=== PATIENT | male | born 1960 | race Caucasian/White ===

== ENCOUNTER 2018-02-07 17:12 | Inpatient (IN) | payer OTHER ==
--- NOTE | 2018-02-07 17:34 | PDOC ---
History of Present Illness - General Chief Complaint: Chest Pain Stated Complaint: RESPIRATORY Time Seen by Provider: 02/07/18 17:23 History Source: Patient - History of Present Illness Initial Comments: 02/07/18 17:34 57 year old male with a PMH of NIDDM presents to our ED c/o worsening 6 week h/ o chest pain. Patient states chest pain is substernal, pressure like, 10/10, worse on exertion, non-radiating and associated with dyspnea and lightheadedness. Denies any previous similar pain or prior cardiac evaluation including stress testing or echocardiogram. Patient states he take Glipizide and Metformin for his DM and he last measured his sugar at home a few weeks previous at which time it was in the 140's. ROS positive for productive cough with yellowish sputum. Patient denies any abdominal pain, nausea/vomiting, diarrhea/constipation, fevers/chills, recent travel and notes sick contact of recently with viral URI. Patient's , Renetta Hamilton ([phone]) NKDA Surgical: B/L Foot surgery Social: lifetime non-smokers, denies alcohol, denies recreational drugs PMD: Dr. Ramon Past History - Past Medical History Allergies/Adverse Reactions: Allergies Allergy/AdvReac Type Severity Reaction Status Date / Time No Known Allergies Allergy Verified 02/07/18 17:35 Home Medications: Ambulatory Orders Diltiazem Cd [Cardizem Cd -] 240 mg PO DAILY 02/07/18 Glipizide 5 mg PO DAILY 02/07/18 metFORMIN HCL [Glucophage -] 500 mg PO BID 02/07/18 Review of Systems - Review of Systems Constitutional: No: Chills, Fever HEENTM: No: Recent change in vision Respiratory: Yes: SOB with Exertion. No: Cough, Orthopnea Cardiac (ROS): Yes: Chest Pain, Lightheadedness, Palpitations. No: Syncope ABD/GI: No: Constipated, Diarrhea, Nausea, Vomiting : No: Burning, Dysuria *Physical Exam - Physical Exam Comments: 02/07/18 18:42 GENERAL: Awake, alert, labored respirations, diaphoretic HEAD: No signs of trauma EYES: PERRLA, EOMI, sclera anicteric, conjunctiva clear ENT: Auricles normal inspection, hearing grossly normal, nares patent, oropharynx clear without exudates. Moist mucosa NECK: Nontender, no stepoffs, Normal ROM, supple, no lymphadenopathy, JVD, or masses LUNGS: Breath sounds equal, clear to auscultation bilaterally. No wheezes, and no crackles HEART: Regular rate and rhythm, normal S1 and S2, no murmurs, rubs or gallops ABDOMEN: Soft, nontender, normoactive bowel sounds. No guarding, no rebound. No masses EXTREMITIES: Normal range of motion, no edema. No clubbing or cyanosis. No cords, erythema, or tenderness ED Treatment Course - LABORATORY CBC & Chemistry Diagram: 02/07/18 17:40 02/07/18 21:45 Medical Decision Making - Medical Decision Making 02/07/18 17:35 57 year old male presents with chest pain -- at presentation tachypneic (RR 30's ) and hypertensive (BP 165/109) --> adult sepsis initiated + BIPPAP. ABG pending. 02/07/18 18:01 Ph 7.1, HCO3 -- SiSx likely 2/2 to DKA. Await CMP (K+) prior to starting insulin 02/07/18 18:03 WBC 35.2 --> will start broad spectrum abx Wet read of CXR shows L sided infiltrate with R sided PVC. 02/07/18 18:17 ABG shows HCO3, pH 7.1 K+ 5.7 Insulin Drip 9 units/hour + 9 unit bolus with repeat K+ in 2 hours, Q1 BS checks , VBG in 2 hours 02/07/18 19:00 Patient continues to breathe on BIPAP . HR 110, RR 28, BP 160/82. Case d /w ICU resident, awaiting call back from Dr. Cabrales (library circulation department chief for Dr. Crisostomo) 02/07/18 19:14 Dr. Cabrales accepts for ICU admission. Hospitalist (covering for patient's PMD, Dr. Ramon) paged for admission. Patient's @ bedside, notes patient recently started on Methylpredisone (4 day course) for unspecified respiratory illness. 02/07/18 19:34 Case d/w LAUREL Manning, agrees with POC, admit under Dr. Herrera. Patient's @ bedside, counseled on POC. 02/07/18 20:03 Patient transferred to ICU. *DC/Admit/Observation/Transfer Diagnosis at time of Disposition: Diabetic ketoacidosis Qualifiers: Diabetes mellitus type: type 2 Diabetes mellitus complication detail: without coma Qualified Code(s): E11.10 - Type 2 diabetes mellitus with ketoacidosis without coma - Discharge Dispostion Condition at time of disposition: Fair Admit: Yes - Referrals - Patient Instructions - Post Discharge Activity
[2018-02-07 17:48] LABS: HEMATOCRIT 46.7 % (35.4-49); HEMOGLOBIN 15.2 GM/dL (11.7-16.9); MCH 31.5 pg (25.7-33.7); MCHC 32.5 g/dl (32.0-35.9); MEAN PLT VOLUME 9.6 fl (7.5-11.1); PLATELET COUNT 507 K/MM3 (134-434); RBC 4.81 M/mm3 (4.00-5.60); RDW 14.6 % (11.9-15.9)
[2018-02-07 17:51] LABS: ADD RBC MORPHOLOGY YES
[2018-02-07 17:57] LABS: VENOUS PO2 35.1 mmHg (28-48)
[2018-02-07 17:58] LABS: VENOUS PH 7.13 (7.32-7.42)
[2018-02-07] MEDS ORDERED: PIPERACILLIN/TAZOB 2.25 GM 2.25 GM/50 ML BAG IVPB ONE (18:02)
[2018-02-07] MEDS ORDERED: VANCOMYCIN 1,000 MG in DEXTROSE 5%-WATER - 250 ML IVPB ONE (18:02)
[2018-02-07 18:11] LABS: ARTERIAL BLD GAS O2 SATURATION 94.8 % (90-98.9); ARTERIAL BLOOD GAS PO2 97.5 mmHg (80-100)
[2018-02-07 18:12] LABS: ALLENS TEST POSITIVE
[2018-02-07 18:14] LABS: ARTERIAL BLOOD GAS PCO2 10.2 mmHg (35-45)
[2018-02-07 18:15] LABS: ARTERIAL BLOOD GAS pH 7.19 (7.35-7.45)
[2018-02-07] MEDS ORDERED: PIPERACILLIN/TAZOBACTAM 2.25 GM VIAL IVPB ONE ×2 (18:26→19:27)
[2018-02-07] MEDS ORDERED: VANCOMYCIN 1 GRAM (PRE-DOCKED) 1,000 MG/250 ML BAG IVPB ONE (18:27)
[2018-02-07 18:28] LABS: ALBUMIN 3.2 g/dl (3.4-5.0); ANION GAP 33 (8-16); BLOOD UREA NITROGEN 36 mg/dL (7-18); CALCIUM 9.5 mg/dL (8.5-10.1); CHLORIDE 90 mmol/L (98-107); CO2 8 mmol/L (21-32); CREATININE 1.8 mg/dL (0.7-1.3); POTASSIUM 5.7 mmol/L (3.5-5.1); SGOT/AST 23 U/L (15-37); SGPT/ALT 35 U/L (12-78); SODIUM 131 mmol/L (136-145)
[2018-02-07 18:29] LABS: ALK PHOS 181 U/L (45-117); BILIRUBIN,TOTAL 1.4 mg/dL (0.2-1.0); TOT PROT 8.7 g/dl (6.4-8.2)
[2018-02-07 18:36] LABS: WHITE BLOOD COUNT 32.5 K/mm3 (4.0-10.0)
[2018-02-07 18:37] LABS: PLATELET ESTIMATE ADEQUATE
[2018-02-07 18:47] LABS: GLUCOSE,RANDOM 696 mg/dL (74-106)
[2018-02-07] MEDS ORDERED: SODIUM CHLORIDE 1,000 ML IV STA ×2 (18:52→18:54)
[2018-02-07] MEDS ORDERED: INSULIN REGULAR HUMAN 100 UNITS/ML *VIAL IVPUSH ONE (18:53)
[2018-02-07 18:55] LABS: MAGNESIUM 2.8 mg/dL (1.8-2.4); PHOSPHOROUS 6.7 mg/dL (2.5-4.9)
[2018-02-07 18:56] LABS: INR 1.32 (0.82-1.09); PROTHROMBIN TIME (PATIENT) 14.9 SEC (9.98-11.88)
[2018-02-07] MEDS ORDERED: PIPERACILLIN/TAZOB 2.25 GM/50 ML PREMIX BAG IVPB ONE (18:56)
[2018-02-07] MEDS ORDERED: PIPERACILLIN/TAZOB 4.5 GM/100 ML PREMIX BAG IVPB ONE (18:56)
[2018-02-07 18:59] LABS: URINE APPEARANCE CLEAR; URINE BILIRUBIN NEGATIVE (<2.0 mg/dL); URINE COLOR LTYELLOW; URINE GLUCOSE (UA) 3+ (NEGATIVE); URINE KETONE 2+ (NEGATIVE); URINE LEUK ESTERASE NEGATIVE (NEGATIVE); URINE NITRITE NEGATIVE (NEGATIVE); URINE UROBILINOGEN NEGATIVE mg/dL (0.2-1.0)
[2018-02-07 18:59] LABS: ACTIVATED PTT 35.5 SECONDS (26.9-34.4)
[2018-02-07] MEDS ORDERED: INSULIN REGULAR 100 UNITS in SODIUM CHLORIDE 99 ML IVPB SCH (19:00)
[2018-02-07 19:09] LABS: URINE PROTEIN 1+ (NEGATIVE)
[2018-02-07] MEDS ORDERED: INSULIN REGULAR HUMAN 100 UNITS/ML *VIAL ONE (19:17)
--- NOTE | 2018-02-07 19:24 | PDOC ---
Attending Attestation - Resident Resident Name: RenettaMavis - ED Attending Attestation I have performed the following: I have examined & evaluated the patient, The case was reviewed & discussed with the resident, I agree w/resident's findings & plan, Exceptions are as noted - HPI HPI: 02/07/18 19:20 57-year-old male with a history of [id number] diabetes on metformin and glipizide presents to the emergency Department with 6 weeks of progressive diffuse chest pain associated with 3 days of shortness of breath. Denies fevers/ chills. Fingerstick on arrival to the emergency department critically high. - Physicial Exam PE: 02/07/18 19:21 GENERAL: Awake, alert, and fully oriented, in moderate resp distress HEAD: No signs of trauma EYES: PERRLA, EOMI, sclera anicteric, conjunctiva clear ENT: Auricles normal inspection, hearing grossly normal, nares patent, oropharynx clear without exudates. Moist mucosa NECK: Normal ROM, supple, no lymphadenopathy, JVD, or masses LUNGS:diminshed BS on the R, tachypneic to 30 HEART: tachy but regular to 110, normal S1 and S2, no murmurs, rubs or gallops ABDOMEN: Soft, nontender, normoactive bowel sounds. No guarding, no rebound. No masses EXTREMITIES: Normal range of motion, no edema. No clubbing or cyanosis. No cords, erythema, or tenderness NEUROLOGICAL: Normal speech, cranial nerves intact, negative pronator drift, 5/ 5 strength in all 4 extremities, normal sensation to light touch in all 4 extremities, normal cerebellar exam, normal gait, normal reflexes and tone SKIN: Warm, Dry, normal turgor, no rashes or lesions noted. - Medical Decision Making 02/07/18 19:22 57-year-old male presents the emergency department in DKA. Given rest for distress, was placed on BiPAP for rest or support. Glucose 696 with a anion gap of 33 and 3+ acetone. PH 7.1 on ABG. Insulin drip started at 9 units per hour within 9 unit bolus. Potassium 5.7, mag and phosphorus also at elevated levels thus no need for repletion at this time. Patient is on second liter of normal saline. Patient has been accepted to ICU, we are calling the hospitalist for admission at this time.
[2018-02-07] MEDS ORDERED: SODIUM CHLORIDE 1,000 ML IV SCH ×4 (19:44→20:49)
--- NOTE | 2018-02-07 19:51 | PN ---
Progress Note (short form) - Note Progress Note: ICU Resident Pt seen and examined in ED. Briefly, 57yo M with history of NIDDM on glipizide and metformin presented to the ED for 6wk history of chest discomfort ( substernal pressure with worsening on exertion) and SOB alongside lightheadedness. Pt's reports having the flu/a viral illness last week and then her started to develop symptoms of a nonproductive cough. Pt reports only hypertension as his cardiac history and has not ever had any stress testing or echocardiogram. During his ED stay pt was found to be kussmaul breathing and was found to have a glucose lvl of 678. ABG revealed 7.12 pH. CMP resulted in 5.7 K, 8 HCO3, and an anion gap of 33. Pt's DKA was confirmed with 2+ ketones in the urine. Pt wsa bolused 9 units of novolog and started on insulin gtt at 0.1U/kg/hr. In addition pt was found to have a WBC of 35 and on CXR a questionable infiltrative process is seen Brief PE: Gen: Mild distress, on bipap, awake, alert and oriented x3, HEENT: EOMI, CRISSY, sclera nonicteric, dry mucosa, no JVD Lungs: Coarse breath sounds anteriorly b/l (possibility of transmitted upper resp sounds), no overt wheezing, no rales Cardiac: Tachycardic regular rhythm no murmurs appreciated Abdominal: Soft, normoactive BS, mild diffuse tenderness, no rebound, no guarding, no ecchymotic areas EXT: No edema noted, DP pulses strong and 2+, warm, cap refill <2 A/P DKA Lactic acidosis r/o CAPna Hx HTN --insulin gtt 0.1U/kg/hr --bolused 9 units in ED --Goal = anion gap closed; if glucose <250 can start D5 with IVF, if glucose 50-70 can possibly use D10 until gap closed --NPO for now --BGM q2h --BMP q4h --NS@150cc/hr --routine labs AM --CXR in AM --Vanc/Zosyn given in ED --Continue Zosyn overnight --BCx and UCx pending --Flu swab pending --Maintain SpO2 >90%; can most likely use NC at this point --Monitor BP Toney Bashir, DO - IM PGY-1
--- NOTE | 2018-02-07 20:19 | HP ---
CHIEF COMPLAINT: Chest pain PCP: Tristen HISTORY OF PRESENT ILLNESS: This is a 57 year old male with a past medical history of NIDDM and HTN who presented to the ED with a 2 week h/o chest pain. He also reports dyspnea and lightheadedness. Pt reports viral like illness approximately 2 weeks ago with subjective fever, chills, cough and has not been feeling well since. Pt with poor po intake over past few days with almost no intake x 2 days. Also reports h /o chronic dry cough, luis at work x 2-3 years. Pt currently on BiPAP ER course was notable for: (1) Gluc 696, 3+ acetone, pH 7.19 (2) WBC 32.5 (3) CXR with haziness right upper/mid Recent Travel: pt denies PAST MEDICAL HISTORY: HTN, NIDDM PAST SURGICAL HISTORY: foot surgery Social History: works in a bakery Smoking: pt denies Alcohol: occasional Drugs: pt denies Allergies No Known Allergies Allergy (Verified 02/07/18 17:35) HOME MEDICATIONS: 3 Medication Instructions Recorded Diltiazem Cd [Cardizem Cd -] 240 mg PO DAILY 02/07/18 Glipizide 5 mg PO DAILY 02/07/18 metFORMIN HCL [Glucophage -] 500 mg PO BID 02/07/18 REVIEW OF SYSTEMS CONSTITUTIONAL: Absent: fever, chills, diaphoresis, generalized weakness, malaise, loss of appetite, weight change HEENT: Absent: rhinorrhea, nasal congestion, throat pain, throat swelling, difficulty swallowing, mouth swelling, ear pain, eye pain, visual changes CARDIOVASCULAR: Present: chest pain, lightheadedness Absent: syncope, palpitations, irregular heart rate, peripheral edema RESPIRATORY: Present: cough, shortness of breath Absent: dyspnea with exertion, orthopnea, wheezing, stridor, hemoptysis GASTROINTESTINAL: Absent: abdominal pain, abdominal distension, nausea, vomiting, diarrhea, constipation, melena, hematochezia GENITOURINARY: Absent: dysuria, frequency, urgency, hesitancy, hematuria, flank pain, genital pain MUSCULOSKELETAL: Absent: myalgia, arthralgia, joint swelling, back pain, neck pain SKIN: Absent: rash, itching, pallor HEMATOLOGIC/IMMUNOLOGIC: Absent: easy bleeding, easy bruising, lymphadenopathy, frequent infections ENDOCRINE: Absent: unexplained weight gain, unexplained weight loss, heat intolerance, cold intolerance NEUROLOGIC: Absent: headache, focal weakness or paresthesias, dizziness, unsteady gait, seizure, mental status changes, bladder or bowel incontinence PSYCHIATRIC: Absent: anxiety, depression, suicidal or homicidal ideation, hallucinations. PHYSICAL EXAMINATION Vital Signs - 24 hr 3 02/07/18 02/07/18 02/07/18 17:15 17:46 17:50 Temperature 97.2 F L 99.4 F Pulse Rate 117 H Pulse Rate [ Apical] Respiratory 34 H Rate Blood Pressure 165/109 Blood Pressure [Left Arm] O2 Sat by Pulse 95 100 Oximetry (%) 3 02/07/18 02/07/18 02/07/18 18:13 18:36 19:02 Temperature Pulse Rate Pulse Rate [ 117 H 110 H Apical] Respiratory 30 H 30 H Rate Blood Pressure Blood Pressure 159/98 160/88 [Left Arm] O2 Sat by Pulse 100 96 96 Oximetry (%) GENERAL: Awake, alert, and fully oriented, in no acute distress. HEAD: Normal with no signs of trauma. EYES: Pupils equal, round and reactive to light, extraocular movements intact, sclera anicteric, conjunctiva clear. No lid lag. EARS, NOSE, THROAT: Ears normal, nares patent, oropharynx clear without exudates. Moist mucous membranes. NECK: Normal range of motion, supple without lymphadenopathy, JVD, or masses. LUNGS: Breath sounds equal, clear to auscultation bilaterally. No wheezes, and no crackles. No accessory muscle use. HEART: Regular rate and rhythm, normal S1 and S2 without murmur, rub or gallop. ABDOMEN: Soft, nontender, not distended, normoactive bowel sounds, no guarding, no rebound, no masses. No hepatomegaly or splenomegaly. MUSCULOSKELETAL: Normal range of motion at all joints. No bony deformities or tenderness. No CVA tenderness. UPPER EXTREMITIES: 2+ pulses, warm, well-perfused. No cyanosis. No clubbing. No peripheral edema. LOWER EXTREMITIES: 2+ pulses, warm, well-perfused. No calf tenderness. No peripheral edema. NEUROLOGICAL: Cranial nerves II-XII intact. Normal speech. Gait not observed PSYCHIATRIC: Cooperative. Good eye contact. Appropriate mood and affect. SKIN: Warm, dry, normal turgor, no rashes or lesions noted, normal capillary refill. Laboratory Results - last 24 hr 3 02/07/18 02/07/18 02/07/18 17:40 17:40 17:40 WBC 32.5 H* RBC 4.81 Hgb 15.2 Hct 46.7 MCV 97.0 H MCH 31.5 MCHC 32.5 RDW 14.6 Plt Count 507 H MPV 9.6 Neutrophils % No Result Required. Neutrophils % (Manual) 77.0 Band Neutrophils % 10.0 Lymphocytes % No Result Required. Lymphocytes % (Manual) 5.0 L Monocytes % (Manual) 7 Metamyelocytes 1 Platelet Estimate Adequate PT with INR 14.90 H INR 1.32 H PTT (Actin FS) 35.5 H Puncture Site ABG pH ABG pCO2 at Pt Temp ABG pO2 at Pt Temp ABG HCO3 ABG O2 Sat (Measured) ABG O2 Content ABG Base Excess Elias Test VBG pH 7.13 L* POC VBG pCO2 22.0 L POC VBG pO2 35.1 Mixed VBG HCO3 7.1 L* Methemoglobin Oxygen Flow Rate Sodium Potassium Chloride Carbon Dioxide Anion Gap BUN Creatinine Creat Clearance w eGFR Random Glucose Lactic Acid Calcium Phosphorus Magnesium Total Bilirubin AST ALT Alkaline Phosphatase Troponin I Total Protein Albumin Urine Color Urine Appearance Urine pH Ur Specific [place] Urine Protein Urine Glucose (UA) Urine Ketones Urine Blood Urine Nitrite Urine Bilirubin Urine Urobilinogen Ur Leukocyte Esterase Acetone, Qual 3 02/07/18 02/07/18 02/07/18 17:40 17:40 17:40 WBC RBC Hgb Hct MCV MCH MCHC RDW Plt Count MPV Neutrophils % Neutrophils % (Manual) Band Neutrophils % Lymphocytes % Lymphocytes % (Manual) Monocytes % (Manual) Metamyelocytes Platelet Estimate PT with INR INR PTT (Actin FS) Puncture Site ABG pH ABG pCO2 at Pt Temp ABG pO2 at Pt Temp ABG HCO3 ABG O2 Sat (Measured) ABG O2 Content ABG Base Excess Elias Test VBG pH POC VBG pCO2 POC VBG pO2 Mixed VBG HCO3 Methemoglobin Oxygen Flow Rate Sodium 131 L Potassium 5.7 H Chloride 90 L Carbon Dioxide 8 L Anion Gap 33 H BUN 36 H Creatinine 1.8 H Creat Clearance w eGFR 39.23 Random Glucose 696 H* Lactic Acid 4.0 H* Calcium 9.5 Phosphorus 6.7 H Magnesium 2.8 H Total Bilirubin 1.4 H AST 23 ALT 35 Alkaline Phosphatase 181 H Troponin I < 0.02 Total Protein 8.7 H Albumin 3.2 L Urine Color Urine Appearance Urine pH Ur Specific [place] Urine Protein Urine Glucose (UA) Urine Ketones Urine Blood Urine Nitrite Urine Bilirubin Urine Urobilinogen Ur Leukocyte Esterase Acetone, Qual 3 02/07/18 02/07/18 02/07/18 18:09 18:17 18:35 WBC RBC Hgb Hct MCV MCH MCHC RDW Plt Count MPV Neutrophils % Neutrophils % (Manual) Band Neutrophils % Lymphocytes % Lymphocytes % (Manual) Monocytes % (Manual) Metamyelocytes Platelet Estimate PT with INR INR PTT (Actin FS) Puncture Site Right radial ABG pH 7.19 L* ABG pCO2 at Pt Temp 10.2 L* ABG pO2 at Pt Temp 97.5 ABG HCO3 3.8 L* ABG O2 Sat (Measured) 94.8 ABG O2 Content No Result Required. ABG Base Excess -24.0 L* Elias Test Positive VBG pH POC VBG pCO2 POC VBG pO2 Mixed VBG HCO3 Methemoglobin 1.6 H Oxygen Flow Rate No Result Required. Sodium Potassium Chloride Carbon Dioxide Anion Gap BUN Creatinine Creat Clearance w eGFR Random Glucose Lactic Acid Calcium Phosphorus Magnesium Total Bilirubin AST ALT Alkaline Phosphatase Troponin I Total Protein Albumin Urine Color Ltyellow Urine Appearance Clear Urine pH 5.0 Ur Specific [place] 1.025 Urine Protein 1+ H Urine Glucose (UA) 3+ H Urine Ketones 2+ H Urine Blood 2+ H Urine Nitrite Negative Urine Bilirubin Negative Urine Urobilinogen Negative Ur Leukocyte Esterase Negative Acetone, Qual Positive large 3+ ECG Sinus tachycardia vent rate 117, QTC 438 Peaked Ts in lead 2, V3, V4, V5, V6 No other acute ST/T wave changes Radiology Reports CXR, port-official read pending. Haziness noted R upper and mid lung foley ASSESSMENT/PLAN: 57yM with PMH DM, HTN presented to the ED with 2 week h/o chest pain. He was found to have hyperglycemia and acidemia. DKA - cont insulin drip at 9u/hr, awaiting repeat BMP - BGM q2h - BMP q4h - NS @ 200cc/hr - NPO except water and ice chips for now - change IVF to D5/NS and reduce rate when glucose 200 sepsis - Likely secondary to CAP - given vanc and zosyn in the ED, consider deescalating to CTX and azithro, will obtain ID consult - cont NS - repeat lactic acid 9PM hyperkalemia - will not correct as pt on insulin drip, monitor K, repeat BMP due 9PM HTN - home meds in AM with hold parameters DVT ppx - heparin SC FEN - NS @ 200cc/hr - BMP 9PM - NPO for now, reassess when glucose lower Dispo: Pt currently requires ICU level care. Visit type - Emergency Visit Emergency Visit: Yes ED Registration Date: 02/07/18 Care time: The patient presented to the Emergency Department on the above date and was hospitalized for further evaluation of their emergent condition. - New Patient This patient is new to me today: Yes Date on this admission: 02/07/18 - Critical Care Critical Care patient: Yes Total Critical Care Time (in minutes): 45 Critical Care Statement: The care of this patient involved high complexity decision making to prevent further life threatening deterioration of the patient 's condition and/or to evaluate & treat vital organ system(s) failure or risk of failure. Hospitalist Screening - Colonoscopy Questionnaire Colonoscopy Questionnaire: Colonoscopy Questionnaire - Patient: 50 - 75 years old and never had a screening colonoscopy: Unknown History of colon or rectal polyps, or CA: Unknown History of IBD, Crohn's disease or UC: Unknown History of abdominal radiation therapy as a child: Unknown - Relative: 1 with colon or rectal CA, or polyps at age 60 or younger: Unknown Colon or rectal CA diagnosed at age 45 or younger: Unknown Multiple relatives with colon or rectal CA: Unknown - Outcome: Screening Result: Negative Screen
[2018-02-07 20:28] LABS: EPI CELLS RARE /HPF (FEW); URINE MUCUS RARE
[2018-02-07 20:57] VITALS: BMI 33.9
--- NOTE | 2018-02-07 20:59 | CONSULT ---
Consult Consult Specialty:: ICU Reason for Consultation:: DKA, PNA - History of Present Illness Chief Complaint: cough, fatigue, SOB History of Present Illness: 57 yo male with pmhx NIDDM, HTN who presented to ED with c/o fatigue/malaise, chills, non-productive wet cough, SOB over the last 3 weeks, found to be in DKA in ED and possible bacterial pna, admitted to ICU for further management. While in ED, labs notable for WBC 32, Glucose 696, pH 7.19, AG 33, K 5.7, and HCO38. +ketones in urine, confirming DKA. Given 2L NS bolus and bolused 6u Novolog and then started on insulin gtt. He was noted to have kussmaul breathing and started on bipap. CXR had questionable right sided infiltrate and with WBC 35, he was started on abx with Vanc/Zosyn for possible bacterial PNA. Flu swab negative. Arrived to ICU AAOx3 on Bipap 12/7, 50%, Rt 28. Able to answer all questions. Initial vitals BP 149/107, HR 103, RR 30, and O2sat 100%. His and himself reports feeling as though they had the flu, starting about 3 weeks ago. Denies sick contacts but both had flu-like symptoms which included fatigue/malaise, chills, cough, and poor appetite. Over the last few days, patient noted more fatigue and reports very poor appetite. He describes his cough as non- productive. He has had worsening SOB with exertion over the last few days. He also describes a chest pressure that he states started at the same time as these symptoms about 3 weeks ago and describes it as right sided pressure with cough. 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 Has 2 cats at home. - History Source History Provided By: Patient, Significant Other () Limitations to Obtaining History: No Limitations - Past Medical History Cardio/Vascular: Yes: HTN Pulmonary: Yes: Other (chronic dry cough ~2-3years) Endocrine: Yes: Diabetes Mellitus - Past Surgical History Additional Surgical History: foot surgery - Alcohol/Substance Use Hx Alcohol Use: Yes (socially) History of Substance Use: reports: None - Smoking History Smoking history: Never smoked Have you smoked in the past 12 months: No - Social History Usual Living Arrangement: With Spouse ADL: Independent Place of : [place] History of Recent Travel: No Home Medications - Allergies Allergies/Adverse Reactions: Allergies Allergy/AdvReac Type Severity Reaction Status Date / Time No Known Allergies Allergy Verified 02/07/18 17:35 - Home Medications Home Medications: Ambulatory Orders Diltiazem Cd [Cardizem Cd -] 240 mg PO DAILY 02/07/18 Glipizide 5 mg PO DAILY 02/07/18 metFORMIN HCL [Glucophage -] 500 mg PO BID 02/07/18 Review of Systems - Review of Systems Constitutional: reports: Chills, Lethargy, Loss of Appetite, Malaise, Weakness Eyes: reports: No Symptoms HENT: reports: Other (headache intermittently) Neck: reports: No Symptoms Cardiovascular: reports: No Symptoms Respiratory: reports: Cough, SOB on Exertion, Other (pleuritic chest pain) Gastrointestinal: reports: No Symptoms Genitourinary: reports: No Symptoms Musculoskeletal: reports: No Symptoms Integumentary: reports: No Symptoms Neurological: reports: Headache Endocrine: reports: No Symptoms (denies) Physical Exam Vital Signs: Vital Signs Temperature 99.4 F 02/07/18 17:46 Pulse Rate 110 H 02/07/18 19:02 Respiratory Rate 30 H 02/07/18 19:02 Blood Pressure 160/88 02/07/18 19:02 O2 Sat by Pulse Oximetry (%) 96 02/07/18 19:02 Constitutional: Yes: Calm Eyes: Yes: EOM Intact, PERRL (~3mm bilaterally) Neck: Yes: WNL Cardiovascular: Yes: Regular Rate and Rhythm Respiratory: Yes: CTA Bilaterally, On BiPap, SOB on Exertion Gastrointestinal: Yes: Normal Bowel Sounds, Soft Edema: No Peripheral Pulses WNL: Yes Integumentary: Yes: WNL Neurological: Yes: Alert, Oriented ...Motor Strength: WNL Psychiatric: Yes: WNL Labs: CBC, BMP 02/07/18 17:40 02/07/18 17:40 ABG Results ABG pH 7.19 (7.35-7.45) L* 02/07/18 18:09 ABG pCO2 at Pt Temp 10.2 mmHg (35-45) L* 02/07/18 18:09 ABG pO2 at Pt Temp 97.5 mmHg (80-100) 02/07/18 18:09 ABG HCO3 3.8 meq/L (22-26) L* 02/07/18 18:09 ABG O2 Sat (Measured) 94.8 % (90-98.9) 02/07/18 18:09 ABG O2 Content No Result Required. 02/07/18 18:09 ABG Base Excess -24.0 meq/l (-2-2) L* 02/07/18 18:09 Hepatic Panel Total Bilirubin 1.4 mg/dL (0.2-1.0) H 02/07/18 17:40 AST 23 U/L (15-37) 02/07/18 17:40 ALT 35 U/L (12-78) 02/07/18 17:40 Alkaline Phosphatase 181 U/L (45-117) H 02/07/18 17:40 Albumin 3.2 g/dl (3.4-5.0) L 02/07/18 17:40 Microbiology 02/07/18 17:40 Influenza Types A,B Antigen (JORGE) - Final Nasopharyngeal Swab - Final Urine Test Results Urine Color Ltyellow 02/07/18 18:35 Urine Appearance Clear 02/07/18 18:35 Urine pH 5.0 (5.0-8.0) 02/07/18 18:35 Ur Specific [place] 1.025 (1.001-1.035) 02/07/18 18:35 Urine Protein 1+ (NEGATIVE) H 02/07/18 18:35 Urine Glucose (UA) 3+ (NEGATIVE) H 02/07/18 18:35 Urine Ketones 2+ (NEGATIVE) H 02/07/18 18:35 Urine Blood 2+ (NEGATIVE) H 02/07/18 18:35 Urine Nitrite Negative (NEGATIVE) 02/07/18 18:35 Urine Bilirubin Negative (<2.0 mg/dL) 02/07/18 18:35 Ur Leukocyte Esterase Negative (NEGATIVE) 02/07/18 18:35 Ur Epithelial Cells Rare /HPF (FEW) 02/07/18 18:35 Urine Mucus Rare 02/07/18 18:35 Imaging - Results Chest X-ray: Image Reviewed (Rt middle lobe haziness, possible infiltrate.) Problem List - Problems (1) Diabetic ketoacidosis Code(s): E13.10 - OTH DIABETES MELLITUS WITH KETOACIDOSIS WITHOUT COMA Qualifiers: Diabetes mellitus type: type 2 Diabetes mellitus complication detail: without coma Qualified Code(s): E11.10 - Type 2 diabetes mellitus with ketoacidosis without coma Assessment/Plan 57 yo male with pmhx NIDDM, HTN who presented to ED with c/o fatigue/malaise, chills, non-productive wet cough, SOB over the last 3 weeks, found to be in DKA in setting of likely recent viral syndrome and now possible bacterial pna, treating for DKA with fluids and insulin gtt, broadly covered with abx, and admitted to ICU for further management. -Cont Insulin gtt at 0.1u/kg/hr with FSs q2 for DKA -Monitor anion gap -Serial BMPs -Corrected Na = 140; running NS @ 200cc/hr for now but low threshold to change to 1/2 NS -When glucose <200, will decrease Insulin gtt to 0.05u/kg/hr and will change fluid to D5 0.45% NS@ 150cc/hr. -Replete K if falls <5.3 while on DKA regimen -NPO while on bipap -Monitor CXR -f/u blood, urine cultures -Check urine antigens -Send sputum cx if patient able to provide -s/p Vanc/Zosyn in ED --> can likely deescalate to cover for CAP with Ceftriaxone and Azithro -Hold diltiazem for now --> can resume if remains hypertensive -DVT ppx -No indication for GI ppx Critical Care Time: 45minutes
[2018-02-07] MEDS ORDERED: PNEUMOC 13-VAL CONJ-DIP CRM/PF 0.5 ML DISP.SYRIN IM ONE (21:02)
[2018-02-07] MEDS: MUPIROCIN 2% TOPICAL OINTMENT FOR DECOLONIZATION NS SCH (22:18)
[2018-02-07] MEDS: CHLORHEXIDINE GLUCONATE 4% CLEANSER FOR DECOLONIZATION TP SCH (22:19)
[2018-02-07 22:31] LABS: ANION GAP 22 (8-16); BLOOD UREA NITROGEN 30 mg/dL (7-18); CALCIUM 8.2 mg/dL (8.5-10.1); CHLORIDE 106 mmol/L (98-107); CO2 10 mmol/L (21-32); CREATININE 1.3 mg/dL (0.7-1.3); POTASSIUM 4.2 mmol/L (3.5-5.1); SODIUM 138 mmol/L (136-145)
[2018-02-07 22:38] LABS: GLUCOSE,RANDOM 397 mg/dL (74-106)
[2018-02-08] MEDS ORDERED: POTASSIUM CHLORIDE ORAL LIQUID 20 MEQ/15 ML PO ONE (02:22)
[2018-02-08] MEDS ORDERED: PT OWN MED DRAWER 7, Y5N ONE ×2 (02:23→19:59)
[2018-02-08] MEDS ORDERED: INSULIN REGULAR 100 UNITS in SODIUM CHLORIDE 99 ML IVPB SCH (02:35)
[2018-02-08] MEDS ORDERED: DEXTROSE 5%-0.45% SALINE 1,000 ML IV SCH (02:45)
[2018-02-08 03:17] LABS: HEMOGLOBIN 12.3 GM/dL (11.7-16.9); MCH 31.6 pg (25.7-33.7); MCHC 34.2 g/dl (32.0-35.9); MEAN CELL VOLUME 92.5 fl (80-96); MEAN PLT VOLUME 8.8 fl (7.5-11.1); PLATELET COUNT 337 K/MM3 (134-434); RBC 3.89 M/mm3 (4.00-5.60); RDW 13.3 % (11.9-15.9); WHITE BLOOD COUNT 24.6 K/mm3 (4.0-10.0)
[2018-02-08 03:39] LABS: ANION GAP 8 (8-16); BLOOD UREA NITROGEN 18 mg/dL (7-18); CHLORIDE 96 mmol/L (98-107); CO2 28 mmol/L (21-32); CREATININE 0.8 mg/dL (0.7-1.3); POTASSIUM 3.1 mmol/L (3.5-5.1); SODIUM 132 mmol/L (136-145)
[2018-02-08 03:44] LABS: GLUCOSE,RANDOM 309 mg/dL (74-106)
[2018-02-08 03:55] LABS: MAGNESIUM 1.7 mg/dL (1.8-2.4); PHOSPHOROUS 1.9 mg/dL (2.5-4.9)
[2018-02-08] MEDS ORDERED: D5-1/2NS+40 MEQ KCL - 40 MEQ/1,000 ML INFUS.BAG IV SCH (04:15)
[2018-02-08] MEDS ORDERED: MAGNESIUM SULF 50% (8.12 MEQ/2 ML-1 GM VIAL) IVPB ONE (04:37)
[2018-02-08] MEDS ORDERED: POTASSIUM CHLORIDE 10 MEQ in SODIUM CHLORIDE 100 ML IVPB SCH (04:45)
[2018-02-08] MEDS ORDERED: POTASSIUM CHLORIDE 20 MEQ in SODIUM CHLORIDE 250 ML IVPB ONE (05:00)
[2018-02-08] MEDS: HEPARIN NA (PORCINE) 5,000 UNITS/ML 1ML VIAL SQ SCH ×3 (06:30→21:14)
[2018-02-08] MEDS: guaiFENesin 200 MG/10 ML 10 ML UNIT-DOSE CUPS PO PRN ×2 (06:32→21:14)
[2018-02-08] MEDS ORDERED: SODIUM CHLORIDE 0.45% 1,000 ML with POTASSIUM CHLORIDE 40 MEQ IVPB SCH ×2 (07:00)
--- NOTE | 2018-02-08 07:15 | PN ---
Progress Note (short form) - Note Progress Note: c/o non productive cough and generalized malaise. states he has never been hospitalized for DKA in the past. was having poor oral intake the past week but was compliant with his medications. checked sugar regularly and typically gets 120-200. denies CP, SOB, fever, chills, N/V/C/D insulin naive Current Medications Generic Name Dose Route Start Last Admin Trade Name Freq PRN Reason Stop Dose Admin Chlorhexidine Gluconate 1 applic 02/07/18 22:00 02/07/18 22:19 Hibiclens For Decolonization - TP 1 applic HS ELVIRA Administration Guaifenesin 10 ml 02/08/18 05:45 02/08/18 06:32 Robitussin - PO 10 ml Q6H PRN Administration COUGH Heparin Sodium (Porcine) 5,000 unit 02/08/18 06:00 02/08/18 06:30 Heparin - SQ 5,000 unit TID ELVIRA Administration Insulin Human Regular 100 100 mls @ 4.64 mls/hr 02/08/18 02:35 02/08/18 06:39 units/ Sodium Chloride IVPB 0.07 units/kg/hr TITR ELVIRA 7 mls/hr Protocol Titration 0.05 UNITS/KG/HR Potassium Chloride 40 meq/ 1,020 mls @ 125 mls/hr 02/08/18 07:00 02/08/18 07: 10 Sodium Chloride IVPB 125 mls/hr Q8H ELVIRA Administration Influenza Virus Vaccine Quadrival 60 mcg 02/07/18 21:00 Flulaval Quad [id number] IM 02/07/18 21:01 .ONCE ONE Mupirocin 1 applic 02/07/18 22:00 02/07/18 22:18 Bactroban Ointment (For Decolonization) - NS 02/12/18 21:59 1 applic BID ELVIRA Administration Pneumococcal 13-Valent Conj Vacc 0.5 ml 02/07/18 21:02 Prevnar 13 Syringe - IM 02/07/18 21:03 .ONCE ONE Last Vital Signs Temp Pulse Resp BP Pulse Ox 98.3 F 108 H 28 H 134/85 95 02/08/18 04:14 02/08/18 06:14 02/08/18 06:14 02/08/18 06:14 02/08/18 07:09 Intake & Output 02/05/18 02/06/18 02/07/18 02/08/18 23:59 23:59 23:59 23:59 Intake Total 627 Output Total 1800 Balance -1173 Weight 216 lb 7 oz 216 lb 7 oz General mild discomfort due to cough CV S1 S2 RRR no murmur/rub/gallop Lungs decreased breath sounds, poor inspiratory effort Abdomen soft NT/ND obese Extremities no pedal edema CBCD WBC 24.6 K/mm3 (4.0-10.0) H 02/08/18 03:00 RBC 3.89 M/mm3 (4.00-5.60) L 02/08/18 03:00 Hgb 12.3 GM/dL (11.7-16.9) D 02/08/18 03:00 Hct 36.0 % (35.4-49) D 02/08/18 03:00 MCV 92.5 fl (80-96) 02/08/18 03:00 MCHC 34.2 g/dl (32.0-35.9) 02/08/18 03:00 RDW 13.3 % (11.9-15.9) 02/08/18 03:00 Plt Count 337 K/MM3 (134-434) D 02/08/18 03:00 MPV 8.8 fl (7.5-11.1) 02/08/18 03:00 CMP Sodium 132 mmol/L (136-145) L 02/08/18 03:00 Potassium 3.1 mmol/L (3.5-5.1) L D 02/08/18 03:00 Chloride 96 mmol/L (98-107) L 02/08/18 03:00 Carbon Dioxide 28 mmol/L (21-32) D 02/08/18 03:00 Anion Gap 8 (8-16) 02/08/18 03:00 BUN 18 mg/dL (7-18) D 02/08/18 03:00 Creatinine 0.8 mg/dL (0.7-1.3) D 02/08/18 03:00 Creat Clearance w eGFR 39.23 (>60) 02/07/18 17:40 Calcium 8.0 mg/dL (8.5-10.1) L 02/08/18 03:00 Total Bilirubin 1.4 mg/dL (0.2-1.0) H 02/07/18 17:40 AST 23 U/L (15-37) 02/07/18 17:40 ALT 35 U/L (12-78) 02/07/18 17:40 Alkaline Phosphatase 181 U/L (45-117) H 02/07/18 17:40 Total Protein 8.7 g/dl (6.4-8.2) H 02/07/18 17:40 Albumin 3.2 g/dl (3.4-5.0) L 02/07/18 17:40 Microbiology 02/07/18 17:40 Nasopharyngeal Swab Influenza Types A,B Antigen (JORGE) - Final 02/07/18 17:40 Nasopharyngeal Swab - Final A/P 57yo M with PMH DM and HTN presented with cough, subjective fevers and generalized malaise and found to be in DKA 1. DKA- AG closed at 3am however pt was sleeping and refused to eat. will feed at this point. GIve levemir 10units now with breakfast. stop insulin ggt in 2H, can d/c IVF once tolerating diet. monitor BMP Q4H. once stable can check sugars ACHS 2. Sepsis due to PNA- afebrile. received vanco/zosyn in the ER. no risk factors. will transition to Ceftriaxone/azithromycin. robitussin PRN, supplemental o2 prn. f/u Cx, Uag 3. AG metabolic acidosis- due to lactic acidosis. pH 7.4. now resolved. 4. ALPESH- due to dehydration. now resolved. can d/c luna once ambulating 5. Hypomagnesemia- replete 6. Hypokalemia- replete 7. Pseudohyponatremia 8. HTN urgency- BP 165/110 on admission. now normotensive with no medications. would monitor now off medications. re-start as needed 9. DVT ppx- hep sq 10. MICU monitoring. once AG and sugars remain stable can transfer to floors Visit type - Emergency Visit Emergency Visit: Yes ED Registration Date: 02/07/18 Care time: The patient presented to the Emergency Department on the above date and was hospitalized for further evaluation of their emergent condition. - New Patient This patient is new to me today: Yes Date on this admission: 02/08/18 - Critical Care Critical Care patient: Yes Total Critical Care Time (in minutes): 40 Critical Care Statement: The care of this patient involved high complexity decision making to prevent further life threatening deterioration of the patient 's condition and/or to evaluate & treat vital organ system(s) failure or risk of failure. - Discharge Referral Referred to [facility] No
[2018-02-08 07:49] LABS: ARTERIAL BLOOD GAS PCO2 28.4 mmHg (35-45)
[2018-02-08 07:50] LABS: ALLENS TEST POSITIVE; ARTERIAL BLD GAS O2 SATURATION 94.5 % (90-98.9); ARTERIAL BLOOD GAS PO2 68.3 mmHg (80-100)
[2018-02-08] MEDS ORDERED: INSULIN (LEVEMIR) 100 UNITS/ML UNITS SQ ONE (07:55)
[2018-02-08] MEDS ORDERED: PNEUMOCOCCAL 23 VACCINE 0.5 ML VIAL IM ONE (09:00)
[2018-02-08] MEDS: MUPIROCIN 2% TOPICAL OINTMENT FOR DECOLONIZATION NS SCH ×2 (10:00→21:14)
[2018-02-08] MEDS ORDERED: FLU VACCINE QUAD 60 MCG/0.5 ML (MDV 17-18) IM ONE (10:00)
[2018-02-08 10:25] LABS: ANION GAP 9 (8-16); BLOOD UREA NITROGEN 17 mg/dL (7-18); CALCIUM 7.8 mg/dL (8.5-10.1); CHLORIDE 109 mmol/L (98-107); CO2 20 mmol/L (21-32); CREATININE 0.9 mg/dL (0.7-1.3); GLUCOSE,RANDOM 260 mg/dL (74-106); POTASSIUM 4.2 mmol/L (3.5-5.1); SODIUM 138 mmol/L (136-145)
[2018-02-08] MEDS: CEFTRIAXONE 2 GM in DEXTROSE 5%-WATER 100 ML IVPB SCH (10:30)
--- NOTE | 2018-02-08 10:48 | PN ---
Progress Note (short form) - Note Progress Note: PULM/CCM Seen and examined in ICU 24HR: -gap closed -eating -getting transitioned to Levamir -PT/V to ceftriaxone and azith for CAP, wbc downtrending CBCD WBC 24.6 K/mm3 (4.0-10.0) H 02/08/18 03:00 RBC 3.89 M/mm3 (4.00-5.60) L 02/08/18 03:00 Hgb 12.3 GM/dL (11.7-16.9) D 02/08/18 03:00 Hct 36.0 % (35.4-49) D 02/08/18 03:00 MCV 92.5 fl (80-96) 02/08/18 03:00 MCHC 34.2 g/dl (32.0-35.9) 02/08/18 03:00 RDW 13.3 % (11.9-15.9) 02/08/18 03:00 Plt Count 337 K/MM3 (134-434) D 02/08/18 03:00 MPV 8.8 fl (7.5-11.1) 02/08/18 03:00 CMP Sodium 138 mmol/L (136-145) 02/08/18 09:32 Potassium 4.2 mmol/L (3.5-5.1) D 02/08/18 09:32 Chloride 109 mmol/L (98-107) H D 02/08/18 09:32 Carbon Dioxide 20 mmol/L (21-32) L D 02/08/18 09:32 Anion Gap 9 (8-16) 02/08/18 09:32 BUN 17 mg/dL (7-18) 02/08/18 09:32 Creatinine 0.9 mg/dL (0.7-1.3) 02/08/18 09:32 Creat Clearance w eGFR 39.23 (>60) 02/07/18 17:40 Random Glucose 260 mg/dL (74-106) H 02/08/18 09:32 Calcium 7.8 mg/dL (8.5-10.1) L 02/08/18 09:32 Total Bilirubin 1.4 mg/dL (0.2-1.0) H 02/07/18 17:40 AST 23 U/L (15-37) 02/07/18 17:40 ALT 35 U/L (12-78) 02/07/18 17:40 Alkaline Phosphatase 181 U/L (45-117) H 02/07/18 17:40 Total Protein 8.7 g/dl (6.4-8.2) H 02/07/18 17:40 Albumin 3.2 g/dl (3.4-5.0) L 02/07/18 17:40 Vital Signs Temp 98.3 F 02/08/18 04:14 Pulse 106 H 02/08/18 07:30 Resp 28 H 02/08/18 06:14 BP 134/85 02/08/18 06:14 Pulse Ox 95 02/08/18 10:21 Intake & Output 02/07/18 02/07/18 02/08/18 11:59 23:59 11:59 Intake Total 627 1875 Output Total 1800 1000 Balance -1173 875 Weight 98.174 kg 98.174 kg Intake: IV 627 1025 1/2 Normal Saline 1,000 125 ml @ 125 mls/hr IVPB Q8H ELVIRA with KCl - 40 Meq Rx# :[id number] D5-1/2Ns - 1,000 ml @ 150 500 mls/hr IV ASDIR ELVIRA Rx#: [id number] NOVOLIN R VIAL *For 27 IVPUSH or IV DRIP Only* 100 UNITS In Normal Saline - 99 ml @ 0.1 UNITS/KG/HR 9.29 mls/hr IVPB TITR ELVIRA Rx#: [id number] Normal Saline - 1,000 ml 600 400 @ 200 mls/hr IV ASDIR ELVIRA Rx#:[id number] IVPB 350 Oral 500 Output: Urine 1800 1000 Luna 1800 1000 Other: Voiding Method Indwelling Catheter Height 5 ft 7 in Body Mass Index (BMI) 33.9 Weight Measurement Method Built in Bedscale Built in Bedscale Weight Measurement Method Est/Stated by Patient Active Medications Chlorhexidine Gluconate (Hibiclens For Decolonization -) 1 applic TP HS ELVIRA Last Admin: 02/07/18 22:19 Dose: 1 applic Guaifenesin (Robitussin -) 10 ml PO Q6H PRN PRN Reason: COUGH Last Admin: 02/08/18 06:32 Dose: 10 ml Heparin Sodium (Porcine) (Heparin -) 5,000 unit SQ TID ELVIRA Last Admin: 02/08/18 06:30 Dose: 5,000 unit Insulin Human Regular 100 (units/ Sodium Chloride) 100 mls @ 4.64 mls/hr IVPB TITR ELVIRA; 0.05 UNITS/KG/HR PRN Reason: Protocol Last Titration: 02/08/18 06:39 Dose: 0.07 units/kg/hr, 7 mls/hr Potassium Chloride 40 meq/ (Sodium Chloride) 1,020 mls @ 125 mls/hr IVPB Q8H ELVIRA Last Admin: 02/08/18 07:10 Dose: 125 mls/hr Ceftriaxone Sodium 2 gm/ (Dextrose) 100 mls @ 200 mls/hr IVPB DAILY [facility] Mupirocin (Bactroban Ointment (For Decolonization) -) 1 applic NS BID [facility] Stop: 02/12/18 21:59 Last Admin: 02/07/18 22:18 Dose: 1 applic CBCD WBC 24.6 K/mm3 (4.0-10.0) H 02/08/18 03:00 RBC 3.89 M/mm3 (4.00-5.60) L 02/08/18 03:00 Hgb 12.3 GM/dL (11.7-16.9) D 02/08/18 03:00 Hct 36.0 % (35.4-49) D 02/08/18 03:00 MCV 92.5 fl (80-96) 02/08/18 03:00 MCHC 34.2 g/dl (32.0-35.9) 02/08/18 03:00 RDW 13.3 % (11.9-15.9) 02/08/18 03:00 Plt Count 337 K/MM3 (134-434) D 02/08/18 03:00 MPV 8.8 fl (7.5-11.1) 02/08/18 03:00 CMP Sodium 138 mmol/L (136-145) 02/08/18 09:32 Potassium 4.2 mmol/L (3.5-5.1) D 02/08/18 09:32 Chloride 109 mmol/L (98-107) H D 02/08/18 09:32 Carbon Dioxide 20 mmol/L (21-32) L D 02/08/18 09:32 Anion Gap 9 (8-16) 02/08/18 09:32 BUN 17 mg/dL (7-18) 02/08/18 09:32 Creatinine 0.9 mg/dL (0.7-1.3) 02/08/18 09:32 Creat Clearance w eGFR 39.23 (>60) 02/07/18 17:40 Random Glucose 260 mg/dL (74-106) H 02/08/18 09:32 Calcium 7.8 mg/dL (8.5-10.1) L 02/08/18 09:32 Total Bilirubin 1.4 mg/dL (0.2-1.0) H 02/07/18 17:40 AST 23 U/L (15-37) 02/07/18 17:40 ALT 35 U/L (12-78) 02/07/18 17:40 Alkaline Phosphatase 181 U/L (45-117) H 02/07/18 17:40 Total Protein 8.7 g/dl (6.4-8.2) H 02/07/18 17:40 Albumin 3.2 g/dl (3.4-5.0) L 02/07/18 17:40 CARDIAC ENZYMES Troponin I < 0.02 ng/ml (0.00-0.05) 02/07/18 17:40 Constitutional: Yes: Calm Eyes: Yes: EOM Intact, PERRL (~3mm bilaterally) Neck: Yes: WNL Cardiovascular: Yes: Regular Rate and Rhythm Respiratory: Yes: CTA Bilaterally, On BiPap, SOB on Exertion Gastrointestinal: Yes: Normal Bowel Sounds, Soft Edema: No Peripheral Pulses WNL: Yes Integumentary: Yes: WNL Neurological: Yes: Alert, Oriented ...Motor Strength: WNL Psychiatric: Yes: WNL A/ 57 yo man p/w DKA in setting of likely pneumonia p/ -transition to SQ insulin -monitor for reopening of AG -replete electrolytes -CAP coverage, f/u cxl and urine AG -d/c luna -ok for floor bed [facility] [id number]
--- NOTE | 2018-02-08 11:36 | EKG ---
Test Reason : Blood Pressure : / mmHG Vent. Rate : 117 BPM Atrial Rate : 117 BPM P-R Int : 148 ms QRS Dur : 080 ms QT Int : 314 ms P-R-T Axes : 050 037 057 degrees QTc Int : 438 ms [address]CARDIA JUNCTIONAL ST DEPRESSION, PROBABLY ABNORMAL ABNORMAL ECG NO PREVIOUS ECGS AVAILABLE Confirmed by MITCHELL CARDOSO, ED ([id number]) on 02/08/2018 11:36:40 AM Referred By: Confirmed By:ED MEDRANO MD
[2018-02-08] MEDS ORDERED: ACETAMINOPHEN 1000 MG/100 ML VIAL (NON FORMULARY) IVPB PRN (12:08)
[2018-02-08 12:26] LABS: ANION GAP 13 (8-16); BLOOD UREA NITROGEN 15 mg/dL (7-18); CALCIUM 7.8 mg/dL (8.5-10.1); CHLORIDE 108 mmol/L (98-107); CO2 16 mmol/L (21-32); CREATININE 0.7 mg/dL (0.7-1.3); POTASSIUM 4.4 mmol/L (3.5-5.1); SODIUM 137 mmol/L (136-145)
[2018-02-08 12:51] LABS: GLUCOSE,RANDOM 315 mg/dL (74-106)
[2018-02-08] MEDS ORDERED: POTASSIUM PHOSPHATE 30 MM in SODIUM CHLORIDE 250 ML IVPB ONE (12:58)
[2018-02-08] MEDS ORDERED: NAPH,MB-DB/K PH,MBDB POWDER PACKET PO ONE ×2 (13:00→18:00)
[2018-02-08] MEDS ORDERED: SODIUM PHOSPHATE - 0 MM in DEXTROSE 5%-WATER - 250 ML IVPB ONE (13:38)
[2018-02-08] MEDS: INSULIN SLIDING SCALE (NOVOLOG) 1 VIAL SQ SCH ×3 (14:47→21:29)
[2018-02-08 17:32] LABS: ANION GAP 10 (8-16); BLOOD UREA NITROGEN 15 mg/dL (7-18); CALCIUM 7.6 mg/dL (8.5-10.1); CHLORIDE 106 mmol/L (98-107); CO2 20 mmol/L (21-32); CREATININE 0.8 mg/dL (0.7-1.3); PHOSPHOROUS 1.9 mg/dL (2.5-4.9); POTASSIUM 4.4 mmol/L (3.5-5.1); SODIUM 136 mmol/L (136-145)
[2018-02-08 17:41] LABS: GLUCOSE,RANDOM 381 mg/dL (74-106)
[2018-02-08] MEDS: POTASSIUM CHLORIDE 40 MEQ in SODIUM CHLORIDE 0.45% 1,000 ML IVPB SCH ×2 (20:20→21:13)
[2018-02-08] MEDS: CHLORHEXIDINE GLUCONATE 4% CLEANSER FOR DECOLONIZATION TP SCH (21:15)
[2018-02-09] MEDS ORDERED: INSULIN (LEVEMIR) 100 UNITS/ML UNITS SQ ONE ×2 (04:26→16:00)
[2018-02-09] MEDS: HEPARIN NA (PORCINE) 5,000 UNITS/ML 1ML VIAL SQ SCH ×3 (05:37→22:16)
[2018-02-09] MEDS: INSULIN SLIDING SCALE (NOVOLOG) 1 VIAL SQ SCH (06:06)
[2018-02-09 06:10] LABS: HEMATOCRIT 36.7 % (35.4-49); HEMOGLOBIN 12.6 GM/dL (11.7-16.9); MCHC 34.5 g/dl (32.0-35.9); MEAN CELL VOLUME 92.8 fl (80-96); MEAN PLT VOLUME 9.2 fl (7.5-11.1); PLATELET COUNT 286 K/MM3 (134-434); RBC 3.95 M/mm3 (4.00-5.60); RDW 13.7 % (11.9-15.9); WHITE BLOOD COUNT 23.2 K/mm3 (4.0-10.0)
[2018-02-09 06:35] LABS: ANION GAP 19 (8-16); BLOOD UREA NITROGEN 12 mg/dL (7-18); CHLORIDE 102 mmol/L (98-107); CO2 17 mmol/L (21-32); POTASSIUM 4.1 mmol/L (3.5-5.1); SODIUM 138 mmol/L (136-145)
[2018-02-09 06:39] LABS: CREATININE 0.6 mg/dL (0.7-1.3); PHOSPHOROUS 2.5 mg/dL (2.5-4.9)
[2018-02-09 06:58] LABS: GLUCOSE,RANDOM 314 mg/dL (74-106)
--- NOTE | 2018-02-09 07:18 | PN ---
Teaching Attending Note Name of Resident: Buddy Carrillo ATTENDING PHYSICIAN STATEMENT I saw and evaluated the patient. I reviewed the resident's note and discussed the case with the resident. I agree with the resident's findings and plan as documented. SUBJECTIVE:continues to have non productive cough but breathing has improved. able to take in larger breaths. denises CP, Fever,chills, N/V/C/D or abdominal pain OBJECTIVE: Last Vital Signs Temp Pulse Resp BP Pulse Ox 99 F 110 H 26 H 156/94 94 L 02/09/18 02:00 02/09/18 06:00 02/09/18 06:00 02/09/18 06:00 02/09/18 02:19 General NAD CV S1 S2 tachy Lungs decreased R base some mild wheezing ASSESSMENT AND PLAN: 57yo M with PMH DM and HTN presented with cough, subjective fevers and generalized malaise and found to be in DKA 1. DKA- AG closed yesterday but re-opened this AM. will re-start insulin ggt, NPO, IVF. received lantus 15 units this AM. trend BMP Q4H and BGM Q2H. A1c ordered. explained to patient there is high concern that his sugars have been more uncontrolled than he realizes. may require insulin on discharge. diabetic teaching. RN teaching how to inject with insulin. 2. Sepsis due to PNA- Tm 102 and tachycardic. on Ceftriaxone/Azithromyhcin day 2. robitussin PRN, supplemental o2 prn. f/u Cx, Uag 3. AG metabolic acidosis- due to lactic acidosis. pH 7.4. now resolved. 4. ALPESH- due to dehydration. now resolved. can d/c luna 5. Hypomagnesemia- resolved 6. Hypokalemia- resolved 7. Pseudohyponatremia 8. HTN urgency- BP 165/110 on admission. now normotensive with no medications. would monitor now off medications. re-start as needed 9. DVT ppx- hep sq 10. MICU monitoring. The care of this patient involved high complexity decision making to prevent further life threatening deterioration of the patient's condition and/or to evaluate & treat vital organ system(s) failure or risk of failure. 38 minutes
--- NOTE | 2018-02-09 07:22 | PN ---
Progress Note (short form) - Note Progress Note: PULM/CCM Seen and examined in ICU 24HR: -gap reopened despite sliding scale -restarted Insulin gtt, pt does not want to eat -wbc still elevated but downtrending, low grade temp Vital Signs Temp 99 F 02/09/18 02:00 Pulse 110 H 02/09/18 06:00 Resp 26 H 02/09/18 06:00 BP 156/94 02/09/18 06:00 Pulse Ox 94 L 02/09/18 02:19 Intake & Output 02/08/18 02/08/18 02/09/18 11:59 23:59 11:59 Intake Total 1875 550 250 Output Total 1000 1250 1050 Balance 875 -700 -800 Weight 98.174 kg 98.174 kg Intake: IV 1025 1/2 Normal Saline 1,000 125 ml @ 125 mls/hr IVPB Q8H ELVIRA with KCl - 40 Meq Rx# :[id number] D5-1/2Ns - 1,000 ml @ 150 500 mls/hr IV ASDIR ELVIRA Rx#: [id number] Normal Saline - 1,000 ml 400 @ 200 mls/hr IV ASDIR ELVIRA Rx#:[id number] IVPB 350 350 Oral 500 200 250 Output: Urine 1000 1250 1050 Luna 1000 1250 1050 Other: Voiding Method Indwelling Catheter Indwelling Catheter Weight Measurement Method Built in [facility] Built in [facility] Current Medications Acetaminophen (Ofirmev Injection -) 1,000 mg IVPB Q6H PRN PRN Reason: FEVER Last Admin: 02/08/18 12:10 Dose: 1,000 mg Chlorhexidine Gluconate (Hibiclens For Decolonization -) 1 applic TP HS ELVIRA Last Admin: 02/08/18 21:15 Dose: Not Given Guaifenesin (Robitussin -) 10 ml PO Q6H PRN PRN Reason: COUGH Last Admin: 02/08/18 21:14 Dose: 10 ml Heparin Sodium (Porcine) (Heparin -) 5,000 unit SQ TID ELVIRA Last Admin: 02/09/18 05:37 Dose: 5,000 unit Ceftriaxone Sodium 2 gm/ (Dextrose) 100 mls @ 200 mls/hr IVPB DAILY ELVIRA Last Admin: 02/08/18 10:30 Dose: 200 mls/hr Insulin Human Regular 100 (units/ Sodium Chloride) 100 mls @ 6 mls/hr IVPB TITR ELVIRA; 6 UNITS/HR PRN Reason: Protocol Mupirocin (Bactroban Ointment (For Decolonization) -) 1 applic NS BID ELVIRA Stop: 02/12/18 21:59 Last Admin: 02/08/18 21:14 Dose: 1 applic CBCD WBC 23.2 K/mm3 (4.0-10.0) H 02/09/18 05:50 RBC 3.95 M/mm3 (4.00-5.60) L 02/09/18 05:50 Hgb 12.6 GM/dL (11.7-16.9) 02/09/18 05:50 Hct 36.7 % (35.4-49) 02/09/18 05:50 MCV 92.8 fl (80-96) 02/09/18 05:50 MCHC 34.5 g/dl (32.0-35.9) 02/09/18 05:50 RDW 13.7 % (11.9-15.9) 02/09/18 05:50 Plt Count 286 K/MM3 (134-434) 02/09/18 05:50 MPV 9.2 fl (7.5-11.1) 02/09/18 05:50 CMP Sodium 138 mmol/L (136-145) 02/09/18 05:50 Potassium 4.1 mmol/L (3.5-5.1) 02/09/18 05:50 Chloride 102 mmol/L (98-107) 02/09/18 05:50 Carbon Dioxide 17 mmol/L (21-32) L 02/09/18 05:50 Anion Gap 19 (8-16) H 02/09/18 05:50 BUN 12 mg/dL (7-18) 02/09/18 05:50 Creatinine 0.6 mg/dL (0.7-1.3) L D 02/09/18 05:50 Creat Clearance w eGFR 39.23 (>60) 02/07/18 17:40 Calcium 8.0 mg/dL (8.5-10.1) L 02/09/18 05:50 Total Bilirubin 1.4 mg/dL (0.2-1.0) H 02/07/18 17:40 AST 23 U/L (15-37) 02/07/18 17:40 ALT 35 U/L (12-78) 02/07/18 17:40 Alkaline Phosphatase 181 U/L (45-117) H 02/07/18 17:40 Total Protein 8.7 g/dl (6.4-8.2) H 02/07/18 17:40 Albumin 3.2 g/dl (3.4-5.0) L 02/07/18 17:40 Microbiology 02/07/18 18:35 Urine - Urine Clean Catch Urine Culture - Final NO GROWTH OBTAINED 02/07/18 17:40 Blood - Peripheral Venous Blood Culture - Preliminary NO GROWTH OBTAINED AFTER 24 HOURS, INCUBATION TO CONTINUE FOR 4 DAYS. 02/07/18 17:40 Blood - Peripheral Venous Blood Culture - Preliminary NO GROWTH OBTAINED AFTER 24 HOURS, INCUBATION TO CONTINUE FOR 4 DAYS. 02/08/18 03:00 Urine - Urine Luna Legionella Antigen - Final 02/08/18 03:00 Urine - Urine Luna Streptococcus pneumoniae Antigen (M - Final 02/08/18 03:00 Urine For Antigen Detection Legionella Antigen - Final 02/08/18 03:00 Urine For Antigen Detection Streptococcus pneumoniae Antigen (M - Final 02/07/18 17:40 Nasopharyngeal Swab Influenza Types A,B Antigen (JORGE) - Final 02/07/18 17:40 Nasopharyngeal Swab - Final Constitutional: Yes: Calm Eyes: Yes: EOM Intact, PERRL (~3mm bilaterally) Neck: Yes: WNL Cardiovascular: Yes: Regular Rate and Rhythm Respiratory: Yes: CTA Bilaterally, mild tachypnea with exertion Gastrointestinal: Yes: Normal Bowel Sounds, Soft, obese Edema: No Peripheral Pulses WNL: Yes Integumentary: Yes: WNL Neurological: Yes: Alert, Oriented ...Motor Strength: WNL Psychiatric: Yes: WNL A/ 57 yo man p/w DKA in setting of likely pneumonia p/ -back on insulin gtt as per protocol -replete electrolytes -transition back to SQ once gap closed, BGL < 250 and eating -CAP coverage, f/u cxl, legionella and step AG neg -d/c luna -ok for floor bed once gap remains closed -OOB -DVT micheal Thapa ACNP [id number]
[2018-02-09] MEDS ORDERED: INSULIN REGULAR 100 UNITS in SODIUM CHLORIDE 99 ML IVPB SCH (07:30)
--- NOTE | 2018-02-09 07:59 | PN ---
Physical Exam: SUBJECTIVE: Patient seen and examined - Still with elevated BG overnight to 300s; fluids d/c'ed per ICU team; Febrile to 102 - Pt endorses productive cough w/ brown sputum, MSK CP and R shoulder pain worsened by cough fits; Denies f/c/n/v/d, RANGEL, dizziness, ab pain, LE edema; Poor PO intake; Still with luna - Pt counseled on DKA and risks associated with infections with regard to BG/ insulin dysregulation OBJECTIVE: Vital Signs Intake & Output 02/06/18 02/07/18 02/08/18 02/09/18 23:59 23:59 23:59 23:59 Intake Total 627 2425 250 Output Total 1800 2250 1050 Balance -1173 175 -800 Weight 98.174 kg 98.174 kg 98.174 kg Period Temp Pulse Resp BP Sys/Buckner Pulse Ox Last 24 Hr 99 F-102 F 97-118 20-26 133-159/56-97 94-98 GENERAL: Middle aged man, lying in bed, diaphoretic HEAD: NCAT, alopecia EYES: PERRL, extraocular movements intact, sclera anicteric, conjunctiva clear. No ptosis. ENT: Ears normal, nares patent, oropharynx clear without exudates, moist mucous membranes. NECK: Trachea midline, full range of motion, supple. LUNGS: R upper and middle lobes dullness/decreased breath sounds noted, trace crackles. No wheezing or accessory muscle use; coughing exacerbated by deep breathing HEART: Regular rate and rhythm, S1, S2 without murmur, rub or gallop. ABDOMEN: Globular, soft, NT/ND, normoactive bowel sounds, no guarding, no rebound; No CVA tenderness EXTREMITIES: 2+ pulses, warm, well-perfused, no edema note. 5/5 strength and preserved sensation throughout NEUROLOGICAL: Cranial nerves II through XII grossly intact. Normal speech, gait not observed. PSYCH: Normal mood, normal affect. Pleasant Laboratory Results - last 24 hr CBC, BMP 02/09/18 05:50 02/09/18 05:50 02/08/18 02/08/18 02/08/18 09:32 09:32 11:50 WBC RBC Hgb Hct MCV MCH MCHC RDW Plt Count MPV Neutrophils % Lymphocytes % Sodium 138 137 Potassium 4.2 D 4.4 Chloride 109 H D 108 H Carbon Dioxide 20 L D 16 L Anion Gap 9 13 BUN 17 15 Creatinine 0.9 0.7 D Random Glucose 260 H 315 H* D Lactic Acid 1.5 Calcium 7.8 L 7.8 L Phosphorus 1.0 L* D Magnesium 2.0 02/08/18 02/08/18 02/09/18 11:50 16:55 05:50 WBC RBC Hgb Hct MCV MCH MCHC RDW Plt Count MPV Neutrophils % Lymphocytes % Sodium 136 Potassium 4.4 Chloride 106 Carbon Dioxide 20 L D Anion Gap 10 BUN 15 Creatinine 0.8 Random Glucose 381 H* D Lactic Acid 1.5 1.3 Calcium 7.6 L Phosphorus 1.9 L D Magnesium 02/09/18 02/09/18 05:50 05:50 WBC 23.2 H RBC 3.95 L Hgb 12.6 Hct 36.7 MCV 92.8 MCH 32.0 MCHC 34.5 RDW 13.7 Plt Count 286 MPV 9.2 Neutrophils % No Result Required. Lymphocytes % No Result Required. Sodium 138 Potassium 4.1 Chloride 102 Carbon Dioxide 17 L Anion Gap 19 H BUN 12 Creatinine 0.6 L D Random Glucose 314 H* Lactic Acid Calcium 8.0 L Phosphorus 2.5 D Magnesium 2.0 Active Medications Generic Name Dose Route Start Last Admin Trade Name Freq PRN Reason Stop Dose Admin Acetaminophen 1,000 mg 02/08/18 12:08 02/08/18 12:10 Ofirmev Injection - IVPB 1,000 mg Q6H PRN Administration FEVER Chlorhexidine Gluconate 1 applic 02/07/18 22:00 02/08/18 21:15 Hibiclens For Decolonization - TP Not Given HS [facility] Guaifenesin 10 ml 02/08/18 05:45 02/08/18 21:14 Robitussin - PO 10 ml Q6H PRN Administration COUGH Heparin Sodium (Porcine) 5,000 unit 02/08/18 06:00 02/09/18 05:37 Heparin - SQ 5,000 unit TID ELVIRA Administration Ceftriaxone Sodium 2 gm/ 100 mls @ 200 mls/hr 02/08/18 10:00 02/08/18 10:30 Dextrose IVPB 200 mls/hr DAILY ELVIRA Administration Insulin Human Regular 100 100 mls @ 6 mls/hr 02/09/18 07:30 units/ Sodium Chloride IVPB TITR [facility] Protocol 6 UNITS/HR Mupirocin 1 applic 02/07/18 22:00 02/08/18 21:14 Bactroban Ointment (For Decolonization) - NS 02/12/18 21:59 1 applic BID [facility] Administration Microbiology 02/07/18 17:40 Blood - Peripheral Venous Blood Culture - Preliminary NO GROWTH OBTAINED AFTER 24 HOURS, INCUBATION TO CONTINUE FOR 4 DAYS. 02/07/18 17:40 Blood - Peripheral Venous Blood Culture - Preliminary NO GROWTH OBTAINED AFTER 24 HOURS, INCUBATION TO CONTINUE FOR 4 DAYS. 02/08/18 03:00 Urine - Urine [place] Legionella Antigen - Final 02/08/18 03:00 Urine - Urine [place] Streptococcus pneumoniae Antigen (M - Final 02/08/18 03:00 Urine For Antigen Detection Legionella Antigen - Final 02/08/18 03:00 Urine For Antigen Detection Streptococcus pneumoniae Antigen (M - Final 02/07/18 17:40 Nasopharyngeal Swab Influenza Types A,B Antigen (JORGE) - Final 02/07/18 17:40 Nasopharyngeal Swab - Final CXR 02/07 - IMPRESSION: Hazy right upper to right midlung opacity could be pleural or chest wall rather than airspace. Clinical correlation and a repeat chest x-ray with PA and lateral views is recommended. CXR 02/08 - Since the prior exam of 02/07/2018, there appears to be a progressive right infiltrate and left mid to lower lung infiltrate. Follow-up recommended. 02/09 CXR - Progressive BL infiltrates; recommend CT chest for further evaluation ASSESSMENT/PLAN: 57 yo M with PMH of HTN, DM2 who presented with two weeks of cough, cp, f/c, now with confirmed PNA and admitted to ICU for DKA. Pt receiving abx coverage for suspected CAP pna. AG 19 in AM, restarted on insulin gtt. #DKA - AG closed overnight, then re-opened to 19 this AM; Insulin gtt restarted , IVFs, NPO; received lantus 15u this AM; A1C 11.6 - Insulin gtt; d/c when gap resolves - transition to ISS - BGMs q4h - nutrition consult - diabetic diet when off gtt - outpt diabetes management #Sepsis secondary to CAP PNA - CXR as noted above, Tmax 102 overnight, tachy, WBC 23 this AM - Trend WBC, fever - robitussin for cough - f/u cultures; negative to date - sputum culture pending - Urine PNA Ag's negative - rapid flu negative - Day 2 Rocephin/AZA for CAP coverage - serial CXRs - O2 support #AG metabolic acidosis - secondary to LA; resolved - Serial BMPs #ALPESH - resolved, Cr 0.6 this AM - d/c luna - encourage PO hydration #Hypokalemia - 3.4 this PM - Repleted 40meg PO - trend #HTN - Holding home cardizem in setting of normotension, sepsis - monitor BP FEN PO hydration Daily lytes, monitor for hypomag, hypoK Diabetic diet PPX HSQ Dispo ICU Plan discussed with attending, Dr. Janeth Carrillo, PGY1 Visit type - Emergency Visit Emergency Visit: Yes ED Registration Date: 02/07/18 Care time: The patient presented to the Emergency Department on the above date and was hospitalized for further evaluation of their emergent condition. - New Patient This patient is new to me today: Yes Date on this admission: 02/07/18 - Critical Care Critical Care patient: Yes Total Critical Care Time (in minutes): 35 Critical Care Statement: The care of this patient involved high complexity decision making to prevent further life threatening deterioration of the patient 's condition and/or to evaluate & treat vital organ system(s) failure or risk of failure.
[2018-02-09] MEDS ORDERED: SODIUM CHLORIDE NASAL SPRAY 44 ML BOTTLE NS PRN (08:37)
[2018-02-09] MEDS ORDERED: PT OWN MED DRAWER 7, Y5N ONE ×2 (09:27→22:15)
[2018-02-09] MEDS: CEFTRIAXONE 2 GM in DEXTROSE 5%-WATER 100 ML IVPB SCH (09:47)
[2018-02-09] MEDS: MUPIROCIN 2% TOPICAL OINTMENT FOR DECOLONIZATION NS SCH ×2 (09:47→22:16)
[2018-02-09] MEDS: guaiFENesin 200 MG/10 ML 10 ML UNIT-DOSE CUPS PO PRN (09:52)
[2018-02-09 11:55] LABS: PLATELET ESTIMATE NORMAL
[2018-02-09 13:40] LABS: ANION GAP 14 (8-16); BLOOD UREA NITROGEN 12 mg/dL (7-18); CHLORIDE 104 mmol/L (98-107); CO2 22 mmol/L (21-32); CREATININE 0.6 mg/dL (0.7-1.3); GLUCOSE,RANDOM 199 mg/dL (74-106); POTASSIUM 3.4 mmol/L (3.5-5.1); SODIUM 140 mmol/L (136-145)
[2018-02-09] MEDS ORDERED: SODIUM CHLORIDE 1,000 ML with POTASSIUM CHLORIDE 10 MEQ IV SCH (16:00)
[2018-02-09] MEDS ORDERED: POTASSIUM CHLORIDE ORAL LIQUID 20 MEQ/15 ML PO ONE (20:10)
[2018-02-09] MEDS: CHLORHEXIDINE GLUCONATE 4% CLEANSER FOR DECOLONIZATION TP SCH (22:16)
[2018-02-09] MEDS ORDERED: INSULIN REGULAR HUMAN 100 UNITS/ML *VIAL IVPUSH ONE (22:25)
[2018-02-09] MEDS ORDERED: INSULIN (NOVOLOG) ASPART 100 UNITS/ML 10ML VIAL SQ ONE (22:30)
[2018-02-10] MEDS: HEPARIN NA (PORCINE) 5,000 UNITS/ML 1ML VIAL SQ SCH ×3 (06:22→21:54)
[2018-02-10 06:23] LABS: HEMATOCRIT 35.2 % (35.4-49); HEMOGLOBIN 12.3 GM/dL (11.7-16.9); MCHC 34.8 g/dl (32.0-35.9); MEAN CELL VOLUME 91.8 fl (80-96); MEAN PLT VOLUME 9.3 fl (7.5-11.1); PLATELET COUNT 248 K/MM3 (134-434); RBC 3.84 M/mm3 (4.00-5.60); RDW 13.3 % (11.9-15.9); WHITE BLOOD COUNT 24.1 K/mm3 (4.0-10.0)
--- NOTE | 2018-02-10 06:28 | PN ---
Physical Exam: SUBJECTIVE: Patient seen and examined by me this AM - No major overnight events; pt endorses improvement in SOB, still with R shoulder, anterior chest wall pain with cough; no productive cough overnight, however pt endorse upper airway congestion; Fatigue improving, tolerating PO feeds gradually; No BM for past few days, only flatus; denies f/c/n/v/d, RANGEL, lightheadness, dysuria, diarrhea, ab pain, back pain, LE edema OBJECTIVE: Vital Signs Intake & Output 02/07/18 02/08/18 02/09/18 02/10/18 23:59 23:59 23:59 23:59 Intake Total 627 2425 298 200 Output Total 1800 2250 2049 Balance -1173 175 -1752 200 Weight 98.174 kg 98.174 kg 98.174 kg Period Temp Pulse Resp BP Sys/Buckner Pulse Ox Last 24 Hr 98.6 F-99.3 F 104-119 21-33 83-150/50-96 95-95 GENERAL: Middle aged man, lying in bed, A&Ox3 HEAD: NCAT, alopecia EYES: PERRL, extraocular movements intact, sclera anicteric, conjunctiva clear. No ptosis. ENT: Ears normal, nares patent, oropharynx clear without exudates, moist mucous membranes. NECK: Trachea midline, full range of motion, supple. LUNGS: Improved air entry. R upper and middle lobe trace crackles. No wheezing or accessory muscle use; still with cough, upper airway congestion HEART: Regular rate and rhythm, S1, S2 without murmur, rub or gallop. ABDOMEN: Globular, soft, NT/ND, normoactive bowel sounds, no guarding, no rebound; No CVA tenderness EXTREMITIES: 2+ pulses, warm, well-perfused, no edema note. 5/5 strength and preserved sensation throughout NEUROLOGICAL: Cranial nerves II through XII grossly intact. Normal speech, gait not observed. PSYCH: Normal mood, normal affect. Pleasant Laboratory Results - last 24 hr CBC, BMP 02/10/18 05:46 02/10/18 05:46 02/07/18 02/07/18 02/08/18 21:35 23:58 01:53 Neutrophils % (Manual) Band Neutrophils % Lymphocytes % (Manual) Monocytes % (Manual) Eosinophils % (Manual) Basophils % (Manual) Myelocytes % (Man) Promyelocytes % (Man) Blast Cells % (Manual) Nucleated RBC % Metamyelocytes Platelet Estimate Sodium Potassium Chloride Carbon Dioxide Anion Gap BUN Creatinine POC Glucometer > 400 301.85808 234.07458 Random Glucose Hemoglobin A1c % Lactic Acid Calcium Phosphorus Magnesium 02/08/18 02/08/18 02/08/18 03:30 05:14 06:13 Neutrophils % (Manual) Band Neutrophils % Lymphocytes % (Manual) Monocytes % (Manual) Eosinophils % (Manual) Basophils % (Manual) Myelocytes % (Man) Promyelocytes % (Man) Blast Cells % (Manual) Nucleated RBC % Metamyelocytes Platelet Estimate Sodium Potassium Chloride Carbon Dioxide Anion Gap BUN Creatinine POC Glucometer 285.73710 321.58401 346.47359 Random Glucose Hemoglobin A1c % Lactic Acid Calcium Phosphorus Magnesium 02/08/18 02/08/18 02/08/18 12:28 17:30 21:22 Neutrophils % (Manual) Band Neutrophils % Lymphocytes % (Manual) Monocytes % (Manual) Eosinophils % (Manual) Basophils % (Manual) Myelocytes % (Man) Promyelocytes % (Man) Blast Cells % (Manual) Nucleated RBC % Metamyelocytes Platelet Estimate Sodium Potassium Chloride Carbon Dioxide Anion Gap BUN Creatinine POC Glucometer 326.63988 > 400 321.18492 Random Glucose Hemoglobin A1c % Lactic Acid Calcium Phosphorus Magnesium 02/09/18 02/09/18 02/09/18 04:14 05:50 05:50 Neutrophils % (Manual) 78.4 Band Neutrophils % 4.1 Lymphocytes % (Manual) 2.1 L D Monocytes % (Manual) 7 Eosinophils % (Manual) 0.0 Basophils % (Manual) 0.0 Myelocytes % (Man) 0 Promyelocytes % (Man) 1 Blast Cells % (Manual) 0 Nucleated RBC % 0 Metamyelocytes 0 D Platelet Estimate Normal Sodium Potassium Chloride Carbon Dioxide Anion Gap BUN Creatinine POC Glucometer 315.74283 Random Glucose Hemoglobin A1c % Lactic Acid 1.3 Calcium Phosphorus Magnesium 02/09/18 02/09/18 02/09/18 05:50 06:06 08:00 Neutrophils % (Manual) Band Neutrophils % Lymphocytes % (Manual) Monocytes % (Manual) Eosinophils % (Manual) Basophils % (Manual) Myelocytes % (Man) Promyelocytes % (Man) Blast Cells % (Manual) Nucleated RBC % Metamyelocytes Platelet Estimate Sodium 138 Potassium 4.1 Chloride 102 Carbon Dioxide 17 L Anion Gap 19 H BUN 12 Creatinine 0.6 L D POC Glucometer 344.39427 336.97677 Random Glucose 314 H* Hemoglobin A1c % Lactic Acid Calcium 8.0 L Phosphorus 2.5 D Magnesium 2.0 02/09/18 02/09/18 02/09/18 09:30 09:38 11:09 Neutrophils % (Manual) Band Neutrophils % Lymphocytes % (Manual) Monocytes % (Manual) Eosinophils % (Manual) Basophils % (Manual) Myelocytes % (Man) Promyelocytes % (Man) Blast Cells % (Manual) Nucleated RBC % Metamyelocytes Platelet Estimate Sodium Potassium Chloride Carbon Dioxide Anion Gap BUN Creatinine POC Glucometer 285.34969 265.64746 Random Glucose Hemoglobin A1c % 11.6 H Lactic Acid Calcium Phosphorus Magnesium 02/09/18 02/09/18 02/09/18 12:00 12:17 13:12 Neutrophils % (Manual) Band Neutrophils % Lymphocytes % (Manual) Monocytes % (Manual) Eosinophils % (Manual) Basophils % (Manual) Myelocytes % (Man) Promyelocytes % (Man) Blast Cells % (Manual) Nucleated RBC % Metamyelocytes Platelet Estimate Sodium 140 Potassium 3.4 L Chloride 104 Carbon Dioxide 22 D Anion Gap 14 BUN 12 Creatinine 0.6 L POC Glucometer 236.35269 215.36181 Random Glucose 199 H D Hemoglobin A1c % Lactic Acid Calcium 8.0 L Phosphorus Magnesium 02/09/18 02/09/18 15:50 17:09 Neutrophils % (Manual) Band Neutrophils % Lymphocytes % (Manual) Monocytes % (Manual) Eosinophils % (Manual) Basophils % (Manual) Myelocytes % (Man) Promyelocytes % (Man) Blast Cells % (Manual) Nucleated RBC % Metamyelocytes Platelet Estimate Sodium Potassium Chloride Carbon Dioxide Anion Gap BUN Creatinine POC Glucometer 220.40024 199.42086 Random Glucose Hemoglobin A1c % Lactic Acid Calcium Phosphorus Magnesium Active Medications Generic Name Dose Route Start Last Admin Trade Name Freq PRN Reason Stop Dose Admin Acetaminophen 1,000 mg 02/08/18 12:08 02/08/18 12:10 Ofirmev Injection - IVPB 1,000 mg Q6H PRN Administration FEVER Azithromycin 500 mg 02/10/18 10:00 Azithromycin PO DAILY ELVIRA Chlorhexidine Gluconate 1 applic 02/07/18 22:00 02/09/18 22:16 Hibiclens For Decolonization - TP 1 applic HS ELVIRA Administration Guaifenesin 10 ml 02/08/18 05:45 02/09/18 09:52 Robitussin - PO 10 ml Q6H PRN Administration COUGH Heparin Sodium (Porcine) 5,000 unit 02/08/18 06:00 02/10/18 06:22 Heparin - SQ 5,000 unit TID ELVIRA Administration Ceftriaxone Sodium 2 gm/ 100 mls @ 200 mls/hr 02/08/18 10:00 02/09/18 09:47 Dextrose IVPB 200 mls/hr DAILY ELVIRA Administration Mupirocin 1 applic 02/07/18 22:00 02/09/18 22:16 Bactroban Ointment (For Decolonization) - NS 02/12/18 21:59 1 applic BID ELVIRA Administration Sodium Chloride 2 spray 02/09/18 08:37 02/09/18 14:08 [place] Nasal [place] - NS 2 sprays TID PRN Administration NASAL CONGESTION Microbiology 02/07/18 17:40 Blood - Peripheral Venous Blood Culture - Preliminary NO GROWTH OBTAINED AFTER 48 HOURS, INCUBATION TO CONTINUE FOR 3 DAYS. 02/07/18 17:40 Blood - Peripheral Venous Blood Culture - Preliminary NO GROWTH OBTAINED AFTER 48 HOURS, INCUBATION TO CONTINUE FOR 3 DAYS. 02/07/18 18:35 Urine - Urine Clean Catch Urine Culture - Final NO GROWTH OBTAINED 02/08/18 03:00 Urine - Urine [place] Legionella Antigen - Final 02/08/18 03:00 Urine - Urine [place] Streptococcus pneumoniae Antigen (M - Final 02/08/18 03:00 Urine For Antigen Detection Legionella Antigen - Final 02/08/18 03:00 Urine For Antigen Detection Streptococcus pneumoniae Antigen (M - Final 02/07/18 17:40 Nasopharyngeal Swab Influenza Types A,B Antigen (JORGE) - Final 02/07/18 17:40 Nasopharyngeal Swab - Final CXR 02/07 - IMPRESSION: Hazy right upper to right midlung opacity could be pleural or chest wall rather than airspace. Clinical correlation and a repeat chest x-ray with PA and lateral views is recommended. CXR 02/08 - Since the prior exam of 02/07/2018, there appears to be a progressive right infiltrate and left mid to lower lung infiltrate. Follow-up recommended. 02/09 CXR - Progressive BL infiltrates; recommend CT chest for further evaluation CXR 02/10 - Imaging again reveals bilateral infiltrates, right greater than left. Follow-up recommended. ASSESSMENT/PLAN: 57 yo M with PMH of HTN, DM2 who presented with two weeks of cough, cp, f/c, now with confirmed PNA and admitted to ICU for DKA. Pt receiving abx coverage for suspected CAP pna. Insulin gtt d/c'ed yesterday evening, bicarb corrected. BGs still elevated to 300s. Pt symptomatically improving, no fevers, still with elevated WBC count. Plan to continue CAP coverage with PO hydration and ISS now. #DKA - AG closed. A1C 11.6. Insulin gtt d/c'ed; now with PO hydration and ISS; still with BGs 300s with diet - ISS - BGMs q4h - nutrition consult - diabetic diet - outpt diabetes management #Sepsis secondary to CAP PNA - WBC unchanged; afebrile - Trend WBC, fever - robitussin for cough - f/u cultures; negative to date - sputum culture pending - Urine PNA Ag's negative - rapid flu negative - Day 3 Rocephin/AZA for CAP coverage - serial CXRs - O2 support #AG metabolic acidosis - secondary to LA; resolved - Serial BMPs #ALPESH - resolved, Cr 0.6 this AM - encourage PO hydration #Constipation - Miralax #Hypokalemia - resolved - trend #HTN - restarted Cardizem q6h - monitor BP FEN PO hydration Daily lytes, monitor for hypomag, hypoK Diabetic diet PPX HSQ Dispo Transfer to floors Plan discussed with attending, Dr. Janeth Carrillo, PGY1 Visit type - Emergency Visit Emergency Visit: Yes ED Registration Date: 02/07/18 Care time: The patient presented to the Emergency Department on the above date and was hospitalized for further evaluation of their emergent condition. - New Patient This patient is new to me today: No - Critical Care Critical Care patient: No
[2018-02-10 06:51] LABS: ALBUMIN 1.9 g/dl (3.4-5.0); ANION GAP 11 (8-16); BLOOD UREA NITROGEN 12 mg/dL (7-18); CALCIUM 7.6 mg/dL (8.5-10.1); CHLORIDE 102 mmol/L (98-107); CO2 25 mmol/L (21-32); CREATININE 0.6 mg/dL (0.7-1.3); GLUCOSE,RANDOM 206 mg/dL (74-106); PHOSPHOROUS 2.8 mg/dL (2.5-4.9); POTASSIUM 3.5 mmol/L (3.5-5.1); SGOT/AST 44 U/L (15-37); SGPT/ALT 35 U/L (12-78); SODIUM 138 mmol/L (136-145)
[2018-02-10 06:53] LABS: ALK PHOS 121 U/L (45-117); BILIRUBIN,TOTAL 1.3 mg/dL (0.2-1.0); TOT PROT 5.8 g/dl (6.4-8.2)
[2018-02-10] MEDS ORDERED: INSULIN SLIDING SCALE (NOVOLOG) 1 VIAL SQ SCH (07:00)
[2018-02-10] MEDS ORDERED: INSULIN (LEVEMIR) 100 UNITS/ML UNITS SQ ONE (07:29)
[2018-02-10] MEDS: INSULIN SLIDING SCALE (NOVOLOG) 1 VIAL SQ SCH ×5 (09:08→21:54)
[2018-02-10] MEDS ORDERED: PNEUMOCOCCAL 23 VACCINE 0.5 ML VIAL IM ONE (09:15)
[2018-02-10] MEDS ORDERED: PT OWN MED DRAWER 7, Y5N ONE (09:54)
[2018-02-10 09:55] LABS: PLATELET ESTIMATE NORMAL; TOXIC GRANULATION 3+
[2018-02-10] MEDS ORDERED: AZITHROMYCIN 250 MG TABLET PO SCH (10:00)
[2018-02-10] MEDS: CEFTRIAXONE 2 GM in DEXTROSE 5%-WATER 100 ML IVPB SCH (10:15)
[2018-02-10] MEDS: MUPIROCIN 2% TOPICAL OINTMENT FOR DECOLONIZATION NS SCH ×2 (10:16→21:46)
[2018-02-10] MEDS: AZITHROMYCIN 500 MG TABLET PO SCH (10:22)
[2018-02-10] MEDS ORDERED: INSULIN (NOVOLOG) ASPART 100 UNITS/ML 10ML VIAL SQ ONE (12:29)
--- NOTE | 2018-02-10 13:37 | PN ---
Physical Exam: SUBJECTIVE: Patient seen and examined in ICU. No acute events overnight. Patient reports that he is feeling better, does complain of a cough. Tolerating PO. OBJECTIVE: Vital Signs Period Temp Pulse Resp BP Sys/Buckner Pulse Ox Last 24 Hr 98.6 F-100.1 F 108-119 21-33 83-145/50-89 91-95 GENERAL: The patient is awake, alert, and fully oriented, in no acute distress. HEAD: Normal with no signs of trauma. EYES: PERRL, extraocular movements intact, sclera anicteric, conjunctiva clear. No ptosis. ENT: Ears normal, nares patent, oropharynx clear without exudates, moist mucous membranes. NECK: Trachea midline, full range of motion, supple. LUNGS: Coarse breath sounds on right, no accessory muscle use. HEART: Regular rate and rhythm, S1, S2 without murmur, rub or gallop. EXTREMITIES: 2+ pulses, warm, well-perfused, no edema. NEUROLOGICAL: Cranial nerves II through XII grossly intact. Normal speech, gait not observed. SKIN: Warm, dry, normal turgor, no rashes or lesions noted Laboratory Results - last 24 hr 02/07/18 02/07/18 02/08/18 17:44 20:14 08:50 WBC RBC Hgb Hct MCV MCH MCHC RDW Plt Count MPV Neutrophils % Neutrophils % (Manual) Band Neutrophils % Lymphocytes % Lymphocytes % (Manual) Monocytes % (Manual) Eosinophils % (Manual) Basophils % (Manual) Myelocytes % (Man) Promyelocytes % (Man) Blast Cells % (Manual) Nucleated RBC % Metamyelocytes Toxic Granulation Platelet Estimate Polychromasia Sodium Potassium Chloride Carbon Dioxide Anion Gap BUN Creatinine Creat Clearance w eGFR POC Glucometer > 400 > [phone] Random Glucose Calcium Phosphorus Magnesium Total Bilirubin AST ALT Alkaline Phosphatase Total Protein Albumin 02/09/18 02/09/18 02/09/18 08:00 09:38 11:09 WBC RBC Hgb Hct MCV MCH MCHC RDW Plt Count MPV Neutrophils % Neutrophils % (Manual) Band Neutrophils % Lymphocytes % Lymphocytes % (Manual) Monocytes % (Manual) Eosinophils % (Manual) Basophils % (Manual) Myelocytes % (Man) Promyelocytes % (Man) Blast Cells % (Manual) Nucleated RBC % Metamyelocytes Toxic Granulation Platelet Estimate Polychromasia Sodium Potassium Chloride Carbon Dioxide Anion Gap BUN Creatinine Creat Clearance w eGFR POC Glucometer 336.85700 285.03760 265.30801 Random Glucose Calcium Phosphorus Magnesium Total Bilirubin AST ALT Alkaline Phosphatase Total Protein Albumin 02/09/18 02/09/18 02/09/18 12:00 12:17 13:12 WBC RBC Hgb Hct MCV MCH MCHC RDW Plt Count MPV Neutrophils % Neutrophils % (Manual) Band Neutrophils % Lymphocytes % Lymphocytes % (Manual) Monocytes % (Manual) Eosinophils % (Manual) Basophils % (Manual) Myelocytes % (Man) Promyelocytes % (Man) Blast Cells % (Manual) Nucleated RBC % Metamyelocytes Toxic Granulation Platelet Estimate Polychromasia Sodium 140 Potassium 3.4 L Chloride 104 Carbon Dioxide 22 D Anion Gap 14 BUN 12 Creatinine 0.6 L Creat Clearance w eGFR POC Glucometer 236.56290 215.54638 Random Glucose 199 H D Calcium 8.0 L Phosphorus Magnesium Total Bilirubin AST ALT Alkaline Phosphatase Total Protein Albumin 02/09/18 02/09/18 02/10/18 15:50 17:09 05:46 WBC 24.1 H RBC 3.84 L Hgb 12.3 Hct 35.2 L MCV 91.8 MCH 32.0 MCHC 34.8 RDW 13.3 Plt Count 248 MPV 9.3 Neutrophils % No Result Required. Neutrophils % (Manual) 80.0 Band Neutrophils % 1.0 Lymphocytes % No Result Required. Lymphocytes % (Manual) 4.0 L D Monocytes % (Manual) 10 Eosinophils % (Manual) 0.0 Basophils % (Manual) 0.0 Myelocytes % (Man) 2 D Promyelocytes % (Man) 0 D Blast Cells % (Manual) 0 Nucleated RBC % 0 Metamyelocytes 3 H D Toxic Granulation 3+ Platelet Estimate Normal Polychromasia 1+ Sodium Potassium Chloride Carbon Dioxide Anion Gap BUN Creatinine Creat Clearance w eGFR POC Glucometer 220.82770 199.14402 Random Glucose Calcium Phosphorus Magnesium Total Bilirubin AST ALT Alkaline Phosphatase Total Protein Albumin 02/10/18 02/10/18 05:46 12:20 WBC RBC Hgb Hct MCV MCH MCHC RDW Plt Count MPV Neutrophils % Neutrophils % (Manual) Band Neutrophils % Lymphocytes % Lymphocytes % (Manual) Monocytes % (Manual) Eosinophils % (Manual) Basophils % (Manual) Myelocytes % (Man) Promyelocytes % (Man) Blast Cells % (Manual) Nucleated RBC % Metamyelocytes Toxic Granulation Platelet Estimate Polychromasia Sodium 138 Potassium 3.5 Chloride 102 Carbon Dioxide 25 Anion Gap 11 BUN 12 Creatinine 0.6 L Creat Clearance w eGFR > 60 POC Glucometer Random Glucose 206 H 378 H* D Calcium 7.6 L Phosphorus 2.8 Magnesium 2.0 Total Bilirubin 1.3 H AST 44 H D ALT 35 Alkaline Phosphatase 121 H D Total Protein 5.8 L D Albumin 1.9 L D Active Medications Generic Name Dose Route Start Last Admin Trade Name Freq PRN Reason Stop Dose Admin Acetaminophen 1,000 mg 02/08/18 12:08 02/08/18 12:10 Ofirmev Injection - IVPB 1,000 mg Q6H PRN Administration FEVER Azithromycin 500 mg 02/10/18 10:00 02/10/18 10:22 Azithromycin PO 500 mg DAILY ELVIRA Administration Chlorhexidine Gluconate 1 applic 02/07/18 22:00 02/09/18 22:16 Hibiclens For Decolonization - TP 1 applic HS ELVIRA Administration Diltiazem HCl 90 mg 02/11/18 10:00 Cardizem - PO DAILY ELVIRA Guaifenesin 10 ml 02/08/18 05:45 02/09/18 09:52 Robitussin - PO 10 ml Q6H PRN Administration COUGH Heparin Sodium (Porcine) 5,000 unit 02/08/18 06:00 02/10/18 06:22 Heparin - SQ 5,000 unit TID ELVIRA Administration Ceftriaxone Sodium 2 gm/ 100 mls @ 200 mls/hr 02/08/18 10:00 02/10/18 10:15 Dextrose IVPB 200 mls/hr DAILY ELVIRA Administration Insulin Aspart 1 vial 02/10/18 07:00 02/10/18 12:59 Novolog Vial Sliding Scale - SQ Not Given ACHS [facility] Protocol Insulin Aspart 12 units 02/10/18 12:29 02/10/18 12:53 Novolog Vial SQ 02/10/18 12:30 12 units ONCE ONE Administration Protocol Mupirocin 1 applic 02/07/18 22:00 02/10/18 10:16 Bactroban Ointment (For Decolonization) - NS 02/12/18 21:59 1 applic BID ELVIRA Administration Sodium Chloride 2 spray 02/09/18 08:37 02/09/18 14:08 [place] Nasal [place] - NS 2 sprays TID PRN Administration NASAL CONGESTION ASSESSMENT/PLAN: 57M with history of DM with pneumonia and DKA. DKA resolved. Vital signs notable for tachycardia to 110s-120s, BP stable, afebrile. ID #Community acquired pneumonia - Continue ceftriaxone and azithromycin - Flu negative - Urine legionella and s pneumo negative - Urine culture negative - Blood cultures negative, continue to follow - Sputum cultures and gram stain pending - Tylenol PRN for fever CV #HTN - Continue home diltiazem ENDO #DKA - Gap closed, tolerating PO #DM - Sliding scale - No home insulin, no retirement acting insulin at this time FEN/GI - Tolerating PO - Diabetic diet - No gap, electrolytes appropriate, replete as necessary PPx: - Heparin DVT prophylaxis Dispo - Full code - Patient stable, ready for transfer from ICU to telemetry. Visit type - Emergency Visit Emergency Visit: Yes ED Registration Date: 02/07/18 Care time: The patient presented to the Emergency Department on the above date and was hospitalized for further evaluation of their emergent condition. - New Patient This patient is new to me today: Yes Date on this admission: 02/10/18 - Critical Care Critical Care patient: Yes Total Critical Care Time (in minutes): 35 Critical Care Statement: The care of this patient involved high complexity decision making to prevent further life threatening deterioration of the patient 's condition and/or to evaluate & treat vital organ system(s) failure or risk of failure.
--- NOTE | 2018-02-10 14:30 | PN ---
Teaching Attending Note Name of Resident: Germán Bee ATTENDING PHYSICIAN STATEMENT I saw and evaluated the patient. I reviewed the resident's note and discussed the case with the resident. I agree with the resident's findings and plan as documented. SUBJECTIVE: Pt seen and examined in the ICU. Remains dyspneic with coughing fits. Still some subjective chills and sweats. Off insulin gtt. OBJECTIVE: Last Vital Signs Temp Pulse Resp BP Pulse Ox 100.1 F H 109 H 24 124/89 91 L 02/10/18 10:00 02/10/18 14:00 02/10/18 14:00 02/10/18 14:00 02/10/18 09:00 Intake & Output 02/07/18 02/08/18 02/09/18 02/10/18 23:59 23:59 23:59 23:59 Intake Total 627 2425 298 500 Output Total 1800 2250 2050 480 Balance -1173 175 -1752 20 Weight 98.174 kg 98.174 kg 98.174 kg Gen: mildly tachypneic at rest Heart: tachycardic, regular Lung: scattered right rales Abd: soft, nontender Ext: no edema CBC, BMP 02/10/18 05:46 02/10/18 12:20 Active Medications Acetaminophen (Ofirmev Injection -) 1,000 mg IVPB Q6H PRN PRN Reason: FEVER Last Admin: 02/08/18 12:10 Dose: 1,000 mg Azithromycin (Azithromycin) 500 mg PO DAILY [facility] Last Admin: 02/10/18 10:22 Dose: 500 mg Chlorhexidine Gluconate (Hibiclens For Decolonization -) 1 applic TP HS [facility] Last Admin: 02/09/18 22:16 Dose: 1 applic Diltiazem HCl (Cardizem -) 90 mg PO DAILY [facility] Guaifenesin (Robitussin -) 10 ml PO Q6H PRN PRN Reason: COUGH Last Admin: 02/09/18 09:52 Dose: 10 ml Heparin Sodium (Porcine) (Heparin -) 5,000 unit SQ TID [facility] Last Admin: 02/10/18 14:10 Dose: 5,000 unit Ceftriaxone Sodium 2 gm/ (Dextrose) 100 mls @ 200 mls/hr IVPB DAILY [facility] Last Admin: 02/10/18 10:15 Dose: 200 mls/hr Insulin Aspart (Novolog Vial Sliding Scale -) 1 vial SQ ACHS [facility]A PRN Reason: Protocol Last Admin: 02/10/18 12:59 Dose: Not Given Insulin Aspart (Novolog Vial) 12 units SQ ONCE ONE PRN Reason: Protocol Stop: 02/10/18 12:30 Last Admin: 02/10/18 12:53 Dose: 12 units Mupirocin (Bactroban Ointment (For Decolonization) -) 1 applic NS BID [facility]VIRA Stop: 02/12/18 21:59 Last Admin: 02/10/18 10:16 Dose: 1 applic Sodium Chloride ([place] Nasal [place] -) 2 spray NS TID PRN PRN Reason: NASAL CONGESTION Last Admin: 02/09/18 14:08 Dose: 2 sprays ASSESSMENT AND PLAN: Pneumonia Severe Sepsis Diabetic Ketoacidosis improving Lactic Acidosis Acute Kidney Injury improving HTN - continue antibiotics - f/u cultures - monitor fever curve, WBC trend - glucose control - O2 to keep SpO2 >90% - PO as tolerated - DVT prophylaxis - can monitor on telemetry
[2018-02-10] MEDS ORDERED: ACETAMINOPHEN 1000 MG/100 ML VIAL (NON FORMULARY) IVPB PRN (15:10)
[2018-02-10] MEDS ORDERED: guaiFENesin 200 MG/10 ML 10 ML UNIT-DOSE CUPS PO PRN (15:10)
[2018-02-10] MEDS: POLYETHYLENE GLYCOL 3350 119 GM BTL PO SCH (15:13)
--- NOTE | 2018-02-10 16:05 | PN ---
Teaching Attending Note Name of Resident: Buddy Carrillo ATTENDING PHYSICIAN STATEMENT I saw and evaluated the patient. I reviewed the resident's note and discussed the case with the resident. I agree with the resident's findings and plan as documented. SUBJECTIVE:coughing episodes persist. overall breating is improved. denies Cp, SOB, fever, chills, N/V/C/D OBJECTIVE: Last Vital Signs Temp Pulse Resp BP Pulse Ox 100.1 F H 109 H 24 124/89 100 02/10/18 10:00 02/10/18 14:00 02/10/18 14:00 02/10/18 14:00 02/10/18 15:41 General NAD CV S1 S2 tachy Lungs decreased R base some no wheezing ASSESSMENT AND PLAN: 57yo M with PMH DM and HTN presented with cough, subjective fevers and generalized malaise and found to be in DKA 1. DKA- A1c 11.6. AG closed yesterday. AG increased however CO2 is normal. levemir 15units this am. cont to titrate as tolerated. repeat BMP this afternoon if remains stable can just check daily. RN teaching how to administer insulin. dietary eval. counselled on importance of medication compliance and follow up 2. Sepsis due to PNA-afebrile. remains slightly tachycardic. on Ceftriaxone/ Azithromyhcin day 3. robitussin PRN, supplemental o2 prn. f/u Cx, Uag 3. AG metabolic acidosis- due to lactic acidosis. pH 7.4. now resolved. 4. ALPESH- due to dehydration. now resolved. 5. Hypomagnesemia- resolved 6. Hypokalemia- resolved 7. Pseudohyponatremia 8. HTN urgency- BP 165/110 on admission. now normotensive but tachycardic. will re-start reduced dose of cardizem 9. DVT ppx- hep sq 10. stable for floors The care of this patient involved high complexity decision making to prevent further life threatening deterioration of the patient's condition and/or to evaluate & treat vital organ system(s) failure or risk of failure. 40 minutes
[2018-02-10 16:06] LABS: ANION GAP 11 (8-16); BLOOD UREA NITROGEN 16 mg/dL (7-18); CALCIUM 8.1 mg/dL (8.5-10.1); CHLORIDE 98 mmol/L (98-107); CO2 27 mmol/L (21-32); CREATININE 0.8 mg/dL (0.7-1.3); POTASSIUM 3.5 mmol/L (3.5-5.1); SODIUM 136 mmol/L (136-145)
[2018-02-10 16:30] LABS: GLUCOSE,RANDOM 332 mg/dL (74-106)
[2018-02-10] MEDS: dilTIAZem HCL 60 MG TABLET (FP) PO SCH (17:29)
[2018-02-10] MEDS ORDERED: dilTIAZem HCL 60 MG TABLET (FP) PO SCH (18:00)
[2018-02-10] MEDS ORDERED: INSULIN (NOVOLOG) ASPART 100 UNITS/ML 10ML VIAL ONE (21:13)
[2018-02-10] MEDS ORDERED: HYDROCORTISONE 0.5% TOPICAL OINTMENT TUBE TP PRN (21:47)
[2018-02-11] MEDS: dilTIAZem HCL 60 MG TABLET (FP) PO SCH ×5 (00:01→23:18)
--- NOTE | 2018-02-11 05:38 | PN ---
Physical Exam: SUBJECTIVE: Patient seen and examined - Tmax to 100.1 overnight, desatting to 91% on 2L NC; ambulating well w/ improving tachycardia - Pt denies f/c/n/v/d, cp, ab pain, back pain, LE edema; Still with productive cough, copious phlegm production overnight; Normal BMs, tolerating feeds with improving appetite; SOB improved; - Pt endorses new onset hynagogic delusions of "aliens running the hospital giving out care packages like in WWII". Pt states these only occur close to sleep, are new for him, denies any prior psych hx, and understands they are not grounded in reality. OBJECTIVE: Vital Signs Intake & Output 02/08/18 02/09/18 02/10/18 02/11/18 23:59 23:59 23:59 23:59 Intake Total 2425 298 1430 Output Total 2250 2050 480 Balance 175 -1752 950 Weight 98.174 kg 98.174 kg Period Temp Pulse Resp BP Sys/Buckner Pulse Ox Last 24 Hr 98.4 F-100.1 F 90-116 20-26 124-145/54-89 91-100 GENERAL: Middle aged man, lying in bed, A&Ox3 HEAD: NCAT, alopecia EYES: PERRL, extraocular movements intact, sclera anicteric, conjunctiva clear. No ptosis. ENT: Ears normal, nares patent, oropharynx clear without exudates, moist mucous membranes. NECK: Trachea midline, full range of motion, supple. LUNGS: Improved air entry. Trace R middle lobe crackles. No wheezing or accessory muscle use; Mild upper airway congestion HEART: Regular rate and rhythm, S1, S2 without murmur, rub or gallop. ABDOMEN: Globular, soft, NT/ND, normoactive bowel sounds, no guarding, no rebound; No CVA tenderness EXTREMITIES: 2+ pulses, warm, well-perfused, no edema note. 5/5 strength and preserved sensation throughout NEUROLOGICAL: Cranial nerves II through XII grossly intact. Normal speech, gait not observed. PSYCH: Normal mood, normal affect. Denies visual/auditory/tactile hallucinations ; endorsing hypnagogic delusions of "aliens running the hospital"; good judgment and insight to this delusion Laboratory Results - last 24 hr CBC, BMP CBC, BMP 02/11/18 06:18 02/11/18 06:18 02/10/18 05:46 02/10/18 15:25 02/07/18 02/07/18 02/08/18 17:44 20:14 08:50 WBC RBC Hgb Hct MCV MCH MCHC RDW Plt Count MPV Neutrophils % Neutrophils % (Manual) Band Neutrophils % Lymphocytes % Lymphocytes % (Manual) Monocytes % (Manual) Eosinophils % (Manual) Basophils % (Manual) Myelocytes % (Man) Promyelocytes % (Man) Blast Cells % (Manual) Nucleated RBC % Metamyelocytes Toxic Granulation Platelet Estimate Polychromasia Sodium Potassium Chloride Carbon Dioxide Anion Gap BUN Creatinine Creat Clearance w eGFR POC Glucometer > 400 > [phone] Random Glucose Calcium Phosphorus Magnesium Total Bilirubin AST ALT Alkaline Phosphatase Total Protein Albumin 02/09/18 02/10/18 02/10/18 22:22 05:46 05:46 WBC 24.1 H RBC 3.84 L Hgb 12.3 Hct 35.2 L MCV 91.8 MCH 32.0 MCHC 34.8 RDW 13.3 Plt Count 248 MPV 9.3 Neutrophils % No Result Required. Neutrophils % (Manual) 80.0 Band Neutrophils % 1.0 Lymphocytes % No Result Required. Lymphocytes % (Manual) 4.0 L D Monocytes % (Manual) 10 Eosinophils % (Manual) 0.0 Basophils % (Manual) 0.0 Myelocytes % (Man) 2 D Promyelocytes % (Man) 0 D Blast Cells % (Manual) 0 Nucleated RBC % 0 Metamyelocytes 3 H D Toxic Granulation 3+ Platelet Estimate Normal Polychromasia 1+ Sodium 138 Potassium 3.5 Chloride 102 Carbon Dioxide 25 Anion Gap 11 BUN 12 Creatinine 0.6 L Creat Clearance w eGFR > 60 POC Glucometer [phone] Random Glucose 206 H Calcium 7.6 L Phosphorus 2.8 Magnesium 2.0 Total Bilirubin 1.3 H AST 44 H D ALT 35 Alkaline Phosphatase 121 H D Total Protein 5.8 L D Albumin 1.9 L D 02/10/18 02/10/18 02/10/18 05:50 12:20 15:25 WBC RBC Hgb Hct MCV MCH MCHC RDW Plt Count MPV Neutrophils % Neutrophils % (Manual) Band Neutrophils % Lymphocytes % Lymphocytes % (Manual) Monocytes % (Manual) Eosinophils % (Manual) Basophils % (Manual) Myelocytes % (Man) Promyelocytes % (Man) Blast Cells % (Manual) Nucleated RBC % Metamyelocytes Toxic Granulation Platelet Estimate Polychromasia Sodium 136 Potassium 3.5 Chloride 98 Carbon Dioxide 27 Anion Gap 11 BUN 16 D Creatinine 0.8 D Creat Clearance w eGFR POC Glucometer [phone] Random Glucose 378 H* D 332 H* Calcium 8.1 L Phosphorus Magnesium Total Bilirubin AST ALT Alkaline Phosphatase Total Protein Albumin 02/10/18 02/10/18 02/10/18 16:29 18:14 21:51 WBC RBC Hgb Hct MCV MCH MCHC RDW Plt Count MPV Neutrophils % Neutrophils % (Manual) Band Neutrophils % Lymphocytes % Lymphocytes % (Manual) Monocytes % (Manual) Eosinophils % (Manual) Basophils % (Manual) Myelocytes % (Man) Promyelocytes % (Man) Blast Cells % (Manual) Nucleated RBC % Metamyelocytes Toxic Granulation Platelet Estimate Polychromasia Sodium Potassium Chloride Carbon Dioxide Anion Gap BUN Creatinine Creat Clearance w eGFR POC Glucometer [phone] 296 Random Glucose Calcium Phosphorus Magnesium Total Bilirubin AST ALT Alkaline Phosphatase Total Protein Albumin Active Medications Generic Name Dose Route Start Last Admin Trade Name Freq PRN Reason Stop Dose Admin Acetaminophen 1,000 mg 02/10/18 15:10 Ofirmev Injection - IVPB Q6H PRN FEVER Azithromycin 500 mg 02/10/18 10:00 02/10/18 10:22 Azithromycin PO 500 mg DAILY [facility]IRA Administration Diltiazem HCl 60 mg 02/10/18 18:00 02/11/18 00:01 Cardizem - PO 60 mg Q6HPO ELVIRA Administration Guaifenesin 10 ml 02/10/18 15:10 02/10/18 17:29 Robitussin - PO 10 ml Q6H PRN Administration COUGH Heparin Sodium (Porcine) 5,000 unit 02/10/18 22:00 02/10/18 21:54 Heparin - SQ 5,000 unit TID ELVIRA Administration Hydrocortisone 1 applic 02/10/18 21:47 02/11/18 00:01 Hytone 0.5% Ointment - TP 1 applic DAILY PRN Administration Rash Ceftriaxone Sodium 2 gm/ 100 mls @ 200 mls/hr 02/11/18 10:00 Dextrose IVPB DAILY [facility]A Insulin Aspart 1 vial 02/10/18 16:37 02/10/18 21:54 Novolog Vial Sliding Scale - SQ 6 units ACHS ELVIRA Administration Protocol Mupirocin 1 applic 02/10/18 22:00 02/10/18 21:46 Bactroban Ointment (For Decolonization) - NS 02/12/18 21:59 Not Given BID [facility]A Polyethylene Glycol 17 gm 02/10/18 14:45 02/10/18 15:13 Miralax (For Daily Use) - PO Not Given DAILY [facility] Sodium Chloride 2 spray 02/09/18 08:37 02/09/18 14:08 [place] Nasal [place] - NS 2 sprays TID PRN Administration NASAL CONGESTION Microbiology 02/07/18 17:40 Blood - Peripheral Venous Blood Culture - Preliminary NO GROWTH OBTAINED AFTER 72 HOURS, INCUBATION TO CONTINUE FOR 2 DAYS. 02/07/18 17:40 Blood - Peripheral Venous Blood Culture - Preliminary NO GROWTH OBTAINED AFTER 72 HOURS, INCUBATION TO CONTINUE FOR 2 DAYS. 02/10/18 06:00 Sputum - Expectorated Gram Stain - Final 02/07/18 18:35 Urine - Urine Clean Catch Urine Culture - Final NO GROWTH OBTAINED 02/08/18 03:00 Urine - Urine [place] Legionella Antigen - Final 02/08/18 03:00 Urine - Urine [place] Streptococcus pneumoniae Antigen (M - Final 02/08/18 03:00 Urine For Antigen Detection Legionella Antigen - Final 02/08/18 03:00 Urine For Antigen Detection Streptococcus pneumoniae Antigen (M - Final 02/07/18 17:40 Nasopharyngeal Swab Influenza Types A,B Antigen (JORGE) - Final 02/07/18 17:40 Nasopharyngeal Swab - Final CXR 02/07 - IMPRESSION: Hazy right upper to right midlung opacity could be pleural or chest wall rather than airspace. Clinical correlation and a repeat chest x-ray with PA and lateral views is recommended. CXR 02/08 - Since the prior exam of 02/07/2018, there appears to be a progressive right infiltrate and left mid to lower lung infiltrate. Follow-up recommended. 02/09 CXR - Progressive BL infiltrates; recommend CT chest for further evaluation CXR 02/10 - Imaging again reveals bilateral infiltrates, right greater than left. Follow-up recommended. ASSESSMENT/PLAN: 57 yo M with PMH of HTN, DM2 who presented with two weeks of cough, cp, f/c, now with confirmed PNA and admitted to ICU for DKA. Pt receiving abx coverage for suspected CAP pna. Insulin gtt d/c'ed yesterday evening, bicarb corrected. Pt continues to improve symptomatically. Abx expanded with vanc given + latex coag staph in sputum culture #DKA - BGMs in 400s today. A1C 11.6. - ISS - BGMs q4h - nutrition consult - diabetic diet - outpt diabetes management - Endo consult #Sepsis secondary to CAP PNA - WBC unchanged; tmax 100.1 overnight - Trend WBC, fever - robitussin for cough - f/u cultures; negative to date - sputum culture + latex coag + GP cocci - Urine PNA Ag's negative - rapid flu negative - Day 4 Rocephin/AZA for CAP coverage; Vanco added per ID recs - O2 support - Xopenex - ABG 7.49//64 today - Repeat CT chest ordered - HIV test negative #AG metabolic acidosis - secondary to LA; resolved - Serial BMPs #Constipation - Miralax #Hypokalemia - 3.3 this AM - trend; repleted 40mg Kcl PO this AM #HTN - restarted Cardizem 60mg q6h - monitor BP #?DOMI - outpt sleep study FEN PO hydration Daily lytes, monitor for hypomag, hypoK Diabetic diet PPX HSQ Dispo M/S Plan discussed with attending, Dr. Zachery Carrillo, PGY1 Visit type - Emergency Visit Emergency Visit: Yes ED Registration Date: 02/07/18 Care time: The patient presented to the Emergency Department on the above date and was hospitalized for further evaluation of their emergent condition. - New Patient This patient is new to me today: No - Critical Care Critical Care patient: No
[2018-02-11] MEDS: HEPARIN NA (PORCINE) 5,000 UNITS/ML 1ML VIAL SQ SCH ×3 (06:24→21:40)
[2018-02-11] MEDS: INSULIN SLIDING SCALE (NOVOLOG) 1 VIAL SQ SCH ×4 (06:25→21:41)
[2018-02-11 07:38] LABS: HEMATOCRIT 36.6 % (35.4-49); HEMOGLOBIN 12.2 GM/dL (11.7-16.9); MCH 31.1 pg (25.7-33.7); MCHC 33.4 g/dl (32.0-35.9); MEAN PLT VOLUME 10.5 fl (7.5-11.1); PLATELET COUNT 169 K/MM3 (134-434); RBC 3.94 M/mm3 (4.00-5.60); RDW 13.4 % (11.9-15.9); WHITE BLOOD COUNT 22.8 K/mm3 (4.0-10.0)
--- NOTE | 2018-02-11 08:08 | PN ---
Teaching Attending Note Name of Resident: Buddy Carrillo ATTENDING PHYSICIAN STATEMENT I saw and evaluated the patient. I reviewed the resident's note and discussed the case with the resident. I agree with the resident's findings and plan as documented with exceptions below. SUBJECTIVE: Patient seen and examined. still with cough and generalized chest pain from the same, no new fevers, or chills, Unable to bring cough up. overall feels better. OBJECTIVE: Vital Signs Period Temp Pulse Resp BP Sys/Buckner Pulse Ox Last 24 Hr 98.2 F-100.1 F 90-112 20-26 124-135/54-89 91-100 Intake & Output 02/08/18 02/09/18 02/10/18 02/11/18 23:59 23:59 23:59 23:59 Intake Total 2425 298 1430 Output Total 2250 2050 480 Balance 175 -1752 950 Weight 216 lb 7 oz 216 lb 7 oz 213 lb 12.8 oz General: sitting in bed in no acute distress Chest; bibasilar rales CVS S1S2 regular, tachycardic Abdomen soft, obese, NT Extremities no edema Home Medication List Medication Instructions Recorded Confirmed Type Diltiazem Cd [Cardizem Cd -] 240 mg PO DAILY 02/07/18 02/07/18 History Glipizide 5 mg PO DAILY 02/07/18 02/07/18 History metFORMIN HCL [Glucophage -] 500 mg PO BID 02/07/18 02/07/18 History Active Medications Generic Name Dose Route Start Last Admin Trade Name Freq PRN Reason Stop Dose Admin Acetaminophen 1,000 mg 02/10/18 15:10 Ofirmev Injection - IVPB Q6H PRN FEVER Azithromycin 500 mg 02/10/18 10:00 02/10/18 10:22 Azithromycin PO 500 mg DAILY [facility]A Administration Diltiazem HCl 60 mg 02/10/18 18:00 02/11/18 06:24 Cardizem - PO 60 mg Q6HPO ELVIRA Administration Guaifenesin 10 ml 02/10/18 15:10 02/10/18 17:29 Robitussin - PO 10 ml Q6H PRN Administration COUGH Heparin Sodium (Porcine) 5,000 unit 02/10/18 22:00 02/11/18 06:24 Heparin - SQ 5,000 unit TID ELVIRA Administration Ceftriaxone Sodium 2 gm/ 100 mls @ 200 mls/hr 02/11/18 10:00 Dextrose IVPB DAILY [facility] Insulin Aspart 1 vial 02/10/18 16:37 02/11/18 06:25 Novolog Vial Sliding Scale - SQ 8 units ACHS ELVIRA Administration Protocol Mupirocin 1 applic 02/10/18 22:00 02/10/18 21:46 Bactroban Ointment (For Decolonization) - NS 02/12/18 21:59 Not Given BID [facility]A Polyethylene Glycol 17 gm 02/10/18 14:45 02/10/18 15:13 Miralax (For Daily Use) - PO Not Given DAILY [facility] Sodium Chloride 2 spray 02/09/18 08:37 02/09/18 14:08 [place] Nasal [place] - NS 2 sprays TID PRN Administration NASAL CONGESTION CXr results reviewed ASSESSMENT AND PLAN: 57 yom with PMHx of NIDDM, HTN admitted with DKA and bilateral PNA with severe sepsis -Bilateral Multifocal PNA with severe sepsis -DKA, resolved -Acute hypoxic respiratory failure, s/p Bipap, improved, from above -poorly controlled DM, A1c 11.2 -Hypertensive urgency -Hypomagnesemia -Hypokalemia -Pseudohyponatremia Plan: Ceftriaxone/Azithromycin day 4, sputum/blood cx. PNA studies. CT chest noted, follow up imaging in 1-2 weeks. O2 suppl prn, anticipate short term home oxygen needs, follow up with pulmonary. Outpatient Sleep study. ID consult, patient consents to HIV testing. SKYE Kelley, endocrine consult with Dr. Hickey. Home insulin teaching. Continue diltiazem. d/c hydrocortisone cream for now. DVTPPx with heparin dispo planning in 48-72 hours, if continues to improve, anticipate on home oxygen/insulin. Plan discussed with patient in detail, all questions answered.
[2018-02-11 08:25] LABS: CHLORIDE 100 mmol/L (98-107); POTASSIUM 3.3 mmol/L (3.5-5.1); SODIUM 138 mmol/L (136-145)
[2018-02-11] MEDS ORDERED: INSULIN (LEVEMIR) 100 UNITS/ML UNITS SQ ONE (08:30)
[2018-02-11 08:33] LABS: ALBUMIN 1.9 g/dl (3.4-5.0); ALK PHOS 130 U/L (45-117); ANION GAP 14 (8-16); BILIRUBIN,TOTAL 0.9 mg/dL (0.2-1.0); BLOOD UREA NITROGEN 13 mg/dL (7-18); CALCIUM 7.7 mg/dL (8.5-10.1); CO2 24 mmol/L (21-32); CREATININE 0.6 mg/dL (0.7-1.3); GLUCOSE,RANDOM 274 mg/dL (74-106); SGOT/AST 42 U/L (15-37); SGPT/ALT 38 U/L (12-78); TOT PROT 5.8 g/dl (6.4-8.2)
[2018-02-11] MEDS ORDERED: PT OWN MED DRAWER 7, Y5N ONE ×2 (08:56→08:57)
[2018-02-11] MEDS ORDERED: POTASSIUM CHLORIDE ORAL LIQUID 20 MEQ/15 ML PO ONE (09:00)
[2018-02-11] MEDS ORDERED: dilTIAZem HCL 60 MG TABLET (FP) PO SCH (10:00)
[2018-02-11] MEDS: CEFTRIAXONE 2 GM in DEXTROSE 5%-WATER 100 ML IVPB SCH (10:32)
[2018-02-11] MEDS: AZITHROMYCIN 500 MG TABLET PO SCH (10:33)
[2018-02-11] MEDS: MUPIROCIN 2% TOPICAL OINTMENT FOR DECOLONIZATION NS SCH ×2 (10:33→21:40)
[2018-02-11 11:10] LABS: ARTERIAL BLD GAS O2 SATURATION 92.7 % (90-98.9); ARTERIAL BLOOD GAS BASE EXCESS 0.2 meq/l (-2-2); ARTERIAL BLOOD GAS PCO2 32.9 mmHg (35-45); ARTERIAL BLOOD GAS PO2 63.9 mmHg (80-100); ARTERIAL BLOOD GAS pH 7.46 (7.35-7.45)
[2018-02-11] MEDS: POLYETHYLENE GLYCOL 3350 119 GM BTL PO SCH (11:10)
[2018-02-11 11:12] LABS: ALLENS TEST POSITIVE
--- NOTE | 2018-02-11 11:52 | CONSULT ---
Consult Consult Specialty:: Endocrinology Referred by:: Thao Abraham Reason for Consultation:: Hyperglycemia - History of Present Illness Chief Complaint: Hyperglycemia History of Present Illness: This is a 57 year old male with history of T2DM for about 10 years, never on Insulin and HTN who presented to the ED with a 2 week h/o chest pain, cough SOB and lightheadedness. Pt reports viral like illness approximately 2 weeks ago with subjective fever, chills, cough and has not been feeling well since. Pt with poor po intake over past few days with almost no intake x 2 days. Also reports h/o chronic dry cough, luis at work x 2-3 years. ER course was notable for Gluc 696, 3+ acetone, pH 7.19 WBC 32.5 and CXR with haziness right upper/ midPt. Pt treated with IV hydration and IV Insulin with resolution of DKA and started on Basal and bolus insulin regimen. FS at home in 300s with polyuria , polydipsia and nocturia. Was taking Metaglip BID with Metformin 500mg TID and Pioglitazone. - History Source History Provided By: Patient, Medical Record - Past Medical History Cardio/Vascular: Yes: HTN Pulmonary: Yes: Other (chronic dry cough ~2-3years) Endocrine: Yes: Diabetes Mellitus - Past Surgical History Additional Surgical History: foot surgery - Alcohol/Substance Use Hx Alcohol Use: Yes (socially) History of Substance Use: reports: None - Smoking History Smoking history: Never smoked Have you smoked in the past 12 months: No - Social History Usual Living Arrangement: With Spouse ADL: Independent History of Recent Travel: No Home Medications - Allergies Allergies/Adverse Reactions: Allergies Allergy/AdvReac Type Severity Reaction Status Date / Time No Known Allergies Allergy Verified 02/07/18 17:35 - Home Medications Home Medications: Ambulatory Orders Diltiazem Cd [Cardizem Cd -] 240 mg PO DAILY 02/07/18 Glipizide 5 mg PO DAILY 02/07/18 metFORMIN HCL [Glucophage -] 500 mg PO BID 02/07/18 Family Disease History - Family Disease History Family Disease History: Diabetes: Mother (GDM), Sister (GDM) Review of Systems - Review of Systems Constitutional: reports: Weakness Eyes: reports: No Symptoms HENT: reports: No Symptoms Neck: reports: No Symptoms Cardiovascular: reports: No Symptoms Respiratory: reports: Cough Gastrointestinal: reports: No Symptoms Genitourinary: reports: No Symptoms Breasts: reports: No Symptoms Reported Musculoskeletal: reports: No Symptoms Integumentary: reports: No Symptoms Neurological: reports: No Symptoms Physical Exam Vital Signs: Vital Signs Temperature 98 F 02/11/18 10:00 Pulse Rate 100 H 02/11/18 10:00 Respiratory Rate 20 02/11/18 10:00 Blood Pressure 130/80 02/11/18 10:00 O2 Sat by Pulse Oximetry (%) 91 L 02/10/18 21:00 Constitutional: Yes: No Distress, Calm Eyes: Yes: Conjunctiva Clear, EOM Intact HENT: Yes: Atraumatic, Normocephalic Neck: Yes: Supple, Trachea Midline Cardiovascular: Yes: Regular Rate and Rhythm Respiratory: Yes: Regular, CTA Bilaterally Gastrointestinal: Yes: Normal Bowel Sounds, Soft Extremities: Yes: WNL Edema: No Neurological: Yes: Alert, Oriented Labs: CBC, BMP 02/11/18 06:18 02/11/18 06:18 Assessment/Plan AP; DM s/P DKA Bilateral Multifocal PNA Acute hypoxic respiratory failure, s/p Bipap, improved, from above Ceftriaxone/Azithromycin O2 suppl as necessary Increase Levemir Increase Novolog Coverage Nutrition consult Teach pt to self inject Insulin Will f/U
[2018-02-11] MEDS ORDERED: LEVALBUTEROL HCL 0.63 MG/3 ML VIAL.NEB. IH SCH (14:00)
--- NOTE | 2018-02-11 14:45 | CONSULT ---
Consultation: REQUESTING PROVIDER: CONSULT REQUEST: We have been asked to medically evaluate this patient for PNA. HISTORY OF PRESENT ILLNESS: Pt is a 57 y/o M with PMH NIDDM, HTN who presented to ED with several weeks of dry hacking cough. Cough had gradually worsened over about a month. Pt also experienced sharp nonradiating substernal chest pain which was exacerbated by movement and deep inspiration. Pt also had several episodes of visual changes ( saw white spots). Pt admits to subjective fevers at home, but he did not have fever when he measured his temp. Currently, pt feels somewhat better than when he first came to the hospital. However, he still has a cough and chest pain. Pt has been afebrile for 3 days, and labs reveal a persistent but improving leukocytosis. Chest CT done today consistent with b/l PNA. 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 Pt states his was ill at the same time as him with similar symptoms, however she also had diarrhea. Her symptoms have since resolved. REVIEW OF SYSTEMS: CONSTITUTIONAL: subjective fever, malaise Absent: , chills, diaphoresis, generalized weakness, loss of appetite, weight change HEENT: Absent: rhinorrhea, nasal congestion, throat pain, throat swelling, difficulty swallowing, mouth swelling, ear pain, eye pain, visual changes CARDIOVASCULAR: chest pain Absent: , syncope, palpitations, irregular heart rate, lightheadedness, peripheral edema RESPIRATORY: cough, shortness of breath Absent: , dyspnea with exertion, orthopnea, wheezing, stridor, hemoptysis GASTROINTESTINAL: Absent: abdominal pain, abdominal distension, nausea, vomiting, diarrhea, constipation, melena, hematochezia GENITOURINARY: Absent: dysuria, frequency, urgency, hesitancy, hematuria, flank pain, genital pain MUSCULOSKELETAL: Absent: myalgia, arthralgia, joint swelling, back pain, neck pain SKIN: Absent: rash, itching, pallor HEMATOLOGIC/IMMUNOLOGIC: Absent: easy bleeding, easy bruising, lymphadenopathy, frequent infections ENDOCRINE: Absent: unexplained weight gain, unexplained weight loss, heat intolerance, cold intolerance NEUROLOGIC: Absent: headache, focal weakness or paresthesias, dizziness, unsteady gait, seizure, mental status changes, bladder or bowel incontinence PSYCHIATRIC: Absent: anxiety, depression, suicidal or homicidal ideation, hallucinations. PHYSICAL EXAMINATION Vital Signs - 24 hr 02/10/18 02/10/18 02/10/18 15:41 16:00 17:54 Temperature 98.8 F 98.4 F Pulse Rate 103 H 107 H Respiratory 26 H 24 Rate Blood Pressure 135/77 124/82 O2 Sat by Pulse 100 Oximetry (%) 02/10/18 02/10/18 02/10/18 17:58 20:00 21:00 Temperature 99.2 F Pulse Rate 90 Respiratory 24 20 20 Rate Blood Pressure 128/72 O2 Sat by Pulse 95 91 L Oximetry (%) 02/11/18 02/11/18 02/11/18 00:00 06:00 09:00 Temperature 98.7 F 98.2 F Pulse Rate 110 H 106 H Respiratory 20 20 Rate Blood Pressure 124/54 132/71 O2 Sat by Pulse 94 L Oximetry (%) 02/11/18 10:00 Temperature 98 F Pulse Rate 100 H Respiratory 20 Rate Blood Pressure 130/80 O2 Sat by Pulse Oximetry (%) GENERAL: Awake, alert, and fully oriented, in no acute distress. HEAD: Normal with no signs of trauma. EYES: Pupils equal, round and reactive to light, extraocular movements intact, sclera anicteric, conjunctiva clear. No lid lag. EARS, NOSE, THROAT: Ears normal, nares patent, oropharynx clear without exudates. Moist mucous membranes. NECK: Normal range of motion, supple without lymphadenopathy, JVD, or masses. LUNGS: mild inspiratory rales R lung base HEART: Regular rate and rhythm, normal S1 and S2 without murmur, rub or gallop. ABDOMEN: Soft, nontender, not distended, normoactive bowel sounds, no guarding, no rebound, no masses. No hepatomegaly or splenomegaly. MUSCULOSKELETAL: Normal range of motion at all joints. No bony deformities or tenderness. No CVA tenderness. UPPER EXTREMITIES: 2+ pulses, warm, well-perfused. No cyanosis. No clubbing. Cap refill <2 seconds. No peripheral edema. LOWER EXTREMITIES: 2+ pulses, warm, well-perfused. No calf tenderness. No peripheral edema. NEUROLOGICAL: Cranial nerves II-XII intact. Normal speech. PSYCHIATRIC: Cooperative. Good eye contact. Appropriate mood and affect. SKIN: Warm, mildly diaphoretic, normal turgor, no rashes or lesions noted. Laboratory Results - last 24 hr 02/07/18 02/09/18 02/10/18 21:45 22:22 05:50 WBC RBC Hgb Hct MCV MCH MCHC RDW Plt Count MPV Puncture Site ABG pH ABG pCO2 at Pt Temp ABG pO2 at Pt Temp ABG HCO3 ABG O2 Sat (Measured) ABG O2 Content ABG Base Excess Elias Test O2 Delivery Device Oxygen Flow Rate Mechanical Rate PEEP Sodium Potassium Chloride Carbon Dioxide Anion Gap BUN Creatinine Creat Clearance w eGFR POC Glucometer [phone] Random Glucose Calcium Total Bilirubin AST ALT Alkaline Phosphatase Total Protein Albumin HCV Quantitation Hcv not detected HCV RNA log copies/mL TNP HIV 1&2 Antibody Screen HIV P24 Antigen 02/10/18 02/10/18 02/10/18 11:48 15:25 16:29 WBC RBC Hgb Hct MCV MCH MCHC RDW Plt Count MPV Puncture Site ABG pH ABG pCO2 at Pt Temp ABG pO2 at Pt Temp ABG HCO3 ABG O2 Sat (Measured) ABG O2 Content ABG Base Excess Elias Test O2 Delivery Device Oxygen Flow Rate Mechanical Rate PEEP Sodium 136 Potassium 3.5 Chloride 98 Carbon Dioxide 27 Anion Gap 11 BUN 16 D Creatinine 0.8 D Creat Clearance w eGFR POC Glucometer > [phone] Random Glucose 332 H* Calcium 8.1 L Total Bilirubin AST ALT Alkaline Phosphatase Total Protein Albumin HCV Quantitation HCV RNA log copies/mL HIV 1&2 Antibody Screen HIV P24 Antigen 02/10/18 02/10/18 02/11/18 18:14 21:51 06:10 WBC RBC Hgb Hct MCV MCH MCHC RDW Plt Count MPV Puncture Site ABG pH ABG pCO2 at Pt Temp ABG pO2 at Pt Temp ABG HCO3 ABG O2 Sat (Measured) ABG O2 Content ABG Base Excess Elias Test O2 Delivery Device Oxygen Flow Rate Mechanical Rate PEEP Sodium Potassium Chloride Carbon Dioxide Anion Gap BUN Creatinine Creat Clearance w eGFR POC Glucometer 209 296 305 Random Glucose Calcium Total Bilirubin AST ALT Alkaline Phosphatase Total Protein Albumin HCV Quantitation HCV RNA log copies/mL HIV 1&2 Antibody Screen HIV P24 Antigen 02/11/18 02/11/18 02/11/18 06:18 06:18 11:00 WBC 22.8 H RBC 3.94 L Hgb 12.2 Hct 36.6 MCV 93.0 MCH 31.1 MCHC 33.4 RDW 13.4 Plt Count 169 D MPV 10.5 D Puncture Site Right radial ABG pH 7.46 H ABG pCO2 at Pt Temp 32.9 L ABG pO2 at Pt Temp 63.9 L ABG HCO3 23.1 ABG O2 Sat (Measured) 92.7 ABG O2 Content 15.1 ABG Base Excess 0.2 Elias Test Positive O2 Delivery Device Nasal cannula Oxygen Flow Rate 2l Mechanical Rate No PEEP 0.0 Sodium 138 Potassium 3.3 L Chloride 100 Carbon Dioxide 24 Anion Gap 14 BUN 13 Creatinine 0.6 L D Creat Clearance w eGFR > 60 POC Glucometer Random Glucose 274 H Calcium 7.7 L Total Bilirubin 0.9 D AST 42 H ALT 38 Alkaline Phosphatase 130 H Total Protein 5.8 L Albumin 1.9 L HCV Quantitation HCV RNA log copies/mL HIV 1&2 Antibody Screen HIV P24 Antigen 02/11/18 02/11/18 12:29 12:50 WBC RBC Hgb Hct MCV MCH MCHC RDW Plt Count MPV Puncture Site ABG pH ABG pCO2 at Pt Temp ABG pO2 at Pt Temp ABG HCO3 ABG O2 Sat (Measured) ABG O2 Content ABG Base Excess Elias Test O2 Delivery Device Oxygen Flow Rate Mechanical Rate PEEP Sodium Potassium Chloride Carbon Dioxide Anion Gap BUN Creatinine Creat Clearance w eGFR POC Glucometer 418 Random Glucose Calcium Total Bilirubin AST ALT Alkaline Phosphatase Total Protein Albumin HCV Quantitation HCV RNA log copies/mL HIV 1&2 Antibody Screen Negative HIV P24 Antigen Negative Active Medications Generic Name Dose Route Start Last Admin Trade Name Freq PRN Reason Stop Dose Admin Acetaminophen 1,000 mg 02/10/18 15:10 Ofirmev Injection - IVPB Q6H PRN FEVER Azithromycin 500 mg 02/10/18 10:00 02/11/18 10:33 Azithromycin PO 500 mg DAILY ELVIRA Administration Diltiazem HCl 60 mg 02/10/18 18:00 02/11/18 12:37 Cardizem - PO 60 mg Q6HPO ELVIRA Administration Guaifenesin 10 ml 02/11/18 12:23 Robitussin Dm - PO Q4H PRN COUGH Heparin Sodium (Porcine) 5,000 unit 02/10/18 22:00 02/11/18 06:24 Heparin - SQ 5,000 unit TID ELVIRA Administration Ceftriaxone Sodium 2 gm/ 100 mls @ 200 mls/hr 02/11/18 10:00 02/11/18 10:32 Dextrose IVPB 200 mls/hr DAILY ELVIRA Administration Insulin Aspart 1 vial 02/10/18 16:37 02/11/18 12:37 Novolog Vial Sliding Scale - SQ 12 units ACHS ELVIRA Administration Protocol Insulin Detemir 15 units 02/12/18 07:00 Levemir Vial SQ AM ELVIRA Levalbuterol HCl 0.63 mg 02/11/18 14:00 Xopenex IH RTID ELVIRA Mupirocin 1 applic 02/10/18 22:00 02/11/18 10:33 Bactroban Ointment (For Decolonization) - NS 02/12/18 21:59 Not Given BID ELVIRA Polyethylene Glycol 17 gm 02/10/18 14:45 02/11/18 11:10 Miralax (For Daily Use) - PO Not Given DAILY ELVIRA Sodium Chloride 2 spray 02/09/18 08:37 02/09/18 14:08 [place] Nasal [place] - NS 2 sprays TID PRN Administration NASAL CONGESTION ASSESSMENT/PLAN: #CAP -b/l multilobar PNA on CT -sputum Cx pos for Coag pos Staph -urine Strep/Legionella Ag neg -f/u BCx -WBC 22. Improving -afebrile -Azithromycin, Rocephin -Add Vanc -f/u CBC tomorrow Dispo: We will continue to follow the patient. Thank you for this consultative opportunity. Karan Sanchez MD PGY-1 ID Visit type - Emergency Visit Emergency Visit: No - New Patient This patient is new to me today: Yes Date on this admission: 02/11/18 - Critical Care Critical Care patient: No
--- NOTE | 2018-02-11 16:04 | PN ---
Teaching Attending Note Name of Resident: Karan Sanchez ATTENDING PHYSICIAN STATEMENT I saw and evaluated the patient. I reviewed the resident's note and discussed the case with the resident. I agree with the resident's findings and plan as documented. SUBJECTIVE: OBJECTIVE: ASSESSMENT AND PLAN: Bilateral Multilobar pneumonia + Sputum c/s S. aureus ? MRSA Marked leukocytosis S/P DKA Await sputum c/s Add vancomycin 1gm IVPB q12h Repeat CBC
--- NOTE | 2018-02-11 16:09 | PN ---
Progress Note (short form) - Note Progress Note: Feels about the same. Mildly tachypneic with cough. CT scan: multilobar PNA. Intake & Output 02/08/18 02/09/18 02/10/18 02/11/18 23:59 23:59 23:59 23:59 Intake Total 2425 298 1430 650 Output Total 2250 2050 480 Balance 175 -1752 950 650 Weight 216 lb 7 oz 216 lb 7 oz 213 lb 12.8 oz Last Vital Signs Temp Pulse Resp BP Pulse Ox 99.0 F 112 H 20 136/77 94 L 02/11/18 14:43 02/11/18 14:43 02/11/18 10:00 02/11/18 14:43 02/11/18 09:00 Active Medications Acetaminophen (Ofirmev Injection -) 1,000 mg IVPB Q6H PRN PRN Reason: FEVER Azithromycin (Azithromycin) 500 mg PO DAILY COUNTS INCLUDE 234 BEDS AT THE [facility] Last Admin: 02/11/18 10:33 Dose: 500 mg Diltiazem HCl (Cardizem -) 60 mg PO Q6HPO COUNTS INCLUDE 234 BEDS AT THE [facility] Last Admin: 02/11/18 12:37 Dose: 60 mg Guaifenesin (Robitussin Dm -) 10 ml PO Q4H PRN PRN Reason: COUGH Heparin Sodium (Porcine) (Heparin -) 5,000 unit SQ TID COUNTS INCLUDE 234 BEDS AT THE [facility] Last Admin: 02/11/18 14:38 Dose: 5,000 unit Ceftriaxone Sodium 2 gm/ (Dextrose) 100 mls @ 200 mls/hr IVPB DAILY COUNTS INCLUDE 234 BEDS AT THE [facility] Last Admin: 02/11/18 10:32 Dose: 200 mls/hr Vancomycin HCl 1,000 mg/ (Dextrose) 250 mls @ 200 mls/hr IVPB Q12H COUNTS INCLUDE 234 BEDS AT THE [facility] Insulin Aspart (Novolog Vial Sliding Scale -) 1 vial SQ HS COUNTS INCLUDE 234 BEDS AT THE [facility] PRN Reason: Protocol Insulin Aspart (Novolog Vial Sliding Scale -) 1 vial SQ TIDAC COUNTS INCLUDE 234 BEDS AT THE [facility] PRN Reason: Protocol Insulin Detemir (Levemir Vial) 15 units SQ AM ELVIRA Levalbuterol HCl (Xopenex) 0.63 mg IH RTID COUNTS INCLUDE 234 BEDS AT THE [facility] Mupirocin (Bactroban Ointment (For Decolonization) -) 1 applic NS BID COUNTS INCLUDE 234 BEDS AT THE [facility] Stop: 02/12/18 21:59 Last Admin: 02/11/18 10:33 Dose: Not Given Polyethylene Glycol (Miralax (For Daily Use) -) 17 gm PO DAILY ELVIRA Last Admin: 02/11/18 11:10 Dose: Not Given Sodium Chloride ([place]al [place] -) 2 spray NS TID PRN PRN Reason: NASAL CONGESTION Last Admin: 02/09/18 14:08 Dose: 2 sprays OBJECTIVE: Gen: mildly tachypneic at rest Heart: tachycardic, regular Lung: scattered bilateral coarse rhonchi Abd: soft, nontender Ext: no edema Laboratory Results - last 24 hr 02/07/18 02/10/18 02/10/18 21:45 11:48 15:25 WBC RBC Hgb Hct MCV MCH MCHC RDW Plt Count MPV Puncture Site ABG pH ABG pCO2 at Pt Temp ABG pO2 at Pt Temp ABG HCO3 ABG O2 Sat (Measured) ABG O2 Content ABG Base Excess Elias Test O2 Delivery Device Oxygen Flow Rate Mechanical Rate PEEP Sodium 136 Potassium 3.5 Chloride 98 Carbon Dioxide 27 Anion Gap 11 BUN 16 D Creatinine 0.8 D Creat Clearance w eGFR POC Glucometer > 400 Random Glucose 332 H* Calcium 8.1 L Total Bilirubin AST ALT Alkaline Phosphatase Total Protein Albumin HCV Quantitation Hcv not detected HCV RNA log copies/mL TNP HIV 1&2 Antibody Screen HIV P24 Antigen 02/10/18 02/10/18 02/10/18 16:29 18:14 21:51 WBC RBC Hgb Hct MCV MCH MCHC RDW Plt Count MPV Puncture Site ABG pH ABG pCO2 at Pt Temp ABG pO2 at Pt Temp ABG HCO3 ABG O2 Sat (Measured) ABG O2 Content ABG Base Excess Elias Test O2 Delivery Device Oxygen Flow Rate Mechanical Rate PEEP Sodium Potassium Chloride Carbon Dioxide Anion Gap BUN Creatinine Creat Clearance w eGFR POC Glucometer [phone] 296 Random Glucose Calcium Total Bilirubin AST ALT Alkaline Phosphatase Total Protein Albumin HCV Quantitation HCV RNA log copies/mL HIV 1&2 Antibody Screen HIV P24 Antigen 02/11/18 02/11/18 02/11/18 06:10 06:18 06:18 WBC 22.8 H RBC 3.94 L Hgb 12.2 Hct 36.6 MCV 93.0 MCH 31.1 MCHC 33.4 RDW 13.4 Plt Count 169 D MPV 10.5 D Puncture Site ABG pH ABG pCO2 at Pt Temp ABG pO2 at Pt Temp ABG HCO3 ABG O2 Sat (Measured) ABG O2 Content ABG Base Excess Elias Test O2 Delivery Device Oxygen Flow Rate Mechanical Rate PEEP Sodium 138 Potassium 3.3 L Chloride 100 Carbon Dioxide 24 Anion Gap 14 BUN 13 Creatinine 0.6 L D Creat Clearance w eGFR > 60 POC Glucometer 305 Random Glucose 274 H Calcium 7.7 L Total Bilirubin 0.9 D AST 42 H ALT 38 Alkaline Phosphatase 130 H Total Protein 5.8 L Albumin 1.9 L HCV Quantitation HCV RNA log copies/mL HIV 1&2 Antibody Screen HIV P24 Antigen 02/11/18 02/11/18 02/11/18 11:00 12:29 12:50 WBC RBC Hgb Hct MCV MCH MCHC RDW Plt Count MPV Puncture Site Right radial ABG pH 7.46 H ABG pCO2 at Pt Temp 32.9 L ABG pO2 at Pt Temp 63.9 L ABG HCO3 23.1 ABG O2 Sat (Measured) 92.7 ABG O2 Content 15.1 ABG Base Excess 0.2 Elias Test Positive O2 Delivery Device Nasal cannula Oxygen Flow Rate 2l Mechanical Rate No PEEP 0.0 Sodium Potassium Chloride Carbon Dioxide Anion Gap BUN Creatinine Creat Clearance w eGFR POC Glucometer 418 Random Glucose Calcium Total Bilirubin AST ALT Alkaline Phosphatase Total Protein Albumin HCV Quantitation HCV RNA log copies/mL HIV 1&2 Antibody Screen Negative HIV P24 Antigen Negative ASSESSMENT AND PLAN: Pneumonia Severe Sepsis Diabetic Ketoacidosis improving Lactic Acidosis Acute Kidney Injury improving HTN - Noted Vanco added to ABX for possible MRSA PNA - f/u final cultures - monitor fever curve, WBC trend - glucose control - O2 to keep SpO2 >90% - PO as tolerated - DVT prophylaxis - Telemetry monitoring Dr Randall
[2018-02-11] MEDS ORDERED: VANCOMYCIN 1,000 MG in DEXTROSE 5%-WATER - 250 ML IVPB SCH (16:15)
[2018-02-11] MEDS ORDERED: VANCOMYCIN 1,000 MG in SODIUM CHLORIDE 250 ML IVPB SCH (16:16)
[2018-02-11] MEDS ORDERED: INSULIN (NOVOLOG) ASPART 100 UNITS/ML 10ML VIAL ONE (16:56)
[2018-02-12] MEDS: guaiFENesin/D-METHORPHAN HB 10 ML UNIT-DOSE CUPS PO PRN ×2 (02:16→21:44)
[2018-02-12] MEDS: HEPARIN NA (PORCINE) 5,000 UNITS/ML 1ML VIAL SQ SCH ×3 (05:22→21:45)
[2018-02-12] MEDS: VANCOMYCIN 1,000 MG in SODIUM CHLORIDE 250 ML IVPB SCH ×2 (05:23→17:04)
[2018-02-12] MEDS: dilTIAZem HCL 60 MG TABLET (FP) PO SCH ×3 (05:23→17:04)
--- NOTE | 2018-02-12 05:48 | PN ---
Physical Exam: SUBJECTIVE: Patient seen and examined by me this AM - cough slightly improved, non-productive overnight; States SOB unchanged; No BM overnight; Denies f/c/n/v/d, cp, ab pain, back pain OBJECTIVE: Vital Signs Intake & Output 02/09/18 02/10/18 02/11/18 02/12/18 23:59 23:59 23:59 23:59 Intake Total 298 1430 1750 Output Total 2050 480 Balance -9031 121 6591 Weight 98.174 kg 96.978 kg Period Temp Pulse Resp BP Sys/Buckner Pulse Ox Last 24 Hr 98 F-99.1 F 95-112 20-20 105-136/55-80 94-96 GENERAL: Middle aged man, lying in bed, A&Ox3 HEAD: NCAT, alopecia EYES: PERRL, extraocular movements intact, sclera anicteric, conjunctiva clear. No ptosis. ENT: Ears normal, nares patent, oropharynx clear without exudates, moist mucous membranes. NECK: Trachea midline, full range of motion, supple. LUNGS: Decreased breath sounds in R middle/upper lobe, trace rhonchi noted on R side. No wheezing or accessory muscle use; Mild upper airway congestion HEART: Regular rate and rhythm, S1, S2 without murmur, rub or gallop. ABDOMEN: Globular, soft, NT/ND, normoactive bowel sounds, no guarding, no rebound; No CVA tenderness EXTREMITIES: 2+ pulses, warm, well-perfused, no edema note. 5/5 strength and preserved sensation throughout NEUROLOGICAL: Cranial nerves II through XII grossly intact. Normal speech, gait not observed. PSYCH: Normal mood, normal affect. Denies visual/auditory/tactile hallucinations Laboratory Results - last 24 hr CBC, BMP 02/12/18 06:00 02/12/18 06:00 02/11/18 06:18 02/11/18 06:18 02/07/18 02/10/18 02/11/18 21:45 11:48 06:10 WBC RBC Hgb Hct MCV MCH MCHC RDW Plt Count MPV Puncture Site ABG pH ABG pCO2 at Pt Temp ABG pO2 at Pt Temp ABG HCO3 ABG O2 Sat (Measured) ABG O2 Content ABG Base Excess Elias Test O2 Delivery Device Oxygen Flow Rate Mechanical Rate PEEP Sodium Potassium Chloride Carbon Dioxide Anion Gap BUN Creatinine Creat Clearance w eGFR POC Glucometer > 400 305 Random Glucose Calcium Total Bilirubin AST ALT Alkaline Phosphatase Total Protein Albumin HCV Quantitation Hcv not detected HCV RNA log copies/mL TNP HIV 1&2 Antibody Screen HIV P24 Antigen 02/11/18 02/11/18 02/11/18 06:18 06:18 11:00 WBC 22.8 H RBC 3.94 L Hgb 12.2 Hct 36.6 MCV 93.0 MCH 31.1 MCHC 33.4 RDW 13.4 Plt Count 169 D MPV 10.5 D Puncture Site Right radial ABG pH 7.46 H ABG pCO2 at Pt Temp 32.9 L ABG pO2 at Pt Temp 63.9 L ABG HCO3 23.1 ABG O2 Sat (Measured) 92.7 ABG O2 Content 15.1 ABG Base Excess 0.2 Elias Test Positive O2 Delivery Device Nasal cannula Oxygen Flow Rate 2l Mechanical Rate No PEEP 0.0 Sodium 138 Potassium 3.3 L Chloride 100 Carbon Dioxide 24 Anion Gap 14 BUN 13 Creatinine 0.6 L D Creat Clearance w eGFR > 60 POC Glucometer Random Glucose 274 H Calcium 7.7 L Total Bilirubin 0.9 D AST 42 H ALT 38 Alkaline Phosphatase 130 H Total Protein 5.8 L Albumin 1.9 L HCV Quantitation HCV RNA log copies/mL HIV 1&2 Antibody Screen HIV P24 Antigen 02/11/18 02/11/18 02/11/18 12:29 12:50 16:55 WBC RBC Hgb Hct MCV MCH MCHC RDW Plt Count MPV Puncture Site ABG pH ABG pCO2 at Pt Temp ABG pO2 at Pt Temp ABG HCO3 ABG O2 Sat (Measured) ABG O2 Content ABG Base Excess Elias Test O2 Delivery Device Oxygen Flow Rate Mechanical Rate PEEP Sodium Potassium Chloride Carbon Dioxide Anion Gap BUN Creatinine Creat Clearance w eGFR POC Glucometer 418 357 Random Glucose Calcium Total Bilirubin AST ALT Alkaline Phosphatase Total Protein Albumin HCV Quantitation HCV RNA log copies/mL HIV 1&2 Antibody Screen Negative HIV P24 Antigen Negative 02/11/18 02/12/18 21:39 05:07 WBC RBC Hgb Hct MCV MCH MCHC RDW Plt Count MPV Puncture Site ABG pH ABG pCO2 at Pt Temp ABG pO2 at Pt Temp ABG HCO3 ABG O2 Sat (Measured) ABG O2 Content ABG Base Excess Elias Test O2 Delivery Device Oxygen Flow Rate Mechanical Rate PEEP Sodium Potassium Chloride Carbon Dioxide Anion Gap BUN Creatinine Creat Clearance w eGFR POC Glucometer 271 265 Random Glucose Calcium Total Bilirubin AST ALT Alkaline Phosphatase Total Protein Albumin HCV Quantitation HCV RNA log copies/mL HIV 1&2 Antibody Screen HIV P24 Antigen Active Medications Generic Name Dose Route Start Last Admin Trade Name Freq PRN Reason Stop Dose Admin Acetaminophen 1,000 mg 02/10/18 15:10 Ofirmev Injection - IVPB Q6H PRN FEVER Azithromycin 500 mg 02/10/18 10:00 02/11/18 10:33 Azithromycin PO 500 mg DAILY ELVIRA Administration Diltiazem HCl 60 mg 02/10/18 18:00 02/12/18 05:23 Cardizem - PO 60 mg Q6HPO ELVIRA Administration Guaifenesin 10 ml 02/11/18 12:23 02/12/18 02:16 Robitussin Dm - PO 10 ml Q4H PRN Administration COUGH Heparin Sodium (Porcine) 5,000 unit 02/10/18 22:00 02/12/18 05:22 Heparin - SQ 5,000 unit TID ELVIRA Administration Ceftriaxone Sodium 2 gm/ 100 mls @ 200 mls/hr 02/11/18 10:00 02/11/18 10:32 Dextrose IVPB 200 mls/hr DAILY ELVIRA Administration Vancomycin HCl 1,000 mg/ 250 mls @ 166.667 mls/hr 02/12/18 06:00 02/12/18 05: 23 Sodium Chloride IVPB 166.667 mls/hr Q12H ELVIRA Administration Insulin Aspart 1 vial 02/11/18 22:00 02/11/18 21:41 Novolog Vial Sliding Scale - SQ 6 units HS [facility] Administration Protocol Insulin Aspart 1 vial 02/11/18 16:30 02/11/18 17:01 Novolog Vial Sliding Scale - SQ 12 units TIDAC [facility] Administration Protocol Insulin Detemir 22 units 02/12/18 07:00 Levemir Vial SQ AM ELV[facility]A Levalbuterol HCl 0.63 mg 02/11/18 14:00 Xopenex IH RTID ELVIRA Mupirocin 1 applic 02/10/18 22:00 02/11/18 21:40 Bactroban Ointment (For Decolonization) - NS 02/12/18 21:59 Not Given BID ELVIRA Polyethylene Glycol 17 gm 02/10/18 14:45 02/11/18 11:10 Miralax (For Daily Use) - PO Not Given DAILY [facility]A Sodium Chloride 2 spray 02/09/18 08:37 02/09/18 14:08 [place] Nasal [place] - NS 2 sprays TID PRN Administration NASAL CONGESTION Microbiology 02/07/18 17:40 Blood - Peripheral Venous Blood Culture - Preliminary NO GROWTH OBTAINED AFTER 96 HOURS, INCUBATION TO CONTINUE FOR 1 DAYS. 02/07/18 17:40 Blood - Peripheral Venous Blood Culture - Preliminary NO GROWTH OBTAINED AFTER 96 HOURS, INCUBATION TO CONTINUE FOR 1 DAYS. 02/10/18 06:00 Sputum - Expectorated Gram Stain - Final 02/10/18 06:00 Sputum - Expectorated Sputum Culture - Preliminary Staphylococcus Latex Coag Pos 02/07/18 18:35 Urine - Urine Clean Catch Urine Culture - Final NO GROWTH OBTAINED 02/08/18 03:00 Urine - Urine [place] Legionella Antigen - Final 02/08/18 03:00 Urine - Urine [place] Streptococcus pneumoniae Antigen (M - Final 02/08/18 03:00 Urine For Antigen Detection Legionella Antigen - Final 02/08/18 03:00 Urine For Antigen Detection Streptococcus pneumoniae Antigen (M - Final 02/07/18 17:40 Nasopharyngeal Swab Influenza Types A,B Antigen (JORGE) - Final 02/07/18 17:40 Nasopharyngeal Swab - Final CXR 02/07 - IMPRESSION: Hazy right upper to right midlung opacity could be pleural or chest wall rather than airspace. Clinical correlation and a repeat chest x-ray with PA and lateral views is recommended. CXR 02/08 - Since the prior exam of 02/07/2018, there appears to be a progressive right infiltrate and left mid to lower lung infiltrate. Follow-up recommended. 02/09 CXR - Progressive BL infiltrates; recommend CT chest for further evaluation CXR 02/10 - Imaging again reveals bilateral infiltrates, right greater than left. Follow-up recommended. CT chest 02/11 - IMPRESSION: Findings consistent with bilateral pneumonia, as described above for which a follow-up CT scan of the chest in one to 2 weeks is strongly recommended to evaluate for/rule out any underlying pathology CXR 02/11 - BL infiltrates ASSESSMENT/PLAN: 57 yo M with PMH of HTN, DM2 who presented with two weeks of cough, cp, f/c, now with confirmed PNA and admitted to ICU for DKA. Pt receiving abx coverage for suspected CAP pna, expanded to vanc given + MRSA cultures. Pt improving symptomatically today. #DKA - BGMs in 200s overnight. A1C 11.6. - ISS - BGMs q4h - nutrition consult - diabetic diet - outpt diabetes management - Endo consult - levemir increased to 22u - Insulin administration teaching per nursing staff #Sepsis secondary to CAP PNA - WBC 20; no fever overnight; improving - Trend WBC, fever - robitussin DM for cough - sputum culture + MRSA - Urine PNA Ag's negative - rapid flu negative - Day 5 Rocephin/AZA for CAP coverage; Vanco day 2 - O2 support - half-strength ventolin neb per pulm rec - CT chest as above - HIV test negative - Add humidified air #Constipation - Miralax #Hypokalemia - 3.3 again this AM - Repleted 40mg PO KCL this AM - Trend #HTN - Cardizem 60mg q6h - monitor BP #?DOMI - outpt sleep study FEN PO hydration Daily lytes, monitor for hypomag, hypoK Diabetic diet PPX HSQ Dispo M/S Plan discussed with attending, Dr. Zachery Carrillo, PGY1 Visit type - Emergency Visit Emergency Visit: Yes ED Registration Date: 02/07/18 Care time: The patient presented to the Emergency Department on the above date and was hospitalized for further evaluation of their emergent condition. - New Patient This patient is new to me today: No - Critical Care Critical Care patient: No
[2018-02-12] MEDS: INSULIN SLIDING SCALE (NOVOLOG) 1 VIAL SQ SCH ×4 (06:18→21:46)
[2018-02-12 06:27] LABS: HEMATOCRIT 33.7 % (35.4-49); HEMOGLOBIN 11.6 GM/dL (11.7-16.9); MCH 31.9 pg (25.7-33.7); MCHC 34.4 g/dl (32.0-35.9); MEAN CELL VOLUME 92.5 fl (80-96); MEAN PLT VOLUME 10.5 fl (7.5-11.1); PLATELET COUNT 225 K/MM3 (134-434); RBC 3.64 M/mm3 (4.00-5.60); RDW 13.6 % (11.9-15.9); WHITE BLOOD COUNT 20.1 K/mm3 (4.0-10.0)
[2018-02-12 06:44] LABS: ALBUMIN 1.8 g/dl (3.4-5.0); ANION GAP 12 (8-16); BILIRUBIN,TOTAL 0.8 mg/dL (0.2-1.0); BLOOD UREA NITROGEN 8 mg/dL (7-18); CALCIUM 7.4 mg/dL (8.5-10.1); CHLORIDE 100 mmol/L (98-107); CO2 25 mmol/L (21-32); CREATININE 0.5 mg/dL (0.7-1.3); GLUCOSE,RANDOM 243 mg/dL (74-106); MAGNESIUM 1.8 mg/dL (1.8-2.4); PHOSPHOROUS 3.3 mg/dL (2.5-4.9); POTASSIUM 3.3 mmol/L (3.5-5.1); SGOT/AST 28 U/L (15-37); SGPT/ALT 38 U/L (12-78); SODIUM 137 mmol/L (136-145); TOT PROT 5.9 g/dl (6.4-8.2)
[2018-02-12 06:45] LABS: ALK PHOS 115 U/L (45-117)
[2018-02-12] MEDS ORDERED: INSULIN (LEVEMIR) 100 UNITS/ML UNITS SQ SCH ×2 (07:00)
[2018-02-12] MEDS ORDERED: POTASSIUM CHLORIDE ORAL LIQUID 20 MEQ/15 ML PO ONE (08:30)
[2018-02-12] MEDS ORDERED: PT OWN MED DRAWER 7, Y5N ONE ×2 (09:20→16:19)
[2018-02-12] MEDS: AZITHROMYCIN 500 MG TABLET PO SCH (09:46)
[2018-02-12] MEDS: CEFTRIAXONE 2 GM in DEXTROSE 5%-WATER 100 ML IVPB SCH (09:46)
[2018-02-12] MEDS: MUPIROCIN 2% TOPICAL OINTMENT FOR DECOLONIZATION NS SCH (09:47)
[2018-02-12] MEDS: POLYETHYLENE GLYCOL 3350 119 GM BTL PO SCH (09:47)
[2018-02-12 11:20] LABS: MACROCYTOSIS 1+
[2018-02-12 11:21] LABS: TOXIC GRANULATION 2+
[2018-02-12] MEDS ORDERED: INSULIN (NOVOLOG) ASPART 100 UNITS/ML 10ML VIAL ONE (11:49)
--- NOTE | 2018-02-12 12:29 | PN ---
Progress Note, Physician History of Present Illness: PULMONARY ALERT,FEELING BETTER,LESS DYSPNEIC,+COUGH - Current Medication List Current Medications: Active Medications Acetaminophen (Ofirmev Injection -) 1,000 mg IVPB Q6H PRN PRN Reason: FEVER Azithromycin (Azithromycin) 500 mg PO DAILY [facility] Last Admin: 02/12/18 09:46 Dose: 500 mg Diltiazem HCl (Cardizem -) 60 mg PO Q6HPO [facility] Last Admin: 02/12/18 05:23 Dose: 60 mg Guaifenesin (Robitussin Dm -) 10 ml PO Q4H PRN PRN Reason: COUGH Last Admin: 02/12/18 02:16 Dose: 10 ml Heparin Sodium (Porcine) (Heparin -) 5,000 unit SQ TID [facility] Last Admin: 02/12/18 05:22 Dose: 5,000 unit Ceftriaxone Sodium 2 gm/ (Dextrose) 100 mls @ 200 mls/hr IVPB DAILY [facility] Last Admin: 02/12/18 09:46 Dose: 200 mls/hr Vancomycin HCl 1,000 mg/ (Sodium Chloride) 250 mls @ 166.667 mls/hr IVPB Q12H [facility] Last Admin: 02/12/18 05:23 Dose: 166.667 mls/hr Insulin Aspart (Novolog Vial Sliding Scale -) 1 vial SQ HS [facility] PRN Reason: Protocol Last Admin: 02/11/18 21:41 Dose: 6 units Insulin Aspart (Novolog Vial Sliding Scale -) 1 vial SQ TIDAC [facility] PRN Reason: Protocol Last Admin: 02/12/18 06:18 Dose: 10 units Insulin Detemir (Levemir Vial) 22 units SQ AM [facility] Last Admin: 02/12/18 06:17 Dose: 22 units Mupirocin (Bactroban Ointment (For Decolonization) -) 1 applic NS BID [facility] Stop: 02/12/18 21:59 Last Admin: 02/12/18 09:47 Dose: Not Given Polyethylene Glycol (Miralax (For Daily Use) -) 17 gm PO DAILY [facility] Last Admin: 02/12/18 09:47 Dose: Not Given Sodium Chloride ([place] Nasal [place] -) 2 spray NS TID PRN PRN Reason: NASAL CONGESTION Last Admin: 02/09/18 14:08 Dose: 2 sprays - Objective Vital Signs: Vital Signs Temperature 98.7 F 04/11/18 09:00 Pulse Rate 98 H 02/12/18 09:00 Respiratory Rate 18 02/12/18 09:00 Blood Pressure 115/66 02/12/18 09:00 O2 Sat by Pulse Oximetry (%) 94 L 02/12/18 09:00 Constitutional: Yes: Well Nourished, Calm Eyes: Yes: WNL HENT: Yes: WNL Neck: Yes: WNL Cardiovascular: Yes: Regular Rate and Rhythm, S1, S2 Respiratory: Yes: Rhonchi (FEW SCATTERED RHONCHI) Gastrointestinal: Yes: Normal Bowel Sounds, Soft Extremities: Yes: WNL Edema: No Labs: CBC, BMP 02/12/18 06:00 02/12/18 06:00 INR, PTT INR 1.32 (0.82-1.09) H 02/07/18 17:40 - ....Imaging Chest X-ray: Report Reviewed, Image Reviewed Cat Scan: Report Reviewed, Image Reviewed Problem List - Problems (1) Bilateral pneumonia Code(s): J18.9 - PNEUMONIA, UNSPECIFIED ORGANISM (2) Diabetic ketoacidosis Code(s): E13.10 - OTH DIABETES MELLITUS WITH KETOACIDOSIS WITHOUT COMA Qualifiers: Diabetes mellitus type: type 2 Diabetes mellitus complication detail: without coma Qualified Code(s): E11.10 - Type 2 diabetes mellitus with ketoacidosis without coma (3) Acute kidney failure Code(s): N17.9 - ACUTE KIDNEY FAILURE, UNSPECIFIED (4) Acute kidney injury Code(s): N17.9 - ACUTE KIDNEY FAILURE, UNSPECIFIED Assessment/Plan ASSESSMENT AND PLAN: Pneumonia s/p Severe Sepsis Diabetic Ketoacidosis improved Lactic Acidosis Acute Kidney Injury improving HTN - ABX as per ID - glucose control - O2 to keep SpO2 >90% - PO as tolerated - DVT prophylaxis - f/u chest x-rays DR MALHOTRA
--- NOTE | 2018-02-12 13:44 | PN ---
Progress Note (short form) - Note Progress Note: C/o Orthopnea and cough Vital Signs Period Temp Pulse Resp BP Sys/Buckner Pulse Ox Last 24 Hr 98.6 F-99.1 F 95-112 18-20 105-136/55-77 94-96 PE: AOx3 Neck: [place], No JVD HEEENT: EOMI Lungs: Decreased BS, No rhonchi CVS: S1S2 Abd: Benign Ext; No edema Neuro: No focal deficit CMP Sodium 137 mmol/L (136-145) 02/12/18 06:00 Potassium 3.3 mmol/L (3.5-5.1) L 02/12/18 06:00 Chloride 100 mmol/L (98-107) 02/12/18 06:00 Carbon Dioxide 25 mmol/L (21-32) 02/12/18 06:00 Anion Gap 12 (8-16) 02/12/18 06:00 BUN 8 mg/dL (7-18) D 02/12/18 06:00 Creatinine 0.5 mg/dL (0.7-1.3) L 02/12/18 06:00 Creat Clearance w eGFR > 60 (>60) 02/12/18 06:00 POC Glucometer 266 UNITS (80-120) 02/12/18 16:36 Random Glucose 243 mg/dL (74-106) H 02/12/18 06:00 Hemoglobin A1c % 11.6 % (4.8-6.0) H 02/09/18 09:30 Lactic Acid 1.3 mmol/L (0.0-2.0) 02/09/18 05:50 Calcium 7.4 mg/dL (8.5-10.1) L 02/12/18 06:00 Phosphorus 3.3 mg/dL (2.5-4.9) 02/12/18 06:00 Magnesium 1.8 mg/dL (1.8-2.4) 02/12/18 06:00 Total Bilirubin 0.8 mg/dL (0.2-1.0) 02/12/18 06:00 AST 28 U/L (15-37) D 02/12/18 06:00 ALT 38 U/L (12-78) 02/12/18 06:00 Alkaline Phosphatase 115 U/L (45-117) 02/12/18 06:00 Troponin I < 0.02 ng/ml (0.00-0.05) 02/07/18 17:40 Total Protein 5.9 g/dl (6.4-8.2) L 02/12/18 06:00 Albumin 1.8 g/dl (3.4-5.0) L 02/12/18 06:00 Current Medications Generic Name Dose Route Start Last Admin Trade Name Freq PRN Reason Stop Dose Admin Acetaminophen 1,000 mg 02/10/18 15:10 Ofirmev Injection - IVPB Q6H PRN FEVER Albuterol Sulfate 1 amp 02/12/18 14:31 Ventolin 0.042trength) - NEB Q6H PRN SHORT OF BREATH/WHEEZING Azithromycin 500 mg 02/10/18 10:00 02/12/18 09:46 Azithromycin PO 500 mg DAILY [facility]IRA Administration Diltiazem HCl 60 mg 02/10/18 18:00 02/12/18 17:04 Cardizem - PO 60 mg Q6HPO ELVIRA Administration Guaifenesin 10 ml 02/11/18 12:23 02/12/18 02:16 Robitussin Dm - PO 10 ml Q4H PRN Administration COUGH Heparin Sodium (Porcine) 5,000 unit 02/10/18 22:00 02/12/18 13:59 Heparin - SQ 5,000 unit TID ELVIRA Administration Ceftriaxone Sodium 2 gm/ 100 mls @ 200 mls/hr 02/11/18 10:00 02/12/18 09:46 Dextrose IVPB 200 mls/hr DAILY [facility]IRA Administration Vancomycin HCl 1,000 mg/ 250 mls @ 166.667 mls/hr 02/12/18 06:00 02/12/18 17: 04 Sodium Chloride IVPB 166.667 mls/hr Q12H ELVIRA Administration Insulin Aspart 1 vial 02/11/18 22:00 02/11/18 21:41 Novolog Vial Sliding Scale - SQ 6 units HS [facility]IRA Administration Protocol Insulin Aspart 1 vial 02/11/18 16:30 02/12/18 17:03 Novolog Vial Sliding Scale - SQ 10 units TIDAC [facility] Administration Protocol Insulin Detemir 22 units 02/12/18 07:00 02/12/18 06:17 Levemir Vial SQ 22 units AM [facility] Administration Mupirocin 1 applic 02/10/18 22:00 02/12/18 09:47 Bactroban Ointment (For Decolonization) - NS 02/12/18 21:59 Not Given BID ELVIRA Polyethylene Glycol 17 gm 02/10/18 14:45 02/12/18 09:47 Miralax (For Daily Use) - PO Not Given DAILY ELVIRA Sodium Chloride 2 spray 02/09/18 08:37 02/09/18 14:08 [place] Nasal [place] - NS 2 sprays TID PRN Administration NASAL CONGESTION AP; DM s/P DKA Bilateral Multifocal PNA Acute hypoxic respiratory failure, s/p Bipap, improved, from above Ceftriaxone/Azithromycin O2 suppl as necessary Increase Levemir to 28 Increase Novolog Coverage Nutrition consult Teach pt to self inject Insulin Will f/U
[2018-02-12] MEDS ORDERED: ALBUTEROL SO4 0.042% IH SOL 1.25 MG/3 ML VIAL.NEB NEB PRN (14:31)
--- NOTE | 2018-02-12 16:50 | PN ---
Teaching Attending Note Name of Resident: Buddy Carrillo ATTENDING PHYSICIAN STATEMENT I saw and evaluated the patient. I reviewed the resident's note and discussed the case with the resident. I agree with the resident's findings and plan as documented with exceptions below. SUBJECTIVE: Patient seen and examined. breathing continues to improve, still with significant cough and unable to bring out sputum, no other concerns. OBJECTIVE: Vital Signs Period Temp Pulse Resp BP Sys/Buckner Pulse Ox Last 24 Hr 98.6 F-99.9 F 95-107 18-20 105-135/55-75 94-96 Intake & Output 02/09/18 02/10/18 02/11/18 02/12/18 23:59 23:59 23:59 23:59 Intake Total 298 1430 1750 1260 Output Total 2050 480 Balance -5315 876 1607 1260 Weight 216 lb 7 oz 213 lb 12.8 oz 216 lb general: sitting in bed in no acute distress chest: Right upper/lower rales, no wheezing, positive air entry extremities: no edema Home Medication List Medication Instructions Recorded Confirmed Type Diltiazem Cd [Cardizem Cd -] 240 mg PO DAILY 02/07/18 02/07/18 History Glipizide 5 mg PO DAILY 02/07/18 02/07/18 History metFORMIN HCL [Glucophage -] 500 mg PO BID 02/07/18 02/07/18 History Active Medications Generic Name Dose Route Start Last Admin Trade Name Freq PRN Reason Stop Dose Admin Acetaminophen 1,000 mg 02/10/18 15:10 Ofirmev Injection - IVPB Q6H PRN FEVER Albuterol Sulfate 1 amp 02/12/18 14:31 Ventolin 0.042trength) - NEB Q6H PRN SHORT OF BREATH/WHEEZING Azithromycin 500 mg 02/10/18 10:00 02/12/18 09:46 Azithromycin PO 500 mg DAILY [facility] Administration Diltiazem HCl 60 mg 02/10/18 18:00 02/12/18 12:37 Cardizem - PO 60 mg Q6HPO [facility] Administration Guaifenesin 10 ml 02/11/18 12:23 02/12/18 02:16 Robitussin Dm - PO 10 ml Q4H PRN Administration COUGH Heparin Sodium (Porcine) 5,000 unit 02/10/18 22:00 02/12/18 13:59 Heparin - SQ 5,000 unit TID [facility] Administration Ceftriaxone Sodium 2 gm/ 100 mls @ 200 mls/hr 02/11/18 10:00 02/12/18 09:46 Dextrose IVPB 200 mls/hr DAILY [facility] Administration Vancomycin HCl 1,000 mg/ 250 mls @ 166.667 mls/hr 02/12/18 06:00 02/12/18 05: 23 Sodium Chloride IVPB 166.667 mls/hr Q12H [facility] Administration Insulin Aspart 1 vial 02/11/18 22:00 02/11/18 21:41 Novolog Vial Sliding Scale - SQ 6 units HS [facility] Administration Protocol Insulin Aspart 1 vial 02/11/18 16:30 02/12/18 12:37 Novolog Vial Sliding Scale - SQ 12 units TIDAC [facility] Administration Protocol Insulin Detemir 22 units 02/12/18 07:00 02/12/18 06:17 Levemir Vial SQ 22 units AM [facility] Administration Mupirocin 1 applic 02/10/18 22:00 02/12/18 09:47 Bactroban Ointment (For Decolonization) - NS 02/12/18 21:59 Not Given BID [facility] Polyethylene Glycol 17 gm 02/10/18 14:45 02/12/18 09:47 Miralax (For Daily Use) - PO Not Given DAILY [facility] Sodium Chloride 2 spray 02/09/18 08:37 02/09/18 14:08 [place] Nasal [place] - NS 2 sprays TID PRN Administration NASAL CONGESTION Laboratory Results - last 24 hr 02/11/18 02/11/18 02/12/18 16:55 21:39 05:07 WBC RBC Hgb Hct MCV MCH MCHC RDW Plt Count MPV Total Counted Neutrophils % Neutrophils % (Manual) Band Neutrophils % Lymphocytes % Lymphocytes % (Manual) Monocytes % (Manual) Metamyelocytes Toxic Granulation Macrocytosis Sodium Potassium Chloride Carbon Dioxide Anion Gap BUN Creatinine Creat Clearance w eGFR POC Glucometer 357 271 265 Random Glucose Calcium Phosphorus Magnesium Total Bilirubin AST ALT Alkaline Phosphatase Total Protein Albumin 02/12/18 02/12/18 02/12/18 06:00 06:00 11:33 WBC 20.1 H RBC 3.64 L Hgb 11.6 L Hct 33.7 L MCV 92.5 MCH 31.9 MCHC 34.4 RDW 13.6 Plt Count 225 D MPV 10.5 Total Counted 100 Neutrophils % No Result Required. Neutrophils % (Manual) 81.0 Band Neutrophils % 2.0 Lymphocytes % No Result Required. Lymphocytes % (Manual) 5.0 L D Monocytes % (Manual) 9 Metamyelocytes 2 D Toxic Granulation 2+ Macrocytosis 1+ Sodium 137 Potassium 3.3 L Chloride 100 Carbon Dioxide 25 Anion Gap 12 BUN 8 D Creatinine 0.5 L Creat Clearance w eGFR > 60 POC Glucometer 373 Random Glucose 243 H Calcium 7.4 L Phosphorus 3.3 Magnesium 1.8 Total Bilirubin 0.8 AST 28 D ALT 38 Alkaline Phosphatase 115 Total Protein 5.9 L Albumin 1.8 L Microbiology 02/10/18 06:00 Sputum - Expectorated Gram Stain - Final 02/10/18 06:00 Sputum - Expectorated Sputum Culture - Final S Aureus 02/07/18 17:40 Blood - Peripheral Venous Blood Culture - Preliminary NO GROWTH OBTAINED AFTER 96 HOURS, INCUBATION TO CONTINUE FOR 1 DAYS. 02/07/18 17:40 Blood - Peripheral Venous Blood Culture - Preliminary NO GROWTH OBTAINED AFTER 96 HOURS, INCUBATION TO CONTINUE FOR 1 DAYS. 02/07/18 18:35 Urine - Urine Clean Catch Urine Culture - Final NO GROWTH OBTAINED 02/08/18 03:00 Urine - Urine [place] Legionella Antigen - Final 02/08/18 03:00 Urine - Urine [place] Streptococcus pneumoniae Antigen (M - Final 02/08/18 03:00 Urine For Antigen Detection Legionella Antigen - Final 02/08/18 03:00 Urine For Antigen Detection Streptococcus pneumoniae Antigen (M - Final 02/07/18 17:40 Nasopharyngeal Swab Influenza Types A,B Antigen (JORGE) - Final 02/07/18 17:40 Nasopharyngeal Swab - Final ASSESSMENT AND PLAN: 57 yom with PMHx of NIDDM, HTN admitted with DKA and bilateral PNA with severe sepsis -Bilateral Multifocal PNA with severe sepsis -DKA, resolved -Acute hypoxic respiratory failure, s/p Bipap, improved, from above -poorly controlled DM, A1c 11.2 -Hypertensive urgency -Hypomagnesemia -Hypokalemia -Pseudohyponatremia Plan: Ceftriaxone/Azithromycin day 5, vanco day 2. Blood culture sneg so far. SPutum cx with MRSA.PNA studies neg. CT chest noted, follow up imaging in 1-2 weeks. O2 suppl prn, anticipate short term home oxygen needs, follow up with pulmonary. Outpatient Sleep study. ID consult appreciated, HIV screen neg. Levemir increased to 22 units, ISS, endocrine consult noted. Home insulin teaching. Continue diltiazem. Add humidified oxygen and low dose nebs DVTPPx with heparin dispo planning in 48-72 hours, if continues to improve, anticipate on home oxygen/insulin. Plan discussed with patient in detail, all questions answered.
[2018-02-13] MEDS: dilTIAZem HCL 60 MG TABLET (FP) PO SCH ×4 (00:27→18:41)
[2018-02-13] MEDS: HEPARIN NA (PORCINE) 5,000 UNITS/ML 1ML VIAL SQ SCH (05:57)
--- NOTE | 2018-02-13 05:59 | PN ---
Physical Exam: SUBJECTIVE: Patient seen and examined -Desat to 88% on 2L NC overnight; Still with SOB on exertion, productive cough; complaining of anterior CP with cough; denies f/c/n/v/d, ab pain , back pain, LE edema neuro symptoms OBJECTIVE: Vital Signs Intake & Output 02/10/18 02/11/18 02/12/18 02/13/18 23:59 23:59 23:59 23:59 Intake Total 1430 1750 1740 Output Total 480 Balance 950 1750 1740 Weight 96.978 kg 97.976 kg Period Temp Pulse Resp BP Sys/Buckner Pulse Ox Last 24 Hr 98.7 F-99.9 F 90-107 18-20 110-134/63-72 93-95 GENERAL: Middle aged man, lying in bed, A&Ox3 HEAD: NCAT, alopecia EYES: PERRL, extraocular movements intact, sclera anicteric, conjunctiva clear. No ptosis. ENT: Ears normal, nares patent, oropharynx clear without exudates, moist mucous membranes. NECK: Trachea midline, full range of motion, supple. LUNGS: Decreased breath sounds across R lung foley, rhonchorous breath sound in upper airways. No wheezing or accessory muscle use; HEART: Regular rate and rhythm, S1, S2 without murmur, rub or gallop. ABDOMEN: Globular, soft, NT/ND, normoactive bowel sounds, no guarding, no rebound; No CVA tenderness EXTREMITIES: 2+ pulses, warm, well-perfused, no edema note. 5/5 strength and preserved sensation throughout NEUROLOGICAL: Cranial nerves II through XII grossly intact. Normal speech, gait not observed. PSYCH: Normal mood, normal affect. Denies visual/auditory/tactile hallucinations Laboratory Results - last 24 hr CBC, BMP 02/13/18 06:50 02/13/18 06:50 02/12/18 06:00 02/12/18 06:00 02/12/18 02/12/18 02/12/18 06:00 06:00 11:33 WBC 20.1 H RBC 3.64 L Hgb 11.6 L Hct 33.7 L MCV 92.5 MCH 31.9 MCHC 34.4 RDW 13.6 Plt Count 225 D MPV 10.5 Total Counted 100 Neutrophils % No Result Required. Neutrophils % (Manual) 81.0 Band Neutrophils % 2.0 Lymphocytes % No Result Required. Lymphocytes % (Manual) 5.0 L D Monocytes % (Manual) 9 Metamyelocytes 2 D Toxic Granulation 2+ Macrocytosis 1+ Sodium 137 Potassium 3.3 L Chloride 100 Carbon Dioxide 25 Anion Gap 12 BUN 8 D Creatinine 0.5 L Creat Clearance w eGFR > 60 POC Glucometer 373 Random Glucose 243 H Calcium 7.4 L Phosphorus 3.3 Magnesium 1.8 Total Bilirubin 0.8 AST 28 D ALT 38 Alkaline Phosphatase 115 Total Protein 5.9 L Albumin 1.8 L 02/12/18 02/12/18 16:36 21:43 WBC RBC Hgb Hct MCV MCH MCHC RDW Plt Count MPV Total Counted Neutrophils % Neutrophils % (Manual) Band Neutrophils % Lymphocytes % Lymphocytes % (Manual) Monocytes % (Manual) Metamyelocytes Toxic Granulation Macrocytosis Sodium Potassium Chloride Carbon Dioxide Anion Gap BUN Creatinine Creat Clearance w eGFR POC Glucometer 266 225 Random Glucose Calcium Phosphorus Magnesium Total Bilirubin AST ALT Alkaline Phosphatase Total Protein Albumin Active Medications Generic Name Dose Route Start Last Admin Trade Name Freq PRN Reason Stop Dose Admin Acetaminophen 1,000 mg 02/10/18 15:10 Ofirmev Injection - IVPB Q6H PRN FEVER Albuterol Sulfate 1 amp 02/12/18 14:31 Ventolin 0.042trength) - NEB Q6H PRN SHORT OF BREATH/WHEEZING Azithromycin 500 mg 02/10/18 10:00 02/12/18 09:46 Azithromycin PO 500 mg DAILY ELVIRA Administration Diltiazem HCl 60 mg 02/10/18 18:00 02/13/18 00:27 Cardizem - PO 60 mg Q6HPO ELVIRA Administration Guaifenesin 10 ml 02/11/18 12:23 02/12/18 21:44 Robitussin Dm - PO 10 ml Q4H PRN Administration COUGH Heparin Sodium (Porcine) 5,000 unit 02/10/18 22:00 02/12/18 21:45 Heparin - SQ 5,000 unit TID ELVIRA Administration Ceftriaxone Sodium 2 gm/ 100 mls @ 200 mls/hr 02/11/18 10:00 02/12/18 09:46 Dextrose IVPB 200 mls/hr DAILY ELVIRA Administration Vancomycin HCl 1,000 mg/ 250 mls @ 166.667 mls/hr 02/12/18 06:00 02/12/18 17: 04 Sodium Chloride IVPB 166.667 mls/hr Q12H ELVIRA Administration Insulin Aspart 1 vial 02/11/18 22:00 02/12/18 21:46 Novolog Vial Sliding Scale - SQ 4 units HS ELVIRA Administration Protocol Insulin Aspart 1 vial 02/13/18 07:00 Novolog Vial Sliding Scale - SQ TIDAC ELVIRA Protocol Insulin Detemir 28 units 02/13/18 07:00 Levemir Vial SQ AM ELVIRA Polyethylene Glycol 17 gm 02/10/18 14:45 02/12/18 09:47 Miralax (For Daily Use) - PO Not Given DAILY ELVIRA Sodium Chloride 2 spray 02/09/18 08:37 02/09/18 14:08 [place] Nasal [place] - NS 2 sprays TID PRN Administration NASAL CONGESTION Microbiology 02/07/18 17:40 Blood - Peripheral Venous Blood Culture - Final NO GROWTH AFTER 5 DAYS INCUBATION 02/07/18 17:40 Blood - Peripheral Venous Blood Culture - Final NO GROWTH AFTER 5 DAYS INCUBATION 02/10/18 06:00 Sputum - Expectorated Gram Stain - Final 02/10/18 06:00 Sputum - Expectorated Sputum Culture - Final S Aureus 02/07/18 18:35 Urine - Urine Clean Catch Urine Culture - Final NO GROWTH OBTAINED 02/08/18 03:00 Urine - Urine [place] Legionella Antigen - Final 02/08/18 03:00 Urine - Urine [place] Streptococcus pneumoniae Antigen (M - Final 02/08/18 03:00 Urine For Antigen Detection Legionella Antigen - Final 02/08/18 03:00 Urine For Antigen Detection Streptococcus pneumoniae Antigen (M - Final 02/07/18 17:40 Nasopharyngeal Swab Influenza Types A,B Antigen (JORGE) - Final 02/07/18 17:40 Nasopharyngeal Swab - Final CXR 02/07 - IMPRESSION: Hazy right upper to right midlung opacity could be pleural or chest wall rather than airspace. Clinical correlation and a repeat chest x-ray with PA and lateral views is recommended. CXR 02/08 - Since the prior exam of 02/07/2018, there appears to be a progressive right infiltrate and left mid to lower lung infiltrate. Follow-up recommended. 02/09 CXR - Progressive BL infiltrates; recommend CT chest for further evaluation CXR 02/10 - Imaging again reveals bilateral infiltrates, right greater than left. Follow-up recommended. CT chest 02/11 - IMPRESSION: Findings consistent with bilateral pneumonia, as described above for which a follow-up CT scan of the chest in one to 2 weeks is strongly recommended to evaluate for/rule out any underlying pathology CXR 02/11 - BL infiltrates ASSESSMENT/PLAN: 57 yo M with PMH of HTN, DM2 who presented with two weeks of cough, cp, f/c, now with confirmed PNA and admitted to ICU for DKA. Pt receiving abx coverage for suspected CAP pna, expanded to vanc given + MRSA cultures. Pt improving symptomatically today. #DKA - A1C 11.6. - ISS - BGMs q4h - nutrition consult - diabetic diet - outpt diabetes management - Endo consult - levemir increased to 28u per endo recs; BGMs better controlled overnight - Insulin administration teaching per nursing staff #Sepsis secondary to CAP PNA - WBC 18; no fever overnight; improving - Trend WBC, fever - robitussin DM for cough - sputum culture + MRSA; repeat sputum cultures for sensitivities - Urine PNA Ag's negative - rapid flu negative - Day 6 Rocephin/AZA for CAP coverage; Vanco day 3; vanc trough ~5, 4th dose given - O2 support - half-strength ventolin neb per pulm rec - HIV test negative - humidified O2 - PO d/c abx regimen per ID recs - RT pre and post - NSAIDS for pain relief #Constipation - Miralax #Hypokalemia - 3.5 today - Trend #HTN - Cardizem 60mg q6h - monitor BP #?DOMI - outpt sleep study FEN PO hydration Daily lytes, monitor for hypomag, hypoK Diabetic diet PPX Lovenox Dispo Dispo in 24-48 hours if continues to improve Plan discussed with attending, Dr. Zachery Carrillo, PGY1 Visit type - Emergency Visit Emergency Visit: Yes ED Registration Date: 02/07/18 Care time: The patient presented to the Emergency Department on the above date and was hospitalized for further evaluation of their emergent condition. - New Patient This patient is new to me today: No - Critical Care Critical Care patient: No
[2018-02-13] MEDS: INSULIN SLIDING SCALE (NOVOLOG) 1 VIAL SQ SCH ×5 (06:03→21:44)
[2018-02-13] MEDS: INSULIN (LEVEMIR) 100 UNITS/ML UNITS SQ SCH (06:04)
[2018-02-13 07:30] LABS: HEMATOCRIT 34.7 % (35.4-49); HEMOGLOBIN 11.4 GM/dL (11.7-16.9); MCHC 32.9 g/dl (32.0-35.9); MEAN CELL VOLUME 94.2 fl (80-96); MEAN PLT VOLUME 10.4 fl (7.5-11.1); RBC 3.68 M/mm3 (4.00-5.60); RDW 13.5 % (11.9-15.9); WHITE BLOOD COUNT 18.2 K/mm3 (4.0-10.0)
[2018-02-13 07:53] LABS: CHLORIDE 98 mmol/L (98-107); POTASSIUM 3.5 mmol/L (3.5-5.1); SODIUM 138 mmol/L (136-145)
[2018-02-13 08:06] LABS: ALBUMIN 1.9 g/dl (3.4-5.0); ALK PHOS 122 U/L (45-117); ANION GAP 14 (8-16); BILIRUBIN,TOTAL 0.8 mg/dL (0.2-1.0); BLOOD UREA NITROGEN 8 mg/dL (7-18); CALCIUM 7.6 mg/dL (8.5-10.1); CO2 26 mmol/L (21-32); CREATININE 0.7 mg/dL (0.7-1.3); GLUCOSE,RANDOM 263 mg/dL (74-106); MAGNESIUM 2.1 mg/dL (1.8-2.4); PHOSPHOROUS 2.9 mg/dL (2.5-4.9); SGOT/AST 25 U/L (15-37); SGPT/ALT 33 U/L (12-78); TOT PROT 6.3 g/dl (6.4-8.2)
--- NOTE | 2018-02-13 08:23 | PN ---
Teaching Attending Note Name of Resident: Buddy Carrillo ATTENDING PHYSICIAN STATEMENT I saw and evaluated the patient. I reviewed the resident's note and discussed the case with the resident. I agree with the resident's findings and plan as documented with exceptions below. SUBJECTIVE: Patient seen and examined. Breatrhing/coughing improved, no new complaints. OBJECTIVE: Vital Signs Period Temp Pulse Resp BP Sys/Buckner Pulse Ox Last 24 Hr 98.7 F-99.9 F 90-107 18-20 110-127/63-71 93-94 Intake & Output 02/10/18 02/11/18 02/12/18 02/13/18 23:59 23:59 23:59 23:59 Intake Total 1430 1750 1740 180 Output Total 480 Balance 950 1750 1740 180 Weight 213 lb 12.8 oz 216 lb 215 lb General: sitting in bed no acute distress Chest: decreased breath sounds with few rales lower right side, limited exam, (? body habitus) extremities: no edema Home Medication List Medication Instructions Recorded Confirmed Type Diltiazem Cd [Cardizem Cd -] 240 mg PO DAILY 02/07/18 02/07/18 History Glipizide 5 mg PO DAILY 02/07/18 02/07/18 History metFORMIN HCL [Glucophage -] 500 mg PO BID 02/07/18 02/07/18 History Active Medications Generic Name Dose Route Start Last Admin Trade Name Freq PRN Reason Stop Dose Admin Acetaminophen 1,000 mg 02/10/18 15:10 Ofirmev Injection - IVPB Q6H PRN FEVER Albuterol Sulfate 1 amp 02/12/18 14:31 Ventolin 0.042trength) - NEB Q6H PRN SHORT OF BREATH/WHEEZING Azithromycin 500 mg 02/10/18 10:00 02/12/18 09:46 Azithromycin PO 500 mg DAILY ELVIRA Administration Diltiazem HCl 60 mg 02/10/18 18:00 02/13/18 05:56 Cardizem - PO 60 mg Q6HPO ELVIRA Administration Guaifenesin 10 ml 02/11/18 12:23 02/12/18 21:44 Robitussin Dm - PO 10 ml Q4H PRN Administration COUGH Heparin Sodium (Porcine) 5,000 unit 02/10/18 22:00 02/13/18 05:57 Heparin - SQ 5,000 unit TID ELVIRA Administration Ceftriaxone Sodium 2 gm/ 100 mls @ 200 mls/hr 02/11/18 10:00 02/12/18 09:46 Dextrose IVPB 200 mls/hr DAILY ELVIRA Administration Vancomycin HCl 1,000 mg/ 250 mls @ 166.667 mls/hr 02/12/18 06:00 02/12/18 17: 04 Sodium Chloride IVPB 166.667 mls/hr Q12H ELVIRA Administration Insulin Aspart 1 vial 02/11/18 22:00 02/12/18 21:46 Novolog Vial Sliding Scale - SQ 4 units HS ELVIRA Administration Protocol Insulin Aspart 1 vial 02/13/18 07:00 02/13/18 06:03 Novolog Vial Sliding Scale - SQ 18 units TIDAC ELVIRA Administration Protocol Insulin Detemir 28 units 02/13/18 07:00 02/13/18 06:04 Levemir Vial SQ 28 units AM ELVIRA Administration Polyethylene Glycol 17 gm 02/10/18 14:45 02/12/18 09:47 Miralax (For Daily Use) - PO Not Given DAILY ELVIRA Sodium Chloride 2 spray 02/09/18 08:37 02/09/18 14:08 [place] Nasal [place] - NS 2 sprays TID PRN Administration NASAL CONGESTION Microbiology 02/07/18 17:40 Blood - Peripheral Venous Blood Culture - Final NO GROWTH AFTER 5 DAYS INCUBATION 02/07/18 17:40 Blood - Peripheral Venous Blood Culture - Final NO GROWTH AFTER 5 DAYS INCUBATION 02/10/18 06:00 Sputum - Expectorated Gram Stain - Final 02/10/18 06:00 Sputum - Expectorated Sputum Culture - Final S Aureus 02/07/18 18:35 Urine - Urine Clean Catch Urine Culture - Final NO GROWTH OBTAINED 02/08/18 03:00 Urine - Urine [place] Legionella Antigen - Final 02/08/18 03:00 Urine - Urine [place] Streptococcus pneumoniae Antigen (M - Final 02/08/18 03:00 Urine For Antigen Detection Legionella Antigen - Final 02/08/18 03:00 Urine For Antigen Detection Streptococcus pneumoniae Antigen (M - Final 02/07/18 17:40 Nasopharyngeal Swab Influenza Types A,B Antigen (JORGE) - Final 02/07/18 17:40 Nasopharyngeal Swab - Final ASSESSMENT AND PLAN: 57 yom with PMHx of NIDDM, HTN admitted with DKA and bilateral PNA with severe sepsis -Bilateral Multifocal PNA with severe sepsis -DKA, resolved -Acute hypoxic respiratory failure, s/p Bipap, improved, from above -poorly controlled DM, A1c 11.2 -Hypertensive urgency -Hypomagnesemia -Hypokalemia -Pseudohyponatremia Plan: Ceftriaxone/Azithromycin day 6, vanco day 3. Blood cultures neg so far. SPutum cx with MRSA.PNA studies neg. CT chest noted, follow up imaging in 1-2 weeks. Needs home oxygen CM aware to arrange for d/c, follow up with pulmonary. Outpatient Sleep study. ID consult appreciated, HIV screen neg. Discuss outpatient taper, ?Levaquin/ bactim in 1-2 days. Levemir increased to 28 units, ISS, endocrine consult noted. Home insulin teaching. Reinforced need for self-administration to patient, agrees to comply. Continue diltiazem. Add humidified oxygen and low dose nebs, chest PT. DVTPPx with heparin dispo planning decliness PT, feels comfortable ambulating and going home. Has glucometer and strips at home. Plan for home d/c with services in 24 hours if continues to improve. Plan discussed with patient in detail, all questions answered.
[2018-02-13] MEDS ORDERED: PT OWN MED DRAWER 7, Y5N ONE ×3 (09:14→18:56)
[2018-02-13] MEDS: POLYETHYLENE GLYCOL 3350 119 GM BTL PO SCH (09:18)
[2018-02-13] MEDS: CEFTRIAXONE 2 GM in DEXTROSE 5%-WATER 100 ML IVPB SCH (09:18)
[2018-02-13] MEDS: VANCOMYCIN 1,000 MG in SODIUM CHLORIDE 250 ML IVPB SCH ×2 (09:18→18:41)
[2018-02-13] MEDS: AZITHROMYCIN 500 MG TABLET PO SCH (09:19)
[2018-02-13 10:21] LABS: TOXIC GRANULATION 2+
[2018-02-13 11:27] LABS: PLATELET ESTIMATE ADEQUATE
--- NOTE | 2018-02-13 11:47 | PN ---
Progress Note (short form) - Note Progress Note: In chair in NAD No new complaints Vital Signs Period Temp Pulse Resp BP Sys/Buckner Pulse Ox Last 24 Hr 97.8 F-99.9 F 90-107 18-22 110-127/63-71 93-94 PE: AOx3 Neck: [place], No JVD HEEENT: EOMI Lungs: Decreased BS, No rhonchi CVS: S1S2 Abd: Benign Ext; No edema Neuro: No focal deficit CMP Sodium 138 mmol/L (136-145) 02/13/18 06:50 Potassium 3.5 mmol/L (3.5-5.1) 02/13/18 06:50 Chloride 98 mmol/L (98-107) 02/13/18 06:50 Carbon Dioxide 26 mmol/L (21-32) 02/13/18 06:50 Anion Gap 14 (8-16) 02/13/18 06:50 BUN 8 mg/dL (7-18) 02/13/18 06:50 Creatinine 0.7 mg/dL (0.7-1.3) D 02/13/18 06:50 Creat Clearance w eGFR > 60 (>60) 02/13/18 06:50 POC Glucometer 353 UNITS (80-120) 02/13/18 05:47 Random Glucose 263 mg/dL (74-106) H 02/13/18 06:50 Hemoglobin A1c % 11.6 % (4.8-6.0) H 02/09/18 09:30 Lactic Acid 1.3 mmol/L (0.0-2.0) 02/09/18 05:50 Calcium 7.6 mg/dL (8.5-10.1) L 02/13/18 06:50 Phosphorus 2.9 mg/dL (2.5-4.9) 02/13/18 06:50 Magnesium 2.1 mg/dL (1.8-2.4) 02/13/18 06:50 Total Bilirubin 0.8 mg/dL (0.2-1.0) 02/13/18 06:50 AST 25 U/L (15-37) 02/13/18 06:50 ALT 33 U/L (12-78) 02/13/18 06:50 Alkaline Phosphatase 122 U/L (45-117) H 02/13/18 06:50 Troponin I < 0.02 ng/ml (0.00-0.05) 02/07/18 17:40 Total Protein 6.3 g/dl (6.4-8.2) L 02/13/18 06:50 Albumin 1.9 g/dl (3.4-5.0) L 02/13/18 06:50 Current Medications Generic Name Dose Route Start Last Admin Trade Name Freq PRN Reason Stop Dose Admin Acetaminophen 1,000 mg 02/10/18 15:10 Ofirmev Injection - IVPB Q6H PRN FEVER Albuterol Sulfate 1 amp 02/12/18 14:31 Ventolin 0.042trength) - NEB Q6H PRN SHORT OF BREATH/WHEEZING Azithromycin 500 mg 02/10/18 10:00 02/13/18 09:19 Azithromycin PO 500 mg DAILY ELVIRA Administration Diltiazem HCl 60 mg 02/10/18 18:00 02/13/18 05:56 Cardizem - PO 60 mg Q6HPO ELVIRA Administration Guaifenesin 10 ml 02/11/18 12:23 02/12/18 21:44 Robitussin Dm - PO 10 ml Q4H PRN Administration COUGH Ceftriaxone Sodium 2 gm/ 100 mls @ 200 mls/hr 02/11/18 10:00 02/13/18 09:18 Dextrose IVPB 200 mls/hr DAILY ELVIRA Administration Vancomycin HCl 1,000 mg/ 250 mls @ 166.667 mls/hr 02/12/18 06:00 02/13/18 09: 18 Sodium Chloride IVPB 166.667 mls/hr Q12H ELVIRA Administration Insulin Aspart 1 vial 02/11/18 22:00 02/12/18 21:46 Novolog Vial Sliding Scale - SQ 4 units HS ELVIRA Administration Protocol Insulin Aspart 1 vial 02/13/18 07:00 02/13/18 06:03 Novolog Vial Sliding Scale - SQ 18 units TIDAC ELVIRA Administration Protocol Insulin Detemir 28 units 02/13/18 07:00 02/13/18 06:04 Levemir Vial SQ 28 units AM ELVIRA Administration Polyethylene Glycol 17 gm 02/10/18 14:45 02/13/18 09:18 Miralax (For Daily Use) - PO 17 gm DAILY ELVIRA Administration Sodium Chloride 2 spray 02/09/18 08:37 02/09/18 14:08 [place] Nasal [place] - NS 2 sprays TID PRN Administration NASAL CONGESTION AP; DM s/P DKA Bilateral Multifocal PNA Acute hypoxic respiratory failure, s/p Bipap, improved, from above Ceftriaxone/Azithromycin O2 suppl as necessary Levemir to 28 in AM, Add Levemir 10 units at HS Increase Novolog Coverage Teach pt to self inject Insulin Will f/U
[2018-02-13] MEDS ORDERED: IBUPROFEN 400 MG TABLET (FP) PO PRN (12:04)
[2018-02-13] MEDS: ENOXAPARIN NA (PORCINE) 40 MG/0.4 ML DISP.SYRIN SQ SCH (15:07)
--- NOTE | 2018-02-13 15:36 | PN ---
Progress Note (short form) - Note Progress Note: Breathing feels a little better. Some residual cough. No CP. Intake & Output 02/10/18 02/11/18 02/12/18 02/13/18 23:59 23:59 23:59 23:59 Intake Total 1430 1750 1740 180 Output Total 480 Balance 950 1750 1740 180 Weight 213 lb 12.8 oz 216 lb 215 lb Last Vital Signs Temp Pulse Resp BP Pulse Ox 98 F 84 19 117/63 92 L 02/13/18 14:37 02/13/18 14:37 02/13/18 14:37 02/13/18 14:37 02/13/18 11:20 Active Medications Acetaminophen (Ofirmev Injection -) 1,000 mg IVPB Q6H PRN PRN Reason: FEVER Albuterol Sulfate (Ventolin 0.042trength) -) 1 amp NEB Q6H PRN PRN Reason: SHORT OF BREATH/WHEEZING Azithromycin (Azithromycin) 500 mg PO DAILY [facility] Last Admin: 02/13/18 09:19 Dose: 500 mg Diltiazem HCl (Cardizem -) 60 mg PO Q6HPO [facility] Last Admin: 02/13/18 15:06 Dose: 60 mg Enoxaparin Sodium (Lovenox -) 40 mg SQ DAILY [facility] Last Admin: 02/13/18 15:07 Dose: 40 mg Guaifenesin (Robitussin Dm -) 10 ml PO Q4H PRN PRN Reason: COUGH Last Admin: 02/12/18 21:44 Dose: 10 ml Ceftriaxone Sodium 2 gm/ (Dextrose) 100 mls @ 200 mls/hr IVPB DAILY [facility] Last Admin: 02/13/18 09:18 Dose: 200 mls/hr Vancomycin HCl 1,000 mg/ (Sodium Chloride) 250 mls @ 166.667 mls/hr IVPB Q12H [facility] Last Admin: 02/13/18 09:18 Dose: 166.667 mls/hr Ibuprofen (Motrin -) 400 mg PO Q6H PRN PRN Reason: FEVER Insulin Aspart (Novolog Vial Sliding Scale -) 1 vial SQ HS ELVIRA PRN Reason: Protocol Last Admin: 02/13/18 11:48 Dose: 8 units Insulin Aspart (Novolog Vial Sliding Scale -) 1 vial SQ TIDAC ELVIRA PRN Reason: Protocol Last Admin: 02/13/18 12:00 Dose: 16 units Insulin Detemir (Levemir Vial) 28 units SQ AM ELVIRA Last Admin: 02/13/18 06:04 Dose: 28 units Polyethylene Glycol (Miralax (For Daily Use) -) 17 gm PO DAILY ELVIRA Last Admin: 02/13/18 09:18 Dose: 17 gm Sodium Chloride ([place] Nasal [place] -) 2 spray NS TID PRN PRN Reason: NASAL CONGESTION Last Admin: 02/09/18 14:08 Dose: 2 sprays Gen: NAD Heart: S1S2 Lung: scattered bilateral coarse rhonchi Abd: soft, nontender Ext: no edema Laboratory Results - last 24 hr 02/12/18 02/12/18 02/13/18 16:36 21:43 05:47 WBC RBC Hgb Hct MCV MCH MCHC RDW Plt Count MPV Neutrophils % Neutrophils % (Manual) Band Neutrophils % Lymphocytes % Lymphocytes % (Manual) Monocytes % (Manual) Eosinophils % (Manual) Basophils % (Manual) Myelocytes % (Man) Promyelocytes % (Man) Blast Cells % (Manual) Nucleated RBC % Metamyelocytes Toxic Granulation Platelet Estimate Platelet Comment Polychromasia Sodium Potassium Chloride Carbon Dioxide Anion Gap BUN Creatinine Creat Clearance w eGFR POC Glucometer 266 225 353 Random Glucose Calcium Phosphorus Magnesium Total Bilirubin AST ALT Alkaline Phosphatase Total Protein Albumin Vancomycin Pre-Dose 02/13/18 02/13/18 02/13/18 06:50 06:50 06:50 WBC 18.2 H RBC 3.68 L Hgb 11.4 L Hct 34.7 L MCV 94.2 MCH 31.0 MCHC 32.9 RDW 13.5 Plt Count [employer] MPV 10.4 Neutrophils % No Result Required. Neutrophils % (Manual) 73.0 Band Neutrophils % 3.0 Lymphocytes % No Result Required. Lymphocytes % (Manual) 12.0 D Monocytes % (Manual) 11 H Eosinophils % (Manual) 0.0 Basophils % (Manual) 0.0 Myelocytes % (Man) 0 D Promyelocytes % (Man) 0 Blast Cells % (Manual) 0 Nucleated RBC % 0 Metamyelocytes 0 D Toxic Granulation 2+ Platelet Estimate Adequate Platelet Comment Mod plt clumping Polychromasia 1+ Sodium 138 Potassium 3.5 Chloride 98 Carbon Dioxide 26 Anion Gap 14 BUN 8 Creatinine 0.7 D Creat Clearance w eGFR > 60 POC Glucometer Random Glucose 263 H Calcium 7.6 L Phosphorus 2.9 Magnesium 2.1 Total Bilirubin 0.8 AST 25 ALT 33 Alkaline Phosphatase 122 H Total Protein 6.3 L Albumin 1.9 L Vancomycin Pre-Dose 5.011 02/13/18 11:36 WBC RBC Hgb Hct MCV MCH MCHC RDW Plt Count MPV Neutrophils % Neutrophils % (Manual) Band Neutrophils % Lymphocytes % Lymphocytes % (Manual) Monocytes % (Manual) Eosinophils % (Manual) Basophils % (Manual) Myelocytes % (Man) Promyelocytes % (Man) Blast Cells % (Manual) Nucleated RBC % Metamyelocytes Toxic Granulation Platelet Estimate Platelet Comment Polychromasia Sodium Potassium Chloride Carbon Dioxide Anion Gap BUN Creatinine Creat Clearance w eGFR POC Glucometer 350 Random Glucose Calcium Phosphorus Magnesium Total Bilirubin AST ALT Alkaline Phosphatase Total Protein Albumin Vancomycin Pre-Dose ASSESSMENT AND PLAN: Pneumonia Severe Sepsis Diabetic Ketoacidosis improving Lactic Acidosis Acute Kidney Injury improving HTN - ABX per ID - glycemic control - O2 to keep SpO2 >90% - PO as tolerated - DVT prophylaxis Dr Randall
[2018-02-13] MEDS ORDERED: INSULIN (LEVEMIR) 100 UNITS/ML UNITS SQ SCH (22:00)
[2018-02-14] MEDS: dilTIAZem HCL 60 MG TABLET (FP) PO SCH ×4 (01:43→18:08)
[2018-02-14] MEDS ORDERED: ACETAMINOPHEN 1000 MG/100 ML VIAL (NON FORMULARY) IVPB PRN (02:47)
[2018-02-14] MEDS ORDERED: SODIUM CHLORIDE NASAL SPRAY 44 ML BOTTLE NS PRN (02:47)
--- NOTE | 2018-02-14 06:15 | PN ---
Physical Exam: SUBJECTIVE: Patient seen and examined - no major overnight events; BGs in 300s in PM yesterday; VSS, afebrile - Still with productive cough, SOB with ambulation however slightly improved. Pt ambulated to solarium yesterday, tolerated well; denies f/c/n/v, RANGEL, ab pain , dizziness, LE edema, focal neuro symptoms; Endorse mild chest wall tenderness with cough spells OBJECTIVE: Vital Signs Intake & Output 02/11/18 02/12/18 02/13/18 02/14/18 23:59 23:59 23:59 23:59 Intake Total 1750 1740 660 Balance 1750 1740 660 Weight 96.978 kg 97.976 kg 97.522 kg Period Temp Pulse Resp BP Sys/Buckner Pulse Ox Last 24 Hr 97.8 F-98.9 F 84-108 18-22 96-123/60-67 92-95 GENERAL: Middle aged man, lying in bed, A&Ox3 HEAD: NCAT, alopecia EYES: PERRL, extraocular movements intact, sclera anicteric, conjunctiva clear. No ptosis. ENT: Ears normal, nares patent, oropharynx clear without exudates, moist mucous membranes. NECK: Trachea midline, full range of motion, supple. LUNGS: Upper airway congestion, rhonchi noted BL. No wheezing, crackles or accessory muscle use appreciated; HEART: Regular rate and rhythm, S1, S2 without murmur, rub or gallop. ABDOMEN: Globular, soft, NT/ND, normoactive bowel sounds, no guarding, no rebound; No CVA tenderness EXTREMITIES: 2+ pulses, warm, well-perfused, no edema note. 5/5 strength and preserved sensation throughout NEUROLOGICAL: Cranial nerves II through XII grossly intact. Normal speech, gait not observed. PSYCH: Normal mood, normal affect. Denies visual/auditory/tactile hallucinations Laboratory Results - last 24 hr CBC, BMP 02/14/18 07:30 02/13/18 06:50 02/13/18 06:50 02/13/18 02/13/18 02/13/18 06:50 06:50 06:50 WBC 18.2 H RBC 3.68 L Hgb 11.4 L Hct 34.7 L MCV 94.2 MCH 31.0 MCHC 32.9 RDW 13.5 Plt Count Bryologist MPV 10.4 Neutrophils % No Result Required. Neutrophils % (Manual) 73.0 Band Neutrophils % 3.0 Lymphocytes % No Result Required. Lymphocytes % (Manual) 12.0 D Monocytes % (Manual) 11 H Eosinophils % (Manual) 0.0 Basophils % (Manual) 0.0 Myelocytes % (Man) 0 D Promyelocytes % (Man) 0 Blast Cells % (Manual) 0 Nucleated RBC % 0 Metamyelocytes 0 D Toxic Granulation 2+ Platelet Estimate Adequate Platelet Comment Mod plt clumping Polychromasia 1+ Sodium 138 Potassium 3.5 Chloride 98 Carbon Dioxide 26 Anion Gap 14 BUN 8 Creatinine 0.7 D Creat Clearance w eGFR > 60 POC Glucometer Random Glucose 263 H Calcium 7.6 L Phosphorus 2.9 Magnesium 2.1 Total Bilirubin 0.8 AST 25 ALT 33 Alkaline Phosphatase 122 H Total Protein 6.3 L Albumin 1.9 L Vancomycin Pre-Dose 5.011 02/13/18 02/13/18 02/13/18 11:36 17:42 21:18 WBC RBC Hgb Hct MCV MCH MCHC RDW Plt Count MPV Neutrophils % Neutrophils % (Manual) Band Neutrophils % Lymphocytes % Lymphocytes % (Manual) Monocytes % (Manual) Eosinophils % (Manual) Basophils % (Manual) Myelocytes % (Man) Promyelocytes % (Man) Blast Cells % (Manual) Nucleated RBC % Metamyelocytes Toxic Granulation Platelet Estimate Platelet Comment Polychromasia Sodium Potassium Chloride Carbon Dioxide Anion Gap BUN Creatinine Creat Clearance w eGFR POC Glucometer 350 355 378 Random Glucose Calcium Phosphorus Magnesium Total Bilirubin AST ALT Alkaline Phosphatase Total Protein Albumin Vancomycin Pre-Dose Active Medications Generic Name Dose Route Start Last Admin Trade Name Freq PRN Reason Stop Dose Admin Acetaminophen 1,000 mg 02/14/18 02:47 Ofirmev Injection - IVPB Q6H PRN FEVER Albuterol Sulfate 1 amp 02/12/18 14:31 Ventolin 0.042trength) - NEB Q6H PRN SHORT OF BREATH/WHEEZING Azithromycin 500 mg 02/14/18 10:00 Zithromax - PO DAILY [facility] Diltiazem HCl 60 mg 02/14/18 06:00 Cardizem - PO Q6HPO [facility] Enoxaparin Sodium 40 mg 02/13/18 13:30 02/13/18 15:07 Lovenox - SQ 40 mg DAILY [facility] Administration Guaifenesin 10 ml 02/14/18 02:47 Robitussin Dm - PO Q4H PRN COUGH Ceftriaxone Sodium 2 gm/ 100 mls @ 200 mls/hr 02/14/18 10:00 Dextrose IVPB DAILY [facility] Vancomycin HCl 1,000 mg/ 250 mls @ 166.667 mls/hr 02/14/18 06:00 Sodium Chloride IVPB Q12H [facility] Ibuprofen 400 mg 02/13/18 12:04 Motrin - PO Q6H PRN FEVER Insulin Aspart 1 vial 02/13/18 15:48 02/13/18 18:41 Novolog Vial Sliding Scale - SQ 22 units TIDAC [facility] Administration Protocol Insulin Aspart 1 vial 02/14/18 22:00 Novolog Vial Sliding Scale - SQ HS [facility] Protocol Insulin Detemir 28 units 02/13/18 07:00 02/13/18 06:04 Levemir Vial SQ 28 units AM [facility] Administration Insulin Detemir 10 units 02/13/18 22:00 02/13/18 21:45 Levemir Vial SQ 10 units HS [facility] Administration Polyethylene Glycol 17 gm 02/14/18 10:00 Miralax (For Daily Use) - PO DAILY [facility] Sodium Chloride 2 spray 02/14/18 02:47 [place] Nasal [place] - NS TID PRN NASAL CONGESTION Microbiology 02/07/18 17:40 Blood - Peripheral Venous Blood Culture - Final NO GROWTH AFTER 5 DAYS INCUBATION 02/07/18 17:40 Blood - Peripheral Venous Blood Culture - Final NO GROWTH AFTER 5 DAYS INCUBATION 02/10/18 06:00 Sputum - Expectorated Gram Stain - Final 02/10/18 06:00 Sputum - Expectorated Sputum Culture - Final S Aureus 02/07/18 18:35 Urine - Urine Clean Catch Urine Culture - Final NO GROWTH OBTAINED 02/08/18 03:00 Urine - Urine [place] Legionella Antigen - Final 02/08/18 03:00 Urine - Urine [place] Streptococcus pneumoniae Antigen (M - Final 02/08/18 03:00 Urine For Antigen Detection Legionella Antigen - Final 02/08/18 03:00 Urine For Antigen Detection Streptococcus pneumoniae Antigen (M - Final 02/07/18 17:40 Nasopharyngeal Swab Influenza Types A,B Antigen (JORGE) - Final 02/07/18 17:40 Nasopharyngeal Swab - Final CXR 02/07 - IMPRESSION: Hazy right upper to right midlung opacity could be pleural or chest wall rather than airspace. Clinical correlation and a repeat chest x-ray with PA and lateral views is recommended. CXR 02/08 - Since the prior exam of 02/07/2018, there appears to be a progressive right infiltrate and left mid to lower lung infiltrate. Follow-up recommended. 02/09 CXR - Progressive BL infiltrates; recommend CT chest for further evaluation CXR 02/10 - Imaging again reveals bilateral infiltrates, right greater than left. Follow-up recommended. CT chest 02/11 - IMPRESSION: Findings consistent with bilateral pneumonia, as described above for which a follow-up CT scan of the chest in one to 2 weeks is strongly recommended to evaluate for/rule out any underlying pathology CXR 02/11 - BL infiltrates ASSESSMENT/PLAN: 57 yo M with PMH of HTN, DM2 who presented with two weeks of cough, cp, f/c, now with confirmed PNA and admitted to ICU for DKA. Pt receiving abx coverage for suspected CAP pna, expanded to vanc given + MRSA cultures. Pt improving symptomatically today. #DKA - A1C 11.6. gap closed; BGs remain in 300s in PM yesterday, levemir 10u add in PM - ISS - BGMs q4h - nutrition consult - diabetic diet - outpt diabetes management - Endo consult - levemir increased to 28u +10u in PM - Insulin administration teaching per nursing staff #Sepsis secondary to CAP PNA - WBC 16; no fever overnight; improving slowly; HIV test negative - Trend WBC, fever - robitussin DM for cough - sputum culture + MRSA; repeat sputum cultures for sensitivities - Urine PNA Ag's negative - rapid flu negative - Day 7 Rocephin/AZA for CAP coverage; Vanco day 4 - O2 support - half-strength ventolin neb per pulm rec - humidified O2 - PO discharge abx regimen according to ID recs - RT pre and post - NSAIDS for pain relief #Constipation - Miralax #Hypokalemia - 3.3 today - ordered for 40 KCL PO today - Trend #HTN - Cardizem 60mg q6h - monitor BP #?DOMI - outpt sleep study FEN PO hydration Daily lytes, monitor for hypomag, hypoK Diabetic diet PPX Lovenox Dispo Dispo in 24-48 hours Plan discussed with attending, Dr. Zachery Carrillo, PGY1 Visit type - Emergency Visit Emergency Visit: Yes ED Registration Date: 02/07/18 Care time: The patient presented to the Emergency Department on the above date and was hospitalized for further evaluation of their emergent condition. - New Patient This patient is new to me today: No - Critical Care Critical Care patient: No
[2018-02-14] MEDS: VANCOMYCIN 1,000 MG in SODIUM CHLORIDE 250 ML IVPB SCH ×2 (07:07→18:46)
[2018-02-14] MEDS: INSULIN (LEVEMIR) 100 UNITS/ML UNITS SQ SCH (07:16)
[2018-02-14] MEDS: INSULIN SLIDING SCALE (NOVOLOG) 1 VIAL SQ SCH ×4 (07:20→21:41)
[2018-02-14 08:33] LABS: HEMATOCRIT 34.3 % (35.4-49); HEMOGLOBIN 11.4 GM/dL (11.7-16.9); MCH 31.2 pg (25.7-33.7); MCHC 33.3 g/dl (32.0-35.9); MEAN CELL VOLUME 93.6 fl (80-96); MEAN PLT VOLUME 9.8 fl (7.5-11.1); PLATELET COUNT 386 K/MM3 (134-434); RBC 3.67 M/mm3 (4.00-5.60); RDW 13.2 % (11.9-15.9)
[2018-02-14] MEDS ORDERED: DEXTROSE 5%-WATER 100 ML IVPB ONE (08:46)
[2018-02-14 08:56] LABS: CHLORIDE 101 mmol/L (98-107); POTASSIUM 3.3 mmol/L (3.5-5.1); SODIUM 138 mmol/L (136-145)
[2018-02-14 09:04] LABS: ALK PHOS 108 U/L (45-117); ANION GAP 8 (8-16); BILIRUBIN,TOTAL 0.5 mg/dL (0.2-1.0); BLOOD UREA NITROGEN 5 mg/dL (7-18); CALCIUM 7.5 mg/dL (8.5-10.1); CO2 29 mmol/L (21-32); CREATININE 0.6 mg/dL (0.7-1.3); GLUCOSE,RANDOM 182 mg/dL (74-106); SGOT/AST 28 U/L (15-37); SGPT/ALT 33 U/L (12-78); TOT PROT 6.2 g/dl (6.4-8.2)
[2018-02-14] MEDS: CEFTRIAXONE 2 GM in DEXTROSE 5%-WATER 100 ML IVPB SCH (09:25)
[2018-02-14] MEDS ORDERED: AZITHROMYCIN 250 MG TABLET PO SCH (10:00)
[2018-02-14] MEDS: POLYETHYLENE GLYCOL 3350 119 GM BTL PO SCH (10:36)
[2018-02-14] MEDS: ENOXAPARIN NA (PORCINE) 40 MG/0.4 ML DISP.SYRIN SQ SCH (10:45)
[2018-02-14 10:54] LABS: ANISOCYTOSIS 1+; MACROCYTOSIS 1+; PLATELET ESTIMATE NORMAL
[2018-02-14 11:13] LABS: TOXIC GRANULATION 1+
[2018-02-14] MEDS: guaiFENesin/D-METHORPHAN HB 10 ML UNIT-DOSE CUPS PO PRN ×2 (12:04→21:42)
--- NOTE | 2018-02-14 13:03 | PN ---
Progress Note (short form) - Note Progress Note: PULMONARY SITTING UP EATING LUNCH LOW GRADE TEMP CONTINUES ANICTERIC DIMINISHED BREATH SOUNDS S1S2 OBESE NO EDEMA LABS/MEDS/NOTES/IMAGES REVIEWED Pneumonia Severe Sepsis Diabetic Ketoacidosis improving Lactic Acidosis Acute Kidney Injury improving HTN - ABX per ID - bronchodilators - glycemic control - O2 to keep SpO2 >90% - PO as tolerated - DVT prophylaxis Gaurav WILLIAM MD
[2018-02-14] MEDS ORDERED: POTASSIUM CHLORIDE ORAL LIQUID 20 MEQ/15 ML PO ONE (14:15)
--- NOTE | 2018-02-14 14:18 | PN ---
Progress Note (short form) - Note Progress Note: No new complaints Vital Signs Period Temp Pulse Resp BP Sys/Buckner Pulse Ox Last 24 Hr 98 F-99.7 F 84-96 18-19 96-127/60-71 95 PE: AOx3 Neck: [place], No JVD HEEENT: EOMI Lungs: Decreased BS, No rhonchi CVS: S1S2 Abd: Benign Ext; No edema Neuro: No focal deficit CMP Sodium 138 mmol/L (136-145) 02/14/18 07:30 Potassium 3.3 mmol/L (3.5-5.1) L 02/14/18 07:30 Chloride 101 mmol/L (98-107) 02/14/18 07:30 Carbon Dioxide 29 mmol/L (21-32) 02/14/18 07:30 Anion Gap 8 (8-16) 02/14/18 07:30 BUN 5 mg/dL (7-18) L D 02/14/18 07:30 Creatinine 0.6 mg/dL (0.7-1.3) L 02/14/18 07:30 Creat Clearance w eGFR > 60 (>60) 02/14/18 07:30 POC Glucometer 382 UNITS (80-120) 02/14/18 12:10 Random Glucose 182 mg/dL (74-106) H D 02/14/18 07:30 Hemoglobin A1c % 11.6 % (4.8-6.0) H 02/09/18 09:30 Lactic Acid 1.3 mmol/L (0.0-2.0) 02/09/18 05:50 Calcium 7.5 mg/dL (8.5-10.1) L 02/14/18 07:30 Phosphorus 2.9 mg/dL (2.5-4.9) 02/13/18 06:50 Magnesium 2.1 mg/dL (1.8-2.4) 02/13/18 06:50 Total Bilirubin 0.5 mg/dL (0.2-1.0) D 02/14/18 07:30 AST 28 U/L (15-37) 02/14/18 07:30 ALT 33 U/L (12-78) 02/14/18 07:30 Alkaline Phosphatase 108 U/L (45-117) 02/14/18 07:30 Troponin I < 0.02 ng/ml (0.00-0.05) 02/07/18 17:40 Total Protein 6.2 g/dl (6.4-8.2) L 02/14/18 07:30 Albumin 2.0 g/dl (3.4-5.0) L 02/14/18 07:30 Current Medications Generic Name Dose Route Start Last Admin Trade Name Freq PRN Reason Stop Dose Admin Acetaminophen 1,000 mg 02/14/18 02:47 Ofirmev Injection - IVPB Q6H PRN FEVER Albuterol Sulfate 1 amp 02/12/18 14:31 Ventolin 0.042trength) - NEB Q6H PRN SHORT OF BREATH/WHEEZING Azithromycin 500 mg 02/14/18 10:00 02/14/18 10:45 Zithromax - PO 500 mg DAILY [facility] Administration Diltiazem HCl 60 mg 02/14/18 06:00 02/14/18 12:08 Cardizem - PO 60 mg Q6HPO [facility] Administration Enoxaparin Sodium 40 mg 02/13/18 13:30 02/14/18 10:45 Lovenox - SQ 40 mg DAILY [facility] Administration Guaifenesin 10 ml 02/14/18 02:47 02/14/18 12:04 Robitussin Dm - PO 10 ml Q4H PRN Administration COUGH Ceftriaxone Sodium 2 gm/ 100 mls @ 200 mls/hr 02/14/18 10:00 02/14/18 09:25 Dextrose IVPB 200 mls/hr DAILY [facility] Administration Vancomycin HCl 1,000 mg/ 250 mls @ 166.667 mls/hr 02/14/18 06:00 02/14/18 07: 07 Sodium Chloride IVPB 166.667 mls/hr Q12H [facility] Administration Ibuprofen 400 mg 02/13/18 12:04 Motrin - PO Q6H PRN FEVER Insulin Aspart 1 vial 02/13/18 15:48 02/14/18 12:18 Novolog Vial Sliding Scale - SQ 22 units TIDAC [facility]VIRA Administration Protocol Insulin Aspart 1 vial 02/14/18 22:00 Novolog Vial Sliding Scale - SQ HS [facility] Protocol Insulin Detemir 28 units 02/13/18 07:00 02/14/18 07:16 Levemir Vial SQ 28 units AM [facility] Administration Insulin Detemir 10 units 02/13/18 22:00 02/13/18 21:45 Levemir Vial SQ 10 units HS [facility] Administration Polyethylene Glycol 17 gm 02/14/18 10:00 02/14/18 10:36 Miralax (For Daily Use) - PO Not Given DAILY [facility] Potassium Chloride 40 meq 02/14/18 14:15 Potassium Chloride Oral Liquid PO 02/14/18 14:16 ONCE ONE Sodium Chloride 2 spray 02/14/18 02:47 [place] Nasal [place] - NS TID PRN NASAL CONGESTION AP; DM s/P DKA Bilateral Multifocal PNA Acute hypoxic respiratory failure, s/p Bipap, improved, from above Ceftriaxone/Azithromycin O2 suppl as necessary Levemir to 28 in AM, Levemir 15 units at HS Increase Novolog Coverage Teach pt to self inject Insulin Will f/U
--- NOTE | 2018-02-14 15:18 | PN ---
Physical Exam: SUBJECTIVE: Patient seen and examined at bedside. No new complaints. Pt still has cough, though he feels he is improving. Afebrile. Stable. Denies fever, chills, nausea, vomiting, diarrhea. OBJECTIVE: Vital Signs Period Temp Pulse Resp BP Sys/Buckner Pulse Ox Last 24 Hr 98.0 F-99.7 F 87-96 18-18 96-127/60-71 95 GENERAL: The patient is awake, alert, and fully oriented, in no acute distress. HEAD: Normal with no signs of trauma. EYES: extraocular movements intact, sclera anicteric, conjunctiva clear. No ptosis. ENT: oropharynx clear without exudates, moist mucous membranes. NECK: Trachea midline, full range of motion, supple. LUNGS: Breath sounds equal, clear to auscultation bilaterally, no wheezes, no crackles, no accessory muscle use. HEART: Regular rate and rhythm, S1, S2 without murmur, rub or gallop. ABDOMEN: Soft, nontender, nondistended, normoactive bowel sounds, no guarding, no rebound, no hepatosplenomegaly, no masses. EXTREMITIES: 2+ pulses, warm, well-perfused, no edema. NEUROLOGICAL: Cranial nerves II through XII grossly intact. Normal speech, gait not observed. PSYCH: Normal mood, normal affect. SKIN: Warm, dry, normal turgor, no rashes or lesions noted Laboratory Results - last 24 hr 02/13/18 02/13/18 02/14/18 17:42 21:18 07:15 WBC RBC Hgb Hct MCV MCH MCHC RDW Plt Count MPV Neutrophils % Neutrophils % (Manual) Band Neutrophils % Lymphocytes % Lymphocytes % (Manual) Monocytes % (Manual) Eosinophils % (Manual) Basophils % (Manual) Myelocytes % (Man) Promyelocytes % (Man) Blast Cells % (Manual) Nucleated RBC % Metamyelocytes Toxic Granulation Platelet Estimate Platelet Comment Polychromasia Anisocytosis Macrocytosis Sodium Potassium Chloride Carbon Dioxide Anion Gap BUN Creatinine Creat Clearance w eGFR POC Glucometer 355 378 199 Random Glucose Calcium Total Bilirubin AST ALT Alkaline Phosphatase Total Protein Albumin 02/14/18 02/14/18 02/14/18 07:30 07:30 12:10 WBC 16.0 H RBC 3.67 L Hgb 11.4 L Hct 34.3 L MCV 93.6 MCH 31.2 MCHC 33.3 RDW 13.2 Plt Count 386 D MPV 9.8 Neutrophils % No Result Required. Neutrophils % (Manual) 77.8 Band Neutrophils % 0.0 Lymphocytes % No Result Required. Lymphocytes % (Manual) 7.1 L D Monocytes % (Manual) 8 Eosinophils % (Manual) 0.0 Basophils % (Manual) 0.0 Myelocytes % (Man) 1 D Promyelocytes % (Man) 0 Blast Cells % (Manual) 0 Nucleated RBC % 0 Metamyelocytes 4 H D Toxic Granulation 1+ Platelet Estimate Normal Platelet Comment Giant platelets Polychromasia 1+ Anisocytosis 1+ Macrocytosis 1+ Sodium 138 Potassium 3.3 L Chloride 101 Carbon Dioxide 29 Anion Gap 8 BUN 5 L D Creatinine 0.6 L Creat Clearance w eGFR > 60 POC Glucometer 382 Random Glucose 182 H D Calcium 7.5 L Total Bilirubin 0.5 D AST 28 ALT 33 Alkaline Phosphatase 108 Total Protein 6.2 L Albumin 2.0 L Active Medications Generic Name Dose Route Start Last Admin Trade Name Freq PRN Reason Stop Dose Admin Acetaminophen 1,000 mg 02/14/18 02:47 Ofirmev Injection - IVPB Q6H PRN FEVER Albuterol Sulfate 1 amp 02/12/18 14:31 Ventolin 0.042trength) - NEB Q6H PRN SHORT OF BREATH/WHEEZING Diltiazem HCl 60 mg 02/14/18 06:00 02/14/18 12:08 Cardizem - PO 60 mg Q6HPO [facility] Administration Enoxaparin Sodium 40 mg 02/13/18 13:30 02/14/18 10:45 Lovenox - SQ 40 mg DAILY [facility] Administration Guaifenesin 10 ml 02/14/18 02:47 02/14/18 12:04 Robitussin Dm - PO 10 ml Q4H PRN Administration COUGH Ceftriaxone Sodium 2 gm/ 100 mls @ 200 mls/hr 02/14/18 10:00 02/14/18 09:25 Dextrose IVPB 200 mls/hr DAILY [facility] Administration Vancomycin HCl 1,000 mg/ 250 mls @ 166.667 mls/hr 02/14/18 06:00 02/14/18 07: 07 Sodium Chloride IVPB 166.667 mls/hr Q12H [facility] Administration Ibuprofen 400 mg 02/13/18 12:04 Motrin - PO Q6H PRN FEVER Insulin Aspart 1 vial 02/14/18 22:00 Novolog Vial Sliding Scale - SQ HS [facility] Protocol Insulin Aspart 1 vial 02/14/18 14:18 Novolog Vial Sliding Scale - SQ TIDAC [facility] Protocol Insulin Detemir 28 units 02/13/18 07:00 02/14/18 07:16 Levemir Vial SQ 28 units AM [facility] Administration Insulin Detemir 15 units 02/14/18 22:00 Levemir Vial SQ HS [facility] Polyethylene Glycol 17 gm 02/14/18 10:00 02/14/18 10:36 Miralax (For Daily Use) - PO Not Given DAILY [facility] Sodium Chloride 2 spray 02/14/18 02:47 [place] Nasal [place] - NS TID PRN NASAL CONGESTION ASSESSMENT/PLAN: #CAP -b/l multilobar PNA on CT -sputum Cx pos for MRSA -urine Strep/Legionella Ag neg -BCx neg -WBC 16. Improving slowly -afebrile -d/c Azithromycin -c/w Rocephin (plan to d/c tomorrow), Vanc -f/u CBC and Vanc trough tomorrow Dispo: We will continue to follow the patient. Thank you for this consultative opportunity. Karan Sanchez MD PGY-1 ID Visit type - Emergency Visit Emergency Visit: No - New Patient This patient is new to me today: No - Critical Care Critical Care patient: No
--- NOTE | 2018-02-14 15:18 | PN ---
Teaching Attending Note Name of Resident: Karan Sanchez ATTENDING PHYSICIAN STATEMENT I saw and evaluated the patient. I reviewed the resident's note and discussed the case with the resident. I agree with the resident's findings and plan as documented. SUBJECTIVE: feeling better, still with cough OBJECTIVE: Vital Signs Period Temp Pulse Resp BP Sys/Buckner Pulse Ox Last 24 Hr 98.0 F-99.7 F 87-96 18-18 96-127/60-71 95 cor-rrr lungs crackles right base abd soft,nt ext no edema CBC, BMP 02/14/18 07:30 02/14/18 07:30 Microbiology 02/07/18 17:40 Blood - Peripheral Venous Blood Culture - Final NO GROWTH AFTER 5 DAYS INCUBATION 02/07/18 17:40 Blood - Peripheral Venous Blood Culture - Final NO GROWTH AFTER 5 DAYS INCUBATION 02/10/18 06:00 Sputum - Expectorated Gram Stain - Final 02/10/18 06:00 Sputum - Expectorated Sputum Culture - Final Mr S Aureus 02/07/18 18:35 Urine - Urine Clean Catch Urine Culture - Final NO GROWTH OBTAINED 02/08/18 03:00 Urine - Urine Russo Legionella Antigen - Final 02/08/18 03:00 Urine - Urine [place] Streptococcus pneumoniae Antigen (M - Final 02/08/18 03:00 Urine For Antigen Detection Legionella Antigen - Final 02/08/18 03:00 Urine For Antigen Detection Streptococcus pneumoniae Antigen (M - Final 02/07/18 17:40 Nasopharyngeal Swab Influenza Types A,B Antigen (JORGE) - Final 02/07/18 17:40 Nasopharyngeal Swab - Final ASSESSMENT AND PLAN: pneumonia- sputum MRSA-day #6 rocephin, day #4 vancomycin, day #5 zithromax s/p dka- uncontrolled DM vanco trough in am d/c zithromax d/c rocephin in am after am dose continue vancomycin
[2018-02-14 16:24] LABS: MCH 32.3 pg (25.7-33.7); MCHC 34.4 g/dl (32.0-35.9); MEAN CELL VOLUME 93.9 fl (80-96); MEAN PLT VOLUME 8.9 fl (7.5-11.1); RBC 3.72 M/mm3 (4.00-5.60); RDW 13.4 % (11.9-15.9); WHITE BLOOD COUNT 15.8 K/mm3 (4.0-10.0)
[2018-02-14 16:49] LABS: ALBUMIN 2.1 g/dl (3.4-5.0); ANION GAP 6 (8-16); BLOOD UREA NITROGEN 8 mg/dL (7-18); CHLORIDE 101 mmol/L (98-107); CO2 29 mmol/L (21-32); GLUCOSE,RANDOM 264 mg/dL (74-106); POTASSIUM 3.9 mmol/L (3.5-5.1); SODIUM 136 mmol/L (136-145)
[2018-02-14 16:54] LABS: ALK PHOS 131 U/L (45-117); BILIRUBIN,TOTAL 0.4 mg/dL (0.2-1.0); CREATININE 0.8 mg/dL (0.7-1.3); SGOT/AST 28 U/L (15-37); SGPT/ALT 38 U/L (12-78); TOT PROT 6.9 g/dl (6.4-8.2)
[2018-02-14] MEDS ORDERED: PT OWN MED DRAWER 7, Y5N ONE (17:52)
[2018-02-14 18:20] LABS: PLATELET COUNT 514 K/MM3 (134-434)
[2018-02-14 18:21] LABS: PLATELET ESTIMATE INCREASED
--- NOTE | 2018-02-14 18:41 | PN ---
Teaching Attending Note Name of Resident: Buddy Carrillo ATTENDING PHYSICIAN STATEMENT I saw and evaluated the patient. I reviewed the resident's note and discussed the case with the resident. I agree with the resident's findings and plan as documented with exceptions below. SUBJECTIVE: Patient seen and examined. breathing and coughing continue to improve, no new concerns. OBJECTIVE: Vital Signs Period Temp Pulse Resp BP Sys/Buckner Pulse Ox Last 24 Hr 97.9 F-99.7 F 81-96 18-18 117-127/63-82 95 Intake & Output 02/11/18 02/12/18 02/13/18 02/14/18 23:59 23:59 23:59 23:59 Intake Total 1750 1740 660 500 Balance 1750 1740 660 500 Weight 213 lb 12.8 oz 216 lb 215 lb General: lying in bed comfortable Chest: unchanged exam, few left sided rales Home Medication List Medication Instructions Recorded Confirmed Type Diltiazem Cd [Cardizem Cd -] 240 mg PO DAILY 02/07/18 02/07/18 History Glipizide 5 mg PO DAILY 02/07/18 02/07/18 History metFORMIN HCL [Glucophage -] 500 mg PO BID 02/07/18 02/07/18 History Active Medications Generic Name Dose Route Start Last Admin Trade Name Freq PRN Reason Stop Dose Admin Acetaminophen 1,000 mg 02/14/18 02:47 Ofirmev Injection - IVPB Q6H PRN FEVER Albuterol Sulfate 1 amp 02/12/18 14:31 Ventolin 0.042trength) - NEB Q6H PRN SHORT OF BREATH/WHEEZING Diltiazem HCl 60 mg 02/14/18 06:00 02/14/18 18:08 Cardizem - PO 60 mg Q6HPO [facility] Administration Enoxaparin Sodium 40 mg 02/13/18 13:30 02/14/18 10:45 Lovenox - SQ 40 mg DAILY [facility] Administration Guaifenesin 10 ml 02/14/18 02:47 02/14/18 12:04 Robitussin Dm - PO 10 ml Q4H PRN Administration COUGH Ceftriaxone Sodium 2 gm/ 100 mls @ 200 mls/hr 02/14/18 10:00 02/14/18 09:25 Dextrose IVPB 200 mls/hr DAILY [facility] Administration Vancomycin HCl 1,000 mg/ 250 mls @ 166.667 mls/hr 02/14/18 06:00 02/14/18 07: 07 Sodium Chloride IVPB 166.667 mls/hr Q12H [facility] Administration Ibuprofen 400 mg 02/13/18 12:04 Motrin - PO Q6H PRN FEVER Insulin Aspart 1 vial 02/14/18 22:00 Novolog Vial Sliding Scale - SQ HS [facility] Protocol Insulin Aspart 1 vial 02/14/18 14:18 02/14/18 18:08 Novolog Vial Sliding Scale - SQ 18 units TIDAC ELVIRA Administration Protocol Insulin Detemir 28 units 02/13/18 07:00 02/14/18 07:16 Levemir Vial SQ 28 units AM [facility] Administration Insulin Detemir 15 units 02/14/18 22:00 Levemir Vial SQ HS [facility] Polyethylene Glycol 17 gm 02/14/18 10:00 02/14/18 10:36 Miralax (For Daily Use) - PO Not Given DAILY [facility] Sodium Chloride 2 spray 02/14/18 02:47 [place] Nasal [place] - NS TID PRN NASAL CONGESTION ASSESSMENT AND PLAN: 57 yom with PMHx of NIDDM, HTN admitted with DKA and bilateral PNA with severe sepsis -Bilateral Multifocal PNA with severe sepsis -DKA, resolved -Acute hypoxic respiratory failure, s/p Bipap, improved, from above -poorly controlled DM, A1c 11.2 -Hypertensive urgency -Hypomagnesemia -Hypokalemia -Pseudohyponatremia Plan: Ceftriaxone/Azithromycin day 7, vanco day 4. Blood cultures neg so far. SPutum cx with MRSA.PNA studies neg. CT chest noted, follow up imaging in 1-2 weeks. Needs home oxygen CM aware to arrange for d/c, follow up with pulmonary. Outpatient Sleep study. ID consult appreciated, HIV screen neg. Follow up with ID for abx taper. Levemir increased per endocrine recs, ISS, endocrine consult noted. Home insulin teaching. Reinforced need for self-administration to patient, agrees to comply. Continue diltiazem. Add humidified oxygen and low dose nebs, chest PT. DVTPPx with heparin dispo planning declines PT, feels comfortable ambulating and going home. Has glucometer and strips at home. Plan for home d/c with services in 24-48 hours if continues to improve. Plan discussed with patient in detail, all questions answered.
[2018-02-14] MEDS ORDERED: INSULIN (NOVOLOG) ASPART 100 UNITS/ML 10ML VIAL ONE (21:28)
[2018-02-14] MEDS ORDERED: INSULIN (LEVEMIR) 100 UNITS/ML UNITS SQ SCH (22:00)
[2018-02-15] MEDS: dilTIAZem HCL 60 MG TABLET (FP) PO SCH ×4 (00:19→17:24)
[2018-02-15] MEDS: INSULIN (LEVEMIR) 100 UNITS/ML UNITS SQ SCH ×2 (06:19→21:22)
[2018-02-15] MEDS: INSULIN SLIDING SCALE (NOVOLOG) 1 VIAL SQ SCH ×4 (06:21→21:21)
[2018-02-15] MEDS ORDERED: INSULIN (NOVOLOG) ASPART 100 UNITS/ML 10ML VIAL ONE (06:40)
[2018-02-15] MEDS: VANCOMYCIN 1,000 MG in SODIUM CHLORIDE 250 ML IVPB SCH ×2 (06:42→17:24)
--- NOTE | 2018-02-15 06:46 | PN ---
Physical Exam: SUBJECTIVE: Patient seen and examined by me this AM - no overnight events; Afebrile, VSS; - Pt states he feels much better today; Still with cough, however no sputum productive; denies f/c/n/v/d, ab pain, back pain, LE edema, peripheral numbness or weakness; still endorsing mild chest wall tenderness secondary to coughing fits; Counseled on current plan, all questions answered OBJECTIVE: Vital Signs Intake & Output 02/12/18 02/13/18 02/14/18 02/15/18 23:59 23:59 23:59 23:59 Intake Total 2193 588 1040 400 Balance 6194 996 6218 400 Weight 97.976 kg 97.522 kg Period Temp Pulse Resp BP Sys/Buckner Pulse Ox Last 24 Hr 97.9 F-99.4 F 81-95 121-131/66-82 98 GENERAL: Middle aged man, A&Ox3, NAD HEAD: NCAT, alopecia EYES: PERRL, extraocular movements intact, sclera anicteric, conjunctiva clear. No ptosis. ENT: Ears normal, nares patent, oropharynx clear without exudates, moist mucous membranes. NECK: Trachea midline, full range of motion, supple. LUNGS: Still with mild upper airway congestion, No wheezing, crackles or accessory muscle use appreciated; HEART: Regular rate and rhythm, S1, S2 without murmur, rub or gallop. ABDOMEN: Globular, soft, NT/ND, normoactive bowel sounds, no guarding, no rebound; No CVA tenderness EXTREMITIES: 2+ pulses, warm, well-perfused, no edema note. 5/5 strength and preserved sensation throughout NEUROLOGICAL: Cranial nerves II through XII grossly intact. Normal speech, gait not observed. PSYCH: Normal mood, normal affect. Laboratory Results - last 24 hr CBC, BMP 02/14/18 16:00 02/14/18 16:00 02/14/18 02/14/18 02/14/18 07:15 07:30 07:30 WBC 16.0 H RBC 3.67 L Hgb 11.4 L Hct 34.3 L MCV 93.6 MCH 31.2 MCHC 33.3 RDW 13.2 Plt Count 386 D MPV 9.8 Neutrophils % No Result Required. Neutrophils % (Manual) 77.8 Band Neutrophils % 0.0 Lymphocytes % No Result Required. Lymphocytes % (Manual) 7.1 L D Monocytes % (Manual) 8 Eosinophils % (Manual) 0.0 Basophils % (Manual) 0.0 Myelocytes % (Man) 1 D Promyelocytes % (Man) 0 Blast Cells % (Manual) 0 Nucleated RBC % 0 Metamyelocytes 4 H D Toxic Granulation 1+ Platelet Estimate Normal Platelet Comment Giant platelets Polychromasia 1+ Anisocytosis 1+ Macrocytosis 1+ Sodium 138 Potassium 3.3 L Chloride 101 Carbon Dioxide 29 Anion Gap 8 BUN 5 L D Creatinine 0.6 L Creat Clearance w eGFR > 60 POC Glucometer 199 Random Glucose 182 H D Calcium 7.5 L Total Bilirubin 0.5 D AST 28 ALT 33 Alkaline Phosphatase 108 Total Protein 6.2 L Albumin 2.0 L 02/14/18 02/14/18 02/14/18 12:10 16:00 16:00 WBC 15.8 H RBC 3.72 L Hgb 12.0 Hct 35.0 L MCV 93.9 MCH 32.3 MCHC 34.4 RDW 13.4 Plt Count 514 H D MPV 8.9 Neutrophils % No Result Required. Neutrophils % (Manual) 76.0 Band Neutrophils % 3.0 Lymphocytes % No Result Required. Lymphocytes % (Manual) 12.0 D Monocytes % (Manual) 6 Eosinophils % (Manual) 1.0 D Basophils % (Manual) 0.0 Myelocytes % (Man) 1 Promyelocytes % (Man) Blast Cells % (Manual) Nucleated RBC % Metamyelocytes 1 D Toxic Granulation Platelet Estimate Increased Platelet Comment No clumping noted Polychromasia Anisocytosis Macrocytosis Sodium 136 Potassium 3.9 Chloride 101 Carbon Dioxide 29 Anion Gap 6 L BUN 8 D Creatinine 0.8 D Creat Clearance w eGFR > 60 POC Glucometer 382 Random Glucose 264 H D Calcium 8.0 L Total Bilirubin 0.4 AST 28 ALT 38 Alkaline Phosphatase 131 H D Total Protein 6.9 Albumin 2.1 L 02/14/18 02/14/18 17:19 21:19 WBC RBC Hgb Hct MCV MCH MCHC RDW Plt Count MPV Neutrophils % Neutrophils % (Manual) Band Neutrophils % Lymphocytes % Lymphocytes % (Manual) Monocytes % (Manual) Eosinophils % (Manual) Basophils % (Manual) Myelocytes % (Man) Promyelocytes % (Man) Blast Cells % (Manual) Nucleated RBC % Metamyelocytes Toxic Granulation Platelet Estimate Platelet Comment Polychromasia Anisocytosis Macrocytosis Sodium Potassium Chloride Carbon Dioxide Anion Gap BUN Creatinine Creat Clearance w eGFR POC Glucometer 237 266 Random Glucose Calcium Total Bilirubin AST ALT Alkaline Phosphatase Total Protein Albumin Active Medications Generic Name Dose Route Start Last Admin Trade Name Freq PRN Reason Stop Dose Admin Acetaminophen 1,000 mg 02/14/18 02:47 Ofirmev Injection - IVPB Q6H PRN FEVER Albuterol Sulfate 1 amp 02/12/18 14:31 Ventolin 0.042trength) - NEB Q6H PRN SHORT OF BREATH/WHEEZING Diltiazem HCl 60 mg 02/14/18 06:00 02/15/18 06:18 Cardizem - PO 60 mg Q6HPO ELVIRA Administration Enoxaparin Sodium 40 mg 02/13/18 13:30 02/14/18 10:45 Lovenox - SQ 40 mg DAILY ELVIRA Administration Guaifenesin 10 ml 02/14/18 02:47 02/14/18 21:42 Robitussin Dm - PO 10 ml Q4H PRN Administration COUGH Ceftriaxone Sodium 2 gm/ 100 mls @ 200 mls/hr 02/14/18 10:00 02/14/18 09:25 Dextrose IVPB 200 mls/hr DAILY ELVIRA Administration Vancomycin HCl 1,000 mg/ 250 mls @ 166.667 mls/hr 02/14/18 06:00 02/14/18 18: 46 Sodium Chloride IVPB 166.667 mls/hr Q12H ELVIRA Administration Ibuprofen 400 mg 02/13/18 12:04 Motrin - PO Q6H PRN FEVER Insulin Aspart 1 vial 02/14/18 22:00 02/14/18 21:41 Novolog Vial Sliding Scale - SQ 6 units HS ELVIRA Administration Protocol Insulin Aspart 1 vial 02/14/18 14:18 02/15/18 06:21 Novolog Vial Sliding Scale - SQ 14 units TIDAC ELVIRA Administration Protocol Insulin Detemir 28 units 02/13/18 07:00 02/15/18 06:19 Levemir Vial SQ 28 units AM ELVIRA Administration Insulin Detemir 15 units 02/14/18 22:00 02/14/18 21:41 Levemir Vial SQ 15 units HS ELVIRA Administration Polyethylene Glycol 17 gm 02/14/18 10:00 02/14/18 10:36 Miralax (For Daily Use) - PO Not Given DAILY ELVIRA Sodium Chloride 2 spray 02/14/18 02:47 [place] Nasal [place] - NS TID PRN NASAL CONGESTION Microbiology 02/07/18 17:40 Blood - Peripheral Venous Blood Culture - Final NO GROWTH AFTER 5 DAYS INCUBATION 02/07/18 17:40 Blood - Peripheral Venous Blood Culture - Final NO GROWTH AFTER 5 DAYS INCUBATION 02/10/18 06:00 Sputum - Expectorated Gram Stain - Final 02/10/18 06:00 Sputum - Expectorated Sputum Culture - Final S Aureus 02/07/18 18:35 Urine - Urine Clean Catch Urine Culture - Final NO GROWTH OBTAINED 02/08/18 03:00 Urine - Urine [place] Legionella Antigen - Final 02/08/18 03:00 Urine - Urine [place] Streptococcus pneumoniae Antigen (M - Final 02/08/18 03:00 Urine For Antigen Detection Legionella Antigen - Final 02/08/18 03:00 Urine For Antigen Detection Streptococcus pneumoniae Antigen (M - Final 02/07/18 17:40 Nasopharyngeal Swab Influenza Types A,B Antigen (JORGE) - Final 02/07/18 17:40 Nasopharyngeal Swab - Final CXR 02/07 - IMPRESSION: Hazy right upper to right midlung opacity could be pleural or chest wall rather than airspace. Clinical correlation and a repeat chest x-ray with PA and lateral views is recommended. CXR 02/08 - Since the prior exam of 02/07/2018, there appears to be a progressive right infiltrate and left mid to lower lung infiltrate. Follow-up recommended. 02/09 CXR - Progressive BL infiltrates; recommend CT chest for further evaluation CXR 02/10 - Imaging again reveals bilateral infiltrates, right greater than left. Follow-up recommended. CT chest 02/11 - IMPRESSION: Findings consistent with bilateral pneumonia, as described above for which a follow-up CT scan of the chest in one to 2 weeks is strongly recommended to evaluate for/rule out any underlying pathology CXR 02/11 - BL infiltrates ASSESSMENT/PLAN: 57 yo M with PMH of HTN, DM2 who presented with two weeks of cough, cp, f/c, now with confirmed PNA and admitted to ICU for DKA. Pt receiving abx coverage for suspected CAP pna, expanded to vanc given + MRSA cultures. Pt continues to improve, will d/c saturday with home services. #DKA - A1C 11.6. gap closed; BGs remain in 300s in PM yesterday, levemir 10u add in PM - ISS - BGMs q4h - nutrition consult - diabetic diet - outpt diabetes management - Endo consult - levemir increased to 28u +15u in PM - Insulin administration teaching per nursing staff #Sepsis secondary to CAP PNA - no fever overnight; cough improved today; HIV test negative - Trend WBC, fever - robitussin DM for cough - sputum culture + MRSA; repeat sputum cultures + MRSA w/ sensitivities noted - Urine PNA Ag's negative - rapid flu negative - Day 8 Rocephin for CAP coverage; Vanco day 5; AZA d/c'ed - O2 support - half-strength ventolin neb per pulm rec - humidified O2 - PO discharge abx regimen according to ID recs - RT pre and post - NSAIDS for pain relief #Constipation - Miralax #Hypokalemia - - ordered for 40 KCL PO today - Trend #HTN - Cardizem 60mg q6h - monitor BP #?DOMI - outpt sleep study FEN PO hydration Daily lytes, monitor for hypomag, hypoK Diabetic diet PPX Lovenox Dispo Dispo for d/c with home services on Saturday Plan discussed with attending, Dr. Zachery Carrillo, PGY1 Visit type - Emergency Visit Emergency Visit: Yes ED Registration Date: 02/07/18 Care time: The patient presented to the Emergency Department on the above date and was hospitalized for further evaluation of their emergent condition. - New Patient This patient is new to me today: No - Critical Care Critical Care patient: No
--- NOTE | 2018-02-15 10:04 | PN ---
Teaching Attending Note Name of Resident: Buddy Carrillo ATTENDING PHYSICIAN STATEMENT I saw and evaluated the patient. I reviewed the resident's note and discussed the case with the resident. I agree with the resident's findings and plan as documented with exceptions below. SUBJECTIVE: Patient seen and examined. breathing and coughing continue to improve, no new concerns. OBJECTIVE: Vital Signs Period Temp Pulse Resp BP Sys/Buckner Pulse Ox Last 24 Hr 97.9 F-99.4 F 81-95 18-20 121-144/66-85 98 Intake & Output 02/12/18 02/13/18 02/14/18 02/15/18 23:59 23:59 23:59 23:59 Intake Total 2584 314 3825 400 Balance 2350 885 8350 400 Weight 216 lb 215 lb General: lying in bed no acute distress Chest: decreased breath sounds with few left sided rales Home Medication List Medication Instructions Recorded Confirmed Type Diltiazem Cd [Cardizem Cd -] 240 mg PO DAILY 02/07/18 02/07/18 History Glipizide 5 mg PO DAILY 02/07/18 02/07/18 History metFORMIN HCL [Glucophage -] 500 mg PO BID 02/07/18 02/07/18 History Active Medications Generic Name Dose Route Start Last Admin Trade Name Freq PRN Reason Stop Dose Admin Acetaminophen 1,000 mg 02/14/18 02:47 Ofirmev Injection - IVPB Q6H PRN FEVER Albuterol Sulfate 1 amp 02/12/18 14:31 02/15/18 08:00 Ventolin 0.042trength) - NEB 1 amp Q6H PRN Administration SHORT OF BREATH/WHEEZING Diltiazem HCl 60 mg 02/14/18 06:00 02/15/18 06:18 Cardizem - PO 60 mg Q6HPO ELVIRA Administration Enoxaparin Sodium 40 mg 02/13/18 13:30 02/14/18 10:45 Lovenox - SQ 40 mg DAILY ELVIRA Administration Guaifenesin 10 ml 02/14/18 02:47 02/14/18 21:42 Robitussin Dm - PO 10 ml Q4H PRN Administration COUGH Ceftriaxone Sodium 2 gm/ 100 mls @ 200 mls/hr 02/14/18 10:00 02/14/18 09:25 Dextrose IVPB 200 mls/hr DAILY ELVIRA Administration Vancomycin HCl 1,000 mg/ 250 mls @ 166.667 mls/hr 02/14/18 06:00 02/15/18 06: 42 Sodium Chloride IVPB 166.667 mls/hr Q12H ELVIRA Administration Ibuprofen 400 mg 02/13/18 12:04 Motrin - PO Q6H PRN FEVER Insulin Aspart 1 vial 02/14/18 22:00 02/14/18 21:41 Novolog Vial Sliding Scale - SQ 6 units HS ELVIRA Administration Protocol Insulin Aspart 1 vial 02/14/18 14:18 02/15/18 06:21 Novolog Vial Sliding Scale - SQ 14 units TIDAC ELVIRA Administration Protocol Insulin Detemir 28 units 02/13/18 07:00 02/15/18 06:19 Levemir Vial SQ 28 units AM ELVIRA Administration Insulin Detemir 15 units 02/14/18 22:00 02/14/18 21:41 Levemir Vial SQ 15 units HS ELVIRA Administration Polyethylene Glycol 17 gm 02/14/18 10:00 02/14/18 10:36 Miralax (For Daily Use) - PO Not Given DAILY ELVIRA Sodium Chloride 2 spray 02/14/18 02:47 [place] Nasal [place] - NS TID PRN NASAL CONGESTION Laboratory Results - last 24 hr 02/14/18 02/14/18 02/14/18 07:30 12:10 16:00 WBC 15.8 H RBC 3.72 L Hgb 12.0 Hct 35.0 L MCV 93.9 MCH 32.3 MCHC 34.4 RDW 13.4 Plt Count 514 H D MPV 8.9 Neutrophils % No Result Required. Neutrophils % (Manual) 77.8 76.0 Band Neutrophils % 0.0 3.0 Lymphocytes % No Result Required. Lymphocytes % (Manual) 7.1 L D 12.0 D Monocytes % (Manual) 8 6 Eosinophils % (Manual) 0.0 1.0 D Basophils % (Manual) 0.0 0.0 Myelocytes % (Man) 1 D 1 Promyelocytes % (Man) 0 Blast Cells % (Manual) 0 Nucleated RBC % 0 Metamyelocytes 4 H D 1 D Toxic Granulation 1+ Platelet Estimate Normal Increased Platelet Comment Giant platelets No clumping noted Polychromasia 1+ Anisocytosis 1+ Macrocytosis 1+ Sodium Potassium Chloride Carbon Dioxide Anion Gap BUN Creatinine Creat Clearance w eGFR POC Glucometer 382 Random Glucose Calcium Total Bilirubin AST ALT Alkaline Phosphatase Total Protein Albumin Vancomycin Pre-Dose 02/14/18 02/14/18 02/14/18 16:00 17:19 21:19 WBC RBC Hgb Hct MCV MCH MCHC RDW Plt Count MPV Neutrophils % Neutrophils % (Manual) Band Neutrophils % Lymphocytes % Lymphocytes % (Manual) Monocytes % (Manual) Eosinophils % (Manual) Basophils % (Manual) Myelocytes % (Man) Promyelocytes % (Man) Blast Cells % (Manual) Nucleated RBC % Metamyelocytes Toxic Granulation Platelet Estimate Platelet Comment Polychromasia Anisocytosis Macrocytosis Sodium 136 Potassium 3.9 Chloride 101 Carbon Dioxide 29 Anion Gap 6 L BUN 8 D Creatinine 0.8 D Creat Clearance w eGFR > 60 POC Glucometer 237 266 Random Glucose 264 H D Calcium 8.0 L Total Bilirubin 0.4 AST 28 ALT 38 Alkaline Phosphatase 131 H D Total Protein 6.9 Albumin 2.1 L Vancomycin Pre-Dose 02/15/18 02/15/18 06:02 06:18 WBC RBC Hgb Hct MCV MCH MCHC RDW Plt Count MPV Neutrophils % Neutrophils % (Manual) Band Neutrophils % Lymphocytes % Lymphocytes % (Manual) Monocytes % (Manual) Eosinophils % (Manual) Basophils % (Manual) Myelocytes % (Man) Promyelocytes % (Man) Blast Cells % (Manual) Nucleated RBC % Metamyelocytes Toxic Granulation Platelet Estimate Platelet Comment Polychromasia Anisocytosis Macrocytosis Sodium Potassium Chloride Carbon Dioxide Anion Gap BUN Creatinine Creat Clearance w eGFR POC Glucometer 160 Random Glucose Calcium Total Bilirubin AST ALT Alkaline Phosphatase Total Protein Albumin Vancomycin Pre-Dose 8.161 D Microbiology 02/10/18 06:00 Sputum - Expectorated Gram Stain - Final 02/10/18 06:00 Sputum - Expectorated Sputum Culture - Final Mr Napoles Aureus ASSESSMENT AND PLAN: 57 yom with PMHx of NIDDM, HTN admitted with DKA and bilateral PNA with severe sepsis -Bilateral Multifocal PNA with severe sepsis, Likely MRSA PNA -DKA, resolved -Acute hypoxic respiratory failure, s/p Bipap, improved, from above -poorly controlled DM, A1c 11.2 -Hypertensive urgency -Hypomagnesemia -Hypokalemia -Pseudohyponatremia Plan: Ceftriaxone day 3, vancomycin day 5, s/p 7 days of azithromycin. Discussed with Dr. Stinson, plan to continue ceftriaxone/vancomycin over next 48 hours and transition to PO on saturday if continues to improve. Blood cultures neg so far. SPutum cx with MRSA.PNA studies neg. CT chest noted, follow up imaging in 1-2 weeks. Needs home oxygen CM aware to arrange for d/c, follow up with pulmonary. Outpatient Sleep study. HIV screen neg. Levemir increased per endocrine recs, ISS, endocrine consult noted. Home insulin teaching. Reinforced need for self-administration to patient, agrees to comply. Continue diltiazem. Humidified oxygen and low dose nebs, chest PT. DVTPPx with heparin dispo planning declines PT, feels comfortable ambulating and going home. Has glucometer and strips at home. Plan for home d/c with services on Saturday on PO antibiotics if continues to improve. Plan discussed with patient in detail, all questions answered.
[2018-02-15] MEDS ORDERED: DEXTROSE 5%-WATER 100 ML IVPB ONE (10:47)
[2018-02-15] MEDS: POLYETHYLENE GLYCOL 3350 119 GM BTL PO SCH (10:49)
[2018-02-15] MEDS: CEFTRIAXONE 2 GM in DEXTROSE 5%-WATER 100 ML IVPB SCH (11:00)
[2018-02-15] MEDS: ENOXAPARIN NA (PORCINE) 40 MG/0.4 ML DISP.SYRIN SQ SCH (11:01)
--- NOTE | 2018-02-15 11:29 | PN ---
Progress Note (short form) - Note Progress Note: Breathing feels a little better. Some residual cough. No CP. Intake & Output 02/12/18 02/13/18 02/14/18 02/15/18 23:59 23:59 23:59 23:59 Intake Total 9744 308 4374 400 Balance 4306 112 9505 400 Weight 216 lb 215 lb Last Vital Signs Temp Pulse Resp BP Pulse Ox 98.3 F 88 20 144/85 98 02/15/18 08:03 02/15/18 08:03 02/15/18 08:03 02/15/18 08:03 02/14/18 21:00 Active Medications Acetaminophen (Ofirmev Injection -) 1,000 mg IVPB Q6H PRN PRN Reason: FEVER Albuterol Sulfate (Ventolin 0.042trength) -) 1 amp NEB Q6H PRN PRN Reason: SHORT OF BREATH/WHEEZING Last Admin: 02/15/18 08:00 Dose: 1 amp Diltiazem HCl (Cardizem -) 60 mg PO Q6HPO [facility] Last Admin: 02/15/18 06:18 Dose: 60 mg Enoxaparin Sodium (Lovenox -) 40 mg SQ DAILY [facility] Last Admin: 02/15/18 11:01 Dose: 40 mg Guaifenesin (Robitussin Dm -) 10 ml PO Q4H PRN PRN Reason: COUGH Last Admin: 02/14/18 21:42 Dose: 10 ml Ceftriaxone Sodium 2 gm/ (Dextrose) 100 mls @ 200 mls/hr IVPB DAILY [facility] Last Admin: 02/15/18 11:00 Dose: 200 mls/hr Vancomycin HCl 1,000 mg/ (Sodium Chloride) 250 mls @ 166.667 mls/hr IVPB Q12H [facility] Last Admin: 02/15/18 06:42 Dose: 166.667 mls/hr Ibuprofen (Motrin -) 400 mg PO Q6H PRN PRN Reason: FEVER Insulin Aspart (Novolog Vial Sliding Scale -) 1 vial SQ HS ELVIRA PRN Reason: Protocol Last Admin: 02/14/18 21:41 Dose: 6 units Insulin Aspart (Novolog Vial Sliding Scale -) 1 vial SQ TIDAC ELVIRA PRN Reason: Protocol Last Admin: 02/15/18 06:21 Dose: 14 units Insulin Detemir (Levemir Vial) 28 units SQ AM [facility] Last Admin: 02/15/18 06:19 Dose: 28 units Insulin Detemir (Levemir Vial) 15 units SQ HS [facility] Last Admin: 02/14/18 21:41 Dose: 15 units Polyethylene Glycol (Miralax (For Daily Use) -) 17 gm PO DAILY [facility] Last Admin: 02/15/18 10:49 Dose: Not Given Sodium Chloride ([place] Nasal [place] -) 2 spray NS TID PRN PRN Reason: NASAL CONGESTION Gen: NAD Heart: S1S2 Lung: scattered bilateral coarse rhonchi Abd: soft, nontender Ext: no edema Laboratory Results - last 24 hr 02/14/18 02/14/18 02/14/18 12:10 16:00 16:00 WBC 15.8 H RBC 3.72 L Hgb 12.0 Hct 35.0 L MCV 93.9 MCH 32.3 MCHC 34.4 RDW 13.4 Plt Count 514 H D MPV 8.9 Neutrophils % No Result Required. Neutrophils % (Manual) 76.0 Band Neutrophils % 3.0 Lymphocytes % No Result Required. Lymphocytes % (Manual) 12.0 D Monocytes % (Manual) 6 Eosinophils % (Manual) 1.0 D Basophils % (Manual) 0.0 Myelocytes % (Man) 1 Metamyelocytes 1 D Platelet Estimate Increased Platelet Comment No clumping noted Sodium 136 Potassium 3.9 Chloride 101 Carbon Dioxide 29 Anion Gap 6 L BUN 8 D Creatinine 0.8 D Creat Clearance w eGFR > 60 POC Glucometer 382 Random Glucose 264 H D Calcium 8.0 L Total Bilirubin 0.4 AST 28 ALT 38 Alkaline Phosphatase 131 H D Total Protein 6.9 Albumin 2.1 L Vancomycin Pre-Dose 02/14/18 02/14/18 02/15/18 17:19 21:19 06:02 WBC RBC Hgb Hct MCV MCH MCHC RDW Plt Count MPV Neutrophils % Neutrophils % (Manual) Band Neutrophils % Lymphocytes % Lymphocytes % (Manual) Monocytes % (Manual) Eosinophils % (Manual) Basophils % (Manual) Myelocytes % (Man) Metamyelocytes Platelet Estimate Platelet Comment Sodium Potassium Chloride Carbon Dioxide Anion Gap BUN Creatinine Creat Clearance w eGFR POC Glucometer 237 266 Random Glucose Calcium Total Bilirubin AST ALT Alkaline Phosphatase Total Protein Albumin Vancomycin Pre-Dose 8.161 D 02/15/18 06:18 WBC RBC Hgb Hct MCV MCH MCHC RDW Plt Count MPV Neutrophils % Neutrophils % (Manual) Band Neutrophils % Lymphocytes % Lymphocytes % (Manual) Monocytes % (Manual) Eosinophils % (Manual) Basophils % (Manual) Myelocytes % (Man) Metamyelocytes Platelet Estimate Platelet Comment Sodium Potassium Chloride Carbon Dioxide Anion Gap BUN Creatinine Creat Clearance w eGFR POC Glucometer 160 Random Glucose Calcium Total Bilirubin AST ALT Alkaline Phosphatase Total Protein Albumin Vancomycin Pre-Dose ASSESSMENT AND PLAN: Pneumonia Severe Sepsis Diabetic Ketoacidosis improving Lactic Acidosis Acute Kidney Injury improving HTN - ABX per ID: plan to transition to PO by Saturday - glycemic control - O2 to keep SpO2 >90% - PO as tolerated - DVT prophylaxis Dr Randall
[2018-02-15 13:28] LABS: EOS % 1.3 % (0-4.5); HEMATOCRIT 34.4 % (35.4-49); HEMOGLOBIN 11.3 GM/dL (11.7-16.9); LYMPH % 11.7 % (8-40); MCH 31.4 pg (25.7-33.7); MCHC 32.7 g/dl (32.0-35.9); MEAN PLT VOLUME 9.3 fl (7.5-11.1); MONO % 11.1 % (3.8-10.2); NEUT % 75.9 % (42.8-82.8); PLATELET COUNT 474 K/MM3 (134-434); RBC 3.58 M/mm3 (4.00-5.60); RDW 13.9 % (11.9-15.9); WHITE BLOOD COUNT 14.1 K/mm3 (4.0-10.0)
[2018-02-15 13:33] LABS: CHLORIDE 105 mmol/L (98-107); POTASSIUM 3.5 mmol/L (3.5-5.1); SODIUM 142 mmol/L (136-145)
[2018-02-15 13:39] LABS: ALK PHOS 105 U/L (45-117); ANION GAP 7 (8-16); BILIRUBIN,TOTAL 0.4 mg/dL (0.2-1.0); BLOOD UREA NITROGEN 5 mg/dL (7-18); CALCIUM 7.1 mg/dL (8.5-10.1); CO2 30 mmol/L (21-32); CREATININE 0.5 mg/dL (0.7-1.3); GLUCOSE,RANDOM 135 mg/dL (74-106); SGOT/AST 29 U/L (15-37); SGPT/ALT 35 U/L (12-78); TOT PROT 6.2 g/dl (6.4-8.2)
--- NOTE | 2018-02-15 14:11 | PN ---
Progress Note (short form) - Note Progress Note: Feels better Denies any complaints Blood sugar improving Vital Signs Period Temp Pulse Resp BP Sys/Buckner Pulse Ox Last 24 Hr 97.9 F-99.4 F 81-95 18-20 121-144/66-85 98 PE: AOx3 Neck: [place], No JVD HEEENT: EOMI Lungs: Decreased BS, No rhonchi, crackles rt upper lung field posteriorly CVS: S1S2 Abd: Benign Ext; No edema Neuro: No focal deficit CMP Sodium 142 mmol/L (136-145) 02/15/18 06:13 Potassium 3.5 mmol/L (3.5-5.1) 02/15/18 06:13 Chloride 105 mmol/L (98-107) 02/15/18 06:13 Carbon Dioxide 30 mmol/L (21-32) 02/15/18 06:13 Anion Gap 7 (8-16) L 02/15/18 06:13 BUN 5 mg/dL (7-18) L D 02/15/18 06:13 Creatinine 0.5 mg/dL (0.7-1.3) L D 02/15/18 06:13 Creat Clearance w eGFR > 60 (>60) 02/15/18 06:13 POC Glucometer 287 UNITS (80-120) 02/15/18 11:13 Random Glucose 135 mg/dL (74-106) H D 02/15/18 06:13 Hemoglobin A1c % 11.6 % (4.8-6.0) H 02/09/18 09:30 Lactic Acid 1.3 mmol/L (0.0-2.0) 02/09/18 05:50 Calcium 7.1 mg/dL (8.5-10.1) L 02/15/18 06:13 Phosphorus 2.9 mg/dL (2.5-4.9) 02/13/18 06:50 Magnesium 2.1 mg/dL (1.8-2.4) 02/13/18 06:50 Total Bilirubin 0.4 mg/dL (0.2-1.0) 02/15/18 06:13 AST 29 U/L (15-37) 02/15/18 06:13 ALT 35 U/L (12-78) 02/15/18 06:13 Alkaline Phosphatase 105 U/L (45-117) 02/15/18 06:13 Troponin I < 0.02 ng/ml (0.00-0.05) 02/07/18 17:40 Total Protein 6.2 g/dl (6.4-8.2) L 02/15/18 06:13 Albumin 2.0 g/dl (3.4-5.0) L 02/15/18 06:13 Current Medications Generic Name Dose Route Start Last Admin Trade Name Freq PRN Reason Stop Dose Admin Acetaminophen 1,000 mg 02/14/18 02:47 Ofirmev Injection - IVPB Q6H PRN FEVER Albuterol Sulfate 1 amp 02/12/18 14:31 02/15/18 08:00 Ventolin 0.042trength) - NEB 1 amp Q6H PRN Administration SHORT OF BREATH/WHEEZING Diltiazem HCl 60 mg 02/14/18 06:00 02/15/18 12:41 Cardizem - PO 60 mg Q6HPO ELVIRA Administration Enoxaparin Sodium 40 mg 02/13/18 13:30 02/15/18 11:01 Lovenox - SQ 40 mg DAILY ELVIRA Administration Guaifenesin 10 ml 02/14/18 02:47 02/14/18 21:42 Robitussin Dm - PO 10 ml Q4H PRN Administration COUGH Ceftriaxone Sodium 2 gm/ 100 mls @ 200 mls/hr 02/14/18 10:00 02/15/18 11:00 Dextrose IVPB 200 mls/hr DAILY ELVIRA Administration Vancomycin HCl 1,000 mg/ 250 mls @ 166.667 mls/hr 02/14/18 06:00 02/15/18 06: 42 Sodium Chloride IVPB 166.667 mls/hr Q12H ELVIRA Administration Ibuprofen 400 mg 02/13/18 12:04 Motrin - PO Q6H PRN FEVER Insulin Aspart 1 vial 02/14/18 22:00 02/14/18 21:41 Novolog Vial Sliding Scale - SQ 6 units HS ELVIRA Administration Protocol Insulin Aspart 1 vial 02/14/18 14:18 02/15/18 12:41 Novolog Vial Sliding Scale - SQ 22 units TIDAC ELVIRA Administration Protocol Insulin Detemir 28 units 02/13/18 07:00 02/15/18 06:19 Levemir Vial SQ 28 units AM ELVIRA Administration Insulin Detemir 15 units 02/14/18 22:00 02/14/18 21:41 Levemir Vial SQ 15 units HS ELVIRA Administration Polyethylene Glycol 17 gm 02/14/18 10:00 02/15/18 10:49 Miralax (For Daily Use) - PO Not Given DAILY ELVIRA Sodium Chloride 2 spray 02/14/18 02:47 [place] Nasal [place] - NS TID PRN NASAL CONGESTION AP; DM s/P DKA Bilateral Multifocal PNA Acute hypoxic respiratory failure, s/p Bipap, improved, from above Ceftriaxone/Azithromycin O2 suppl as necessary Increas eLevemir to 28 in AM, Levemir 18 units at HS Increase Novolog Coverage Teach pt to self inject Insulin, pt to go home in Insulin pens Will f/U
[2018-02-15] MEDS ORDERED: PT OWN MED DRAWER 7, Y5N ONE ×2 (16:30→17:22)
[2018-02-16] MEDS: dilTIAZem HCL 60 MG TABLET (FP) PO SCH ×4 (01:56→17:54)
[2018-02-16] MEDS: VANCOMYCIN 1,000 MG in SODIUM CHLORIDE 250 ML IVPB SCH (05:38)
[2018-02-16] MEDS: INSULIN (LEVEMIR) 100 UNITS/ML UNITS SQ SCH ×2 (06:42→22:20)
[2018-02-16] MEDS: INSULIN SLIDING SCALE (NOVOLOG) 1 VIAL SQ SCH ×4 (06:43→22:17)
[2018-02-16 09:05] LABS: BASO % 0.6 % (0-2.0); EOS % 1.3 % (0-4.5); HEMATOCRIT 34.8 % (35.4-49); MCH 31.9 pg (25.7-33.7); MCHC 34.3 g/dl (32.0-35.9); MEAN CELL VOLUME 92.9 fl (80-96); MEAN PLT VOLUME 8.4 fl (7.5-11.1); MONO % 7.9 % (3.8-10.2); NEUT % 76.2 % (42.8-82.8); RBC 3.75 M/mm3 (4.00-5.60); WHITE BLOOD COUNT 13.2 K/mm3 (4.0-10.0)
[2018-02-16 09:56] LABS: PLATELET COUNT 674 K/MM3 (134-434); PLATELET ESTIMATE INCREASED
[2018-02-16] MEDS ORDERED: DEXTROSE 5%-WATER 100 ML IVPB ONE (10:17)
[2018-02-16] MEDS: ENOXAPARIN NA (PORCINE) 40 MG/0.4 ML DISP.SYRIN SQ SCH (10:50)
[2018-02-16] MEDS: CEFTRIAXONE 2 GM in DEXTROSE 5%-WATER 100 ML IVPB SCH (10:50)
[2018-02-16] MEDS: POLYETHYLENE GLYCOL 3350 119 GM BTL PO SCH (10:51)
--- NOTE | 2018-02-16 11:21 | PN ---
Progress Note (short form) - Note Progress Note: Breathing feels OK. Some residual cough. No CP. Intake & Output 02/13/18 02/14/18 02/15/18 02/16/18 23:59 23:59 23:59 23:59 Intake Total 660 1100 1000 250 Balance 660 1100 1000 250 Weight 215 lb Last Vital Signs Temp Pulse Resp BP Pulse Ox 99.2 F 104 H 20 143/85 95 02/16/18 08:01 02/16/18 08:01 02/16/18 08:01 02/16/18 08:01 02/15/18 21:00 Active Medications Acetaminophen (Ofirmev Injection -) 1,000 mg IVPB Q6H PRN PRN Reason: FEVER Albuterol Sulfate (Ventolin 0.042trength) -) 1 amp NEB Q6H PRN PRN Reason: SHORT OF BREATH/WHEEZING Last Admin: 02/15/18 08:00 Dose: 1 amp Diltiazem HCl (Cardizem -) 60 mg PO Q6HPO [facility] Last Admin: 02/16/18 05:38 Dose: 60 mg Enoxaparin Sodium (Lovenox -) 40 mg SQ DAILY [facility] Last Admin: 02/16/18 10:50 Dose: 40 mg Guaifenesin (Robitussin Dm -) 10 ml PO Q4H PRN PRN Reason: COUGH Last Admin: 02/14/18 21:42 Dose: 10 ml Ceftriaxone Sodium 2 gm/ (Dextrose) 100 mls @ 200 mls/hr IVPB DAILY [facility] Last Admin: 02/16/18 10:50 Dose: 200 mls/hr Vancomycin HCl 1,000 mg/ (Sodium Chloride) 250 mls @ 166.667 mls/hr IVPB Q12H [facility] Last Admin: 02/16/18 05:38 Dose: 166.667 mls/hr Ibuprofen (Motrin -) 400 mg PO Q6H PRN PRN Reason: FEVER Insulin Aspart (Novolog Vial Sliding Scale -) 1 vial SQ HS [facility] PRN Reason: Protocol Last Admin: 02/15/18 21:21 Dose: 6 units Insulin Aspart (Novolog Vial Sliding Scale -) 1 vial SQ TIDAC [facility] PRN Reason: Protocol Last Admin: 02/16/18 06:43 Dose: Not Given Insulin Detemir (Levemir Vial) 28 units SQ AM [facility] Last Admin: 02/16/18 06:42 Dose: 28 units Insulin Detemir (Levemir Vial) 18 units SQ HS [facility] Last Admin: 02/15/18 21:22 Dose: 18 unit Polyethylene Glycol (Miralax (For Daily Use) -) 17 gm PO DAILY [facility] Last Admin: 02/16/18 10:51 Dose: Not Given Sodium Chloride ([place] -) 2 spray NS TID PRN PRN Reason: NASAL CONGESTION Gen: NAD Heart: S1S2 Lung: scattered bilateral coarse rhonchi Abd: soft, nontender Ext: no edema Laboratory Results - last 24 hr 02/15/18 02/15/18 02/15/18 06:13 06:13 11:13 WBC 14.1 H RBC 3.58 L Hgb 11.3 L Hct 34.4 L MCV 96.0 MCH 31.4 MCHC 32.7 RDW 13.9 Plt Count 474 H MPV 9.3 Neutrophils % 75.9 Lymphocytes % 11.7 Monocytes % 11.1 H Eosinophils % 1.3 Basophils % 0.0 Platelet Estimate Platelet Comment Sodium 142 Potassium 3.5 Chloride 105 Carbon Dioxide 30 Anion Gap 7 L BUN 5 L D Creatinine 0.5 L D Creat Clearance w eGFR > 60 POC Glucometer 287 Random Glucose 135 H D Calcium 7.1 L Total Bilirubin 0.4 AST 29 ALT 35 Alkaline Phosphatase 105 Total Protein 6.2 L Albumin 2.0 L 02/15/18 02/15/18 02/16/18 17:37 21:19 05:36 WBC RBC Hgb Hct MCV MCH MCHC RDW Plt Count MPV Neutrophils % Lymphocytes % Monocytes % Eosinophils % Basophils % Platelet Estimate Platelet Comment Sodium Potassium Chloride Carbon Dioxide Anion Gap BUN Creatinine Creat Clearance w eGFR POC Glucometer 132 272 123 Random Glucose Calcium Total Bilirubin AST ALT Alkaline Phosphatase Total Protein Albumin 02/16/18 08:33 WBC 13.2 H RBC 3.75 L Hgb 12.0 Hct 34.8 L MCV 92.9 MCH 31.9 MCHC 34.3 RDW 13.0 Plt Count 674 H D MPV 8.4 Neutrophils % 76.2 Lymphocytes % 14.0 Monocytes % 7.9 Eosinophils % 1.3 Basophils % 0.6 D Platelet Estimate Increased Platelet Comment No clumping noted Sodium Potassium Chloride Carbon Dioxide Anion Gap BUN Creatinine Creat Clearance w eGFR POC Glucometer Random Glucose Calcium Total Bilirubin AST ALT Alkaline Phosphatase Total Protein Albumin ASSESSMENT AND PLAN: Pneumonia Severe Sepsis Diabetic Ketoacidosis improving Lactic Acidosis Acute Kidney Injury improving HTN - ABX per ID: plan to transition to PO by Saturday - glycemic control - O2 to keep SpO2 >90% - PO as tolerated - DVT prophylaxis Dr Randall
--- NOTE | 2018-02-16 12:17 | PN ---
Teaching Attending Note Name of Resident: Thao Bingham SUBJECTIVE: Patient seen and examined. breathing improved, residual coughing. Overall better. OBJECTIVE: Vital Signs Period Temp Pulse Resp BP Sys/Buckner Pulse Ox Last 24 Hr 98.2 F-99.2 F 94-104 18-20 113-143/66-85 95 Intake & Output 02/13/18 02/14/18 02/15/18 02/16/18 23:59 23:59 23:59 23:59 Intake Total 660 1100 1000 250 Balance 660 1100 1000 250 Weight 215 lb General: sitting in bed in no acute distress Chest: improved air entry left side, few rales Abdomen:soft, obese, NT extremities: no edema Home Medication List Medication Instructions Recorded Confirmed Type Diltiazem Cd [Cardizem Cd -] 240 mg PO DAILY 02/07/18 02/07/18 History Glipizide 5 mg PO DAILY 02/07/18 02/07/18 History metFORMIN HCL [Glucophage -] 500 mg PO BID 02/07/18 02/07/18 History Active Medications Generic Name Dose Route Start Last Admin Trade Name Freq PRN Reason Stop Dose Admin Acetaminophen 1,000 mg 02/14/18 02:47 Ofirmev Injection - IVPB Q6H PRN FEVER Albuterol Sulfate 1 amp 02/12/18 14:31 02/15/18 08:00 Ventolin 0.042trength) - NEB 1 amp Q6H PRN Administration SHORT OF BREATH/WHEEZING Diltiazem HCl 60 mg 02/14/18 06:00 02/16/18 05:38 Cardizem - PO 60 mg Q6HPO [facility] Administration Enoxaparin Sodium 40 mg 02/13/18 13:30 02/16/18 10:50 Lovenox - SQ 40 mg DAILY [facility] Administration Guaifenesin 10 ml 02/14/18 02:47 02/14/18 21:42 Robitussin Dm - PO 10 ml Q4H PRN Administration COUGH Ceftriaxone Sodium 2 gm/ 100 mls @ 200 mls/hr 02/14/18 10:00 02/16/18 10:50 Dextrose IVPB 200 mls/hr DAILY [facility] Administration Vancomycin HCl 1,000 mg/ 250 mls @ 166.667 mls/hr 02/14/18 06:00 02/16/18 05: 38 Sodium Chloride IVPB 166.667 mls/hr Q12H [facility] Administration Ibuprofen 400 mg 02/13/18 12:04 Motrin - PO Q6H PRN FEVER Insulin Aspart 1 vial 02/14/18 22:00 02/15/18 21:21 Novolog Vial Sliding Scale - SQ 6 units HS [facility] Administration Protocol Insulin Aspart 1 vial 02/15/18 14:11 02/16/18 06:43 Novolog Vial Sliding Scale - SQ Not Given TIDAC [facility] Protocol Insulin Detemir 28 units 02/13/18 07:00 02/16/18 06:42 Levemir Vial SQ 28 units AM [facility] Administration Insulin Detemir 18 units 02/15/18 22:00 02/15/18 21:22 Levemir Vial SQ 18 unit HS [facility] Administration Polyethylene Glycol 17 gm 02/14/18 10:00 02/16/18 10:51 Miralax (For Daily Use) - PO Not Given DAILY [facility] Sodium Chloride 2 spray 02/14/18 02:47 [place] Nasal [place] - NS TID PRN NASAL CONGESTION Laboratory Results - last 24 hr 02/15/18 02/15/18 02/15/18 06:13 06:13 17:37 WBC 14.1 H RBC 3.58 L Hgb 11.3 L Hct 34.4 L MCV 96.0 MCH 31.4 MCHC 32.7 RDW 13.9 Plt Count 474 H MPV 9.3 Neutrophils % 75.9 Lymphocytes % 11.7 Monocytes % 11.1 H Eosinophils % 1.3 Basophils % 0.0 Platelet Estimate Platelet Comment Sodium 142 Potassium 3.5 Chloride 105 Carbon Dioxide 30 Anion Gap 7 L BUN 5 L D Creatinine 0.5 L D Creat Clearance w eGFR > 60 POC Glucometer 132 Random Glucose 135 H D Calcium 7.1 L Total Bilirubin 0.4 AST 29 ALT 35 Alkaline Phosphatase 105 Total Protein 6.2 L Albumin 2.0 L 02/15/18 02/16/18 02/16/18 21:19 05:36 08:33 WBC 13.2 H RBC 3.75 L Hgb 12.0 Hct 34.8 L MCV 92.9 MCH 31.9 MCHC 34.3 RDW 13.0 Plt Count 674 H D MPV 8.4 Neutrophils % 76.2 Lymphocytes % 14.0 Monocytes % 7.9 Eosinophils % 1.3 Basophils % 0.6 D Platelet Estimate Increased Platelet Comment No clumping noted Sodium Potassium Chloride Carbon Dioxide Anion Gap BUN Creatinine Creat Clearance w eGFR POC Glucometer 272 123 Random Glucose Calcium Total Bilirubin AST ALT Alkaline Phosphatase Total Protein Albumin Microbiology 02/10/18 06:00 Sputum - Expectorated Gram Stain - Final 02/10/18 06:00 Sputum - Expectorated Sputum Culture - Final Mr Napoles Aureus ASSESSMENT AND PLAN: 57 yom with PMHx of NIDDM, HTN admitted with DKA and bilateral PNA with severe sepsis -Bilateral Multifocal PNA with severe sepsis, Likely MRSA PNA -DKA, resolved -Acute hypoxic respiratory failure, s/p Bipap, improved, from above -poorly controlled DM, A1c 11.2 -Hypertensive urgency -Hypomagnesemia -Hypokalemia -Pseudohyponatremia Plan: Ceftriaxone day 9, vancomycin day 6, s/p 7 days of azithromycin.transition to oral antibiotics in 24 hours. Blood cultures neg so far. SPutum cx with MRSA.PNA studies neg. CT chest noted, follow up imaging in 1-2 weeks. Needs home oxygen CM aware to arrange for d/c, follow up with pulmonary. Outpatient Sleep study. HIV screen neg. Levemir increased per endocrine recs,Novolog scliding scale tighter, endocrine consult noted. Home insulin teaching. Reinforced need for self-administration to patient, patient self inject Continue diltiazem. Humidified oxygen and low dose nebs, chest PT. DVTPPx with heparin dispo planning declines PT, feels comfortable ambulating and going home. Has glucometer and strips at home. Plan for home d/c with services on Saturday on PO antibiotics if continues to improve. Plan discussed with patient in detail, all questions answered.
[2018-02-16] MEDS ORDERED: INSULIN (NOVOLOG) ASPART 100 UNITS/ML 10ML VIAL ONE ×2 (12:54→17:45)
--- NOTE | 2018-02-16 13:40 | PN ---
Progress Note (short form) - Note Progress Note: Feels better still with dry cough Blood sugar improving Vital Signs Period Temp Pulse Resp BP Sys/Buckner Pulse Ox Last 24 Hr 98.2 F-99.2 F 94-104 18-20 113-143/66-85 95 PE: AOx3 Neck: [place], No JVD HEEENT: EOMI Lungs: Decreased BS, No rhonchi, crackles rt upper lung field posteriorly CVS: S1S2 Abd: Benign Ext; No edema Neuro: No focal deficit CMP Sodium 142 mmol/L (136-145) 02/15/18 06:13 Potassium 3.5 mmol/L (3.5-5.1) 02/15/18 06:13 Chloride 105 mmol/L (98-107) 02/15/18 06:13 Carbon Dioxide 30 mmol/L (21-32) 02/15/18 06:13 Anion Gap 7 (8-16) L 02/15/18 06:13 BUN 5 mg/dL (7-18) L D 02/15/18 06:13 Creatinine 0.5 mg/dL (0.7-1.3) L D 02/15/18 06:13 Creat Clearance w eGFR > 60 (>60) 02/15/18 06:13 POC Glucometer 254 UNITS (80-120) 02/16/18 12:12 Random Glucose 135 mg/dL (74-106) H D 02/15/18 06:13 Hemoglobin A1c % 11.6 % (4.8-6.0) H 02/09/18 09:30 Lactic Acid 1.3 mmol/L (0.0-2.0) 02/09/18 05:50 Calcium 7.1 mg/dL (8.5-10.1) L 02/15/18 06:13 Phosphorus 2.9 mg/dL (2.5-4.9) 02/13/18 06:50 Magnesium 2.1 mg/dL (1.8-2.4) 02/13/18 06:50 Total Bilirubin 0.4 mg/dL (0.2-1.0) 02/15/18 06:13 AST 29 U/L (15-37) 02/15/18 06:13 ALT 35 U/L (12-78) 02/15/18 06:13 Alkaline Phosphatase 105 U/L (45-117) 02/15/18 06:13 Troponin I < 0.02 ng/ml (0.00-0.05) 02/07/18 17:40 Total Protein 6.2 g/dl (6.4-8.2) L 02/15/18 06:13 Albumin 2.0 g/dl (3.4-5.0) L 02/15/18 06:13 Current Medications Generic Name Dose Route Start Last Admin Trade Name Freq PRN Reason Stop Dose Admin Acetaminophen 1,000 mg 02/14/18 02:47 Ofirmev Injection - IVPB Q6H PRN FEVER Albuterol Sulfate 1 amp 02/12/18 14:31 02/15/18 08:00 Ventolin 0.042trength) - NEB 1 amp Q6H PRN Administration SHORT OF BREATH/WHEEZING Diltiazem HCl 60 mg 02/14/18 06:00 02/16/18 12:58 Cardizem - PO 60 mg Q6HPO [facility] Administration Enoxaparin Sodium 40 mg 02/13/18 13:30 02/16/18 10:50 Lovenox - SQ 40 mg DAILY [facility] Administration Guaifenesin 10 ml 02/14/18 02:47 02/14/18 21:42 Robitussin Dm - PO 10 ml Q4H PRN Administration COUGH Ceftriaxone Sodium 2 gm/ 100 mls @ 200 mls/hr 02/14/18 10:00 02/16/18 10:50 Dextrose IVPB 200 mls/hr DAILY [facility] Administration Vancomycin HCl 1,000 mg/ 250 mls @ 166.667 mls/hr 02/14/18 06:00 02/16/18 05: 38 Sodium Chloride IVPB 166.667 mls/hr Q12H [facility] Administration Ibuprofen 400 mg 02/13/18 12:04 Motrin - PO Q6H PRN FEVER Insulin Aspart 1 vial 02/14/18 22:00 02/15/18 21:21 Novolog Vial Sliding Scale - SQ 6 units HS [facility] Administration Protocol Insulin Aspart 1 vial 02/15/18 14:11 02/16/18 12:57 Novolog Vial Sliding Scale - SQ 26 units TIDAC [facility] Administration Protocol Insulin Detemir 28 units 02/13/18 07:00 02/16/18 06:42 Levemir Vial SQ 28 units AM [facility] Administration Insulin Detemir 18 units 02/15/18 22:00 02/15/18 21:22 Levemir Vial SQ 18 unit HS [facility] Administration Polyethylene Glycol 17 gm 02/14/18 10:00 02/16/18 10:51 Miralax (For Daily Use) - PO Not Given DAILY [facility] Sodium Chloride 2 spray 02/14/18 02:47 [place] Nasal [place] - NS TID PRN NASAL CONGESTION AP; DM s/P DKA Bilateral Multifocal PNA Acute hypoxic respiratory failure, s/p Bipap, improved, from above Ceftriaxone/Azithromycin O2 suppl as necessary Levemir 28 in AM, Levemir 18 units at HS Novolog Coverage, didn't get Novolog in morning. Discussed with RN to give 10 units if FS 100 to 150 premeals. To be given only once food is in the room and pt is ready to eat. All questions regarding DM and its treatment answeree. Teach pt to self inject Insulin, pt to go home in Insulin pens Will f/U
[2018-02-16] MEDS ORDERED: PT OWN MED DRAWER 7, Y5N ONE ×2 (16:37→18:57)
--- NOTE | 2018-02-16 17:03 | PN ---
Progress Note (short form) - Note Progress Note: resting comfortably still intermittent cough reports coughing much worse when he lays down to sleep Vital Signs Period Temp Pulse Resp BP Sys/Buckner Pulse Ox Last 24 Hr 98.3 F-99.2 F 72-104 18-20 129-147/70-85 95 cor-rrr lungs few crackles right base abd soft,nt ext no edema CBC, BMP 02/16/18 08:33 02/15/18 06:13 Microbiology 02/10/18 06:00 Sputum - Expectorated Gram Stain - Final 02/10/18 06:00 Sputum - Expectorated Sputum Culture - Final S Aureus 02/07/18 17:40 Blood - Peripheral Venous Blood Culture - Final NO GROWTH AFTER 5 DAYS INCUBATION 02/07/18 17:40 Blood - Peripheral Venous Blood Culture - Final NO GROWTH AFTER 5 DAYS INCUBATION 02/07/18 18:35 Urine - Urine Clean Catch Urine Culture - Final NO GROWTH OBTAINED 02/08/18 03:00 Urine - Urine [place] Legionella Antigen - Final 02/08/18 03:00 Urine - Urine [place] Streptococcus pneumoniae Antigen (M - Final 02/08/18 03:00 Urine For Antigen Detection Legionella Antigen - Final 02/08/18 03:00 Urine For Antigen Detection Streptococcus pneumoniae Antigen (M - Final 02/07/18 17:40 Nasopharyngeal Swab Influenza Types A,B Antigen (JORGE) - Final 02/07/18 17:40 Nasopharyngeal Swab - Final a/p overall improving increase vancomycin dosing thrombocytosis- new- repeat cbc in am cxray pa and lateral continue rocephin diabetes teaching
[2018-02-16] MEDS: VANCOMYCIN 1,250 MG in DEXTROSE 5%-WATER - 250 ML IVPB SCH (18:48)
[2018-02-17] MEDS: dilTIAZem HCL 60 MG TABLET (FP) PO SCH ×4 (01:13→18:32)
[2018-02-17] MEDS: INSULIN (LEVEMIR) 100 UNITS/ML UNITS SQ SCH (06:08)
[2018-02-17] MEDS: VANCOMYCIN 1,250 MG in DEXTROSE 5%-WATER - 250 ML IVPB SCH (06:08)
[2018-02-17] MEDS: INSULIN SLIDING SCALE (NOVOLOG) 1 VIAL SQ SCH ×3 (06:09→17:40)
--- NOTE | 2018-02-17 06:10 | PN ---
Physical Exam: SUBJECTIVE: Patient seen and examined - No major overnight events; VSS, afebrile; more comfortable, less coughing today; nursing provided insulin dosing instruction yesterday; Vancomycin dose increased by ID - Pt states he feel much better, slept well and cough more controlled; no sputum production; denies f/c/n/v/d, RANGEL, dizziness, cp, sob, ab pain, back pain , LE edema OBJECTIVE: Vital Signs Intake & Output 02/14/18 02/15/18 02/16/18 02/17/18 23:59 23:59 23:59 23:59 Intake Total 1100 1000 900 Balance 1100 1000 900 Period Temp Pulse Resp BP Sys/Buckner Pulse Ox Last 24 Hr 98.3 F-99.2 F 72-104 18-20 137-147/80-85 GENERAL: Middle aged man, A&Ox3, resting comfortably HEAD: NCAT, alopecia EYES: PERRL, extraocular movements intact, sclera anicteric, conjunctiva clear. No ptosis. ENT: Ears normal, nares patent, oropharynx clear without exudates, moist mucous membranes. NECK: Trachea midline, full range of motion, supple. LUNGS: Trace upper airway congestion; otherwise No wheezing, crackles or accessory muscle use appreciated; HEART: Regular rate and rhythm, S1, S2 without murmur, rub or gallop. ABDOMEN: Globular, soft, NT/ND, normoactive bowel sounds, no guarding, no rebound; No CVA tenderness EXTREMITIES: 2+ pulses, warm, well-perfused, no edema note. 5/5 strength and preserved sensation throughout NEUROLOGICAL: Cranial nerves II through XII grossly intact. Normal speech, gait not observed. PSYCH: Normal mood, normal affect. Laboratory Results - last 24 hr CBC, BMP 02/16/18 08:33 02/15/18 06:13 02/16/18 02/16/18 02/16/18 05:36 08:33 12:12 WBC 13.2 H RBC 3.75 L Hgb 12.0 Hct 34.8 L MCV 92.9 MCH 31.9 MCHC 34.3 RDW 13.0 Plt Count 674 H D MPV 8.4 Neutrophils % 76.2 Lymphocytes % 14.0 Monocytes % 7.9 Eosinophils % 1.3 Basophils % 0.6 D Platelet Estimate Increased Platelet Comment No clumping noted POC Glucometer 123 254 02/16/18 02/16/18 17:09 22:16 WBC RBC Hgb Hct MCV MCH MCHC RDW Plt Count MPV Neutrophils % Lymphocytes % Monocytes % Eosinophils % Basophils % Platelet Estimate Platelet Comment POC Glucometer 101 330 Active Medications Generic Name Dose Route Start Last Admin Trade Name Freq PRN Reason Stop Dose Admin Acetaminophen 1,000 mg 02/14/18 02:47 Ofirmev Injection - IVPB Q6H PRN FEVER Albuterol Sulfate 1 amp 02/12/18 14:31 02/15/18 08:00 Ventolin 0.042trength) - NEB 1 amp Q6H PRN Administration SHORT OF BREATH/WHEEZING Diltiazem HCl 60 mg 02/14/18 06:00 02/17/18 01:13 Cardizem - PO 60 mg Q6HPO [facility] Administration Enoxaparin Sodium 40 mg 02/13/18 13:30 02/16/18 10:50 Lovenox - SQ 40 mg DAILY [facility] Administration Guaifenesin 10 ml 02/14/18 02:47 02/14/18 21:42 Robitussin Dm - PO 10 ml Q4H PRN Administration COUGH Ceftriaxone Sodium 2 gm/ 100 mls @ 200 mls/hr 02/14/18 10:00 02/16/18 10:50 Dextrose IVPB 200 mls/hr DAILY [facility] Administration Vancomycin HCl 1,250 mg/ 250 mls @ 166.667 mls/hr 02/16/18 17:00 02/16/18 18: 48 Dextrose IVPB 166.667 mls/hr BID@0500,1700 [facility] Administration Ibuprofen 400 mg 02/13/18 12:04 Motrin - PO Q6H PRN FEVER Insulin Aspart 1 vial 02/14/18 22:00 02/16/18 22:17 Novolog Vial Sliding Scale - SQ 8 units HS [facility] Administration Protocol Insulin Aspart 1 vial 02/15/18 14:11 02/16/18 17:54 Novolog Vial Sliding Scale - SQ 10 units TIDAC [facility] Administration Protocol Insulin Detemir 28 units 02/13/18 07:00 02/16/18 06:42 Levemir Vial SQ 28 units AM [facility] Administration Insulin Detemir 18 units 02/15/18 22:00 02/16/18 22:20 Levemir Vial SQ 18 unit HS [facility] Administration Polyethylene Glycol 17 gm 02/14/18 10:00 02/16/18 10:51 Miralax (For Daily Use) - PO Not Given DAILY [facility] Sodium Chloride 2 spray 02/14/18 02:47 [place] Nasal [place] - NS TID PRN NASAL CONGESTION Microbiology 02/10/18 06:00 Sputum - Expectorated Gram Stain - Final 02/10/18 06:00 Sputum - Expectorated Sputum Culture - Final S Aureus 02/07/18 17:40 Blood - Peripheral Venous Blood Culture - Final NO GROWTH AFTER 5 DAYS INCUBATION 02/07/18 17:40 Blood - Peripheral Venous Blood Culture - Final NO GROWTH AFTER 5 DAYS INCUBATION 02/07/18 18:35 Urine - Urine Clean Catch Urine Culture - Final NO GROWTH OBTAINED 02/08/18 03:00 Urine - Urine [place] Legionella Antigen - Final 02/08/18 03:00 Urine - Urine [place] Streptococcus pneumoniae Antigen (M - Final 02/08/18 03:00 Urine For Antigen Detection Legionella Antigen - Final 02/08/18 03:00 Urine For Antigen Detection Streptococcus pneumoniae Antigen (M - Final 02/07/18 17:40 Nasopharyngeal Swab Influenza Types A,B Antigen ([facility]) - Final 02/07/18 17:40 Nasopharyngeal Swab - Final CXR 02/07 - IMPRESSION: Hazy right upper to right midlung opacity could be pleural or chest wall rather than airspace. Clinical correlation and a repeat chest x-ray with PA and lateral views is recommended. CXR 02/08 - Since the prior exam of 02/07/2018, there appears to be a progressive right infiltrate and left mid to lower lung infiltrate. Follow-up recommended. 02/09 CXR - Progressive BL infiltrates; recommend CT chest for further evaluation CXR 02/10 - Imaging again reveals bilateral infiltrates, right greater than left. Follow-up recommended. CT chest 02/11 - IMPRESSION: Findings consistent with bilateral pneumonia, as described above for which a follow-up CT scan of the chest in one to 2 weeks is strongly recommended to evaluate for/rule out any underlying pathology CXR 02/11 - BL infiltrates ASSESSMENT/PLAN: 57 yo M with PMH of HTN, DM2 who presented with two weeks of cough, cp, f/c, now with confirmed PNA and admitted to ICU for DKA. Pt receiving abx coverage for suspected CAP pna, expanded to vanc given + MRSA cultures. Pt continues to improve, will d/c saturday with home services. #Sepsis secondary to CAP PNA - no fever overnight; cough improved today; HIV test negative - Trend WBC, fever - robitussin DM for cough - sputum culture + MRSA; repeat sputum cultures + MRSA w/ sensitivities noted - Urine PNA Ag's negative - rapid flu negative - Day 10 Rocephin for CAP coverage; Vanco day 6; AZA d/c'ed - O2 support - half-strength ventolin neb per pulm rec - humidified O2 - PO discharge abx regimen according to ID recs - RT pre and post - NSAIDS for pain relief #DKA - A1C 11.6. gap closed; BGs remain in 300s in PM yesterday, levemir 10u add in PM - ISS - BGMs q4h - nutrition consult - diabetic diet - outpt diabetes management - Endo consult - levemir increased to 28u +18u - Insulin administration teaching per nursing staff #Constipation - Miralax #Hypokalemia - - replete as needed - Trend #HTN - Cardizem 60mg q6h - monitor BP #?DOMI - outpt sleep study FEN PO hydration Daily lytes, monitor for hypomag, hypoK Diabetic diet PPX Lovenox Dispo Dispo for d/c with home services on Saturday Plan discussed with attending, Dr. Zachery Carrillo, PGY1 Visit type - Emergency Visit Emergency Visit: Yes ED Registration Date: 02/07/18 Care time: The patient presented to the Emergency Department on the above date and was hospitalized for further evaluation of their emergent condition. - New Patient This patient is new to me today: No - Critical Care Critical Care patient: No
[2018-02-17 08:00] LABS: HEMATOCRIT 33.2 % (35.4-49); HEMOGLOBIN 11.4 GM/dL (11.7-16.9); MCH 31.9 pg (25.7-33.7); MCHC 34.2 g/dl (32.0-35.9); MEAN CELL VOLUME 93.2 fl (80-96); MEAN PLT VOLUME 8.5 fl (7.5-11.1); PLATELET COUNT 661 K/MM3 (134-434); RBC 3.56 M/mm3 (4.00-5.60); RDW 13.4 % (11.9-15.9); WHITE BLOOD COUNT 10.2 K/mm3 (4.0-10.0)
--- NOTE | 2018-02-17 08:52 | PN ---
Teaching Attending Note Name of Resident: Buddy Carrillo ATTENDING PHYSICIAN STATEMENT I saw and evaluated the patient. I reviewed the resident's note and discussed the case with the resident. I agree with the resident's findings and plan as documented with exceptions below. SUBJECTIVE: Patient seen and examined. breathing continues to improve, no new concerns. OBJECTIVE: Vital Signs Period Temp Pulse Resp BP Sys/Buckner Pulse Ox Last 24 Hr 94.5 F-98.8 F 72-100 -18 105-147/64-80 96 Intake & Output 02/14/18 02/15/18 02/16/18 02/17/18 23:59 23:59 23:59 23:59 Intake Total 1100 1000 950 250 Balance 1100 1000 950 250 general: sitting in bed in no acute distress Home Medication List Medication Instructions Recorded Confirmed Type Diltiazem Cd [Cardizem Cd -] 240 mg PO DAILY 02/07/18 02/07/18 History Glipizide 5 mg PO DAILY 02/07/18 02/07/18 History metFORMIN HCL [Glucophage -] 500 mg PO BID 02/07/18 02/07/18 History Active Medications Generic Name Dose Route Start Last Admin Trade Name Freq PRN Reason Stop Dose Admin Acetaminophen 1,000 mg 02/14/18 02:47 Ofirmev Injection - IVPB Q6H PRN FEVER Albuterol Sulfate 1 amp 02/12/18 14:31 02/15/18 08:00 Ventolin 0.042trength) - NEB 1 amp Q6H PRN Administration SHORT OF BREATH/WHEEZING Diltiazem HCl 60 mg 02/14/18 06:00 02/17/18 06:07 Cardizem - PO 60 mg Q6HPO ELVIRA Administration Enoxaparin Sodium 40 mg 02/13/18 13:30 02/16/18 10:50 Lovenox - SQ 40 mg DAILY ELVIRA Administration Guaifenesin 10 ml 02/14/18 02:47 02/14/18 21:42 Robitussin Dm - PO 10 ml Q4H PRN Administration COUGH Ceftriaxone Sodium 2 gm/ 100 mls @ 200 mls/hr 02/14/18 10:00 02/16/18 10:50 Dextrose IVPB 200 mls/hr DAILY ELVIRA Administration Vancomycin HCl 1,250 mg/ 250 mls @ 166.667 mls/hr 02/16/18 17:00 04/16/18 06: 08 Dextrose IVPB 166.667 mls/hr BID@0500,1700 ELVIRA Administration Ibuprofen 400 mg 02/13/18 12:04 Motrin - PO Q6H PRN FEVER Insulin Aspart 1 vial 02/14/18 22:00 02/16/18 22:17 Novolog Vial Sliding Scale - SQ 8 units HS ELVIRA Administration Protocol Insulin Aspart 1 vial 02/15/18 14:11 02/17/18 06:09 Novolog Vial Sliding Scale - SQ Not Given TIDAC [facility] Protocol Insulin Detemir 28 units 02/13/18 07:00 02/17/18 06:08 Levemir Vial SQ 28 units AM ELVIRA Administration Insulin Detemir 18 units 02/15/18 22:00 02/16/18 22:20 Levemir Vial SQ 18 unit HS ELVIRA Administration Polyethylene Glycol 17 gm 02/14/18 10:00 02/16/18 10:51 Miralax (For Daily Use) - PO Not Given DAILY ELVIRA Sodium Chloride 2 spray 02/14/18 02:47 [place] Nasal [place] - NS TID PRN NASAL CONGESTION Laboratory Results - last 24 hr 02/16/18 02/16/18 02/16/18 08:33 12:12 17:09 WBC 13.2 H RBC 3.75 L Hgb 12.0 Hct 34.8 L MCV 92.9 MCH 31.9 MCHC 34.3 RDW 13.0 Plt Count 674 H D MPV 8.4 Neutrophils % 76.2 Lymphocytes % 14.0 Monocytes % 7.9 Eosinophils % 1.3 Basophils % 0.6 D Platelet Estimate Increased Platelet Comment No clumping noted POC Glucometer 254 101 02/16/18 02/17/18 02/17/18 22:16 06:05 06:30 WBC 10.2 H RBC 3.56 L Hgb 11.4 L Hct 33.2 L MCV 93.2 MCH 31.9 MCHC 34.2 RDW 13.4 Plt Count 661 H MPV 8.5 Neutrophils % No Result Required. Lymphocytes % No Result Required. Monocytes % Eosinophils % Basophils % Platelet Estimate Platelet Comment POC Glucometer 330 123 ASSESSMENT AND PLAN: 57 yom with PMHx of NIDDM, HTN admitted with DKA and bilateral PNA with severe sepsis -Bilateral Multifocal PNA with severe sepsis, Likely MRSA PNA -DKA, resolved -Acute hypoxic respiratory failure, s/p Bipap, improved, from above -poorly controlled DM, A1c 11.2 -Hypertensive urgency -Hypomagnesemia -Hypokalemia -Pseudohyponatremia Plan: Ceftriaxone day 10, vancomycin day 7, s/p 7 days of azithromycin.Discussed with Dr. Martinez, bactrim for 1 more week. No home oxygen needs anymore. CXR stable. Outpatient CT chest in 1-2 weeks as recommended earlier. Endocrine input noted, briana Kelley teaching per patient request. Continue diltiazem. DVTPPx with heparin dispo planning declines PT, feels comfortable ambulating and going home. Has glucometer and strips at home. Plan for home d/c with services today on PO pending flexpen teaching. Plan discussed with patient in detail, all questions answered.
[2018-02-17] MEDS ORDERED: DEXTROSE 5%-WATER 100 ML IVPB ONE (10:14)
--- NOTE | 2018-02-17 10:57 | PN ---
Physical Exam: SUBJECTIVE: Patient seen and examined at bedside. He states he feels much better but still has a slight cough. No other complaints. OBJECTIVE: Vital Signs Period Temp Pulse Resp BP Sys/Buckner Pulse Ox Last 24 Hr 94.5 F-98.4 F 72-92 - 105-141/64-80 96 GENERAL: The patient is awake, alert, and fully oriented, in no acute distress. HEAD: Normal with no signs of trauma. EYES: PERRL, extraocular movements intact, sclera anicteric, conjunctiva clear. No ptosis. ENT: Ears normal, nares patent, oropharynx clear without exudates, moist mucous membranes. NECK: Trachea midline, full range of motion, supple. LUNGS: R upper lung field crackles accessory muscle use. HEART: Regular rate and rhythm, S1, S2 without murmur, rub or gallop. ABDOMEN: Soft, nontender, nondistended, normoactive bowel sounds, no guarding, no rebound, no hepatosplenomegaly, no masses. EXTREMITIES: 2+ pulses, warm, well-perfused, no edema. NEUROLOGICAL: Cranial nerves II through XII grossly intact. Normal speech, gait not observed. PSYCH: Normal mood, normal affect. SKIN: Warm, dry, normal turgor, no rashes or lesions noted Laboratory Results - last 24 hr 02/16/18 02/16/18 02/16/18 12:12 17:09 22:16 WBC RBC Hgb Hct MCV MCH MCHC RDW Plt Count MPV Neutrophils % Lymphocytes % POC Glucometer 254 101 330 02/17/18 02/17/18 06:05 06:30 WBC 10.2 H RBC 3.56 L Hgb 11.4 L Hct 33.2 L MCV 93.2 MCH 31.9 MCHC 34.2 RDW 13.4 Plt Count 661 H MPV 8.5 Neutrophils % No Result Required. Lymphocytes % No Result Required. POC Glucometer 123 Active Medications Generic Name Dose Route Start Last Admin Trade Name Freq PRN Reason Stop Dose Admin Acetaminophen 1,000 mg 02/14/18 02:47 Ofirmev Injection - IVPB Q6H PRN FEVER Albuterol Sulfate 1 amp 02/12/18 14:31 02/15/18 08:00 Ventolin 0.042trength) - NEB 1 amp Q6H PRN Administration SHORT OF BREATH/WHEEZING Diltiazem HCl 60 mg 02/14/18 06:00 02/17/18 06:07 Cardizem - PO 60 mg Q6HPO ELVIRA Administration Enoxaparin Sodium 40 mg 02/13/18 13:30 02/16/18 10:50 Lovenox - SQ 40 mg DAILY ELVIRA Administration Guaifenesin 10 ml 02/14/18 02:47 02/14/18 21:42 Robitussin Dm - PO 10 ml Q4H PRN Administration COUGH Ceftriaxone Sodium 2 gm/ 100 mls @ 200 mls/hr 02/14/18 10:00 02/16/18 10:50 Dextrose IVPB 200 mls/hr DAILY ELVIRA Administration Vancomycin HCl 1,250 mg/ 250 mls @ 166.667 mls/hr 02/16/18 17:00 02/17/18 06: 08 Dextrose IVPB 166.667 mls/hr BID@0500,1700 ELVIRA Administration Ibuprofen 400 mg 02/13/18 12:04 Motrin - PO Q6H PRN FEVER Insulin Aspart 1 vial 02/14/18 22:00 02/16/18 22:17 Novolog Vial Sliding Scale - SQ 8 units HS ELVIRA Administration Protocol Insulin Aspart 1 vial 02/15/18 14:11 02/17/18 06:09 Novolog Vial Sliding Scale - SQ Not Given TIDAC [facility] Protocol Insulin Detemir 28 units 02/13/18 07:00 02/17/18 06:08 Levemir Vial SQ 28 units AM ELVIRA Administration Insulin Detemir 18 units 02/15/18 22:00 02/16/18 22:20 Levemir Vial SQ 18 unit HS ELVIRA Administration Polyethylene Glycol 17 gm 02/14/18 10:00 02/16/18 10:51 Miralax (For Daily Use) - PO Not Given DAILY ELVIRA Sodium Chloride 2 spray 02/14/18 02:47 [place] Nasal [place] - NS TID PRN NASAL CONGESTION ASSESSMENT/PLAN: Pt is a 58 y/o M with PMH NIDDM and HTN who presented to the ED with 2 weeks of cp and cough. Pt is being treated for PNA. #PNA -Improving -afebrlie -WBC 10.2 (32 on admission 02/11) -Rocephin day 9 -Vanco day 2 Karan Sanchez MD PGY-1 ID
[2018-02-17] MEDS: CEFTRIAXONE 2 GM in DEXTROSE 5%-WATER 100 ML IVPB SCH (11:13)
[2018-02-17] MEDS: ENOXAPARIN NA (PORCINE) 40 MG/0.4 ML DISP.SYRIN SQ SCH (11:13)
[2018-02-17] MEDS: POLYETHYLENE GLYCOL 3350 119 GM BTL PO SCH (11:14)
--- NOTE | 2018-02-17 11:20 | PN ---
Progress Note (short form) - Note Progress Note: PULMONARY Breathing improving. +nonproductive cough. No fevers. CXR this AM showing improvement in infiltrates. Last Vital Signs Temp Pulse Resp BP Pulse Ox 98.1 F 107 H 18 141/79 92 L 02/17/18 07:00 02/17/18 10:59 02/17/18 07:00 02/17/18 07:00 02/17/18 10:59 Gen: NAD at rest Heart: RRR Lung: decreased breath sounds at the bases Abd: soft, nontender Ext: no edema CBC, BMP 02/17/18 06:30 02/15/18 06:13 Active Medications Acetaminophen (Ofirmev Injection -) 1,000 mg IVPB Q6H PRN PRN Reason: FEVER Albuterol Sulfate (Ventolin 0.042trength) -) 1 amp NEB Q6H PRN PRN Reason: SHORT OF BREATH/WHEEZING Last Admin: 02/15/18 08:00 Dose: 1 amp Diltiazem HCl (Cardizem -) 60 mg PO Q6HPO [facility] Last Admin: 02/17/18 06:07 Dose: 60 mg Enoxaparin Sodium (Lovenox -) 40 mg SQ DAILY [facility] Last Admin: 02/17/18 11:13 Dose: 40 mg Guaifenesin (Robitussin Dm -) 10 ml PO Q4H PRN PRN Reason: COUGH Last Admin: 02/14/18 21:42 Dose: 10 ml Ceftriaxone Sodium 2 gm/ (Dextrose) 100 mls @ 200 mls/hr IVPB DAILY [facility] Last Admin: 02/17/18 11:13 Dose: 200 mls/hr Vancomycin HCl 1,250 mg/ (Dextrose) 250 mls @ 166.667 mls/hr IVPB BID@0500, 1700 [facility] Last Admin: 02/17/18 06:08 Dose: 166.667 mls/hr Ibuprofen (Motrin -) 400 mg PO Q6H PRN PRN Reason: FEVER Insulin Aspart (Novolog Vial Sliding Scale -) 1 vial SQ HS ELVIRA PRN Reason: Protocol Last Admin: 02/16/18 22:17 Dose: 8 units Insulin Aspart (Novolog Vial Sliding Scale -) 1 vial SQ TIDAC [facility] PRN Reason: Protocol Last Admin: 02/17/18 06:09 Dose: Not Given Insulin Detemir (Levemir Vial) 28 units SQ AM [facility] Last Admin: 02/17/18 06:08 Dose: 28 units Insulin Detemir (Levemir Vial) 18 units SQ HS [facility] Last Admin: 02/16/18 22:20 Dose: 18 unit Polyethylene Glycol (Miralax (For Daily Use) -) 17 gm PO DAILY [facility] Last Admin: 02/17/18 11:14 Dose: Not Given Sodium Chloride ([place] Nasal [place] -) 2 spray NS TID PRN PRN Reason: NASAL CONGESTION A/P Pneumonia s/p Severe Sepsis Diabetic Ketoacidosis improved Lactic Acidosis resolved Acute Kidney Injury improving HTN - complete antibiotics - glucose control - O2 to keep SpO2 >90% - PO as tolerated - DVT prophylaxis - will need outpt f/u of chest imaging in 3-4 weeks
[2018-02-17 12:45] LABS: ANISOCYTOSIS 1+; MACROCYTOSIS 1+; PLATELET ESTIMATE INCREASED; TOXIC GRANULATION 1+
[2018-02-17 13:52] VITALS: BP 124/71; PULSE 95; TEMP 98.6
--- NOTE | 2018-02-17 14:47 | PN ---
Progress Note (short form) - Note Progress Note: Feels better still with dry cough Blood sugar fluctuating Vital Signs Period Temp Pulse Resp BP Sys/Buckner Pulse Ox Last 24 Hr 94.5 F-98.8 F 72-107 18- 105-147/64-80 92-96 PE: AOx3 Neck: S[place], No JVD HEEENT: EOMI Lungs: Decreased BS, No rhonchi, crackles rt upper lung field posteriorly CVS: S1S2 Abd: Benign Ext; No edema Neuro: No focal deficit CMP Sodium 142 mmol/L (136-145) 02/15/18 06:13 Potassium 3.5 mmol/L (3.5-5.1) 02/15/18 06:13 Chloride 105 mmol/L (98-107) 02/15/18 06:13 Carbon Dioxide 30 mmol/L (21-32) 02/15/18 06:13 Anion Gap 7 (8-16) L 02/15/18 06:13 BUN 5 mg/dL (7-18) L D 02/15/18 06:13 Creatinine 0.5 mg/dL (0.7-1.3) L D 02/15/18 06:13 Creat Clearance w eGFR > 60 (>60) 02/15/18 06:13 POC Glucometer 378 UNITS (80-120) 02/17/18 11:50 Random Glucose 135 mg/dL (74-106) H D 02/15/18 06:13 Hemoglobin A1c % 11.6 % (4.8-6.0) H 02/09/18 09:30 Lactic Acid 1.3 mmol/L (0.0-2.0) 02/09/18 05:50 Calcium 7.1 mg/dL (8.5-10.1) L 02/15/18 06:13 Phosphorus 2.9 mg/dL (2.5-4.9) 02/13/18 06:50 Magnesium 2.1 mg/dL (1.8-2.4) 02/13/18 06:50 Total Bilirubin 0.4 mg/dL (0.2-1.0) 02/15/18 06:13 AST 29 U/L (15-37) 02/15/18 06:13 ALT 35 U/L (12-78) 02/15/18 06:13 Alkaline Phosphatase 105 U/L (45-117) 02/15/18 06:13 Troponin I < 0.02 ng/ml (0.00-0.05) 02/07/18 17:40 Total Protein 6.2 g/dl (6.4-8.2) L 02/15/18 06:13 Albumin 2.0 g/dl (3.4-5.0) L 02/15/18 06:13 Current Medications Generic Name Dose Route Start Last Admin Trade Name Freq PRN Reason Stop Dose Admin Acetaminophen 1,000 mg 02/14/18 02:47 Ofirmev Injection - IVPB Q6H PRN FEVER Albuterol Sulfate 1 amp 02/12/18 14:31 02/15/18 08:00 Ventolin 0.042trength) - NEB 1 amp Q6H PRN Administration SHORT OF BREATH/WHEEZING Diltiazem HCl 60 mg 02/14/18 06:00 02/17/18 12:23 Cardizem - PO 60 mg Q6HPO ELVIRA Administration Enoxaparin Sodium 40 mg 02/13/18 13:30 02/17/18 11:13 Lovenox - SQ 40 mg DAILY ELVIRA Administration Guaifenesin 10 ml 02/14/18 02:47 02/14/18 21:42 Robitussin Dm - PO 10 ml Q4H PRN Administration COUGH Ibuprofen 400 mg 02/13/18 12:04 Motrin - PO Q6H PRN FEVER Insulin Aspart 1 vial 02/14/18 22:00 02/16/18 22:17 Novolog Vial Sliding Scale - SQ 8 units HS [facility] Administration Protocol Insulin Aspart 1 vial 02/15/18 14:11 02/17/18 12:23 Novolog Vial Sliding Scale - SQ 30 units TIDAC [facility] Administration Protocol Insulin Detemir 28 units 02/13/18 07:00 02/17/18 06:08 Levemir Vial SQ 28 units AM ELVIRA Administration Insulin Detemir 18 units 02/15/18 22:00 02/16/18 22:20 Levemir Vial SQ 18 unit HS [facility] Administration Levofloxacin 500 mg 02/18/18 06:00 Levaquin - PO DAILY@0600 [facility] Polyethylene Glycol 17 gm 02/14/18 10:00 02/17/18 11:14 Miralax (For Daily Use) - PO Not Given DAILY [facility] Sodium Chloride 2 spray 02/14/18 02:47 [place] Nasal [place] - NS TID PRN NASAL CONGESTION Trimethoprim/Sulfamethoxazole 1 each 02/18/18 10:00 Bactrim Single Strength - PO BID ELVIRA AP; DM s/P DKA Bilateral Multifocal PNA Acute hypoxic respiratory failure, s/p Bipap, improved, from above Ceftriaxone/Azithromycin O2 supplement as necessary Levemir 28 in AM, Levemir 18 units at HS Novolog Coverage, didn't get Novolog in morning. Discussed with RN to give 10 units if FS 100 to 150 premeals. To be given only once food is in the room and pt is ready to eat. All questions regarding DM and its treatment answered. Pt had questions about taking oral or other noninsulin medications. Explained that we need to get C peptide level before considering other treatment options beside Insulin. S/S of hypoglycemia discussed. Pt to call me at [phone] with any questions. F/U in one week with FS record. Pt to go home on current Insulin regimen. Pt wants Insulin pens. Will f/U
--- NOTE | 2018-02-17 17:54 | DS ---
Physical Exam: SUBJECTIVE: Patient seen and examined - No major overnight events; VSS, afebrile; more comfortable, less coughing today; nursing provided insulin dosing instruction yesterday; Vancomycin dose increased by ID - Pt states he feel much better, slept well and cough more controlled; no sputum production; denies f/c/n/v/d, RANGEL, dizziness, cp, sob, ab pain, back pain , LE edema OBJECTIVE: Vital Signs Intake & Output 02/14/18 02/15/18 02/16/18 02/17/18 23:59 23:59 23:59 23:59 Intake Total 1100 1000 950 350 Balance 1100 1000 950 350 Period Temp Pulse Resp BP Sys/Buckner Pulse Ox Last 24 Hr 94.5 F-98.8 F 90-107 18-18 105-147/64-80 92-96 PHYSICAL EXAM GENERAL: Middle aged man, A&Ox3, resting comfortably HEAD: NCAT, alopecia EYES: PERRL, extraocular movements intact, sclera anicteric, conjunctiva clear. No ptosis. ENT: Ears normal, nares patent, oropharynx clear without exudates, moist mucous membranes. NECK: Trachea midline, full range of motion, supple. LUNGS: Trace upper airway congestion; otherwise No wheezing, crackles or accessory muscle use appreciated; HEART: Regular rate and rhythm, S1, S2 without murmur, rub or gallop. ABDOMEN: Globular, soft, NT/ND, normoactive bowel sounds, no guarding, no rebound; No CVA tenderness EXTREMITIES: 2+ pulses, warm, well-perfused, no edema note. 5/5 strength and preserved sensation throughout NEUROLOGICAL: Cranial nerves II through XII grossly intact. Normal speech, gait not observed. PSYCH: Normal mood, normal affect. LABS Laboratory Results - last 24 hr CBC, BMP 02/17/18 06:30 02/15/18 06:13 02/16/18 02/16/18 02/17/18 17:09 22:16 06:05 WBC RBC Hgb Hct MCV MCH MCHC RDW Plt Count MPV Neutrophils % Neutrophils % (Manual) Band Neutrophils % Lymphocytes % Lymphocytes % (Manual) Monocytes % (Manual) Eosinophils % (Manual) Basophils % (Manual) Myelocytes % (Man) Promyelocytes % (Man) Blast Cells % (Manual) Nucleated RBC % Metamyelocytes Toxic Granulation Platelet Estimate Polychromasia Poikilocytosis Anisocytosis Macrocytosis Stomatocytes POC Glucometer 101 330 123 02/17/18 02/17/18 06:30 11:50 WBC 10.2 H RBC 3.56 L Hgb 11.4 L Hct 33.2 L MCV 93.2 MCH 31.9 MCHC 34.2 RDW 13.4 Plt Count 661 H MPV 8.5 Neutrophils % No Result Required. Neutrophils % (Manual) 75.5 Band Neutrophils % 0.0 Lymphocytes % No Result Required. Lymphocytes % (Manual) 8.2 D Monocytes % (Manual) 11 H D Eosinophils % (Manual) 0.0 D Basophils % (Manual) 1.0 D Myelocytes % (Man) 3 H D Promyelocytes % (Man) 0 Blast Cells % (Manual) 0 Nucleated RBC % 0 Metamyelocytes 0 D Toxic Granulation 1+ Platelet Estimate Increased Polychromasia 2+ Poikilocytosis 1+ Anisocytosis 1+ Macrocytosis 1+ Stomatocytes 1+ POC Glucometer 378 Microbiology 02/10/18 06:00 Sputum - Expectorated Gram Stain - Final 02/10/18 06:00 Sputum - Expectorated Sputum Culture - Final S Aureus 02/07/18 17:40 Blood - Peripheral Venous Blood Culture - Final NO GROWTH AFTER 5 DAYS INCUBATION 02/07/18 17:40 Blood - Peripheral Venous Blood Culture - Final NO GROWTH AFTER 5 DAYS INCUBATION 02/07/18 18:35 Urine - Urine Clean Catch Urine Culture - Final NO GROWTH OBTAINED 02/08/18 03:00 Urine - Urine Russo Legionella Antigen - Final 02/08/18 03:00 Urine - Urine Russo Streptococcus pneumoniae Antigen (M - Final 02/08/18 03:00 Urine For Antigen Detection Legionella Antigen - Final 02/08/18 03:00 Urine For Antigen Detection Streptococcus pneumoniae Antigen (M - Final 02/07/18 17:40 Nasopharyngeal Swab Influenza Types A,B Antigen (JORGE) - Final 02/07/18 17:40 Nasopharyngeal Swab - Final CXR 02/07 - IMPRESSION: Hazy right upper to right midlung opacity could be pleural or chest wall rather than airspace. Clinical correlation and a repeat chest x-ray with PA and lateral views is recommended. CXR 02/08 - Since the prior exam of 02/07/2018, there appears to be a progressive right infiltrate and left mid to lower lung infiltrate. Follow-up recommended. 02/09 CXR - Progressive BL infiltrates; recommend CT chest for further evaluation CXR 02/10 - Imaging again reveals bilateral infiltrates, right greater than left. Follow-up recommended. CT chest 02/11 - IMPRESSION: Findings consistent with bilateral pneumonia, as described above for which a follow-up CT scan of the chest in one to 2 weeks is strongly recommended to evaluate for/rule out any underlying pathology CXR 02/17 - BL infiltrates Consults: ID - Seen by Dr. Stinson Pulmonology - Seen by Dr. Crisostomo Endocrinology - Seen by Dr. Abdullahi [facility]: Prehospital course: This is a 57 year old male with a past medical history of NIDDM and HTN who presented to the ED with a 2 week h/o chest pain. He also reports dyspnea and lightheadedness. Pt reports viral like illness approximately 2 weeks ago with subjective fever, chills, cough and has not been feeling well since. Pt with poor po intake over past few days with almost no intake x 2 days. Also reports h /o chronic dry cough, luis at work x 2-3 years. Pt currently on BiPAP ER course was notable for: (1) Gluc 696, 3+ acetone, pH 7.19 (2) WBC 32.5 (3) CXR with haziness right upper/mid Hospital course: On admission, pt started on insulin gtt, NS 200cc. Received a dose of vanc/ zosyn in ED. CXR notable for possible R upper/middle consolidation suggestive of multifocal PNA. WBC 32.5, ABG 7.19/10//3.8, K 5.7, lactic acid 4.0, cr 1.8. Initial AG of 33, improved to 8 with hydration and insulin gtt initially. Trops negative. UA 3+ glucose, 2+ ketones, 2+ blood. Acetone 3+. Lactic acid dropped to 2.4 with hydration and glucose corrected to 309 with insulin gtt. On admission to ICU, insulin gtt d/c'ed after AG closed, however in AM AG reopened to 18, restarted on insulin gtt. Urine, blood cx's initially sent, ID consulted. Hyperkalemia resolved with insulin gtt. Pt placed on rocephin/aza for suspected CAP coverage; flu negative. Transitioned successfully to ISS. Pt with persistent productive cough and overnight fevers intermittently requiring robitussin, duonebs, and O2 support. Pulm consulted. Pt started on Vancomycin given + MRSA sputum cultures. Pt with persistently elevated WBC count in 20s, slowly downtrending with eventual progressive resolution of fevers. Poor BG control on admission, require addition of basal levemir and endo consult. Pt with A1C of 11.6 on admission. Pt course complicated by poorly controlled BG controlled. PT with CT on 02/11 with confirmation for BL pneumonia. PT finished 7 day course of AZA, continued on Rocephin/vanc for remainder of admission with eventual correction of WBC count and symptomatic resolution. Pt eventually achieved adequate BG control with LEvemir 28+18 split dosing and pre-prandial augmented sliding scale noted in discharge plan. Pt persistently in 300s overnight prior to this regimen. Pt initial RT pre and post notable for possible O2 requirement at home, however repeat pre/post on 02/17 notable for no O2 requirement. Pt BGs well controlled on 02/17, with normalization of WBC, resolution of fever and significant improvement in symptoms. Pt discharged on 7 day PO course of bactrim, home levemir with the above dosing regimen and pre- prandial SS per Dr. Barnhart's recommendations. Date of Admission:02/07/18 Date of Discharge: 02/17/18 Pt is medically stable and cleared for discharge with outpt f/u with Dr. Barnhart in one week. Minutes to complete discharge: 35 Discharge Summary Reason For Visit: DIABETIC KETOACIDOSIS Current Active Problems Acute kidney failure (Acute) Acute kidney injury (Acute) Bilateral pneumonia (Acute) Diabetic ketoacidosis (Acute) Condition: Fair - Instructions Diet, Activity, Other Instructions: During your stay at [facility], you were treated for a pneumonia. You were seen by our pulmonary and infectious disease teams and treated with antibiotics and medications to support your breathing, with significant improvement in your symptoms. Medications: The following medications were added to your home regimen. Please take them as specified below: Bactrim DS twice daily for 7 days (02/18-02/24) Levemir 28 units, one injection via the flexpen in the morning 18 units, one injection in the evening In addition to your basal insulin dosing with the above levemir doses, you should also administer the following Novolog doses just prior to each meal based on your measured blood sugars. Do not administer the insulin until the food is in front of you! Novolog Sliding scale: Blood Sugar Insulin units 100-150 10 150-200 16 200-250 22 250-300 26 300-350 28 350-400 30 400+ 30 units and call your primary care doctor Please check your blood glucose before and after meals, upon waking and at bedtime. Please keep an ongoing record of your blood glucose levels and bring this record to your next appointment with Dr. Abdullahi. YOU WILL NEED TO KEEP CLOSE EYE ON YOUR BLOOD SUGARS TO ENSURE THEY DO NOT GO BELOW 75 AND YOU SHOULD ALWAYS CARRY SUGAR PILLS WITH YOU. If your blood sugars are < 80 consistently contact your doctor. Also ensure to aways keep sugar pills with you in case any symptoms of low blood sugar (tremors , heart racing, anxiety, sweating, hunger, abnormal sensations) ADVISE TO BE IN CLOSE CONTACT WITH DR. ABDULLAHI'S OFFICE, TO FAX THE RESULTS OF YOUR BLOOD SUGARS IN 2-3 DAYS AND THEN REGULARLY TO AVOID LOW OR VERY HIGH BLOOD SUGARS. Please stop taking the following medications: Metformin Glipizide Please continue to take all other home medications as previously directed. Follow-ups: Please follow-up with your primary care physician, Dr. Ramon, in one week for further management of your medications. Please call their office to schedule an appointment. Please call within one week to schedule an appointment. Please follow-up with our senior lead java developer, Dr. Crisostomo, in one week for further management of your pulmonary medication. His contact number has been provided in this packet. Please call his office to make an appointment. We recommend that you receive an outpt evaluation of obstructive sleep apnea. Please bring this to the attention of your primary care provider or Dr. Crisostomo during your f/u visit YOU WILL NEED CT CHEST IN 1-2 WEEKS. Please bring this to the attention of your primary care provider. Your kidney function will need to be monitored while on antibiotic Bactrim. Notify you doctor if any new rash. Call 911 or come to ED if any new swelling, tongue or lip swelling, trouble breathing, decreased urination or new concerns. PLEASE ENSURE TO DRINK PLENTY OF FLUIDS WHILE ON THIS ANTIBIOTIC. Diet/exercise: Please abide by the diabetic diet outlined in your discharge packet. Please advance your exercise routine as tolerated. Please return to the hospital if you experience any of the following symptoms: - Worsening, productive cough or tracheal secretions - Persistent fevers/chills - Prolonged shortness of breath or trouble breathing for >3 days - Rash, decreased urination, swelling or new concerns - Any new or concerning symptoms Referrals: Germán Ramon MD [Primary Care Provider] - 1 Week Hira Abdullahi MD [Staff Physician] - 1 Week Alfonso Crisostomo MD, MD [Staff Physician] - 1 Week Disposition: HOME - Home Medications Comprehensive Discharge Medication List: Ambulatory Orders Diltiazem Cd [Cardizem Cd -] 240 mg PO DAILY 02/07/18 Insulin Aspart [Novolog Flexpen] 100 unit SQ AM #30 insuln.pen 02/17/18 Insulin Detemir [Levemir Flextouch] 18 unit SQ HS #30 insuln.pen 02/17/18 Insulin Detemir [Levemir Flextouch] 28 unit SQ AM #30 insuln.pen 02/17/18 Miscellaneous Medical Supply [Glucometer Device] 1 each .ROUTE ASDIR #1 kit Miscellaneous Medical Supply [Glucometer Test Strips #100] 1 each .ROUTE ASDIR # 1 box 02/17/18 Sulfamethoxazole/Trimethoprim [Bactrim Ds -] 1 tab PO BID #14 tablet 02/17/18 This patient is new to me today: No Emergency Visit: Yes ED Registration Date: 02/07/18 Care time: The patient presented to the Emergency Department on the above date and was hospitalized for further evaluation of their emergent condition. Critical Care patient: No - Discharge Referral Referred to [facility] Med P.C.: No
[2018-02-18] MEDS ORDERED: SULFAMETHOXAZOLE/TRIMETHOPRIM 400MG/80MG S.S. TABLET PO SCH (10:00)
== END 2018-02-17 18:55 | disposition home or self-care (01) | DRG 720 ==
LOC: JER 17:12 → JERBED 19:09 → JICU 20:11 → J4W 02-10 17:02 → J8W 02-14 01:08
PROVIDERS: ADMIT Internal Medicine; ATTEND Hospitalist
PROC: 5A09457 Assistance with Respiratory Ventilation, 24-96 Consecutive Hours, Continuous Positive Airway Pressure (ICD-10-PCS; principal; 2018-02-07)
DX: A41.9 Sepsis, unspecified organism (principal); E11.10 Type 2 diabetes mellitus with ketoacidosis without coma; E87.5 Hyperkalemia; N17.9 Acute kidney failure, unspecified; E87.2 Acidosis; E87.6 Hypokalemia; E83.42 Hypomagnesemia; E87.1 Hypo-osmolality and hyponatremia; I16.0 Hypertensive urgency; E86.0 Dehydration; J18.9 Pneumonia, unspecified organism; R50.9 Fever, unspecified; R00.0 Tachycardia, unspecified; J96.01 Acute respiratory failure with hypoxia; K59.00 Constipation, unspecified; D47.3 Essential (hemorrhagic) thrombocythemia; R65.20 Severe sepsis without septic shock; Z86.718 Personal history of other venous thrombosis and embolism
CPT/HCPCS: 36415; 36600; 71045-TC-FY; 71046-TC-FY; 71250-TC; 80048; 80053; 81003; 81015; 82009; 82375; 82803; 82947; 82962; 83036; 83050; 83605; 83735; 84100; 84484; 85025; 85027; 85610; 85730; 87040; 87070; 87086; 87186; 87205; 87389; 87522; 87804; 87899; 90688; 90732; 93005; 93010; 94640; 94660; 94761; 99285-25; G0008; G0009; G0480; J0131; J1644; J7030

== ENCOUNTER 2019-07-21 18:28 | Inpatient (IN) | payer OTHER ==
[2019-07-21] MEDS ORDERED: ACETAMINOPHEN 1000 MG/100 ML VIAL (NON FORMULARY) IVPB ONE (18:37)
[2019-07-21] MEDS ORDERED: SODIUM CHLORIDE 1,000 ML IV STA (18:37)
--- NOTE | 2019-07-21 18:37 | PDOC ---
Rapid Medical Evaluation Medical Evaluation: Allergies Allergy/AdvReac Type Severity Reaction Status Date / Time No Known Allergies Allergy Verified 02/07/18 17:35 I have performed a brief in-person evaluation of this patient. The patient presents with a chief complaint of: c/o fever today of 101; also with dry cough for >1 month; +wound to R calf x3 weeks (or longer); took 15 tabs of Motrin today (3000 mg total); hx of HTN, DM Pertinent physical exam findings: In nad, lungs clear, R calf (redness, +slight blood oozing from site, no pustular drainage) I have ordered the following: Labs, CXR, tylenol The patient will proceed to the ED for further evaluation. 07/21/19 18:31 Discharge Disposition - Referrals Referrals: Germán Ramon MD [Primary Care Provider] - - Patient Instructions - Post Discharge Activity
[2019-07-21 19:22] LABS: BASO % 0.8 % (0-2.0); EOS % 0.6 % (0-4.5); HEMATOCRIT 42.1 % (35.4-49); LYMPH % 6.6 % (8-40); MCH 31.3 pg (25.7-33.7); MCHC 33.3 g/dl (32.0-35.9); MEAN CELL VOLUME 94.1 fl (80-96); MEAN PLT VOLUME 8.3 fl (7.5-11.1); MONO % 3.1 % (3.8-10.2); NEUT % 88.9 % (42.8-82.8); PLATELET COUNT 293 K/MM3 (134-434); RBC 4.47 M/mm3 (4.00-5.60); RDW 13.3 % (11.9-15.9)
[2019-07-21] MEDS ORDERED: ACETAMINOPHEN INJECTION 100 ML IVPB ONE (19:50)
[2019-07-21 19:58] LABS: CREATININE 0.9 mg/dL (0.55-1.3); POTASSIUM 4.1 mmol/L (3.5-5.1)
[2019-07-21 19:59] LABS: BILIRUBIN,TOTAL 1.1 mg/dL (0.2-1); CALCIUM 9.1 mg/dL (8.5-10.1); TOT PROT 7.2 g/dl (6.4-8.2)
--- NOTE | 2019-07-21 20:36 | PDOC ---
Attending Attestation - Resident Resident Name: Dana Sanchez - ED Attending Attestation I have performed the following: I have examined & evaluated the patient, The case was reviewed & discussed with the resident, I agree w/resident's findings & plan, Exceptions are as noted - HPI HPI: 07/21/19 20:35 59 yo male p/w fever,chills,L posterior leg abscess he first noticed this as a bump behind his knee and googled his symptoms and thought he had a Melo's cyst. He therefore put on an ice pack for 3 hours, but this left an actual burn. He later developed blisters that he said eventually went away. However, this week he started having significant pain and his noted the actual abscess behind his left leg 07/21/19 21:20 - Physicial Exam PE: 07/21/19 21:30 obese 59 yo male p/w fever.chills and left posterior leg abscess head ncat neck supple lungs cta b/l cvs tachycardia abd protuberant skin warm and dry no flank pain extremities there is an abscess on his posterior left leg in the popliteal fossa that is indurated, about 10 cm with an open crated ulcer and mild erythema on his calf, skin is warm and sensation intact on leg neuro axox3 - Medical Decision Making 07/21/19 21:35 imp diabetes/leg abscess/ plan needs admission for IV antibiotics
--- NOTE | 2019-07-21 20:59 | PDOC ---
History of Present Illness - General Chief Complaint: Wound Stated Complaint: 102 FEVER Time Seen by Provider: 07/21/19 18:31 - History of Present Illness Initial Comments: Henry Hamilton is a 59yo man with a PMH of HTN, NIDDM who presents to the ED with fever, general malaise, and pain and redness to the left popliteal fossa. He reports that he had pain and swelling behind his knee about a month ago, looked it up online, and determined that he had a bakers cyst. He applied ice to the area with relief of pain, but he left ice directly on his skin for about 3 hours. He developed blood-filled blisters in the area that did slowly resolve over time. Up until 2 days ago, the area seemed to be healing well. Yesterday, the skin behind his left knee became very red, warm, and painful to touch. He took 600mg ibuprofen several times with improvement in the pain. Today, the pain was more severe and he developed fever to 101F at home. He tried to use ibuprofen again without relief. He also tried to make an appointment with orthopedics for the knee pain but was unable to be seen until next week. He had worsening generalized malaise throughout the day until he deicded that he needed to be seen. Mr Hamilton also reports a chronic dry cough that worsens with humidity. He is concerned that he has pneumonia as he was admitted with pneumonia last year. He denies recent changes to the cough, sputum production, congestion or other recent symptoms. He denies nausea, vomiting, change in bowel habits, sick contacts, or recent travel. Past History - Past Medical History Allergies/Adverse Reactions: Allergies Allergy/AdvReac Type Severity Reaction Status Date / Time No Known Allergies Allergy Verified 07/21/19 18:37 Home Medications: Ambulatory Orders Diltiazem Cd [Cardizem Cd -] 120 mg PO DAILY 07/21/19 Glipizide [Glucotrol -] 10 mg PO BID 07/21/19 Simvastatin [Zocor] 10 mg PO HS 07/21/19 metFORMIN HCL [Metformin ER Gastric] 1,000 mg PO BID 07/21/19 COPD: No Diabetes: Yes (NIDDM) HTN: Yes - Immunization History Immunization Up to Date: Yes - Suicide/Smoking/Psychosocial Hx Smoking History: Never smoked Have you smoked in the past 12 months: No Information on smoking cessation initiated: No Hx Alcohol Use: No (SOCIAL) Drug/Substance Use Hx: No Substance Use Type: None Review of Systems - Review of Systems Comments:: General: + fevers, no chills, no weight or appetite change, + malaise HEENT: No changes in vision, no changes in hearing, no congestion, no sore throat CV: No chest pain, no palpitations, no LE edema Pulm: No SOB, no cough, no wheezing GI: No nausea or vomiting, no change in bowel habits, no melena : No frequency, no urgency, no dysuria Musc: No back pain, no joint swelling, no recent injury Skin: Endo: No excessive thirst, no heat/cold intolerance Heme: No unusual bruising or bleeding, no swollen glands Neuro: No syncope, no numbness/tingling, no focal weakness Vasc: No claudication Psych: No recent change in mood, no SI or HI *Physical Exam - Vital Signs Last Vital Signs Temp Pulse Resp BP Pulse Ox 101.4 F H 126 H 20 156/79 96 07/21/19 18:31 07/21/19 18:31 07/21/19 18:31 07/21/19 18:31 07/21/19 20:11 - Physical Exam Comments: General: Uncomfortable, mildly diaphoretic, no acute distress HEENT: PERRL, EOMI, MMM, voice normal, normal neck ROM Cards: Tachycardic, regular, no murmur appreciated Pulm: Comfortable on room air, clear to auscultation bilaterally Abd: Soft, nontender, nondistended Ext: Atraumatic. L popliteal fossa with approx 10x8cm area of erythema, warmth, TTP and ulcerated draining wound. No gross purulence. Erythema tracking down posterior leg. L knee ROM limited by pain. Vasc: Ext WWP Skin: Erythema to LLE as above, otherwise no rash or lesions appreciated Neuro: A&Ox3, CN grossly intact, normal speech, motor/sensory grossly intact and symmetric Psych: Mood appropriate to situation ED Treatment Course - LABORATORY CBC & Chemistry Diagram: 07/21/19 18:53 07/21/19 18:53 - ADDITIONAL ORDERS Additional order review: Laboratory Results 07/21/19 07/21/19 18:53 18:53 Sodium 138 Potassium 4.1 Chloride 104 Carbon Dioxide 28 Anion Gap 7 L BUN 13.0 Creatinine 0.9 Est GFR (CKD-EPI)AfAm 108.73 Est GFR (CKD-EPI)NonAf 93.82 Random Glucose 196 H Lactic Acid 2.2 H* Calcium 9.1 Total Bilirubin 1.1 H AST 24 ALT 37 Alkaline Phosphatase 104 Total Protein 7.2 Albumin 4.0 07/21/19 18:53 RBC 4.47 MCV 94.1 MCHC 33.3 RDW 13.3 MPV 8.3 Neutrophils % 88.9 H Lymphocytes % 6.6 L D Monocytes % 3.1 L Eosinophils % 0.6 Basophils % 0.8 - Medications Given in the ED: ED Medications Discontinued Medications Generic Name Dose Route Start Last Admin Trade Name Freq PRN Reason Stop Dose Admin Acetaminophen 1,000 mg 07/21/19 18:37 07/21/19 20:10 Ofirmev Injection - IVPB 07/21/19 18:38 1,000 mg ONCE ONE Administration Sodium Chloride 1,000 mls @ 1,000 mls/hr 07/21/19 18:37 07/21/19 20:10 Normal Saline - IV 07/21/19 19:36 1,000 mls/hr ASDIR STA Administration Medical Decision Making - Medical Decision Making 07/21/19 20:58 Henry Hamilton is a 59yo man with a PMH of HTN, NIDDM who presents to the ED with fever, general malaise, and pain and redness to the left popliteal fossa that has acutely worsened over hte past 2 days. He reports a possible frostbite injury to that location about a month ago due to applying ice for an extended period of time, though the wound was initially healing. The appearance of the left popliteal fossa is concerning for abscess or cellulitis that is now spreading down the left leg. - Febrile and tachycardic on arrival. CBC, CMP, lactate, UA, blood cx, UCx, CXR ordered - Adding 2nd lactate, wound culture, coags, VBG - IVF for sepsis - IV acetaminophen 07/21/19 21:43 - Labs completed. Notable for slight leukocytosis, lactate 2.2 - EKG w/ NSR, HR 95, normal axis, normal intervals. - Pt now reporting a headache - Toradol, reglan, benadryl, additional IVF ordered - Vanc/zosyn for sepsis - Microblog sent for admission 07/21/19 22:50 - Sign out given to Dr Sutton - Will be admitted to Dr Bautista, med/surg 07/22/19 03:03 - Patient became acutely SOB, tachycardic to 150 with violent rigors - Given nebulizer treatment for comfort though sats 100% - Admission team contacted, to bedside for evaluation - ICU team for evaluation given persistent tachcyardia - Found to be febile to 104F - IV acetaminophen ordered. Tachycardia improved to 130 - Will monitor HR prior to transfer up to floor. Seen with Dr Germán Sanchez PGY2 *DC/Admit/Observation/Transfer Diagnosis at time of Disposition: Cellulitis and abscess of left leg Sepsis Qualifiers: Sepsis type: sepsis due to unspecified organism Sepsis acute organ dysfunction status: without acute organ dysfunction Qualified Code(s): A41.9 - Sepsis, unspecified organism - Discharge Dispostion Decision to Admit order: Yes - Referrals - Patient Instructions - Post Discharge Activity
[2019-07-21] MEDS ORDERED: SODIUM CHLORIDE 0.9% 500 ML INFUS.BAG IV ONE (21:31)
[2019-07-21] MEDS ORDERED: KETOROLAC TROMETHAMINE 30 MG/1 ML VIAL IVPUSH ONE (21:31)
[2019-07-21] MEDS ORDERED: METOCLOPRAMIDE HCL INJECTION 10 MG/2 ML VIAL IVPUSH ONE (21:31)
[2019-07-21] MEDS ORDERED: VANCOMYCIN 1 GM in D5W (PRE-DOCKED) 1,000 MG/250 ML IVPB ONE (21:32)
[2019-07-21] MEDS ORDERED: PIPERACILLIN/TAZOB 4.5 GM 4.5 GM in DEXTROSE 5%-WATER 100 ML IVPB ONE (21:32)
[2019-07-21] MEDS ORDERED: METOCLOPRAMIDE HCL INJECTION 10 MG/2 ML VIAL ONE (22:02)
[2019-07-21] MEDS ORDERED: PIPERACILLIN/TAZOB 4.5 GM 4.5 GM/100 ML BAG IVPB ONE (22:03)
[2019-07-21] MEDS ORDERED: KETOROLAC TROMETHAMINE 30 MG/1 ML VIAL ONE (22:03)
[2019-07-21] MEDS ORDERED: VANCOMYCIN 1 GRAM (PRE-DOCKED) 1,000 MG/250 ML BAG IVPB ONE (22:04)
--- NOTE | 2019-07-21 22:28 | PN ---
Teaching Attending Note Name of Resident: Kacy John ATTENDING PHYSICIAN STATEMENT I saw and evaluated the patient. I reviewed the resident's note and discussed the case with the resident. I agree with the resident's findings and plan as documented. SUBJECTIVE: Patient is a 59 year old man with a PMH of HTN and NIDDM who presents to the ER with fever, general malaise, and pain and redness to the left popliteal fossa. He reports that he had pain and swelling behind his knee started about a month ago. He looked it up online, and determined that he had a bakers cyst. He applied ice to the area with relief of pain, but he left ice directly on his skin for about 3 hours. He developed blood-filled blisters in the area that did slowly resolve over time. Up until 2 days ago, the area seemed to be healing well. Yesterday, the skin behind his left knee became very red, warm, and painful to touch. He took 600 mg ibuprofen several times with improvement. Today , the pain was more severe and he developed fever to 101F at home. He uses ibuprofen again without relief. He also had worsening generalized malaise throughout the day a chronic dry cough. He was admitted with pneumonia last year. He denies recent changes to the cough, sputum production, congestion or other recent symptoms. He denies nausea, vomiting, change in bowel habits, sick contacts, or recent travel. OBJECTIVE: Alert Vital Signs Period Temp Pulse Resp BP Sys/Buckner Pulse Ox Last 24 Hr 101.4 F 126 20 156/79 96-97 HEENT: No Jaundice, eye redness or discharge, PERRLA, EOMI. Normocephalic, atraumatic. External ears are normal and hearing is grossly intact. No nasal discharge. Neck: Supple, nontender. No palpable adenopathy or thyromegaly. No JVD Chest: Good effort. Clear to auscultation and percussion. Heart: Regular. No S3, rub or murmur Abdomen: Not distended, soft, nontender and no HSM. No rebound or guarding. Normal bowel sounds. Ext: Peripheral pulses intact. No leg edema. Area of induration in the left popliteal fossa with erythema extending up and down. Skin: Warm and dry. No petechiae, rash or ecchymosis. Neuro: Alert. Oriented x3. CN 2-12 grossly intact. Sensation grossly intact in all four extremities and DTR are symmetric. Psych: Appropriate mood and affect. Good insight. Home Medications Medication Instructions Recorded Diltiazem Cd [Cardizem Cd -] 240 mg PO DAILY 02/07/18 Insulin Aspart [Novolog Flexpen] 100 unit SQ AM #30 insuln.pen 02/17/18 Insulin Detemir [Levemir Flextouch] 18 unit SQ HS #30 insuln.pen 02/17/18 Insulin Detemir [Levemir Flextouch] 28 unit SQ AM #30 insuln.pen 02/17/18 Miscellaneous Medical Supply 1 each .ROUTE ASDIR #1 kit 02/17/18 [Glucometer Device] Miscellaneous Medical Supply 1 each .ROUTE ASDIR #1 box 02/17/18 [Glucometer Test Strips #100] Miscellaneous Medical Supply 1 each .ROUTE ASDIR #1 box 02/17/18 [Lancets] Pen Needle, Diabetic [Bd 1 each MC ASDIR #2 box 02/17/18 Ultra-Fine Pen Needle] Sulfamethoxazole/Trimethoprim 1 tab PO BID #14 tablet 02/17/18 [Bactrim Ds -] Abnormal Lab Results 07/21/19 07/21/19 07/21/19 18:53 18:53 18:53 WBC 11.0 H Absolute Neuts (auto) 9.7 H Neutrophils % 88.9 H Lymphocytes % 6.6 L D Monocytes % 3.1 L Anion Gap 7 L Random Glucose 196 H Lactic Acid 2.2 H* Total Bilirubin 1.1 H ASSESSMENT AND PLAN: 1. Sepsis due to left popliteal fossa wound/cellulitis - Sepsis work up done and being treated with Vancomycin and Zosyn. Will continue IV NS and trend lactic acid. EKG shows NSR with nonspecific T wave changes. No acute abnormality on CXR and urinalysis is pending. Will continue comprehensive care for all of patients comorbid conditions. 2. Uncontrolled DM For now, we will hold the home diabetes drugs and implement sliding scale insulin regimen. Provide comprehensive diabetes care with patient teaching and counseling about the importance of adherence to prescribed diabetes regimen, euglycemia, eye care and foot care. 3. Obesity Counseled on the risks associated with obesity. Will provide patient all the necessary assistance, counseling and positive reinforcement to facilitate weight loss. Consult usability engineer. 4. Hypertension - Restart suitable outpatient antihypertensive drugs when clinically appropriate. Add lisinopril 10 mg po qHS and HCTZ 12.5 mg q am. Revise regimen to ensure [id number] excellent BP control and counselor education professor patient on the injurious effects of uncontrolled hypertension. Nonpharmacologic measures to control hypertension like weight loss, salt restriction and exercise discussed. Importance of adherence to treatment regimen and attainment of normotension emphasized. 5. DVT prophylaxis - Lovenox 40 mg SQ q 24 hours. 6. Advance directives - Full code
[2019-07-21 22:42] LABS: VENOUS PC02 38.5 mmHg (38-52); VENOUS PH 7.42 (7.31-7.41)
[2019-07-21 22:57] LABS: INR 1.17 (0.83-1.09); PROTHROMBIN TIME (PATIENT) 13.8 SEC (9.7-13.0)
[2019-07-21 22:59] LABS: ACTIVATED PTT 36.2 SECONDS (25.2-36.5)
[2019-07-22] MEDS ORDERED: LISINOPRIL 10 MG TABLET (FP) PO ONE (00:06)
--- NOTE | 2019-07-22 00:08 | HP ---
CHIEF COMPLAINT: fever and leg pain PCP: Dr. Germán Ramon HISTORY OF PRESENT ILLNESS: Henry Hamilton is a 59 year old male with a past medical history of hypertension, diabetes, herniated discs who presents with fever and leg pain. 1 month ago the patient noticed a painful bump on his left popliteal fossa that he thought was a Melo cyst, put ice on it for several hours, and afterwards developed a break in his skin that was attributed to ice burn. He applied neosporin to the wound and stated that it was starting to heal. The day before admission he did notice that he had increased amounts of pain at the site and took ibuprofen 600mg with good effect. This morning, the patient stated he felt feverish, had increased pain at the left popliteal fossa, general weakness, malaise. He again took ibuprofen with no effect and measured his temperature at home which he saw was greater than 101. Stated that he could still put weight on his leg, however it was more difficult to walk because he felt pain whenever he bent his leg. Stated that pain was localized to the posterior side of the left knee with extension of approximately 10 cm up and down from the popliteal fossa. He denies headaches, lightheadedness, dizziness, chest pain, shortness of breath, abdominal pain, nausea, vomiting, constipation, diarrhea, urinary symptoms of frequency, urgency. Denies falls, syncope, sick contacts, recent travel. After admission in ED, admitting team notified that patient tachypneic, tachycardic, with increased work of breathing, and rigors. Denied chest pain. Was alert and oriented at time of examination and only complained of shortness of breath. O2 saturations remained in high 90s, blood pressure 145/79. Had recently received lisinopril. Was given Duoneb, repeat EKG showing sinus tachycardia, CXR stable. Rectal temp was taken and showed 104 and patient was given Tylenol. Rigors were resolving and patient stated he felt better. ICU team was called by ED for consultation and further recommendations as per ICU note. Patient to go to Med-surg floor for continued medical treatment. ER course was notable for: (1) Febrile 101.4, tachycardic 126, 156/79 (2) WBC 1.0, neut 88.9, lactic 2.2, glucose 196 (3) CXR with no acute pathology Recent Travel: denies PAST MEDICAL HISTORY: as above PAST SURGICAL HISTORY: [facility] [place] [facility] Social History: Smoking: denies Alcohol: socially Drugs: denies Lives at home with . No ambulatory devices. Family History: Mother and sister--> gestational diabetes Allergies No Known Allergies Allergy (Verified 07/21/19 18:37) HOME MEDICATIONS: Home Medications Medication Instructions Recorded Diltiazem Cd [Cardizem Cd -] 120 mg PO DAILY 07/21/19 Glipizide [Glucotrol -] 10 mg PO BID 07/21/19 Simvastatin [Zocor] 10 mg PO HS 07/21/19 metFORMIN HCL [Metformin ER 1,000 mg PO BID 07/21/19 Gastric] REVIEW OF SYSTEMS CONSTITUTIONAL: fever, chills, generalized weakness, malaise Absent: diaphoresis, loss of appetite, weight change HEENT: Absent: rhinorrhea, nasal congestion, throat pain, throat swelling, difficulty swallowing, visual changes CARDIOVASCULAR: Absent: chest pain, syncope, palpitations, irregular heart rate, lightheadedness , peripheral edema RESPIRATORY: cough Absent: shortness of breath, dyspnea with exertion, orthopnea, wheezing, stridor , hemoptysis GASTROINTESTINAL: Absent: abdominal pain, abdominal distension, nausea, vomiting, diarrhea, constipation, GENITOURINARY: Absent: dysuria, frequency, urgency, hesitancy, hematuria, flank pain, MUSCULOSKELETAL: pain in left politeal fossa Absent: myalgia, arthralgia, back pain, neck pain SKIN: erythema and warmth in the left popliteal fossa with extension up and down Absent: itching, pallor HEMATOLOGIC/IMMUNOLOGIC: Absent: easy bleeding, easy bruising, lymphadenopathy, frequent infections ENDOCRINE: Absent: unexplained weight gain, unexplained weight loss, heat intolerance, cold intolerance NEUROLOGIC: Absent: headache, focal weakness or paresthesias, dizziness, unsteady gait, seizure, mental status changes, PSYCHIATRIC: Absent: anxiety, depression, suicidal or homicidal ideation, hallucinations. PHYSICAL EXAMINATION Vital Signs - 24 hr 07/21/19 07/21/19 18:31 20:11 Temperature 101.4 F H Pulse Rate 126 H Respiratory 20 Rate Blood Pressure 156/79 O2 Sat by Pulse 97 96 Oximetry (%) GENERAL: Awake, alert, and fully oriented, in no acute distress. HEAD: Normal with no signs of trauma. EYES: Pupils equal, round and reactive to light, extraocular movements intact, sclera anicteric, conjunctiva clear. EARS, NOSE, THROAT: Oropharynx clear without exudates. Moist mucous membranes. NECK: Normal range of motion, supple without lymphadenopathy, JVD. LUNGS: Breath sounds equal, clear to auscultation bilaterally. No wheezes, and no crackles. No accessory muscle use. HEART: Regular rate and rhythm, normal S1 and S2 without murmur, rub. ABDOMEN: Soft, nontender, not distended, normoactive bowel sounds, no guarding, no rebound, no masses. No hepatomegaly or splenomegaly. MUSCULOSKELETAL: Decreased range of motion at left knee secondary to pain. UPPER EXTREMITIES: 2+ pulses, warm, well-perfused. No cyanosis. No clubbing. No peripheral edema. LOWER EXTREMITIES: 1+ pulses, warm, well-perfused. No calf tenderness. No peripheral edema. NEUROLOGICAL: Cranial nerves II-XII intact. 5/5 muscle strength bilaterally upper and lower extremities. PSYCHIATRIC: Cooperative. Good eye contact. Appropriate mood and affect. SKIN: Erythema of left popliteal fossa measuring , tender to palpation Laboratory Results - last 24 hr 07/21/19 07/21/19 07/21/19 18:53 18:53 18:53 WBC 11.0 H RBC 4.47 Hgb 14.0 Hct 42.1 D MCV 94.1 MCH 31.3 MCHC 33.3 RDW 13.3 Plt Count 293 D MPV 8.3 Absolute Neuts (auto) 9.7 H Neutrophils % 88.9 H Lymphocytes % 6.6 L D Monocytes % 3.1 L Eosinophils % 0.6 Basophils % 0.8 Nucleated RBC % 0 PT with INR INR PTT (Actin FS) VBG pH POC VBG pCO2 POC VBG pO2 VBG HCO3 VBG O2 Sat (Avelino) VBG Base Excess Sodium 138 Potassium 4.1 Chloride 104 Carbon Dioxide 28 Anion Gap 7 L BUN 13.0 Creatinine 0.9 Est GFR (CKD-EPI)AfAm 108.73 Est GFR (CKD-EPI)NonAf 93.82 Random Glucose 196 H Lactic Acid 2.2 H* Calcium 9.1 Total Bilirubin 1.1 H AST 24 ALT 37 Alkaline Phosphatase 104 Troponin I Total Protein 7.2 Albumin 4.0 07/21/19 07/21/19 07/21/19 22:29 22:29 22:29 WBC RBC Hgb Hct MCV MCH MCHC RDW Plt Count MPV Absolute Neuts (auto) Neutrophils % Lymphocytes % Monocytes % Eosinophils % Basophils % Nucleated RBC % PT with INR 13.80 H Cancelled INR 1.17 H Cancelled PTT (Actin FS) 36.2 VBG pH 7.42 H POC VBG pCO2 38.5 POC VBG pO2 55.0 H VBG HCO3 24.6 VBG O2 Sat (Avelino) 87.6 H VBG Base Excess 0.7 Sodium Potassium Chloride Carbon Dioxide Anion Gap BUN Creatinine Est GFR (CKD-EPI)AfAm Est GFR (CKD-EPI)NonAf Random Glucose Lactic Acid Calcium Total Bilirubin AST ALT Alkaline Phosphatase Troponin I Total Protein Albumin 07/21/19 07/21/19 22:54 22:54 WBC RBC Hgb Hct MCV MCH MCHC RDW Plt Count MPV Absolute Neuts (auto) Neutrophils % Lymphocytes % Monocytes % Eosinophils % Basophils % Nucleated RBC % PT with INR INR PTT (Actin FS) VBG pH POC VBG pCO2 POC VBG pO2 VBG HCO3 VBG O2 Sat (Avelino) VBG Base Excess Sodium Potassium Chloride Carbon Dioxide Anion Gap BUN Creatinine Est GFR (CKD-EPI)AfAm Est GFR (CKD-EPI)NonAf Random Glucose Lactic Acid 1.8 Calcium Total Bilirubin AST ALT Alkaline Phosphatase Troponin I < 0.02 Total Protein Albumin EKG--> NSR, ? septal infarct q waves in V1, V2, no ST segment changes, QTc 434 ASSESSMENT/PLAN: Henry Hamilton is a 59 year old male with a past medical history of hypertension, diabetes, herniated discs admitted for sepsis secondary to cellulitis. Sepsis secondary to cellulitis DM HTN Sepsis secondary to cellulitis - febrile, elevated lactic acid, wound previously open indicating likely source of sepsis to be wound - continue vancomycin - continue zosyn - elevated lactic 2.2-->1.8-->2.8, given 500cc bolus, increased fluids from 100cc-->125cc, continue to trend lactic - ID consulted - wound care consulted - continue to monitor to signs of infection - continue IVF, NS at 125 cc/hr - f/u on blood cultures DM - BGM - ISS - A1c - counseled on proper diabetic control and proper follow up including regular eye care, foot care, and urine studies HTN - needs proper BP control - on home cardizem 120mg - start HCTZ 12.5mg daily - lisinopril 10mg qhs if cleared with day team in setting of acute respiratory distress s/p lisinopril administration. Acute respiratory distress causes include lisinopril reaction vs continued sepsis reaction - proper f/u with primary care physician to optimize blood pressure - BP goals of 125/70 in setting of DM - lipid panel - counseled on proper blood pressure control FEN - NS at 125 cc/hr - continue to monitor electrolytes and replete as necessary - sodium/diabetic diet Prophylaxis - Lovenox 40 units subq daily Code - full code VIRAJ GARCÍA DO - PGY-1 Visit type - Emergency Visit Emergency Visit: Yes ED Registration Date: 07/21/19 Care time: The patient presented to the Emergency Department on the above date and was hospitalized for further evaluation of their emergent condition. - New Patient This patient is new to me today: Yes Date on this admission: 07/22/19 - Critical Care Critical Care patient: No
[2019-07-22] MEDS ORDERED: SODIUM CHLORIDE 1,000 ML IV SCH (00:15)
[2019-07-22] MEDS ORDERED: LISINOPRIL 5 MG TABLET (FP) ONE (01:10)
[2019-07-22] MEDS ORDERED: ALBUTEROL SO4 2.5/IPRATROPIUM 0.5 INH SOL 3 ML VIAL.NEB. NEB ONE (02:34)
[2019-07-22] MEDS ORDERED: ACETAMINOPHEN INJECTION 100 ML IVPB ONE (02:58)
[2019-07-22] MEDS ORDERED: ACETAMINOPHEN 1000 MG/100 ML VIAL (NON FORMULARY) IVPB ONE (02:58)
--- NOTE | 2019-07-22 03:14 | CONSULT ---
Consultation: REQUESTING PROVIDER: CONSULT REQUEST: We have been asked to medically evaluate this patient for ICU level of care HISTORY OF PRESENT ILLNESS: Patient is a 59M with history of HTN and DM who presented to the ED for a cellulitis 2/2 a frostbite caused by using an ice pack for three hours. We were consulted due to the patient's HR suddenly jumping to the 150s with the patient shaking and becoming tachypneic. He was given a duoneb. BPs were stable. Patient was awake and alert, oriented x3. He was found to have a rectal temp of 104. Repeat CXR showed different amount of penetration but was stable. Patient complained of shortness of breath, no chest pain. The shaking had resolved by the time of my evaluation. EKG showed signed tachycardia. REVIEW OF SYSTEMS: CONSTITUTIONAL: +fever, +chills, +diaphoresis HEENT: Absent: rhinorrhea, nasal congestion, throat pain, throat swelling CARDIOVASCULAR: Absent: chest pain, syncope, palpitations, irregular heart rate, lightheadedness , peripheral edema RESPIRATORY: Absent: cough, dyspnea with exertion, orthopnea, wheezing, stridor, hemoptysis +sob GASTROINTESTINAL: Absent: abdominal pain, abdominal distension, nausea, vomiting, diarrhea, constipation, melena, hematochezia GENITOURINARY: Absent: dysuria, frequency, urgency MUSCULOSKELETAL: Absent: myalgia, arthralgia, joint swelling, back pain, neck pain SKIN: +rash, no itching, no pallor HEMATOLOGIC/IMMUNOLOGIC: Absent: easy bleeding, easy bruising, lymphadenopathy, frequent infections ENDOCRINE: Absent: unexplained weight gain, unexplained weight loss, heat intolerance, cold intolerance NEUROLOGIC: Absent: headache, focal weakness or paresthesias, dizziness PSYCHIATRIC: Absent: anxiety, depression, suicidal or homicidal ideation, hallucinations. PHYSICAL EXAMINATION Vital Signs - 24 hr 07/21/19 07/21/19 07/22/19 18:31 20:11 02:16 Temperature 101.4 F H 100.0 F H Pulse Rate 126 H Pulse Rate [ 140 H Left] Respiratory 20 20 Rate Blood Pressure 156/79 Blood Pressure 155/88 [Left Arm] O2 Sat by Pulse 97 96 97 Oximetry (%) 07/22/19 07/22/19 07/22/19 02:50 02:55 03:00 Temperature 104.0 F H Pulse Rate Pulse Rate [ 131 H Left] Respiratory 18 Rate Blood Pressure Blood Pressure 145/79 [Left Arm] O2 Sat by Pulse 100 97 Oximetry (%) GENERAL: Awake, alert, and fully oriented HEAD: Normal with no signs of trauma. EYES: Pupils equal, round and reactive to light, extraocular movements intact, sclera anicteric, conjunctiva clear. No lid lag. EARS, NOSE, THROAT: Ears normal, nares patent, oropharynx clear without exudates. Moist mucous membranes. NECK: Normal range of motion, supple without lymphadenopathy, JVD, or masses. LUNGS: Breath sounds equal, clear to auscultation bilaterally. No wheezes, and no crackles. No accessory muscle use. HEART: Tachycardic, regular, normal S1 and S2 without murmur, rub or gallop. ABDOMEN: Soft, nontender, not distended, normoactive bowel sounds, no guarding, no rebound, no masses. No hepatomegaly or splenomegaly. MUSCULOSKELETAL: Normal range of motion at all joints. No bony deformities or tenderness. No CVA tenderness. UPPER EXTREMITIES: 2+ pulses, warm, well-perfused. Cellulitic changes in popliteal fossa, no pain or crepitus or fluctuance LOWER EXTREMITIES: 2+ pulses, warm, well-perfused. No calf tenderness. No peripheral edema. NEUROLOGICAL: Cranial nerves II-XII intact. Normal speech. PSYCHIATRIC: Cooperative. Good eye contact. Appropriate mood and affect. SKIN: Warm, dry, normal turgor, no rashes or lesions noted. Laboratory Results - last 24 hr 07/21/19 07/21/19 07/21/19 18:53 18:53 18:53 WBC 11.0 H RBC 4.47 Hgb 14.0 Hct 42.1 D MCV 94.1 MCH 31.3 MCHC 33.3 RDW 13.3 Plt Count 293 D MPV 8.3 Absolute Neuts (auto) 9.7 H Neutrophils % 88.9 H Lymphocytes % 6.6 L D Monocytes % 3.1 L Eosinophils % 0.6 Basophils % 0.8 Nucleated RBC % 0 PT with INR INR PTT (Actin FS) VBG pH POC VBG pCO2 POC VBG pO2 VBG HCO3 VBG O2 Sat (Avelino) VBG Base Excess Sodium 138 Potassium 4.1 Chloride 104 Carbon Dioxide 28 Anion Gap 7 L BUN 13.0 Creatinine 0.9 Est GFR (CKD-EPI)AfAm 108.73 Est GFR (CKD-EPI)NonAf 93.82 Random Glucose 196 H Lactic Acid 2.2 H* Calcium 9.1 Total Bilirubin 1.1 H AST 24 ALT 37 Alkaline Phosphatase 104 Troponin I Total Protein 7.2 Albumin 4.0 07/21/19 07/21/19 07/21/19 22:29 22:29 22:29 WBC RBC Hgb Hct MCV MCH MCHC RDW Plt Count MPV Absolute Neuts (auto) Neutrophils % Lymphocytes % Monocytes % Eosinophils % Basophils % Nucleated RBC % PT with INR 13.80 H Cancelled INR 1.17 H Cancelled PTT (Actin FS) 36.2 VBG pH 7.42 H POC VBG pCO2 38.5 POC VBG pO2 55.0 H VBG HCO3 24.6 VBG O2 Sat (Avelino) 87.6 H VBG Base Excess 0.7 Sodium Potassium Chloride Carbon Dioxide Anion Gap BUN Creatinine Est GFR (CKD-EPI)AfAm Est GFR (CKD-EPI)NonAf Random Glucose Lactic Acid Calcium Total Bilirubin AST ALT Alkaline Phosphatase Troponin I Total Protein Albumin 07/21/19 07/21/19 22:54 22:54 WBC RBC Hgb Hct MCV MCH MCHC RDW Plt Count MPV Absolute Neuts (auto) Neutrophils % Lymphocytes % Monocytes % Eosinophils % Basophils % Nucleated RBC % PT with INR INR PTT (Actin FS) VBG pH POC VBG pCO2 POC VBG pO2 VBG HCO3 VBG O2 Sat (Avelino) VBG Base Excess Sodium Potassium Chloride Carbon Dioxide Anion Gap BUN Creatinine Est GFR (CKD-EPI)AfAm Est GFR (CKD-EPI)NonAf Random Glucose Lactic Acid 1.8 Calcium Total Bilirubin AST ALT Alkaline Phosphatase Troponin I < 0.02 Total Protein Albumin Active Medications Generic Name Dose Route Start Last Admin Trade Name Freq PRN Reason Stop Dose Admin Atorvastatin Calcium 10 mg 07/22/19 22:00 Lipitor - PO HS [facility] Diltiazem HCl 120 mg 07/22/19 10:00 Cardizem Cd - PO DAILY [facility] Enoxaparin Sodium 40 mg 07/22/19 10:00 Lovenox - SQ DAILY [facility] Hydrochlorothiazide 12.5 mg 07/22/19 10:00 Hctz - PO DAILY [facility] Piperacillin Sod/Tazobactam 100 mls @ 200 mls/hr 07/22/19 04:30 Sod 4.5 gm/ Dextrose IVPB Q6H-IV [facility] Protocol Sodium Chloride 1,000 mls @ 100 mls/hr 07/22/19 00:15 07/22/19 01:36 Normal Saline - IV 100 mls/hr ASDIR [facility] Administration Piperacillin Sod/Tazobactam 100 mls @ 200 mls/hr 07/22/19 04:00 Sod 4.5 gm/ Dextrose IVPB 07/23/19 03:59 Q6H-IV [facility] Protocol Insulin Aspart 1 vial 07/22/19 07:00 Novolog Vial Sliding Scale - SQ ACHS [facility] Protocol Lisinopril 10 mg 07/22/19 22:00 Prinivil PO HS [facility] ASSESSMENT/PLAN: Patient is a 59M with history of HTN and DM suffering from rigors 2/2 increase in fever 2/2 cellulitis. BP stable, lactates downtrending. Given IV tylenol and fluids, improving. No respiratory compromise. Stable hemodynamically. Patient can go to floors, please re-consult if patient's conditions changes or worsens. Visit type - Emergency Visit Emergency Visit: Yes ED Registration Date: 07/21/19 Care time: The patient presented to the Emergency Department on the above date and was hospitalized for further evaluation of their emergent condition. - New Patient This patient is new to me today: Yes Date on this admission: 07/22/19 - Critical Care Critical Care patient: No ATTENDING PHYSICIAN STATEMENT I saw and evaluated the patient. I reviewed the resident's note and discussed the case with the resident. I agree with the resident's findings and plan as documented. SUBJECTIVE: OBJECTIVE: ASSESSMENT AND PLAN:
[2019-07-22] MEDS ORDERED: PIPERACILLIN/TAZOB 4.5 GM 4.5 GM/100 ML BAG IVPB ONE (04:44)
[2019-07-22] MEDS: PIPERACILLIN/TAZOB 4.5 GM 4.5 GM in DEXTROSE 5%-WATER 100 ML IVPB SCH ×4 (04:51→18:23)
[2019-07-22 06:11] VITALS: BMI 40.1
[2019-07-22] MEDS ORDERED: PNEUMOC 13-VAL CONJ-DIP CRM/PF 0.5 ML DISP.SYRIN IM ONE (06:11)
[2019-07-22] MEDS ORDERED: SODIUM CHLORIDE 500 ML IV STA ×2 (06:15→11:15)
[2019-07-22] MEDS ORDERED: INSULIN (NOVOLOG) ASPART 100 UNITS/ML 10ML VIAL ONE (06:18)
[2019-07-22] MEDS: SODIUM CHLORIDE 1,000 ML IV SCH (06:22)
[2019-07-22] MEDS: INSULIN SLIDING SCALE (NOVOLOG) 1 VIAL SQ SCH ×4 (06:27→21:47)
[2019-07-22 08:19] LABS: BASO % 0.3 % (0-2.0); EOS % 0.1 % (0-4.5); HEMATOCRIT 34.1 % (35.4-49); HEMOGLOBIN 11.6 GM/dL (11.7-16.9); LYMPH % 2.5 % (8-40); MEAN CELL VOLUME 93.9 fl (80-96); MEAN PLT VOLUME 8.2 fl (7.5-11.1); NEUT % 93.1 % (42.8-82.8); PLATELET COUNT 265 K/MM3 (134-434); RBC 3.63 M/mm3 (4.00-5.60); RDW 13.3 % (11.9-15.9); WHITE BLOOD COUNT 11.1 K/mm3 (4.0-10.0)
--- NOTE | 2019-07-22 09:03 | CONSULT ---
- Consultation REQUESTING PROVIDER: CONSULT REQUEST: We have been asked to surgically evaluate this patient for Left popliteal wound/cellulitis PCP: Martell Damian HISTORY OF PRESENT ILLNESS: 59yo M presented to the ED with complaints of fever and LLE pain/redness. Pt states that he developed pain and swelling behind his knee and janis he may have made it worse by putting ice on it for too long. Pt denies previous injuries or wounds there in the past. Pt has history of DM. Denies h/o of vascular disease. PMHx: DM, HLD, HTN Home Medications Medication Instructions Recorded Diltiazem Cd [Cardizem Cd -] 120 mg PO DAILY 07/21/19 Glipizide [Glucotrol -] 10 mg PO BID 07/21/19 Simvastatin [Zocor] 10 mg PO HS 07/21/19 metFORMIN HCL [Metformin ER 1,000 mg PO BID 07/21/19 Gastric] Allergies Allergy/AdvReac Type Severity Reaction Status Date / Time No Known Allergies Allergy Verified 07/21/19 18:37 REVIEW OF SYSTEMS: CONSTITUTIONAL: Absent: fever, chills, diaphoresis, generalized weakness, malaise, loss of appetite, weight change SKIN: Absent: rash, itching, pallor PSYCHIATRIC: Absent: anxiety, depression, suicidal or homicidal ideation, hallucinations. PHYSICAL EXAM: GENERAL: Awake, alert, and fully oriented, in no acute distress. HEAD: Normal with no signs of trauma. EYES: PERRL, sclera anicteric, conjunctiva clear. NECK: Normal ROM, supple without lymphadenopathy, JVD, or masses. LUNGS: breathing comfortably, No accessory muscle use. HEART: Regular rate and rhythm. LOWER EXTREMITIES: 2+ pulses, warm, well-perfused. 2 cm ulceration posterior knee with surrounding erythema, no signs of intraarticular involvement or collection, serous drainage. NEUROLOGICAL: Normal speech, gait not observed. PSYCH: Cooperative. Good eye contact. Appropriate mood and affect. SKIN: Warm, dry, normal turgor, no rashes or lesions noted. Vital Signs Temperature 100.2 F H 07/22/19 06:01 Pulse Rate 106 H 07/22/19 06:01 Respiratory Rate 20 07/22/19 06:01 Blood Pressure 91/55 L 07/22/19 06:01 O2 Sat by Pulse Oximetry (%) 95 07/22/19 06:01 Lab Results WBC 11.1 K/mm3 (4.0-10.0) H 07/22/19 06:38 RBC 3.63 M/mm3 (4.00-5.60) L 07/22/19 06:38 Hgb 11.6 GM/dL (11.7-16.9) L 07/22/19 06:38 Hct 34.1 % (35.4-49) L D 07/22/19 06:38 MCV 93.9 fl (80-96) 07/22/19 06:38 MCHC 34.0 g/dl (32.0-35.9) 07/22/19 06:38 RDW 13.3 % (11.9-15.9) 07/22/19 06:38 Plt Count 265 K/MM3 (134-434) 07/22/19 06:38 Sodium 138 mmol/L (136-145) 07/21/19 18:53 Potassium 4.1 mmol/L (3.5-5.1) 07/21/19 18:53 Chloride 104 mmol/L (98-107) 07/21/19 18:53 Carbon Dioxide 28 mmol/L (21-32) 07/21/19 18:53 Anion Gap 7 MMOL/L (8-16) L 07/21/19 18:53 BUN 13.0 mg/dL (7-18) 07/21/19 18:53 Creatinine 0.9 mg/dL (0.55-1.3) 07/21/19 18:53 Random Glucose 196 mg/dL (74-106) H 07/21/19 18:53 Calcium 9.1 mg/dL (8.5-10.1) 07/21/19 18:53 INR 1.17 (0.83-1.09) H 07/21/19 22:29 Problem List - Problems (1) Cellulitis and abscess of left leg Assessment/Plan: Plan -pt has good pulses no sign of vascular issues, does not appear to have any collection, recommend silver aginate and clean dressing. -abx as per ID/med -follow up with wound care clinic as an outpatient Code(s): L03.116 - CELLULITIS OF LEFT LOWER LIMB; L02.416 - CUTANEOUS ABSCESS OF LEFT LOWER LIMB
[2019-07-22 09:14] LABS: ALBUMIN 3.4 g/dl (3.4-5.0); BILIRUBIN,TOTAL 1.5 mg/dL (0.2-1); BLOOD UREA NITROGEN 11.3 mg/dL (7-18); MAGNESIUM 1.5 mg/dL (1.8-2.4); POTASSIUM 3.5 mmol/L (3.5-5.1); TOT PROT 5.9 g/dl (6.4-8.2)
[2019-07-22] MEDS ORDERED: PIPERACILLIN/TAZOBACTAM 4.5 GM VIAL IVPB ONE ×2 (09:39→17:51)
[2019-07-22] MEDS ORDERED: DEXTROSE 5%-WATER 100 ML IVPB ONE ×2 (09:40→17:51)
[2019-07-22] MEDS: ENOXAPARIN NA (PORCINE) 40 MG/0.4 ML DISP.SYRIN SQ SCH (09:49)
[2019-07-22] MEDS ORDERED: HYDROCHLOROTHIAZIDE 12.5 MG CAPSULE (FP) PO SCH (10:00)
--- NOTE | 2019-07-22 11:13 | PN ---
Progress Note (short form) - Note Progress Note: CELLULITIS/ SOFT TISSUE ABSCESS L LE HIGH GRADE FEVER R/O SEPSIS SECONDARY TO SKIN INFECTION DM HX DKA HX MRSA OBESITY AWAIT C/S EMPIRIC VANCOMYCIN/ ZOSYN
--- NOTE | 2019-07-22 11:29 | EKG ---
Test Reason : Blood Pressure : / mmHG Vent. Rate : 095 BPM Atrial Rate : 095 BPM P-R Int : 158 ms QRS Dur : 084 ms QT Int : 346 ms P-R-T Axes : 036 013 064 degrees QTc Int : 434 ms NORMAL SINUS RHYTHM SEPTAL INFARCT , AGE UNDETERMINED ABNORMAL ECG WHEN COMPARED WITH ECG OF 07-FEB-2018 17:31, NONSPECIFIC T WAVE ABNORMALITY NOW EVIDENT IN ANTEROLATERAL LEADS Confirmed by MITCHELL CARDOSO, ED ([id number]) on 07/22/2019 11:28:38 AM Referred By: Confirmed By:ED MEDRANO MD
[2019-07-22] MEDS ORDERED: MAGNESIUM OXIDE 400 MG TABLET (FP) PO ONE (11:30)
[2019-07-22 12:05] LABS: ANISOCYTOSIS 0; MACROCYTOSIS 1+; OVALOCYTE 1+; PLATELET ESTIMATE NORMAL
[2019-07-22] MEDS ORDERED: PT OWN MED DRAWER 7, Y5N ONE (13:41)
[2019-07-22] MEDS: VANCOMYCIN 1,250 MG in DEXTROSE 5%-WATER - 250 ML IVPB SCH (14:05)
[2019-07-22] MEDS: ACETAMINOPHEN 325 MG TABLET (FP) PO PRN (14:54)
--- NOTE | 2019-07-22 15:09 | EKG ---
Test Reason : Blood Pressure : / mmHG Vent. Rate : 131 BPM Atrial Rate : 131 BPM P-R Int : 144 ms QRS Dur : 078 ms QT Int : 298 ms P-R-T Axes : 029 005 077 degrees QTc Int : 440 ms SINUS TACHYCARDIA POSSIBLE LEFT ATRIAL ENLARGEMENT SEPTAL INFARCT (CITED ON OR BEFORE 21-JUL-2019) ABNORMAL ECG WHEN COMPARED WITH ECG OF 21-JUL-2019 21:07, ST NOW DEPRESSED IN LATERAL LEADS Confirmed by ED MEDRANO MD ([id number]) on 07/22/2019 3:08:56 PM Referred By: Confirmed By:ED MEDRANO MD
--- NOTE | 2019-07-22 15:23 | PN ---
Teaching Attending Note Name of Resident: Renée Youssef ATTENDING PHYSICIAN STATEMENT I saw and evaluated the patient. I reviewed the resident's note and discussed the case with the resident. I agree with the resident's findings and plan as documented. SUBJECTIVE: No fever or chills. has pain in L popliteal area. reports drainage at home. OBJECTIVE: NAD Cv : RRR Lungs: CTAB Abd: sfot, NT, ND , NL BS Ext: no edema or erythema on R LE. L popliteal area with an erythematous area, with a draining wound . thick bloody pus was expressed. DP 2+ b/l. ASSESSMENT AND PLAN: 59 y/o man with h/o HTN and NIDDM who presneted with painand erytehma and draining wound form L ppopliteal area. 1- Sepsis from L popliteal celllulitis with a draining wound. - need to r/o a collection as pus was expressed on exam - will get US of soft tissue - cont avnc and zosyn - follow blood and wound cx. - no signs of compartment sx . - IVF 2- DM : SSI for now 3- HTN: cont home cardizem. avoid diuretics and addition of any other meds as BP is on lower side. - conformed with patient, rigors and SOB in ER, but no allergic reaction to lisinopril 4- DVT PX: lovenox
--- NOTE | 2019-07-22 15:30 | PN ---
Physical Exam: SUBJECTIVE: Patient seen and examined at the bedside, there were no acute events overnight. Patient still reporting pain in LLE. Spoke to patient about symptoms he experienced in the ED. Pt reports that he had rigors and SOB, however symptoms as described do not appear to be an allergic reaction to lisinopril. OBJECTIVE: Vital Signs Period Temp Pulse Resp BP Sys/Buckner Pulse Ox Last 24 Hr 99.1 F-104.0 F 96-140 17-20 91-156/55-88 95-100 GENERAL: The patient is awake, alert, and fully oriented, in no acute distress. HEAD: Normal with no signs of trauma. EYES: PERRL, extraocular movements intact, sclera anicteric, conjunctiva clear. No ptosis. ENT: Ears normal, nares patent, oropharynx clear without exudates, moist mucous membranes. NECK: Trachea midline, full range of motion, supple. LUNGS: Breath sounds equal, clear to auscultation bilaterally, no wheezes, no crackles, no accessory muscle use. HEART: Regular rate and rhythm, S1, S2 without murmur, rub or gallop. ABDOMEN: Soft, obese, nontender, nondistended, normoactive bowel sounds, no guarding. EXTREMITIES: 2+ pulses, warm, well-perfused, no edema, area of erythema in popliteal area of LLE with draining wound present. bloody material present on gauze. NEUROLOGICAL: Cranial nerves II through XII grossly intact. Normal speech, gait not observed. PSYCH: Normal mood, normal affect. SKIN:as noted in extremity exam Laboratory Results - last 24 hr 07/21/19 07/21/19 07/21/19 18:53 18:53 18:53 WBC 11.0 H RBC 4.47 Hgb 14.0 Hct 42.1 D MCV 94.1 MCH 31.3 MCHC 33.3 RDW 13.3 Plt Count 293 D MPV 8.3 Absolute Neuts (auto) 9.7 H Neutrophils % 88.9 H Neutrophils % (Manual) Band Neutrophils % Lymphocytes % 6.6 L D Lymphocytes % (Manual) Monocytes % 3.1 L Monocytes % (Manual) Eosinophils % 0.6 Eosinophils % (Manual) Basophils % 0.8 Basophils % (Manual) Myelocytes % (Man) Promyelocytes % (Man) Blast Cells % (Manual) Nucleated RBC % 0 Metamyelocytes Hypochromia Platelet Estimate Polychromasia Poikilocytosis Anisocytosis Microcytosis Macrocytosis Ovalocytes PT with INR INR PTT (Actin FS) VBG pH POC VBG pCO2 POC VBG pO2 VBG HCO3 VBG O2 Sat (Avelino) VBG Base Excess Sodium 138 Potassium 4.1 Chloride 104 Carbon Dioxide 28 Anion Gap 7 L BUN 13.0 Creatinine 0.9 Est GFR (CKD-EPI)AfAm 108.73 Est GFR (CKD-EPI)NonAf 93.82 POC Glucometer Random Glucose 196 H Hemoglobin A1c % Lactic Acid 2.2 H* Calcium 9.1 Magnesium Total Bilirubin 1.1 H AST 24 ALT 37 Alkaline Phosphatase 104 Troponin I Total Protein 7.2 Albumin 4.0 Triglycerides Cholesterol Total LDL Cholesterol HDL Cholesterol 07/21/19 07/21/19 07/21/19 22:29 22:29 22:29 WBC RBC Hgb Hct MCV MCH MCHC RDW Plt Count MPV Absolute Neuts (auto) Neutrophils % Neutrophils % (Manual) Band Neutrophils % Lymphocytes % Lymphocytes % (Manual) Monocytes % Monocytes % (Manual) Eosinophils % Eosinophils % (Manual) Basophils % Basophils % (Manual) Myelocytes % (Man) Promyelocytes % (Man) Blast Cells % (Manual) Nucleated RBC % Metamyelocytes Hypochromia Platelet Estimate Polychromasia Poikilocytosis Anisocytosis Microcytosis Macrocytosis Ovalocytes PT with INR 13.80 H Cancelled INR 1.17 H Cancelled PTT (Actin FS) 36.2 VBG pH 7.42 H POC VBG pCO2 38.5 POC VBG pO2 55.0 H VBG HCO3 24.6 VBG O2 Sat (Avelino) 87.6 H VBG Base Excess 0.7 Sodium Potassium Chloride Carbon Dioxide Anion Gap BUN Creatinine Est GFR (CKD-EPI)AfAm Est GFR (CKD-EPI)NonAf POC Glucometer Random Glucose Hemoglobin A1c % Lactic Acid Calcium Magnesium Total Bilirubin AST ALT Alkaline Phosphatase Troponin I Total Protein Albumin Triglycerides Cholesterol Total LDL Cholesterol HDL Cholesterol 07/21/19 07/21/19 07/22/19 22:54 22:54 04:59 WBC RBC Hgb Hct MCV MCH MCHC RDW Plt Count MPV Absolute Neuts (auto) Neutrophils % Neutrophils % (Manual) Band Neutrophils % Lymphocytes % Lymphocytes % (Manual) Monocytes % Monocytes % (Manual) Eosinophils % Eosinophils % (Manual) Basophils % Basophils % (Manual) Myelocytes % (Man) Promyelocytes % (Man) Blast Cells % (Manual) Nucleated RBC % Metamyelocytes Hypochromia Platelet Estimate Polychromasia Poikilocytosis Anisocytosis Microcytosis Macrocytosis Ovalocytes PT with INR INR PTT (Actin FS) VBG pH POC VBG pCO2 POC VBG pO2 VBG HCO3 VBG O2 Sat (Avelino) VBG Base Excess Sodium Potassium Chloride Carbon Dioxide Anion Gap BUN Creatinine Est GFR (CKD-EPI)AfAm Est GFR (CKD-EPI)NonAf POC Glucometer Random Glucose Hemoglobin A1c % Lactic Acid 1.8 2.8 H* Calcium Magnesium Total Bilirubin AST ALT Alkaline Phosphatase Troponin I < 0.02 Total Protein Albumin Triglycerides Cholesterol Total LDL Cholesterol HDL Cholesterol 07/22/19 07/22/19 07/22/19 06:26 06:38 06:38 WBC 11.1 H RBC 3.63 L Hgb 11.6 L Hct 34.1 L D MCV 93.9 MCH 32.0 MCHC 34.0 RDW 13.3 Plt Count 265 MPV 8.2 Absolute Neuts (auto) 10.3 H Neutrophils % 93.1 H Neutrophils % (Manual) 81.0 Band Neutrophils % 13.0 Lymphocytes % 2.5 L D Lymphocytes % (Manual) 4.0 L D Monocytes % 4.0 Monocytes % (Manual) 1 L D Eosinophils % 0.1 D Eosinophils % (Manual) 0.0 Basophils % 0.3 Basophils % (Manual) 1.0 Myelocytes % (Man) 0 D Promyelocytes % (Man) 0 Blast Cells % (Manual) 0 Nucleated RBC % 0 Metamyelocytes 0 Hypochromia 0 Platelet Estimate Normal Polychromasia 0 Poikilocytosis 0 Anisocytosis 0 Microcytosis 0 Macrocytosis 1+ Ovalocytes 1+ PT with INR INR PTT (Actin FS) VBG pH POC VBG pCO2 POC VBG pO2 VBG HCO3 VBG O2 Sat (Avelino) VBG Base Excess Sodium 139 Potassium 3.5 Chloride 105 Carbon Dioxide 25 Anion Gap 9 BUN 11.3 Creatinine 1.0 Est GFR (CKD-EPI)AfAm 95.73 Est GFR (CKD-EPI)NonAf 82.60 POC Glucometer 245 Random Glucose 213 H Hemoglobin A1c % Lactic Acid Calcium 8.0 L Magnesium 1.5 L Total Bilirubin 1.5 H AST 22 ALT 32 Alkaline Phosphatase 76 Troponin I Total Protein 5.9 L Albumin 3.4 Triglycerides 94 Cholesterol 87 Total LDL Cholesterol 48 HDL Cholesterol 31 L 07/22/19 07/22/19 07/22/19 06:38 10:15 11:27 WBC RBC Hgb Hct MCV MCH MCHC RDW Plt Count MPV Absolute Neuts (auto) Neutrophils % Neutrophils % (Manual) Band Neutrophils % Lymphocytes % Lymphocytes % (Manual) Monocytes % Monocytes % (Manual) Eosinophils % Eosinophils % (Manual) Basophils % Basophils % (Manual) Myelocytes % (Man) Promyelocytes % (Man) Blast Cells % (Manual) Nucleated RBC % Metamyelocytes Hypochromia Platelet Estimate Polychromasia Poikilocytosis Anisocytosis Microcytosis Macrocytosis Ovalocytes PT with INR INR PTT (Actin FS) VBG pH POC VBG pCO2 POC VBG pO2 VBG HCO3 VBG O2 Sat (Avelino) VBG Base Excess Sodium Potassium Chloride Carbon Dioxide Anion Gap BUN Creatinine Est GFR (CKD-EPI)AfAm Est GFR (CKD-EPI)NonAf POC Glucometer 247 Random Glucose Hemoglobin A1c % 8.7 H Lactic Acid 3.0 H* Calcium Magnesium Total Bilirubin AST ALT Alkaline Phosphatase Troponin I Total Protein Albumin Triglycerides Cholesterol Total LDL Cholesterol HDL Cholesterol Active Medications Generic Name Dose Route Start Last Admin Trade Name Freq PRN Reason Stop Dose Admin Acetaminophen 650 mg 07/22/19 03:35 07/22/19 14:54 Tylenol - PO 650 mg Q6H PRN Administration Fever Atorvastatin Calcium 10 mg 07/22/19 22:00 Lipitor - PO HS ELVIRA Diltiazem HCl 120 mg 07/22/19 10:00 07/22/19 10:36 Cardizem Cd - PO Not Given DAILY ELVIRA Enoxaparin Sodium 40 mg 07/22/19 10:00 07/22/19 09:49 Lovenox - SQ 40 mg DAILY ELVIRA Administration Sodium Chloride 1,000 mls @ 125 mls/hr 07/22/19 06:15 07/22/19 06:22 Normal Saline - IV 125 mls/hr ASDIR ELVIRA Administration Piperacillin Sod/Tazobactam 100 mls @ 200 mls/hr 07/22/19 18:00 Sod 4.5 gm/ Dextrose IVPB Q8H-IV ELVIRA Protocol Vancomycin HCl 1,250 mg/ 250 mls @ 166.667 mls/hr 07/22/19 12:00 07/22/19 14: 05 Dextrose IVPB 166.667 mls/hr Q12H ELVIRA Administration Protocol Insulin Aspart 1 vial 07/22/19 07:00 07/22/19 11:38 Novolog Vial Sliding Scale - SQ 4 units ACHS ELVIRA Administration Protocol EKG--> NSR, ? septal infarct q waves in V1, V2, no ST segment changes, QTc 434 ASSESSMENT/PLAN: Henry Hamilton is a 59 year old male with a past medical history of hypertension, diabetes, herniated discs admitted for sepsis secondary to cellulitis. Sepsis secondary to L popliteal cellulitis - febrile, elevated lactic acid, wound with erythematous area around and draining - F/U LLE u/s to evaluate for possible abcess - continue vancomycin - continue zosyn - f/u blood nd wound cxs - elevated lactic 2.2-->1.8-->2.8 continue to trend lactic - ID consulted, appreciate recommendations - wound care consulted, appreciate recommendations - continue to monitor for signs of compartment syndrome - continue IVF, NS at 125 cc/hr DM - BGM - ISS - A1c HTN- - continue home cardizem 120mg - will hold other BP meds at this time as BP currently low for patient at 91/55 this morning FEN - NS at 125 cc/hr - continue to monitor electrolytes and replete as necessary - sodium/diabetic diet Prophylaxis - Lovenox 40 units subq daily Code - full code Visit type - Emergency Visit Emergency Visit: Yes ED Registration Date: 07/21/19 Care time: The patient presented to the Emergency Department on the above date and was hospitalized for further evaluation of their emergent condition. - New Patient This patient is new to me today: No - Critical Care Critical Care patient: No - Discharge Referral Referred to [facility] Med P.C.: No ATTENDING PHYSICIAN STATEMENT I saw and evaluated the patient. I reviewed the resident's note and discussed the case with the resident. I agree with the resident's findings and plan as documented. SUBJECTIVE: OBJECTIVE: ASSESSMENT AND PLAN:
[2019-07-22] MEDS: ATORVASTATIN CA 10 MG TABLET (FP) PO SCH (21:47)
[2019-07-22] MEDS ORDERED: LISINOPRIL 10 MG TABLET (FP) PO SCH (22:00)
[2019-07-23] MEDS: VANCOMYCIN 1,250 MG in DEXTROSE 5%-WATER - 250 ML IVPB SCH ×2 (00:08→12:28)
[2019-07-23] MEDS ORDERED: DEXTROSE 5%-WATER 100 ML IVPB ONE ×2 (01:11→10:24)
[2019-07-23] MEDS ORDERED: PIPERACILLIN/TAZOBACTAM 4.5 GM VIAL IVPB ONE ×2 (01:11→10:24)
[2019-07-23] MEDS: PIPERACILLIN/TAZOB 4.5 GM 4.5 GM in DEXTROSE 5%-WATER 100 ML IVPB SCH ×4 (01:33→19:52)
[2019-07-23] MEDS: ACETAMINOPHEN 325 MG TABLET (FP) PO PRN ×2 (01:35→22:16)
[2019-07-23] MEDS: SODIUM CHLORIDE 1,000 ML IV SCH ×2 (06:22→10:38)
[2019-07-23] MEDS: INSULIN SLIDING SCALE (NOVOLOG) 1 VIAL SQ SCH ×4 (06:23→22:02)
[2019-07-23 07:48] LABS: BASO % 0.9 % (0-2.0); EOS % 1.3 % (0-4.5); HEMATOCRIT 32.9 % (35.4-49); HEMOGLOBIN 11.3 GM/dL (11.7-16.9); MCHC 34.3 g/dl (32.0-35.9); MEAN CELL VOLUME 93.4 fl (80-96); MEAN PLT VOLUME 8.4 fl (7.5-11.1); MONO % 10.9 % (3.8-10.2); NEUT % 67.9 % (42.8-82.8); PLATELET COUNT 217 K/MM3 (134-434); RBC 3.52 M/mm3 (4.00-5.60); RDW 13.5 % (11.9-15.9); WHITE BLOOD COUNT 6.5 K/mm3 (4.0-10.0)
[2019-07-23 08:20] LABS: BILIRUBIN,TOTAL 0.9 mg/dL (0.2-1); BLOOD UREA NITROGEN 7.5 mg/dL (7-18); CREATININE 0.7 mg/dL (0.55-1.3); POTASSIUM 3.8 mmol/L (3.5-5.1); TOT PROT 5.6 g/dl (6.4-8.2)
[2019-07-23] MEDS: ENOXAPARIN NA (PORCINE) 40 MG/0.4 ML DISP.SYRIN SQ SCH (10:35)
--- NOTE | 2019-07-23 13:23 | PN ---
Physical Exam: SUBJECTIVE: Patient seen and examined at the bedside, in no acute distress. Feels he is improving. OBJECTIVE: Vital Signs Period Temp Pulse Resp BP Sys/Buckner Pulse Ox Last 24 Hr 98.3 F-100.7 F 68-95 18-20 102-130/59-76 96 GENERAL: The patient is awake, alert, and fully oriented, in no acute distress. HEAD: Normal with no signs of trauma. EYES: PERRL, extraocular movements intact, sclera anicteric, conjunctiva clear. No ptosis. ENT: Ears normal, nares patent, oropharynx clear without exudates, moist mucous membranes. NECK: Trachea midline, full range of motion, supple. LUNGS: Breath sounds equal, clear to auscultation bilaterally, no wheezes, no crackles, no accessory muscle use. HEART: Regular rate and rhythm, S1, S2 without murmur, rub or gallop. ABDOMEN: Soft, obese, nontender, nondistended, normoactive bowel sounds, no guarding. EXTREMITIES: 2+ pulses, warm, well-perfused, no edema, area of erythema in popliteal area of LLE with draining wound present. bloody material present on gauze. NEUROLOGICAL: Cranial nerves II through XII grossly intact. Normal speech, gait not observed. PSYCH: Normal mood, normal affect. SKIN:as noted in extremity exam Laboratory Results - last 24 hr 07/22/19 07/22/19 07/22/19 16:00 17:36 20:35 WBC RBC Hgb Hct MCV MCH MCHC RDW Plt Count MPV Absolute Neuts (auto) Neutrophils % Lymphocytes % Monocytes % Eosinophils % Basophils % Nucleated RBC % Sodium Potassium Chloride Carbon Dioxide Anion Gap BUN Creatinine Est GFR (CKD-EPI)AfAm Est GFR (CKD-EPI)NonAf POC Glucometer 192 253 Random Glucose Lactic Acid 1.3 Calcium Total Bilirubin AST ALT Alkaline Phosphatase Total Protein Albumin 07/23/19 07/23/19 07/23/19 00:21 05:53 06:05 WBC 6.5 RBC 3.52 L Hgb 11.3 L Hct 32.9 L MCV 93.4 MCH 32.0 MCHC 34.3 RDW 13.5 Plt Count 217 MPV 8.4 Absolute Neuts (auto) 4.4 Neutrophils % 67.9 D Lymphocytes % 19.0 D Monocytes % 10.9 H D Eosinophils % 1.3 D Basophils % 0.9 Nucleated RBC % 0 Sodium Potassium Chloride Carbon Dioxide Anion Gap BUN Creatinine Est GFR (CKD-EPI)AfAm Est GFR (CKD-EPI)NonAf POC Glucometer 232 Random Glucose Lactic Acid 1.1 Calcium Total Bilirubin AST ALT Alkaline Phosphatase Total Protein Albumin 07/23/19 07/23/19 06:05 11:51 WBC RBC Hgb Hct MCV MCH MCHC RDW Plt Count MPV Absolute Neuts (auto) Neutrophils % Lymphocytes % Monocytes % Eosinophils % Basophils % Nucleated RBC % Sodium 141 Potassium 3.8 Chloride 109 H Carbon Dioxide 25 Anion Gap 7 L BUN 7.5 Creatinine 0.7 Est GFR (CKD-EPI)AfAm 120.56 Est GFR (CKD-EPI)NonAf 104.02 POC Glucometer 286 Random Glucose 223 H Lactic Acid Calcium 8.0 L Total Bilirubin 0.9 AST 52 H ALT 61 Alkaline Phosphatase 76 Total Protein 5.6 L Albumin 3.0 L Active Medications Generic Name Dose Route Start Last Admin Trade Name Freq PRN Reason Stop Dose Admin Acetaminophen 650 mg 07/22/19 03:35 07/23/19 01:35 Tylenol - PO 650 mg Q6H PRN Administration Fever Atorvastatin Calcium 10 mg 07/22/19 22:00 07/22/19 21:47 Lipitor - PO 10 mg HS ELVIRA Administration Diltiazem HCl 120 mg 07/22/19 10:00 07/23/19 10:35 Cardizem Cd - PO 120 mg DAILY ELVIRA Administration Enoxaparin Sodium 40 mg 07/22/19 10:00 07/23/19 10:35 Lovenox - SQ 40 mg DAILY ELVIRA Administration Sodium Chloride 1,000 mls @ 125 mls/hr 07/22/19 06:15 07/23/19 10:38 Normal Saline - IV 125 mls/hr ASDIR ELVIRA Administration Piperacillin Sod/Tazobactam 100 mls @ 200 mls/hr 07/22/19 18:00 07/23/19 10: 35 Sod 4.5 gm/ Dextrose IVPB 200 mls/hr Q8H-IV ELVIRA Administration Protocol Vancomycin HCl 1,250 mg/ 250 mls @ 166.667 mls/hr 07/22/19 12:00 07/23/19 12: 28 Dextrose IVPB 166.667 mls/hr Q12H ELVIRA Administration Protocol Insulin Aspart 1 vial 07/22/19 07:00 07/23/19 12:28 Novolog Vial Sliding Scale - SQ 6 units ACHS ELVIRA Administration Protocol ASSESSMENT/PLAN: EKG--> NSR, ? septal infarct q waves in V1, V2, no ST segment changes, QTc 434 ASSESSMENT/PLAN: Henry Hamilton is a 59 year old male with a past medical history of hypertension, diabetes, herniated discs admitted for sepsis secondary to cellulitis. Sepsis secondary to L popliteal cellulitis - febrile, elevated lactic acid, wound with erythematous area around and draining - F/U LLE u/s to evaluate for possible abcess - continue vancomycin - vanc trough this evening - continue zosyn - f/u blood nd wound cxs - elevated lactic 2.2-->1.8-->2.8 continue to trend lactic - ID consulted, appreciate recommendations - wound care consulted, appreciate recommendations - continue to monitor for signs of compartment syndrome - continue IVF, NS at 125 cc/hr, will D/C tomorrow DM - BGM - ISS - A1c HTN- - continue home cardizem 120mg - will hold other BP meds at this time as BP currently low for patient at 91/55 this morning # Rectal bleed - patient noted some bright red blood on tp after BM, states he did not inspect what was in bowl - likely hemorrhoidal , refused rectal exam or any further evaluation FEN - NS at 125 cc/hr - continue to monitor electrolytes and replete as necessary - sodium/diabetic diet Prophylaxis - Lovenox 40 units subq daily Code - full code Visit type - Emergency Visit Emergency Visit: Yes ED Registration Date: 07/21/19 Care time: The patient presented to the Emergency Department on the above date and was hospitalized for further evaluation of their emergent condition. - New Patient This patient is new to me today: No - Critical Care Critical Care patient: No - Discharge Referral Referred to [facility] Med [facility] No ATTENDING PHYSICIAN STATEMENT I saw and evaluated the patient. I reviewed the resident's note and discussed the case with the resident. I agree with the resident's findings and plan as documented. SUBJECTIVE: OBJECTIVE: ASSESSMENT AND PLAN:
[2019-07-23] MEDS ORDERED: PT OWN MED DRAWER 7, Y5N ONE ×2 (17:25→21:15)
--- NOTE | 2019-07-23 18:24 | PN ---
Teaching Attending Note Name of Resident: Renée Youssef ATTENDING PHYSICIAN STATEMENT I saw and evaluated the patient. I reviewed the resident's note and discussed the case with the resident. I agree with the resident's findings and plan as documented. SUBJECTIVE: No fever or chills. pain in L popliteal are is better . saw blood wiping his rectum after a BM today OBJECTIVE: NAD Cv : RRR Lungs: CTAB Abd: soft, NT, ND , NL BS Ext: no edema or erythema on R LE. L popliteal area with an erythematous area improved. no drainage from the wound . decreased tenderness DP 2+ b/l. ASSESSMENT AND PLAN: 59 y/o man with h/o HTN and NIDDM who presneted with painand erytehma and draining wound form L ppopliteal area. 1- Sepsis from L popliteal cellulitis. cx reviewed - Us wit no collection - cont ABx - vanco trough this evening - IVF. will dc tomorrow 2- DM : SSI for now 3- HTN: cont home cardizem. 4- rectal bleede: likely hemorrhoidal , refused rectal exam or any further eval. advised to follow with His GI . had colo 10 yr ago. avoid constipation DVT PX: lovenox
[2019-07-23] MEDS ORDERED: INSULIN (NOVOLOG) ASPART 100 UNITS/ML 10ML VIAL ONE (18:28)
[2019-07-23] MEDS: ATORVASTATIN CA 10 MG TABLET (FP) PO SCH ×2 (22:02→22:04)
[2019-07-24] MEDS ORDERED: VANCOMYCIN HCL 1,500 MG in DEXTROSE 5%-WATER - 500 ML IVPB ONE (00:13)
[2019-07-24] MEDS ORDERED: PIPERACILLIN/TAZOBACTAM 4.5 GM VIAL IVPB ONE ×2 (00:28→09:08)
[2019-07-24] MEDS ORDERED: DEXTROSE 5%-WATER 100 ML IVPB ONE ×2 (00:28→09:08)
[2019-07-24] MEDS: VANCOMYCIN 1,250 MG in DEXTROSE 5%-WATER - 250 ML IVPB SCH (00:47)
[2019-07-24] MEDS: PIPERACILLIN/TAZOB 4.5 GM 4.5 GM in DEXTROSE 5%-WATER 100 ML IVPB SCH ×2 (02:00→10:45)
[2019-07-24 06:47] LABS: BASO % 0.7 % (0-2.0); HEMATOCRIT 33.8 % (35.4-49); HEMOGLOBIN 11.4 GM/dL (11.7-16.9); LYMPH % 16.9 % (8-40); MCH 31.7 pg (25.7-33.7); MCHC 33.9 g/dl (32.0-35.9); MEAN CELL VOLUME 93.5 fl (80-96); MONO % 11.8 % (3.8-10.2); NEUT % 68.6 % (42.8-82.8); PLATELET COUNT 239 K/MM3 (134-434); RBC 3.61 M/mm3 (4.00-5.60); RDW 13.3 % (11.9-15.9); WHITE BLOOD COUNT 7.4 K/mm3 (4.0-10.0)
[2019-07-24] MEDS: SODIUM CHLORIDE 1,000 ML IV SCH (06:47)
[2019-07-24] MEDS: INSULIN SLIDING SCALE (NOVOLOG) 1 VIAL SQ SCH ×4 (06:49→21:57)
[2019-07-24 07:41] LABS: ALBUMIN 3.2 g/dl (3.4-5.0); BILIRUBIN,TOTAL 0.9 mg/dL (0.2-1); BLOOD UREA NITROGEN 4.8 mg/dL (7-18); CALCIUM 8.1 mg/dL (8.5-10.1); CREATININE 0.7 mg/dL (0.55-1.3); POTASSIUM 3.5 mmol/L (3.5-5.1)
[2019-07-24] MEDS: ENOXAPARIN NA (PORCINE) 40 MG/0.4 ML DISP.SYRIN SQ SCH (10:39)
[2019-07-24] MEDS: ACETAMINOPHEN 325 MG TABLET (FP) PO PRN ×2 (10:42→21:57)
[2019-07-24] MEDS ORDERED: VANCOMYCIN HCL 1,500 MG in DEXTROSE 5%-WATER - 500 ML IVPB SCH (12:00)
[2019-07-24] MEDS ORDERED: PT OWN MED DRAWER 7, Y5N ONE ×4 (13:14→19:35)
--- NOTE | 2019-07-24 15:38 | PN ---
Physical Exam: SUBJECTIVE: Patient seen and examined at the bedside, there were no acute events overnight. Patient feels he is improving. OBJECTIVE: Vital Signs Period Temp Pulse Resp BP Sys/Buckner Pulse Ox Last 24 Hr 98.1 F-98.7 F 76-97 20-20 132-147/72-82 97 GENERAL: The patient is awake, alert, and fully oriented, in no acute distress. HEAD: Normal with no signs of trauma. EYES: PERRL, extraocular movements intact, sclera anicteric, conjunctiva clear. No ptosis. ENT: Ears normal, nares patent, oropharynx clear without exudates, moist mucous membranes. NECK: Trachea midline, full range of motion, supple. LUNGS: Breath sounds equal, clear to auscultation bilaterally, no wheezes, no crackles, no accessory muscle use. HEART: Regular rate and rhythm, S1, S2 without murmur, rub or gallop. ABDOMEN: Soft, obese, nontender, nondistended, normoactive bowel sounds, no guarding. EXTREMITIES: 2+ pulses, warm, well-perfused, no edema, area of erythema in popliteal area of LLE with draining wound present. bloody material present on gauze. NEUROLOGICAL: Cranial nerves II through XII grossly intact. Normal speech, gait not observed. PSYCH: Normal mood, normal affect. SKIN:as noted in extremity exam Laboratory Results - last 24 hr 07/23/19 07/23/19 07/23/19 18:07 21:59 23:20 WBC RBC Hgb Hct MCV MCH MCHC RDW Plt Count MPV Absolute Neuts (auto) Neutrophils % Lymphocytes % Monocytes % Eosinophils % Basophils % Nucleated RBC % Sodium Potassium Chloride Carbon Dioxide Anion Gap BUN Creatinine Est GFR (CKD-EPI)AfAm Est GFR (CKD-EPI)NonAf POC Glucometer 195 236 Random Glucose Calcium Total Bilirubin AST ALT Alkaline Phosphatase Total Protein Albumin Vancomycin Pre-Dose 7.4 L 07/24/19 07/24/19 07/24/19 06:00 06:00 06:40 WBC 7.4 RBC 3.61 L Hgb 11.4 L Hct 33.8 L MCV 93.5 MCH 31.7 MCHC 33.9 RDW 13.3 Plt Count 239 MPV 8.0 Absolute Neuts (auto) 5.1 Neutrophils % 68.6 Lymphocytes % 16.9 Monocytes % 11.8 H Eosinophils % 2.0 Basophils % 0.7 Nucleated RBC % 0 Sodium 138 Potassium 3.5 Chloride 104 Carbon Dioxide 25 Anion Gap 9 BUN 4.8 L Creatinine 0.7 Est GFR (CKD-EPI)AfAm 120.56 Est GFR (CKD-EPI)NonAf 104.02 POC Glucometer 213 Random Glucose 229 H Calcium 8.1 L Total Bilirubin 0.9 AST 41 H ALT 69 H Alkaline Phosphatase 81 Total Protein 6.0 L Albumin 3.2 L Vancomycin Pre-Dose 07/24/19 11:29 WBC RBC Hgb Hct MCV MCH MCHC RDW Plt Count MPV Absolute Neuts (auto) Neutrophils % Lymphocytes % Monocytes % Eosinophils % Basophils % Nucleated RBC % Sodium Potassium Chloride Carbon Dioxide Anion Gap BUN Creatinine Est GFR (CKD-EPI)AfAm Est GFR (CKD-EPI)NonAf POC Glucometer 369 Random Glucose Calcium Total Bilirubin AST ALT Alkaline Phosphatase Total Protein Albumin Vancomycin Pre-Dose Active Medications Generic Name Dose Route Start Last Admin Trade Name Freq PRN Reason Stop Dose Admin Acetaminophen 650 mg 07/22/19 03:35 07/24/19 10:42 Tylenol - PO 650 mg Q6H PRN Administration Fever Atorvastatin Calcium 10 mg 07/22/19 22:00 07/23/19 22:04 Lipitor - PO Not Given HS ELVIRA Diltiazem HCl 120 mg 07/22/19 10:00 07/24/19 10:38 Cardizem Cd - PO 120 mg DAILY ELVIRA Administration Enoxaparin Sodium 40 mg 07/22/19 10:00 07/24/19 10:39 Lovenox - SQ 40 mg DAILY ELVIRA Administration Vancomycin HCl 1,500 mg/ 500 mls @ 125 mls/hr 07/24/19 12:00 07/24/19 13:19 Dextrose IVPB 125 mls/hr Q12H ELVIRA Administration Protocol Insulin Aspart 1 vial 07/22/19 07:00 07/24/19 11:36 Novolog Vial Sliding Scale - SQ 10 units ACHS ELVIRA Administration Protocol Imaging EKG--> NSR, ? septal infarct q waves in V1, V2, no ST segment changes, QTc 434 ASSESSMENT/PLAN: Henry Hamilton is a 59 year old male with a past medical history of hypertension, diabetes, herniated discs admitted for sepsis secondary to cellulitis. Sepsis secondary to L popliteal cellulitis - febrile, elevated lactic acid, wound with erythematous area around and draining - F/U LLE u/s to evaluate for possible abcess - continue vancomycin - vanc trough this evening - cd/c'd zosyn today - f/u blood and wound cxs - ID consulted, appreciate recommendations - wound care consulted, appreciate recommendations DM - BGM - ISS HTN- - continue home cardizem 120mg # Rectal bleed - patient reports small amount of blood on TP again this morning - likely hemorrhoidal , refused rectal exam or any further evaluation FEN - PO fluids - continue to monitor electrolytes and replete as necessary - sodium/diabetic diet Prophylaxis - Lovenox 40 units subq daily Code - full code Visit type - Emergency Visit Emergency Visit: Yes ED Registration Date: 07/21/19 Care time: The patient presented to the Emergency Department on the above date and was hospitalized for further evaluation of their emergent condition. - New Patient This patient is new to me today: No - Critical Care Critical Care patient: No - Discharge Referral Referred to [facility] Med [facility] No ATTENDING PHYSICIAN STATEMENT I saw and evaluated the patient. I reviewed the resident's note and discussed the case with the resident. I agree with the resident's findings and plan as documented. SUBJECTIVE: OBJECTIVE: ASSESSMENT AND PLAN:
--- NOTE | 2019-07-24 16:57 | PN ---
Progress Note (short form) - Note Progress Note: doing better no more fevers blood cultures are negative Vital Signs Period Temp Pulse Resp BP Sys/Buckner Pulse Ox Last 24 Hr 98.1 F-98.7 F 76-97 20-20 132-147/72-82 97 cor-rrr lungs clear abd soft,nt ext RLE -popliteal area with area of induration and erythema, no drainage CBC, BMP 07/24/19 06:00 07/24/19 06:00 Microbiology 07/21/19 22:54 Knee - Left Gram Stain - Final 07/21/19 22:54 Knee - Left Wound Culture - Final Mr S Aureus 07/22/19 15:00 Nares - Mrsa Screen - Right MRSA Screen - Final Mr S Aureus 07/22/19 15:00 Nares - Mrsa Screen - Left MRSA Screen - Final Mr S Aureus 07/21/19 18:58 Blood - Peripheral Venous Blood Culture - Preliminary NO GROWTH OBTAINED AFTER 48 HOURS, INCUBATION TO CONTINUE FOR 3 DAYS. 07/21/19 18:58 Blood - Peripheral Venous Blood Culture - Preliminary NO GROWTH OBTAINED AFTER 48 HOURS, INCUBATION TO CONTINUE FOR 3 DAYS. Laboratory Tests 07/23/19 23:20 Vancomycin Pre-Dose 7.4 L a/p s/p spontaneous drainage of popliteal abscess- MRSA- sensitive to clindamycin blood cultures are negative can switch to clindamycin add probiotics diabetes- management per primary team
[2019-07-24] MEDS: LACTOBACILLUS ACIDOPHILUS 1 TABLET PO SCH (17:37)
[2019-07-24] MEDS: CLINDAMYCIN 600MG PREMIX IVPB 600 MG/50 ML BAG IVPB SCH (17:37)
--- NOTE | 2019-07-24 17:45 | PN ---
Teaching Attending Note Name of Resident: Renée Youssef ATTENDING PHYSICIAN STATEMENT I saw and evaluated the patient. I reviewed the resident's note and discussed the case with the resident. I agree with the resident's findings and plan as documented. SUBJECTIVE: No fever or chills. No RANGEL. pain in cellulitis site . wiped blood again after defecation OBJECTIVE: NAD Ext: no edema or erythema on R LE. L popliteal area with hyperpigmented area , with purulent drainage expressed. decreased tenderness DP 2+ b/l. ASSESSMENT AND PLAN: 59 y/o man with h/o HTN and NIDDM who presented with pain and erythema and draining wound form L ppopliteal area. 1- Sepsis from L popliteal cellulitis. - clinda staretd today. off zosyn - surgical team was asked to reevaluate 2- DM : SSI for now 3- HTN: cont home cardizem. 4- Rectal bleed: likely hemorrhoidal , refused rectal exam again. f/u as out pt DVT PX: lovenox
[2019-07-24] MEDS ORDERED: INSULIN (NOVOLOG) ASPART 100 UNITS/ML 10ML VIAL ONE (21:27)
[2019-07-24] MEDS: ATORVASTATIN CA 10 MG TABLET (FP) PO SCH (21:58)
[2019-07-25] MEDS: CLINDAMYCIN 600MG PREMIX IVPB 600 MG/50 ML BAG IVPB SCH ×3 (01:30→18:18)
[2019-07-25] MEDS: ACETAMINOPHEN 325 MG TABLET (FP) PO PRN (06:32)
[2019-07-25] MEDS: INSULIN SLIDING SCALE (NOVOLOG) 1 VIAL SQ SCH ×4 (06:32→21:44)
[2019-07-25 06:49] LABS: EOS % 2.3 % (0-4.5); HEMATOCRIT 36.2 % (35.4-49); HEMOGLOBIN 12.4 GM/dL (11.7-16.9); LYMPH % 17.1 % (8-40); MCH 31.8 pg (25.7-33.7); MCHC 34.2 g/dl (32.0-35.9); MEAN PLT VOLUME 8.2 fl (7.5-11.1); MONO % 11.2 % (3.8-10.2); NEUT % 68.4 % (42.8-82.8); PLATELET COUNT 275 K/MM3 (134-434); RBC 3.89 M/mm3 (4.00-5.60); WHITE BLOOD COUNT 7.5 K/mm3 (4.0-10.0)
[2019-07-25 07:05] LABS: ALBUMIN 3.4 g/dl (3.4-5.0); BLOOD UREA NITROGEN 5.2 mg/dL (7-18); CALCIUM 8.6 mg/dL (8.5-10.1); CREATININE 0.7 mg/dL (0.55-1.3); POTASSIUM 3.5 mmol/L (3.5-5.1); TOT PROT 6.5 g/dl (6.4-8.2)
--- NOTE | 2019-07-25 07:37 | PN ---
Physical Exam: SUBJECTIVE: Patient seen and examined at bedside- no acute events overnight; patient states that he is feeling much better and that is pain is much improved ; he denies any CP/SOB/N/V is anxious to go home OBJECTIVE: Vital Signs Period Temp Pulse Resp BP Sys/Buckner Pulse Ox Last 24 Hr 98 F-98.6 F 87-97 20-20 132-160/70-92 98 GENERAL: The patient is awake, alert, and fully oriented, in no acute distress. EYES: PEERLA: EOMI; no scleral icterus NECK: no JVD; no lymphadenopathy LUNGS:CTA B/L; no rales, rhonchi or wheezing. HEART: Regular rate and rhythm, S1, S2 without murmur, rub or gallop. ABDOMEN: soft; NT/ND +BS in all 4 quadrants. EXTREMITIES: 2+ pulses, warm, well-perfused, no edema. RLE popliteal area with area of induration and erythema, no drainage PSYCH: Normal mood, normal affect. SKIN: Warm, dry, normal turgor, no rashes or lesions noted Laboratory Results - last 24 hr 07/24/19 07/24/19 07/24/19 06:00 11:29 17:38 Sodium 138 Potassium 3.5 Chloride 104 Carbon Dioxide 25 Anion Gap 9 BUN 4.8 L Creatinine 0.7 Est GFR (CKD-EPI)AfAm 120.56 Est GFR (CKD-EPI)NonAf 104.02 POC Glucometer 369 304 Random Glucose 229 H Calcium 8.1 L Total Bilirubin 0.9 AST 41 H ALT 69 H Alkaline Phosphatase 81 Total Protein 6.0 L Albumin 3.2 L 07/24/19 07/25/19 07/25/19 20:48 05:30 06:01 Sodium 139 Potassium 3.5 Chloride 104 Carbon Dioxide 28 Anion Gap 7 L BUN 5.2 L Creatinine 0.7 Est GFR (CKD-EPI)AfAm 120.56 Est GFR (CKD-EPI)NonAf 104.02 POC Glucometer 324 229 Random Glucose 228 H Calcium 8.6 Total Bilirubin 1.0 AST 30 ALT 69 H Alkaline Phosphatase 98 Total Protein 6.5 Albumin 3.4 Active Medications Generic Name Dose Route Start Last Admin Trade Name Freq PRN Reason Stop Dose Admin Acetaminophen 650 mg 07/22/19 03:35 07/25/19 06:32 Tylenol - PO 650 mg Q6H PRN Administration Fever Atorvastatin Calcium 10 mg 07/22/19 22:00 07/24/19 21:58 Lipitor - PO Not Given HS ELVIRA Diltiazem HCl 120 mg 07/22/19 10:00 07/24/19 10:38 Cardizem Cd - PO 120 mg DAILY ELVIRA Administration Enoxaparin Sodium 40 mg 07/22/19 10:00 07/24/19 10:39 Lovenox - SQ 40 mg DAILY ELVIRA Administration Clindamycin Phosphate 600 mg in 50 mls @ 100 mls/hr 07/24/19 18:00 07/25/19 01:30 Cleocin 600 Mg Premix Ivpb - IVPB 100 mls/hr Q8H-IV ELVIRA Administration Protocol Insulin Aspart 1 vial 07/22/19 07:00 07/25/19 06:32 Novolog Vial Sliding Scale - SQ 4 units ACHS ELVIRA Administration Protocol Lactobacillus Acidophilus 1 tab 07/24/19 17:15 07/24/19 17:37 Bacid - PO 1 tab DAILY ELVIRA Administration ASSESSMENT/PLAN: 59 year old male with a past medical history of hypertension, diabetes, herniated discs admitted for sepsis secondary to cellulitis. Sepsis secondary to L popliteal celluliti - switched to clindamycin yesterday - wound cx growing MRSA - ID consulted, appreciate recommendations -will have surgery come reevaluate -bacid DM - BGM - ISS - A1c HTN- - c/w cardizem Rectal Bleed patient had another episode yesterday -refusing rectal exam again today; will give GI referral upon dc FEN - not on fluids - continue to monitor electrolytes and replete as necessary - sodium/diabetic diet Prophylaxis - Lovenox 40 units subq daily Code Problem List - Problems (1) Cellulitis and abscess of left leg Code(s): L03.116 - CELLULITIS OF LEFT LOWER LIMB; L02.416 - CUTANEOUS ABSCESS OF LEFT LOWER LIMB Visit type - Emergency Visit Emergency Visit: Yes ED Registration Date: 07/21/19 Care time: The patient presented to the Emergency Department on the above date and was hospitalized for further evaluation of their emergent condition. - New Patient This patient is new to me today: No - Critical Care Critical Care patient: No ATTENDING PHYSICIAN STATEMENT I saw and evaluated the patient. I reviewed the resident's note and discussed the case with the resident. I agree with the resident's findings and plan as documented. SUBJECTIVE: OBJECTIVE: ASSESSMENT AND PLAN:
--- NOTE | 2019-07-25 10:46 | PN ---
Progress Note (short form) - Note Progress Note: no complaints Vital Signs Period Temp Pulse Resp BP Sys/Buckner Pulse Ox Last 24 Hr 98 F-98.6 F 87-97 20-20 132-160/70-92 98 wound examined upper aspect of wound is fluctant with scant drainage on pressure CBC, BMP 07/25/19 05:30 07/25/19 05:30 Microbiology 07/21/19 18:58 Blood - Peripheral Venous Blood Culture - Preliminary NO GROWTH OBTAINED AFTER 72 HOURS, INCUBATION TO CONTINUE FOR 2 DAYS. 07/21/19 18:58 Blood - Peripheral Venous Blood Culture - Preliminary NO GROWTH OBTAINED AFTER 72 HOURS, INCUBATION TO CONTINUE FOR 2 DAYS. 07/21/19 22:54 Knee - Left Gram Stain - Final 07/21/19 22:54 Knee - Left Wound Culture - Final Mr S Aureus 07/22/19 15:00 Nares - Mrsa Screen - Right MRSA Screen - Final Mr S Aureus 07/22/19 15:00 Nares - Mrsa Screen - Left MRSA Screen - Final Mr S Aureus a/p s/p spontaneous drainage of popliteal abscess- MRSA- needs surgical drainage blood cultures are negative continue clindamycin diabetes- management per primary team d/w hospitalist
[2019-07-25] MEDS: ENOXAPARIN NA (PORCINE) 40 MG/0.4 ML DISP.SYRIN SQ SCH (11:24)
[2019-07-25] MEDS: LACTOBACILLUS ACIDOPHILUS 1 TABLET PO SCH (11:24)
--- NOTE | 2019-07-25 13:15 | PN ---
Teaching Attending Note Name of Resident: Renée Youssef ATTENDING PHYSICIAN STATEMENT I saw and evaluated the patient. I reviewed the resident's note and discussed the case with the resident. I agree with the resident's findings and plan as documented. SUBJECTIVE: no fever or chills. pain in L popliteal area improved . cough with whitish yellowish sputum ( occasional small amount ) . again saw blood when wiping. No abd pain. OBJECTIVE: NAD CV: RRR. no MRG Lungs: CTAB Ext: no edema or erythema on R LE. L popliteal area with hyperpigmented area , with small amount of purulent drainage on dressing . no pus is expressed on exam. ASSESSMENT AND PLAN: 59 y/o man with h/o HTN and NIDDM who presented with pain and erythema and draining wound form L ppopliteal area. 1- Sepsis from L popliteal cellulitis. sepsis resolved. cellulitis area has improved - Cont clinda - will consult Dr. Rivers to evaluate wound. 2- DM: SSI for now 3- HTN: cont home cardizem. 4- Rectal bleed:cont to refuse work up including rectal exam. likely hemorrhoidal. f/u as out pt DVT PX: lovenox
[2019-07-25] MEDS: ATORVASTATIN CA 10 MG TABLET (FP) PO SCH (21:43)
[2019-07-26] MEDS: CLINDAMYCIN 600MG PREMIX IVPB 600 MG/50 ML BAG IVPB SCH ×3 (02:42→18:36)
[2019-07-26] MEDS: INSULIN SLIDING SCALE (NOVOLOG) 1 VIAL SQ SCH ×4 (06:22→22:17)
[2019-07-26 07:35] LABS: HEMATOCRIT 36.9 % (35.4-49); HEMOGLOBIN 12.8 GM/dL (11.7-16.9); MCH 32.1 pg (25.7-33.7); MCHC 34.6 g/dl (32.0-35.9); MEAN CELL VOLUME 92.9 fl (80-96); MEAN PLT VOLUME 7.9 fl (7.5-11.1); PLATELET COUNT 292 K/MM3 (134-434); RBC 3.98 M/mm3 (4.00-5.60); RDW 13.2 % (11.9-15.9); WHITE BLOOD COUNT 7.9 K/mm3 (4.0-10.0)
[2019-07-26 08:10] LABS: ALBUMIN 3.4 g/dl (3.4-5.0); BLOOD UREA NITROGEN 7.2 mg/dL (7-18); CALCIUM 8.5 mg/dL (8.5-10.1); CREATININE 0.7 mg/dL (0.55-1.3); MAGNESIUM 1.9 mg/dL (1.8-2.4); POTASSIUM 3.5 mmol/L (3.5-5.1); TOT PROT 6.6 g/dl (6.4-8.2)
[2019-07-26] MEDS: ACETAMINOPHEN 325 MG TABLET (FP) PO PRN ×2 (09:30→16:39)
[2019-07-26] MEDS: ENOXAPARIN NA (PORCINE) 40 MG/0.4 ML DISP.SYRIN SQ SCH (09:30)
[2019-07-26] MEDS: LACTOBACILLUS ACIDOPHILUS 1 TABLET PO SCH (09:31)
--- NOTE | 2019-07-26 10:25 | PN ---
Progress Note (short form) - Note Progress Note: no complaints Vital Signs Period Temp Pulse Resp BP Sys/Buckner Pulse Ox Last 24 Hr 98.3 F-98.6 F 74-103 20-20 114-156/77-94 leg wound with less erythema, induration upper aspect with serous drainage on pressure CBC, BMP 07/26/19 06:20 07/26/19 06:21 ct scan pending Microbiology 07/21/19 18:58 Blood - Peripheral Venous Blood Culture - Preliminary NO GROWTH OBTAINED AFTER 96 HOURS, INCUBATION TO CONTINUE FOR 1 DAYS. 07/21/19 18:58 Blood - Peripheral Venous Blood Culture - Preliminary NO GROWTH OBTAINED AFTER 96 HOURS, INCUBATION TO CONTINUE FOR 1 DAYS. 07/21/19 22:54 Knee - Left Gram Stain - Final 07/21/19 22:54 Knee - Left Wound Culture - Final S Aureus 07/22/19 15:00 Nares - Mrsa Screen - Right MRSA Screen - Final S Aureus 07/22/19 15:00 Nares - Mrsa Screen - Left MRSA Screen - Final S Aureus Current Medications Acetaminophen (Tylenol -) 650 mg PO Q6H PRN PRN Reason: Fever Last Admin: 07/26/19 09:30 Dose: 650 mg Atorvastatin Calcium (Lipitor -) 10 mg PO HS ELVIRA Last Admin: 07/25/19 21:43 Dose: Not Given Diltiazem HCl (Cardizem Cd -) 120 mg PO DAILY ELVIRA Last Admin: 07/26/19 09:31 Dose: 120 mg Enoxaparin Sodium (Lovenox -) 40 mg SQ DAILY ELVIRA Last Admin: 07/26/19 09:30 Dose: 40 mg Clindamycin Phosphate (Cleocin 600 Mg Premix Ivpb -) 600 mg in 50 mls @ 100 mls /hr IVPB Q8H-IV ELVIRA; Protocol Last Admin: 07/26/19 09:31 Dose: 100 mls/hr Insulin Aspart (Novolog Vial Sliding Scale -) 1 vial SQ ACHS ELVIRA; Protocol Last Admin: 07/26/19 06:22 Dose: 6 units Lactobacillus Acidophilus (Bacid -) 1 tab PO DAILY ELVIRA Last Admin: 07/26/19 09:31 Dose: 1 tab a/p s/p spontaneous drainage of popliteal abscess- MRSA- appears to be draining spontaneously again- serous fluid now blood cultures are negative f/u imaging f/u with surgery plan for switch to po clindamycin 300 tid for another 5 to 7 days-f/u PMD or wound care continue probiotics for one month diabetes- management per primary team
--- NOTE | 2019-07-26 13:52 | CONSULT ---
Consult Consult Specialty:: General Surgery Referred by:: Edu Damian Reason for Consultation:: left popliteal/upper calf cellulitis, ?abscess - History of Present Illness Chief Complaint: pain behind left knee, swelling, drainage History of Present Illness: 59yo obese M with HTN, HLD, DM2 (no insulin) had pain behind left knee so bad he couldn't walk almost a month ago, and he Googled it. Thought he had a ruptured Melo's cyst, and that cold pack and ibuprofen should help, so he put a cold/ice pack on the area (directly on skin) and fell asleep. Subsequently, he had redness and blistering of skin in the area, but did not seek medical attention at first. He continued to have pain, and tried to see orthopedist, but could not get appointment soon enough, and came to ER eventually. He is admitted to medicine with cellulitis of left posterior upper calf near popliteal fossa, and has had intermittent episodes of a little drainage/ expressible fluid from the site, cultured in ER as MRSA. He is on antibiotics per ID, and the site has been improving, but he still has an area of induration , tenderness, redness, and was thought to possibly be forming an abscess. Ultrasound did not show subcutaneous collection, CT was done yesterday (not read yet) as well. WBC had been up, now normal. He also had fever and shaking chills in ER before admission, which resolved quickly. Vascular saw pt earlier, with dressing recommendations; surgery is asked to assess. He is seen and examined in bed. He reports being "99% improved" but still with a little pain, mostly on knee flexion. No more fever or chills. Able to ambulate. He reports sugars at home tend to run high 100s/low 200s, and he tries to keep them under 200. He sees Dr. 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 Had colonoscopy about 10 yrs ago for blood in stool, is overdue for followup. Using nasal O2 because the humidity helps him breathe better. - History Source History Provided By: Patient Limitations to Obtaining History: No Limitations - Past Medical History Cardio/Vascular: Yes: HTN, Hyperlipdemia Pulmonary: Yes: Other (chronic dry cough ~2-3years) Endocrine: Yes: Diabetes Mellitus - Past Surgical History Additional Surgical History: hammertoe surgery left foot, spinal injections - Alcohol/Substance Use Hx Alcohol Use: Yes (SOCIAL) History of Substance Use: reports: None - Smoking History Smoking history: Never smoked Have you smoked in the past 12 months: No - Social History Usual Living Arrangement: With Spouse ADL: Independent Occupation: unemployed senior financial accountant History of Recent Travel: No Home Medications - Allergies Allergies/Adverse Reactions: Allergies Allergy/AdvReac Type Severity Reaction Status Date / Time No Known Allergies Allergy Verified 07/21/19 18:37 - Home Medications Home Medications: Ambulatory Orders Diltiazem Cd [Cardizem Cd -] 120 mg PO DAILY 07/21/19 Glipizide [Glucotrol -] 10 mg PO BID 07/21/19 Simvastatin [Zocor] 10 mg PO HS 07/21/19 metFORMIN HCL [Metformin ER Gastric] 1,000 mg PO BID 07/21/19 Budesonide/Formeterol Fumarate [SYMBICORT 80/4.5mcg -] 2 puff PRN PRN 07/22/19 Pioglitazone HCl 10 mg PO DAILY 07/22/19 Family Medical History Family History: Unremarkable (noncontributory) Review of Systems - Review of Systems Constitutional: denies: Chills, Fever Eyes: reports: Other (wears glasses). denies: Recent Change in Vision HENT: denies: Difficult Swallowing, Throat Pain Neck: denies: Swollen Glands, Tenderness Cardiovascular: denies: Chest Pain, Palpitations Respiratory: reports: Cough. denies: SOB Gastrointestinal: denies: Abdominal Pain, Constipation, Diarrhea, Nausea, Vomiting Genitourinary: denies: Burning, Dysuria Musculoskeletal: reports: Back Pain, Extremity Pain (with hpi). denies: Joint Swelling Integumentary: reports: Blister (after cold pack few weeks ago), Erythema (with hpi), Lump (with hpi), Wound (with hpi). denies: Rash Neurological: reports: Headache (in hospital only). denies: Dizziness Psychiatric: denies: Anxiety, Depression (situational - unemployed) Physical Exam Vital Signs: Vital Signs Temperature 98.0 F 07/26/19 10:51 Pulse Rate 67 07/26/19 10:51 Respiratory Rate 18 07/26/19 10:51 Blood Pressure 143/67 07/26/19 10:51 O2 Sat by Pulse Oximetry (%) 98 07/25/19 09:00 Constitutional: Yes: No Distress, Calm, Obese Eyes: Yes: Conjunctiva Clear, EOM Intact, Other (glasses) HENT: Yes: Atraumatic, Normocephalic Neck: Yes: Supple, Trachea Midline Cardiovascular: Yes: Regular Rate and Rhythm Respiratory: Yes: Regular, CTA Bilaterally, On Nasal O2 Gastrointestinal: Yes: Normal Bowel Sounds, Soft, Abdomen, Obese. No: Tenderness ...Rectal Exam: Yes: Deferred Renal/: No: CVA Tenderness - Left, CVA Tenderness - Right Musculoskeletal: Yes: Other (knee flexion slightly limited secondary to local pain, but can bend most of the way). No: Joint Stiffness, Joint Swelling Extremities: Yes: Erythema (local upper left posterior calf). No: Cool, Cyanosis Edema: No Peripheral Pulses WNL: Yes Integumentary: Yes: Erythema (see below). No: Jaundice, Rash Wound/Incision: Yes: Dressing Dry and Intact, Dressing Removed (replaced with small gauze dressing and paper tape), Reddened (locally pink, but appears to be fading), Other (thin scab flaked off inferior spot - tiny spot of granulation tissue, no opening; upper indurated area at left superior posterior calf near popliteal fossa with small red closed ulcer (1-2mm), back end of cotton-tipped applicator used to enter into subcutaneous tissue with drop of serosang drainage ; cotton tip used to open laterally into tiny subcu space under indurated site, minimal bloody drops, no pus, maybe 1ml of oily, red/bloody drainage expressed - - corner of 2x2 gauze wicked into space, rest piled on top, covered with small gauze and paper tape to hold). No: Draining Neurological: Yes: Alert, Oriented Psychiatric: Yes: Alert, Oriented Labs: CBC, BMP 07/26/19 06:20 07/26/19 06:21 CMP Sodium 137 mmol/L (136-145) 07/26/19 06:21 Potassium 3.5 mmol/L (3.5-5.1) 07/26/19 06:21 Chloride 100 mmol/L (98-107) 07/26/19 06:21 Carbon Dioxide 29 mmol/L (21-32) 07/26/19 06:21 Anion Gap 8 MMOL/L (8-16) 07/26/19 06:21 BUN 7.2 mg/dL (7-18) 07/26/19 06:21 Creatinine 0.7 mg/dL (0.55-1.3) 07/26/19 06:21 Est GFR (CKD-EPI)AfAm 120.56 07/26/19 06:21 Est GFR (CKD-EPI)NonAf 104.02 07/26/19 06:21 POC Glucometer 397 UNITS (80-120) 07/26/19 11:24 Random Glucose 260 mg/dL (74-106) H 07/26/19 06:21 Hemoglobin A1c % 8.7 % (4.2-6.3) H 07/22/19 06:38 Lactic Acid 1.1 mmol/L (0.4-2.0) 07/23/19 00:21 Calcium 8.5 mg/dL (8.5-10.1) 07/26/19 06:21 Magnesium 1.9 mg/dL (1.8-2.4) 07/26/19 06:21 Total Bilirubin 1.0 mg/dL (0.2-1) 07/26/19 06:21 AST 26 U/L (15-37) 07/26/19 06:21 ALT 62 U/L (13-61) H 07/26/19 06:21 Alkaline Phosphatase 103 U/L (45-117) 07/26/19 06:21 Troponin I < 0.02 ng/ml (0.00-0.05) 07/21/19 22:54 Total Protein 6.6 g/dl (6.4-8.2) 07/26/19 06:21 Albumin 3.4 g/dl (3.4-5.0) 07/26/19 06:21 Triglycerides 94 mg/dL (0-150) 07/22/19 06:38 Cholesterol 87 mg/dL (50-200) 07/22/19 06:38 Total LDL Cholesterol 48 mg/dL (5-100) 07/22/19 06:38 HDL Cholesterol 31 mg/dL (40-60) L 07/22/19 06:38 INR, PTT INR 1.17 (0.83-1.09) H 07/21/19 22:29 Microbiology 07/21/19 18:58 Blood Culture - Preliminary Blood - Peripheral Venous NO GROWTH OBTAINED AFTER 96 HOURS, INCUBATION TO CONTINUE FOR 1 DAYS. 07/21/19 18:58 Blood Culture - Preliminary Blood - Peripheral Venous NO GROWTH OBTAINED AFTER 96 HOURS, INCUBATION TO CONTINUE FOR 1 DAYS. Microbiology 07/21/19 18:58 Blood - Peripheral Venous Blood Culture - Preliminary NO GROWTH OBTAINED AFTER 96 HOURS, INCUBATION TO CONTINUE FOR 1 DAYS. 07/21/19 18:58 Blood - Peripheral Venous Blood Culture - Preliminary NO GROWTH OBTAINED AFTER 96 HOURS, INCUBATION TO CONTINUE FOR 1 DAYS. 07/21/19 22:54 Knee - Left Gram Stain - Final 07/21/19 22:54 Knee - Left Wound Culture - Final Mr S Aureus 07/22/19 15:00 Nares - Mrsa Screen - Right MRSA Screen - Final Mr S Aureus 07/22/19 15:00 Nares - Mrsa Screen - Left MRSA Screen - Final Mr S Aureus Imaging - Results Cat Scan: Image Reviewed (left upper posterior calf, near popliteal fossa - superficial subcutaneous stranding/edema, no clear fluid collection identified, no apparent involvement below fascia/muscle) Ultrasound: Report Reviewed Problem List - Problems (1) Cellulitis of left lower leg Code(s): L03.116 - CELLULITIS OF LEFT LOWER LIMB (2) Furuncle of left lower extremity Code(s): L02.426 - FURUNCLE OF LEFT LOWER LIMB (3) MRSA infection Code(s): A49.02 - METHICILLIN RESIS STAPH INFECTION, UNSP SITE (4) Superficial frostbite of left knee and lower leg, sequela Code(s): T33.72XS - SUPERFICIAL FROSTBITE OF LEFT KNEE AND LOWER LEG, SEQUELA (5) Diabetes mellitus with skin complication, without long-term current use of insulin Code(s): E11.628 - TYPE 2 DIABETES MELLITUS WITH OTHER SKIN COMPLICATIONS Qualifiers: Diabetes mellitus type: type 2 Diabetes mellitus complication detail: with other skin complication Qualified Code(s): E11.628 - Type 2 diabetes mellitus with other skin complications (6) Hypertension Code(s): I10 - ESSENTIAL (PRIMARY) HYPERTENSION Qualifiers: Hypertension type: essential hypertension Qualified Code(s): I10 - Essential (primary) hypertension Assessment/Plan superficial MRSA infection with cellulitis of left upper posterior calf near popliteal fossa improving with IV antibiotics, tiny subcutaneous space opened into from surface wound wicked with gauze, scant bloody drainage, no elian pus leave dressing x 24 hours, will remove and reassess tomorrow should then be able to continue local dressing/wound care and antibiotics per ID with d/c home if still improving will need to follow up with PMD and/or wound clinic (Dr. Maynard/seen earlier by vascular) glucose control - consider endo referral outpatient, pt may discuss with PMD hold metformin until tomorrow pm (after CT w/IV contrast) discussed with Dr. Damian and Dr. Stinson
--- NOTE | 2019-07-26 14:12 | PN ---
Progress Note (short form) - Note Progress Note: Subjective: no fever or chills. pain in L popliteal area is better . No diarrhea Objective: Vital Signs: Last Vital Signs Temp Pulse Resp BP Pulse Ox 98.0 F 67 18 143/67 98 07/26/19 10:51 07/26/19 10:51 07/26/19 10:51 07/26/19 10:51 07/25/19 09:00 Laboratory Results - last 24 hr 07/25/19 07/25/19 07/26/19 17:47 20:57 06:20 WBC 7.9 RBC 3.98 L Hgb 12.8 Hct 36.9 MCV 92.9 MCH 32.1 MCHC 34.6 RDW 13.2 Plt Count 292 MPV 7.9 Sodium Potassium Chloride Carbon Dioxide Anion Gap BUN Creatinine Est GFR (CKD-EPI)AfAm Est GFR (CKD-EPI)NonAf POC Glucometer 377 284 Random Glucose Calcium Magnesium Total Bilirubin AST ALT Alkaline Phosphatase Total Protein Albumin 07/26/19 07/26/19 07/26/19 06:21 06:21 11:24 WBC RBC Hgb Hct MCV MCH MCHC RDW Plt Count MPV Sodium 137 Potassium 3.5 Chloride 100 Carbon Dioxide 29 Anion Gap 8 BUN 7.2 Creatinine 0.7 Est GFR (CKD-EPI)AfAm 120.56 Est GFR (CKD-EPI)NonAf 104.02 POC Glucometer 273 397 Random Glucose 260 H Calcium 8.5 Magnesium 1.9 Total Bilirubin 1.0 AST 26 ALT 62 H Alkaline Phosphatase 103 Total Protein 6.6 Albumin 3.4 Physical Exam: NAD CV: RRR. no MRG Lungs: CTAB Ext: no edema or erythema on R LE. L popliteal area with hyperpigmented area , with no discharge when squeezed . slightly tender to touch ASSESSMENT AND PLAN: 59 y/o man with h/o HTN and NIDDM who presented with pain and erythema and draining wound form L ppopliteal area. 1- Sepsis from L popliteal cellulitis. sepsis resolved. cellulitis improved - CT scan reviewed, no collection on my review, reading is pending - Case d/w Dr. Saxena, a small packing was placed, no pus was drained - Packing to be removed tomorrow. and wound to be inspected 2- DM: SSI for now 3- HTN: cont home cardizem. 4- Rectal bleed: f/u as outpt DVT PX: lovenox possible dc tomorrow on po abx Visit type - Emergency Visit Emergency Visit: Yes ED Registration Date: 07/21/19 Care time: The patient presented to the Emergency Department on the above date and was hospitalized for further evaluation of their emergent condition. - New Patient This patient is new to me today: No - Critical Care Critical Care patient: No
[2019-07-26] MEDS: ATORVASTATIN CA 10 MG TABLET (FP) PO SCH (22:17)
[2019-07-27] MEDS: CLINDAMYCIN 600MG PREMIX IVPB 600 MG/50 ML BAG IVPB SCH ×2 (02:06→10:37)
[2019-07-27] MEDS ORDERED: INSULIN (NOVOLOG) ASPART 100 UNITS/ML 10ML VIAL ONE ×3 (06:55→12:00)
[2019-07-27] MEDS: INSULIN SLIDING SCALE (NOVOLOG) 1 VIAL SQ SCH ×3 (06:56→17:37)
[2019-07-27] MEDS: ENOXAPARIN NA (PORCINE) 40 MG/0.4 ML DISP.SYRIN SQ SCH (10:37)
[2019-07-27] MEDS: LACTOBACILLUS ACIDOPHILUS 1 TABLET PO SCH (10:43)
--- NOTE | 2019-07-27 12:22 | PN ---
Teaching Attending Note Name of Resident: Mallory Baker ATTENDING PHYSICIAN STATEMENT I saw and evaluated the patient. I reviewed the resident's note and discussed the case with the resident. I agree with the resident's findings and plan as documented. SUBJECTIVE: No fever or chills. No RANGEL , no SOB , no cough. no pain in L popliteal area any mor e OBJECTIVE: NAD CV: RRR. no MRG Lungs: CTAB Ext: no edema or erythema on R LE. L popliteal area with hyperpigmented area , and a small area of induration with a small packing in. No discharge ASSESSMENT AND PLAN: 59 y/o man with h/o HTN and NIDDM who presented with pain and erythema and draining wound form L popliteal area. 1- Sepsis from L popliteal cellulitis. sepsis resolved. cellulitis improved d/w Dr. Rivers. smaller gauze was tucked in, to be removed by patiet tomorrow. Ok to shower and needs to cover it with gauze and tape until it heals. cont clinda x 7 days after dc 2- DM: cont metformin at dc . can start tomorrow . elevation in sugar is likely due to Abx that are mixed in d5( confirmed with pharmacist ) diabetic diet at dc 3- HTN: cont home cardizem. 4- Rectal bleed: f/u as outpt. will refer to GI Dc home today
--- NOTE | 2019-07-27 12:24 | PN ---
Progress Note, Physician History of Present Illness: Pt with cellulitis and MRSA furuncle at left posterior calf next to popliteal fossa, after superficial frostbite injury few weeks ago. Space opened slightly yesterday and dressed with scant bloody drainage only. Seen and examined in bed. Has been ambulating. States it feels better today, can move better and almost no pain. - Current Medication List Current Medications: Active Medications Acetaminophen (Tylenol -) 650 mg PO Q6H PRN PRN Reason: Fever Last Admin: 07/26/19 16:39 Dose: 650 mg Atorvastatin Calcium (Lipitor -) 10 mg PO HS ELVIRA Last Admin: 07/26/19 22:17 Dose: 10 mg Diltiazem HCl (Cardizem Cd -) 120 mg PO DAILY ELVIRA Last Admin: 07/27/19 10:43 Dose: 120 mg Enoxaparin Sodium (Lovenox -) 40 mg SQ DAILY ELVIRA Last Admin: 07/27/19 10:37 Dose: 40 mg Clindamycin Phosphate (Cleocin 600 Mg Premix Ivpb -) 600 mg in 50 mls @ 100 mls /hr IVPB Q8H-IV ELVIRA; Protocol Last Admin: 07/27/19 10:37 Dose: 100 mls/hr Insulin Aspart (Novolog Vial Sliding Scale -) 1 vial SQ ACHS ELVIRA; Protocol Last Admin: 07/27/19 12:06 Dose: 10 units Lactobacillus Acidophilus (Bacid -) 1 tab PO DAILY ELVIRA Last Admin: 07/27/19 10:43 Dose: 1 tab - Objective Vital Signs: Vital Signs Temperature 97.4 F L 07/27/19 05:00 Pulse Rate 84 07/27/19 05:00 Respiratory Rate 16 07/26/19 23:14 Blood Pressure 132/85 07/27/19 05:00 O2 Sat by Pulse Oximetry (%) 95 07/26/19 21:00 Labs: CBC, BMP 07/26/19 06:20 07/26/19 06:21 INR, PTT INR 1.17 (0.83-1.09) H 07/21/19 22:29 Problem List - Problems (1) Cellulitis of left lower leg Code(s): L03.116 - CELLULITIS OF LEFT LOWER LIMB (2) Furuncle of left lower extremity Code(s): L02.426 - FURUNCLE OF LEFT LOWER LIMB (3) MRSA infection Code(s): A49.02 - METHICILLIN RESIS STAPH INFECTION, UNSP SITE (4) Superficial frostbite of left knee and lower leg, sequela Code(s): T33.72XS - SUPERFICIAL FROSTBITE OF LEFT KNEE AND LOWER LEG, SEQUELA (5) Diabetes mellitus with skin complication, without long-term current use of insulin Code(s): E11.628 - TYPE 2 DIABETES MELLITUS WITH OTHER SKIN COMPLICATIONS Qualifiers: Qualified Code(s): E11.628 - Type 2 diabetes mellitus with other skin complications (6) Hypertension Code(s): I10 - ESSENTIAL (PRIMARY) HYPERTENSION Qualifiers: Qualified Code(s): I10 - Essential (primary) hypertension
[2019-07-27 14:25] VITALS: BP 114/88; PULSE 98; TEMP 98.2
--- NOTE | 2019-07-27 14:26 | DS ---
Physical Exam: SUBJECTIVE: Patient seen and examined at the bedside, there were no acute events overnight. The patient reports pain has diminished greatly and that he is feeling well. OBJECTIVE: Vital Signs Period Temp Pulse Resp BP Sys/Buckner Pulse Ox Last 24 Hr 97.4 F-98.6 F 80-98 16-20 114-139/85-92 95 PHYSICAL EXAM GENERAL: The patient is awake, alert, and fully oriented, in no acute distress. HEAD: Normal with no signs of trauma. EYES: PERRL, extraocular movements intact, sclera anicteric, conjunctiva clear. ENT: Ears normal, nares patent, oropharynx clear without exudates, moist mucous membranes. NECK: Trachea midline, full range of motion, supple. LUNGS: Breath sounds equal, clear to auscultation bilaterally, no wheezes, no crackles, no accessory muscle use. HEART: Regular rate and rhythm, S1, S2 without murmur, rub or gallop. ABDOMEN: Soft, nontender, nondistended, normoactive bowel sounds, no guarding, no rebound, no hepatosplenomegaly, no masses. EXTREMITIES: 2+ pulses, warm, well-perfused, no edema. NEUROLOGICAL: Cranial nerves II through XII grossly intact. Normal speech, gait not observed. PSYCH: Normal mood, normal affect. SKIN: Warm, dry, normal turgor, no rashes or lesions noted. LABS Laboratory Results - last 24 hr 07/26/19 07/26/19 07/27/19 16:55 21:09 06:26 POC Glucometer 354 341 264 07/27/19 11:55 POC Glucometer 360 HOSPITAL COURSE: Date of Admission:07/21/19 Patient presented to emergency room for fever, chills, pain and erythema in the left popliteal fossa and admitted for sepsis secondary to cellulitis of left lower extremity. Blood and wound cultures were obtained, and patient treated empirically with IV Zosyn and vancomycin. Patient was given 500cc NS bolus and started on NS at 125cc/hr. ID consulted and agreed with plan. Ultrasound of left lower extremity and CT were negative for any abscess formation. After wound cultures can back positive for MRSA, Zosyn was discontinued and patient remained on vancomycin. Blood cultures resulted negative. Clinically, margins of erythema decreased with use of antibiotics and patients pain improved. Lactic acid of 2.2 on admission trended down to 1.1. Patient remained afebrile for 72 hours. WBC of 11.0 on admission trended down to 7.9. ID recommended de- escalating to clindamycin, as it is sensitive to MRSA and can be transitioned to PO on discharge. General surgery was consulted and performed a small I+D, however there was not much drainage. The wound was cleaned and packed the patient was transitioned to oral antibiotics with outpatient follow up at the wound clinic. Patient experienced one bowel movement with bloody stool, but refused digital rectal examination for FOBT. Recommended patient follow up with PCP and GI. Date of Discharge: 07/27/19 Minutes to complete discharge: 40 Discharge Summary Reason For Visit: SEPSIS,CELLULITIS AND ABSCESS OF LEFT LOWER Current Active Problems Cellulitis and abscess of left leg (Acute) MRSA infection (Acute) Hypertension (Chronic) Condition: Improved - Instructions Diet, Activity, Other Instructions: You were in the hospital because you had an infection of your left lower leg behind the knee. While in the hospital you got several days of IV antibiotics and improved. The general surgeon saw you to make a small incision to help the infected area drain. We transitioned you to oral antibiotics and you were discharged home. Incidentally, while in the hospital you noted a small amount of bright rest blood on the tissue paper after you had a bowel movement. The most likely cause is hemorrhoids but you did not wish to have a rectal exam at this time. Please follow up with your GI doctor as an outpatient. Please continue all of your home medicines as prescribed with the following changes: - ADD: Clindamycin 300mg every 8 hours for 7 more days. Do not miss any dose even if you need to wake up at night to take it Please follow up with the following doctors within the next week: - Dr. Ramon, your primary care doctor - Dr. Moody, the GI doctor to evaluate the bleeding If you have continued bleeding, or experience worsening pain in the lower extremity, fevers or chills, please return to the Emergency Department immediately. please cover the wound with a clean gauze, with a big tape , change at least twice a day and as needed and keep dry and intact. you may shower but dry wound before you apply a new clean dressing. Referrals: Germán Ramon MD [Primary Care Provider] - 1 Week DiGiorno,Lonnie, DO [Staff Physician] - 1 Week Disposition: HOME - Home Medications Comprehensive Discharge Medication List: Ambulatory Orders Diltiazem Cd [Cardizem Cd -] 120 mg PO DAILY 07/21/19 Glipizide [Glucotrol -] 10 mg PO BID 07/21/19 Simvastatin [Zocor -] 10 mg PO HS 07/21/19 metFORMIN HCL [Metformin ER Gastric] 1,000 mg PO BID 07/21/19 Budesonide/Formeterol Fumarate [SYMBICORT 80/4.5mcg -] 2 puff PRN PRN 07/22/19 Pioglitazone HCl 10 mg PO DAILY 07/22/19 Clindamycin [Cleocin -] 300 mg PO Q8H #21 capsule 07/27/19 L.acidoph,Paracasei, B.lactis [Probiotic] 1 each PO DAILY #30 capsule 07/27/19 This patient is new to me today: No Emergency Visit: Yes ED Registration Date: 07/21/19 Care time: The patient presented to the Emergency Department on the above date and was hospitalized for further evaluation of their emergent condition. Critical Care patient: No - Discharge Referral Referred to [facility] Med P.C.: No ATTENDING PHYSICIAN STATEMENT I saw and evaluated the patient. I reviewed the resident's note and discussed the case with the resident. I agree with the resident's findings and plan as documented. SUBJECTIVE: OBJECTIVE: ASSESSMENT AND PLAN:
== END 2019-07-27 17:37 | disposition home or self-care (01) | DRG 720 ==
LOC: JER 18:28 → JERBED 22:51 → J8W 07-22 05:02
PROVIDERS: ADMIT Internal Medicine; ATTEND Internal Medicine
DX: A41.89 Other specified sepsis (principal); L03.116 Cellulitis of left lower limb; I10 Essential (primary) hypertension; R00.0 Tachycardia, unspecified; E11.65 Type 2 diabetes mellitus with hyperglycemia; E66.8 Other obesity; Z68.41 Body mass index [BMI] 40.0-44.9, adult; K64.8 Other hemorrhoids; E78.5 Hyperlipidemia, unspecified; L02.426 Furuncle of left lower limb; A49.02 Methicillin resistant Staphylococcus aureus infection, unspecified site; E11.628 Type 2 diabetes mellitus with other skin complications
CPT/HCPCS: 36415; 71045-TC-FY; 71046-TC-FY; 73701-TC-RT; 76882-TC-RT-FY; 80053; 80061; 82803; 82962; 83036; 83605; 83721; 83735; 84484; 85025; 85027; 85610; 85730; 87040; 87070; 87081; 87186; 87205; 93005; 93010; 99284-25; G0480; J0131; J7030

== ENCOUNTER 2019-10-23 08:09 | Day surgery (SDC) | payer OTHER ==
[2019-10-21 19:38] VITALS: BMI 38.0
[2019-10-23] MEDS ORDERED: PROPOFOL 20 ML ONE ×2 (09:21)
[2019-10-23] MEDS ORDERED: LIDOCAINE HCL/PF 2% SDV 5ML VIAL ONE (09:22)
[2019-10-23] MEDS ORDERED: DEXAMETHASONE SOD PHOSPHATE 4 MG/1 ML VIAL ONE (09:22)
[2019-10-23] MEDS ORDERED: ONDANSETRON 4 MG/2 ML VIAL ONE (09:22)
[2019-10-23] MEDS ORDERED: KETOROLAC TROMETHAMINE 30 MG/1 ML VIAL ONE (09:22)
[2019-10-23] MEDS ORDERED: ceFAZolin SODIUM 1 GM VIAL ONE ×2 (09:22→10:05)
[2019-10-23] MEDS ORDERED: SUCCINYLCHOLINE CHLORIDE 200 MG/10 ML SYRINGE ONE (09:22)
[2019-10-23] MEDS ORDERED: MIDAZOLAM HCL 2 MG/2 ML SINGLE DOSE VIAL ONE (09:22)
[2019-10-23] MEDS ORDERED: LIDOCAINE HCL 2% JELLY (5 ML/TUBE) ONE (09:22)
[2019-10-23] MEDS ORDERED: BUPIVACAINE HCL/PF 2.5 MG/ML - 30 ML VIAL IJ ONE (09:28)
[2019-10-23] MEDS ORDERED: oxyCODONE HCL 5 MG TABLET PO PRN ×2 (09:55)
[2019-10-23] MEDS ORDERED: ONDANSETRON 4 MG/2 ML VIAL IVPUSH PRN (09:55)
[2019-10-23] MEDS ORDERED: LACTATED RINGERS SOLUTION 1,000 ML IV SCH (10:00)
[2019-10-23] MEDS ORDERED: ePHEDrine SULFATE 50 MG/1 ML AMPULE ONE (10:17)
[2019-10-23] MEDS ORDERED: oxyCODONE HCL 5 MG TABLET ONE (12:25)
--- NOTE | 2019-10-23 13:10 | OP ---
DATE OF OPERATION: 10/23/2019 Done at [facility] SURGEON: Toney Skelton MD HORTICULTURALIST: ELICEO Larson PREOPERATIVE DIAGNOSES: 1. Left knee medial and lateral meniscal tear. 2. Left knee cartilage injury. 3. Left knee synovitis. POSTOPERATIVE DIAGNOSES: 1. Left knee medial and lateral meniscal tear. 2. Left knee cartilage injury. 3. Left knee synovitis. PROCEDURES: 1. Left knee arthroscopy, partial meniscectomy medial and lateral meniscus, CPT code 27460. 2. Right knee arthroscopy with chondroplasty and abrasion-plasty, CPT code 91198. 3. Right knee arthroscopy with synovectomy, CPT code 96349. FINDINGS: 1. Medial meniscus posterior horn tear. 2. Lateral meniscus [id number]-ti-[id number] horn tear. 3. Synovitis patellofemoral medial and lateral notch area. 4. Diffuse grade 1-2 cartilage injury medial joint line. 5. ACL and PCL intact. 6. Central grade 2-3 cartilage injury 4 cm x 2 cm lateral tibial plateau with 1-2 changes anterolateral tibiofemoral condyle. 7. Central grade 2-3 cartilage injury central portion of patella with small area of grade 4 changes at site of synovial adhesion anterior patellofemoral trochlea. PROCEDURE: Informed consent was obtained. The patient came to the operating room, where the lower extremity was prepped and draped in a sterile fashion. A tourniquet was placed on the upper thigh, but not inflated. Using standard arthroscopic technique, a lateral incision and portal was made to allow for introduction of the camera into the suprapatellar bursa. This was then taken to the medial joint line, where under direct visualization, a medial incision and portal was made. Excessive synovium noted in the medial, lateral and patellofemoral and notch area was removed by an upbiter, shaver and Bovie cautery. This was found to bring in inflammatory tissue into the joint surface, a source of pain and dysfunction. Probing of the medial and lateral meniscus found tears, as described in the findings. These were removed with the upbiter and shaver and taken back to a stable rim. Grade 2 to 3 degenerative changes were treated with a chondroplasty, removing all flaking surfaces with low-setting Bovie along the periphery to prevent further flaking. Grade 4 changes, as noted, were treated with an abrasoplasty, creating a bleeding surface at the bone/cartilage interface. Aggressive debridement with shaver/johnson created bleeding surface. Micro fracture also done when indicated in findings. All areas of the knee were once again reexamined. The knee was then drained and a single suture was placed in all portals. A sterile dressing was placed and the patient was transferred to the recovery room without complication. The PA listed above was present and assisted at surgery. Their presence was absolutely medically necessary for the completion of the procedure. They helped hold the arthroscopy, pass instruments (and implants when indicated) and the procedure could not have been completed without their assistance. TONEY SKELTON M.D. [id number]
[2019-10-23 14:01] VITALS: TEMP 98.1
[2019-10-23 14:03] VITALS: PULSE 96
[2019-10-23 14:07] VITALS: BP 146/77
== END 2019-10-23 14:15 | disposition home or self-care (01) ==
LOC: FASU 08:09
PROVIDERS: ATTEND Orthopaedic Surgery
PROC: 0SBD4ZZ Excision of Left Knee Joint, Percutaneous Endoscopic Approach (ICD-10-PCS; 2019-10-23)
PROC: 0SBD4ZZ Excision of Left Knee Joint, Percutaneous Endoscopic Approach (ICD-10-PCS; 2019-10-23)
PROC: 0SBD4ZZ Excision of Left Knee Joint, Percutaneous Endoscopic Approach (ICD-10-PCS; principal; 2019-10-23 10:17)
DX: S83.242A Other tear of medial meniscus, current injury, left knee, initial encounter (principal); S83.282A Other tear of lateral meniscus, current injury, left knee, initial encounter; S83.8X2A Sprain of other specified parts of left knee, initial encounter; M65.862 Other synovitis and tenosynovitis, left lower leg; X58.XXXA Exposure to other specified factors, initial encounter; Y93.9 Activity, unspecified; Y92.9 Unspecified place or not applicable
CPT/HCPCS: 82962; 87077; 87081; 94760

== ENCOUNTER 2020-10-21 11:54 | Inpatient (IN) | payer OTHER ==
[2020-10-21] MEDS ORDERED: CLINDAMYCIN 600MG PREMIX IVPB 600 MG/50 ML BAG IVPB ONE ×2 (13:03→13:40)
[2020-10-21] MEDS ORDERED: SODIUM CHLORIDE 1,000 ML IV STA (13:03)
[2020-10-21 14:28] LABS: EOS % 1.1 % (0-4.5); HEMATOCRIT 44.1 % (35.4-49); HEMOGLOBIN 14.8 GM/dL (11.7-16.9); MCH 31.4 pg (25.7-33.7); MCHC 33.7 g/dl (32.0-35.9); MEAN CELL VOLUME 93.3 fl (80-96); MEAN PLT VOLUME 8.4 fl (7.5-11.1); MONO % 9.3 % (3.8-10.2); NEUT % 76.6 % (42.8-82.8); PLATELET COUNT 310 K/MM3 (134-434); RBC 4.73 M/mm3 (4.00-5.60); RDW 13.6 % (11.9-15.9); WHITE BLOOD COUNT 12.2 K/mm3 (4.0-10.0)
[2020-10-21 14:35] LABS: INR 1.03 (0.83-1.09); PROTHROMBIN TIME (PATIENT) 12.5 SEC (9.7-13.0)
[2020-10-21 14:39] LABS: ALBUMIN 4.4 g/dl (3.4-5.0); BLOOD UREA NITROGEN 7.1 mg/dL (7-18); CALCIUM 8.6 mg/dL (8.5-10.1)
[2020-10-21 14:42] LABS: CREATININE 0.8 mg/dL (0.55-1.3)
[2020-10-21 14:44] LABS: BILIRUBIN,TOTAL 1.4 mg/dL (0.2-1); TOT PROT 7.8 g/dl (6.4-8.2)
[2020-10-21] MEDS ORDERED: morphine CARPU-JECT 2 MG/1 ML DISP.SYRIN IM PRN (16:06)
[2020-10-21] MEDS ORDERED: ACETAMINOPHEN 325 MG TABLET (FP) ONE (16:57)
[2020-10-21] MEDS: ACETAMINOPHEN 325 MG TABLET (FP) PO PRN (17:06)
[2020-10-21] MEDS ORDERED: morphine CARPU-JECT 2 MG/1 ML DISP.SYRIN IM ONE (17:15)
[2020-10-21] MEDS ORDERED: glipiZIDE 5 MG TABLET (FP) ONE (21:26)
[2020-10-21] MEDS: CLINDAMYCIN 600MG PREMIX IVPB 600 MG/50 ML BAG IVPB SCH (21:42)
[2020-10-21] MEDS: ATORVASTATIN CA 10 MG TABLET (FP) PO SCH (21:46)
[2020-10-21] MEDS: glipiZIDE 10 MG TABLET (FP) PO SCH (21:46)
[2020-10-21] MEDS: INSULIN SLIDING SCALE (NOVOLOG) 1 VIAL SQ SCH (21:47)
[2020-10-21] MEDS ORDERED: PATIENT'S OWN MEDICATION (NON-FORMULARY) (Metformin Hcl [Metformin Er Gastric] 1,000 MG Ta PO SCH (22:00)
[2020-10-21] MEDS ORDERED: PATIENT'S OWN MEDICATION (NON-FORMULARY) (Simvastatin 10 MG Tablet) PO SCH (22:00)
[2020-10-22] MEDS: ACETAMINOPHEN 325 MG TABLET (FP) PO PRN ×3 (00:15→17:22)
[2020-10-22] MEDS: CLINDAMYCIN 600MG PREMIX IVPB 600 MG/50 ML BAG IVPB SCH ×4 (05:01→22:12)
[2020-10-22] MEDS ORDERED: glipiZIDE 5 MG TABLET (FP) ONE (06:34)
[2020-10-22] MEDS: glipiZIDE 10 MG TABLET (FP) PO SCH (06:45)
[2020-10-22] MEDS: INSULIN SLIDING SCALE (NOVOLOG) 1 VIAL SQ SCH ×4 (06:46→22:28)
[2020-10-22 09:06] LABS: BASO % 1.3 % (0-2.0); EOS % 1.4 % (0-4.5); HEMATOCRIT 43.5 % (35.4-49); HEMOGLOBIN 14.7 GM/dL (11.7-16.9); LYMPH % 16.3 % (8-40); MCH 31.1 pg (25.7-33.7); MCHC 33.8 g/dl (32.0-35.9); MEAN PLT VOLUME 8.2 fl (7.5-11.1); MONO % 9.6 % (3.8-10.2); NEUT % 71.4 % (42.8-82.8); PLATELET COUNT 332 K/MM3 (134-434); RBC 4.73 M/mm3 (4.00-5.60); RDW 13.1 % (11.9-15.9); WHITE BLOOD COUNT 12.8 K/mm3 (4.0-10.0)
[2020-10-22] MEDS ORDERED: VANCOMYCIN HCL 1,500 MG in DEXTROSE 5%-WATER - 500 ML IVPB ONE (13:00)
[2020-10-22] MEDS ORDERED: INSULIN (NOVOLOG) ASPART 100 UNITS/ML 10ML VIAL ONE (17:18)
[2020-10-22] MEDS ORDERED: PIPERACILLIN/TAZOBACTAM 4.5 GM VIAL IVPB ONE (22:14)
[2020-10-22] MEDS ORDERED: DEXTROSE 5%-WATER 100 ML IVPB ONE (22:14)
[2020-10-22] MEDS: PIPERACILLIN/TAZOB 4.5 GM 4.5 GM in DEXTROSE 5%-WATER 100 ML IVPB SCH (22:27)
[2020-10-22] MEDS: ATORVASTATIN CA 10 MG TABLET (FP) PO SCH (22:27)
[2020-10-23] MEDS ORDERED: PIPERACILLIN/TAZOBACTAM 4.5 GM VIAL IVPB ONE ×4 (01:33→16:37)
[2020-10-23] MEDS ORDERED: DEXTROSE 5%-WATER 100 ML IVPB ONE ×4 (01:33→16:37)
[2020-10-23] MEDS: PIPERACILLIN/TAZOB 4.5 GM 4.5 GM in DEXTROSE 5%-WATER 100 ML IVPB SCH ×3 (01:58→17:00)
[2020-10-23] MEDS: VANCOMYCIN HCL 1,250 MG in DEXTROSE 5%-WATER - 250 ML IVPB SCH ×2 (01:58→12:58)
[2020-10-23] MEDS: INSULIN SLIDING SCALE (NOVOLOG) 1 VIAL SQ SCH ×4 (06:34→21:52)
[2020-10-23 09:07] LABS: HEMOGLOBIN 12.8 GM/dL (11.7-16.9); MCHC 33.7 g/dl (32.0-35.9); MEAN CELL VOLUME 91.8 fl (80-96); MEAN PLT VOLUME 8.3 fl (7.5-11.1); PLATELET COUNT 311 K/MM3 (134-434); RBC 4.14 M/mm3 (4.00-5.60); RDW 13.2 % (11.9-15.9); WHITE BLOOD COUNT 9.1 K/mm3 (4.0-10.0)
[2020-10-23] MEDS ORDERED: traMADol HCL 50 MG TABLET PO PRN (09:09)
[2020-10-23] MEDS ORDERED: INSULIN (NOVOLOG) ASPART 100 UNITS/ML 10ML VIAL ONE (09:56)
[2020-10-23 09:57] LABS: ERYTHROCYTE SEDIMENTATION RATE 24 mm/hr (0-20)
[2020-10-23] MEDS ORDERED: ENOXAPARIN NA (PORCINE) 120 MG/0.8 ML DISP.SYRIN SQ SCH (10:00)
[2020-10-23] MEDS: INSULIN (LEVEMIR) 100 UNITS/ML UNITS SQ SCH ×2 (11:24→21:54)
[2020-10-23] MEDS: ATORVASTATIN CA 10 MG TABLET (FP) PO SCH (21:54)
[2020-10-24] MEDS ORDERED: PT OWN MED DRAWER 7, Y5N ONE (00:10)
[2020-10-24] MEDS: VANCOMYCIN HCL 1,250 MG in DEXTROSE 5%-WATER - 250 ML IVPB SCH ×2 (00:19→13:09)
[2020-10-24] MEDS ORDERED: PIPERACILLIN/TAZOBACTAM 4.5 GM VIAL IVPB ONE ×2 (03:27→09:59)
[2020-10-24] MEDS ORDERED: DEXTROSE 5%-WATER 100 ML IVPB ONE ×2 (03:27→09:59)
[2020-10-24] MEDS: PIPERACILLIN/TAZOB 4.5 GM 4.5 GM in DEXTROSE 5%-WATER 100 ML IVPB SCH ×2 (03:29→10:03)
[2020-10-24] MEDS: INSULIN (LEVEMIR) 100 UNITS/ML UNITS SQ SCH ×2 (06:28→22:35)
[2020-10-24] MEDS: INSULIN SLIDING SCALE (NOVOLOG) 1 VIAL SQ SCH ×4 (06:29→22:36)
[2020-10-24] MEDS: ENOXAPARIN NA (PORCINE) 60 MG/0.6 ML DISP.SYRIN SQ SCH (10:03)
[2020-10-24] MEDS ORDERED: INSULIN (NOVOLOG) ASPART 100 UNITS/ML 10ML VIAL SQ ONE ×2 (10:17→13:09)
[2020-10-24] MEDS ORDERED: INSULIN (LEVEMIR) 100 UNITS/ML UNITS SQ SCH (10:19)
[2020-10-24] MEDS ORDERED: INSULIN (LEVEMIR) 100 UNITS/ML UNITS SQ ONE (11:00)
[2020-10-24] MEDS: ATORVASTATIN CA 10 MG TABLET (FP) PO SCH (22:35)
[2020-10-24 22:41] VITALS: BMI 40.3
[2020-10-25] MEDS ORDERED: PT OWN MED DRAWER 7, Y5N ONE ×2 (01:38→13:48)
[2020-10-25] MEDS: VANCOMYCIN HCL 1,250 MG in DEXTROSE 5%-WATER - 250 ML IVPB SCH ×2 (01:50→14:29)
[2020-10-25] MEDS: INSULIN (LEVEMIR) 100 UNITS/ML UNITS SQ SCH ×2 (06:37→21:29)
[2020-10-25] MEDS: INSULIN SLIDING SCALE (NOVOLOG) 1 VIAL SQ SCH ×4 (06:39→21:27)
[2020-10-25 08:56] LABS: BASO % 0.9 % (0-2.0); EOS % 3.7 % (0-4.5); HEMATOCRIT 45.1 % (35.4-49); HEMOGLOBIN 15.3 GM/dL (11.7-16.9); LYMPH % 16.3 % (8-40); MCH 31.1 pg (25.7-33.7); MCHC 33.8 g/dl (32.0-35.9); MEAN PLT VOLUME 7.8 fl (7.5-11.1); MONO % 11.2 % (3.8-10.2); NEUT % 67.9 % (42.8-82.8); PLATELET COUNT 348 K/MM3 (134-434); RDW 12.7 % (11.9-15.9); WHITE BLOOD COUNT 11.2 K/mm3 (4.0-10.0)
[2020-10-25 09:37] LABS: ALBUMIN 3.9 g/dl (3.4-5.0); BLOOD UREA NITROGEN 13.2 mg/dL (7-18); CALCIUM 9.4 mg/dL (8.5-10.1); MAGNESIUM 2.2 mg/dL (1.8-2.4)
[2020-10-25] MEDS: ENOXAPARIN NA (PORCINE) 60 MG/0.6 ML DISP.SYRIN SQ SCH (09:38)
[2020-10-25 09:42] LABS: BILIRUBIN,TOTAL 1.6 mg/dL (0.2-1); TOT PROT 7.4 g/dl (6.4-8.2)
[2020-10-25] MEDS ORDERED: INSULIN (NOVOLOG) ASPART 100 UNITS/ML 10ML VIAL ONE (11:29)
[2020-10-25] MEDS: ATORVASTATIN CA 10 MG TABLET (FP) PO SCH (21:30)
[2020-10-26] MEDS ORDERED: PT OWN MED DRAWER 7, Y5N ONE (00:17)
[2020-10-26] MEDS: VANCOMYCIN HCL 1,250 MG in DEXTROSE 5%-WATER - 250 ML IVPB SCH ×2 (01:29→13:21)
[2020-10-26] MEDS ORDERED: INSULIN (NOVOLOG) ASPART 100 UNITS/ML 10ML VIAL SQ ONE (06:44)
[2020-10-26] MEDS: INSULIN SLIDING SCALE (NOVOLOG) 1 VIAL SQ SCH ×4 (07:11→21:52)
[2020-10-26] MEDS: INSULIN (LEVEMIR) 100 UNITS/ML UNITS SQ SCH ×2 (07:11→21:52)
[2020-10-26] MEDS ORDERED: LIDOCAINE 1%/EPI 1:100000 (50 ML MULTI DOSE VIAL) ONE (07:13)
[2020-10-26] MEDS ORDERED: LIDOCAINE HCL 1%, 10 MG/ML (20ML VIAL) ONE (07:13)
[2020-10-26] MEDS ORDERED: LIDOCAINE 1%/EPI 1:100000 (20 ML MULTI DOSE VIAL) IJ ONE ×2 (08:21)
[2020-10-26] MEDS ORDERED: MUPIROCIN 2% TOPICAL OINTMENT 22 GM TUBE TP SCH (08:30)
[2020-10-26] MEDS ORDERED: MUPIROCIN 2% TOPICAL OINTMENT 22 GM TUBE TP ONE (08:50)
[2020-10-26] MEDS ORDERED: HYDROmorphone HCl 2 MG/ML VIAL ONE (09:11)
[2020-10-26] MEDS ORDERED: MIDAZOLAM HCL 2 MG/2 ML SINGLE DOSE VIAL ONE (09:11)
[2020-10-26] MEDS ORDERED: traMADol HCL 50 MG TABLET PO PRN (10:14)
[2020-10-26] MEDS ORDERED: ONDANSETRON 4 MG/2 ML VIAL IVPUSH PRN (10:33)
[2020-10-26] MEDS: LACTATED RINGERS SOLUTION 1,000 ML IV SCH ×2 (11:25→17:34)
[2020-10-26] MEDS: MUPIROCIN 2% TOPICAL OINTMENT 22 GM TUBE TP SCH (11:29)
[2020-10-26] MEDS: ACETAMINOPHEN 325 MG TABLET (FP) PO PRN (11:30)
[2020-10-26 11:39] LABS: BASO % 0.7 % (0-2.0); EOS % 2.6 % (0-4.5); HEMATOCRIT 42.4 % (35.4-49); HEMOGLOBIN 14.1 GM/dL (11.7-16.9); LYMPH % 17.2 % (8-40); MCHC 33.4 g/dl (32.0-35.9); MEAN PLT VOLUME 7.8 fl (7.5-11.1); MONO % 12.4 % (3.8-10.2); NEUT % 67.1 % (42.8-82.8); PLATELET COUNT 331 K/MM3 (134-434); RBC 4.55 M/mm3 (4.00-5.60); RDW 13.1 % (11.9-15.9); WHITE BLOOD COUNT 10.1 K/mm3 (4.0-10.0)
[2020-10-26 11:48] LABS: INR 1.12 (0.83-1.09); PROTHROMBIN TIME (PATIENT) 13.7 SEC (9.7-13.0)
[2020-10-26 12:08] LABS: CALCIUM 9.5 mg/dL (8.5-10.1)
[2020-10-26 12:09] LABS: ALBUMIN 3.7 g/dl (3.4-5.0); BLOOD UREA NITROGEN 18.5 mg/dL (7-18); MAGNESIUM 2.1 mg/dL (1.8-2.4)
[2020-10-26 12:12] LABS: CREATININE 1.3 mg/dL (0.55-1.3)
[2020-10-26 12:13] LABS: BILIRUBIN,TOTAL 1.5 mg/dL (0.2-1); TOT PROT 6.8 g/dl (6.4-8.2)
[2020-10-26] MEDS ORDERED: ACETAMINOPHEN/CAFFEINE/BUTALBITAL 1 TAB PO ONE (15:40)
[2020-10-26] MEDS ORDERED: BENZOCAINE/MENTH/CETYLPYRD CL 1 EACH LOZENGE MM ONE (15:40)
[2020-10-26] MEDS ORDERED: ATORVASTATIN CA 10 MG TABLET (FP) PO SCH (22:00)
[2020-10-27] MEDS ORDERED: PT OWN MED DRAWER 7, Y5N ONE (01:14)
[2020-10-27] MEDS: ACETAMINOPHEN 325 MG TABLET (FP) PO PRN (01:31)
[2020-10-27] MEDS: VANCOMYCIN HCL 1,250 MG in DEXTROSE 5%-WATER - 250 ML IVPB SCH ×2 (01:33→13:41)
[2020-10-27] MEDS: LACTATED RINGERS SOLUTION 1,000 ML IV SCH ×2 (01:34→08:06)
[2020-10-27] MEDS: INSULIN SLIDING SCALE (NOVOLOG) 1 VIAL SQ SCH ×3 (06:22→17:00)
[2020-10-27] MEDS: INSULIN (LEVEMIR) 100 UNITS/ML UNITS SQ SCH (06:22)
[2020-10-27 06:42] VITALS: TEMP 98
[2020-10-27 08:12] LABS: BASO % 1.4 % (0-2.0); EOS % 3.8 % (0-4.5); HEMATOCRIT 40.9 % (35.4-49); HEMOGLOBIN 13.9 GM/dL (11.7-16.9); LYMPH % 16.9 % (8-40); MCH 31.4 pg (25.7-33.7); MCHC 34.1 g/dl (32.0-35.9); MEAN CELL VOLUME 92.2 fl (80-96); MEAN PLT VOLUME 7.6 fl (7.5-11.1); MONO % 7.7 % (3.8-10.2); NEUT % 70.2 % (42.8-82.8); PLATELET COUNT 300 K/MM3 (134-434); RBC 4.44 M/mm3 (4.00-5.60); RDW 12.8 % (11.9-15.9); WHITE BLOOD COUNT 8.5 K/mm3 (4.0-10.0)
[2020-10-27 09:05] LABS: ALBUMIN 3.5 g/dl (3.4-5.0); CALCIUM 9.1 mg/dL (8.5-10.1)
[2020-10-27] MEDS: MUPIROCIN 2% TOPICAL OINTMENT 22 GM TUBE TP SCH (09:05)
[2020-10-27 09:06] LABS: BLOOD UREA NITROGEN 12.7 mg/dL (7-18)
[2020-10-27 09:09] LABS: CREATININE 1.1 mg/dL (0.55-1.3)
[2020-10-27 09:10] LABS: BILIRUBIN,TOTAL 1.6 mg/dL (0.2-1); TOT PROT 6.6 g/dl (6.4-8.2)
[2020-10-27] MEDS ORDERED: ENOXAPARIN NA (PORCINE) 60 MG/0.6 ML DISP.SYRIN SQ SCH (10:00)
[2020-10-27 14:37] VITALS: BP 138/82; PULSE 87
[2020-10-27] MEDS ORDERED: SULFAMETHOXAZOLE/TRIMETHOPRIM 800MG/160MG D.S. TABLET PO SCH (22:00)
== END 2020-10-27 18:53 | disposition home or self-care (01) | DRG 364 ==
LOC: JER 11:54 → JERBED 15:18 → J6S 18:40
PROVIDERS: ADMIT Internal Medicine; ATTEND Internal Medicine
PROC: 0JB10ZZ Excision of Face Subcutaneous Tissue and Fascia, Open Approach (ICD-10-PCS; 2020-10-26)
PROC: 0JQ10ZZ Repair Face Subcutaneous Tissue and Fascia, Open Approach (ICD-10-PCS; 2020-10-26)
PROC: 0J910ZZ Drainage of Face Subcutaneous Tissue and Fascia, Open Approach (ICD-10-PCS; principal; 2020-10-26 08:00)
DX: L03.211 Cellulitis of face (principal); E11.52 Type 2 diabetes mellitus with diabetic peripheral angiopathy with gangrene; E66.01 Morbid (severe) obesity due to excess calories; Z68.41 Body mass index [BMI] 40.0-44.9, adult; L02.01 Cutaneous abscess of face; E11.65 Type 2 diabetes mellitus with hyperglycemia; A49.02 Methicillin resistant Staphylococcus aureus infection, unspecified site; E11.628 Type 2 diabetes mellitus with other skin complications; I10 Essential (primary) hypertension; I96 Gangrene, not elsewhere classified; Z03.818 Encounter for observation for suspected exposure to other biological agents ruled out
CPT/HCPCS: 36415; 70486-TC; 71045-TC-FY; 80053; 82962; 83036; 83735; 85025; 85027; 85610; 85651; 86140; 86850; 86900; 86901; 87040; 87070; 87186; 87205; 88304-TC; 93005; 93010; 94760; 99285-25; C9803; G0480; U0003